=== PATIENT | male | born 1945 | race Caucasian/White ===

== ENCOUNTER 2016-11-17 06:35 | Emergency (ER) | payer MEDICARE, BC ==
[2016-11-17] MEDS ORDERED: TYLENOL 325 MG PO STA (07:32)
[2016-11-17] MEDS ORDERED: TYLENOL 325 MG ONE (07:35)
--- NOTE | 2016-11-17 07:39 | ERPHSYRPT ---
- History of Present Illness Time Seen by Provider: 11/17/16 07:20 Source: patient Exam Limitations: clinical condition Patient Subjective Stated Complaint: states that he slipped and gideon his back while getting dressed yesterday morning - is having back spasms this morning Triage Nursing Assessment: ambulatory to treatment area - steady gait - moves all extremities with equal strength. alert/oriented - pleasant affect. skin pwd - no rash/injury. resps easy - non-labored Physician History: PATIENT WITH HISTORY CORONARY ARTERY DISEASE HAD NEAR FALL WHILE PUTTING ON HIS PANTS, TWISTING HIS LOWER BACK AND NOW HAS LOWER BACK PAIN WORSE UPON MOTION AND STANDING, DENIES FALL TO FLOOR, RADIATION OF PAIN INTO BUTTOCKS OR LEGS. Timing/Duration: today Method of Injury: near fall, twisted Quality: sharp Back Pain Location: lumbar spine Severity of Pain-Max: moderate Severity of Pain-Current: moderate Modifying Factors: Improves With: movement Associated Symptoms: lower back pain, muscle spasms Previous symptoms: no prior history Allergies/Adverse Reactions: doxycycline Allergy (Mild, Verified 11/17/16 06:40) dizzy and nasuea Home Medications: Aspirin [Aspirin EC] 81 mg PO DAILY 12/01/15 [History] Fenofibrate 160 mg PO DAILY 12/01/15 [History] Losartan Potassium 50 mg [Cozaar 50 MG] 50 mg PO DAILY 12/01/15 [History] Metoprolol Tartrate 50 mg [Lopressor 50 MG] 50 mg PO BID 12/01/15 [History ] Multivitamin [Multi-Vitamin Daily] 1 tab PO DAILY 12/01/15 [History] Pravastatin Sodium 80 mg PO HS 12/01/15 [History] Rivaroxaban [Xarelto] 20 mg PO DAILY 12/01/15 [History] Hx Tetanus, Diphtheria Vaccination/Date Given: Yes Hx Influenza Vaccination/Date Given: Yes Hx Pneumococcal Vaccination/Date Given: No Immunizations Up to Date: Yes - Review of Systems Constitutional: No Fever, No Chills Eyes: No Symptoms Ears, Nose, & Throat: No Symptoms Respiratory: No Symptoms, No Cough, No Dyspnea Cardiac: No Chest Pain, No Edema, No Syncope Abdominal/Gastrointestinal: No Abdominal Pain, No Nausea, No Vomiting, No Diarrhea Genitourinary Symptoms: No Dysuria Musculoskeletal: Injury, No Back Pain, No Neck Pain Skin: No Rash Neurological: No Symptoms, No Dizziness, No Focal Weakness, No Sensory Changes Psychological: No Symptoms Endocrine: No Symptoms All Other Systems: Reviewed and Negative - Past Medical History Pertinent Past Medical History: Yes Neurological History: No Pertinent History ENT History: No Pertinent History Cardiac History: Arrhythmia, Coronary Artery Disease, High Cholesterol, Hypertension, Myocardial Infarction ([place]) Respiratory History: No Pertinent History Endocrine Medical History: No Pertinent History Musculoskeletal History: No Pertinent History GI Medical History: Colorectal Cancer, Liver Cancer History: No Pertinent History Psycho-Social History: No Pertinent History Male Reproductive Disorders: No Pertinent History Other Medical History: colon cancer - 2004. a-fib - Past Surgical History Past Surgical History: Yes Neuro Surgical History: No Pertinent History Cardiac: Cardiac Stent, Vascular Surgery Respiratory: Chest Surgery, Other Gastrointestinal: Cholecystectomy, Colon Resection, Hernia Repair, Other Genitourinary: No Pertinent History Musculoskeletal: No Pertinent History Male Surgical History: No Pertinent History Other Surgical History: LIVER RESECTION DUE TO CANCER. 4 heart stents. cvl port placement and removal. hiatal hernia repair = complications with collapsed lung during OR - Social History Smoking Status: Never smoker How long have you smoked: 30 Exposure to second hand smoke: No Alcohol Use: None Drug Use: none Patient Lives Alone: No Significant Family History: no pertinent family hx - Nursing Vital Signs Temperature: 97.7 F Pulse Rate: 68 Respiratory Rate: 14 Pain Intensity: 7 - Physical Exam General Appearance: mild distress Eye Exam: PERRL/EOMI, eyes nml inspection Neck Exam: normal inspection, non-tender, supple, full range of motion, No meningismus, No midline tenderness Respiratory Exam: normal breath sounds, lungs clear, No respiratory distress Cardiovascular Exam: regular rate/rhythm, normal heart sounds Gastrointestinal Exam: soft, No tenderness, No mass Back Exam: normal inspection, decreased range of motion, muscle spasm, point tenderness (LEFT PARASPINAL L-2 TO L-4, THERE IS NO SACROILIAC TENDERNESS) Extremity Exam: normal inspection, normal range of motion, No calf tenderness, No pedal edema Peripheral Pulses: carotid (R): 2+, carotid (L): 2+, femoral (R): 2+, femoral (L ): 2+, dorsalis-pedis (R): 2+, dorsalis-pedis (L): 2+ Neurologic Exam: alert, oriented x 3, cooperative, 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, normal mood/affect, nml station & gait, sensation nml, No motor deficits Skin Exam: normal color, warm, dry, No rash SpO2 Interpretation: normal SpO2: 98 Oxygen Delivery: Room Air - Radiology Exams L-Spine X-ray Interpretation: Interpreted by me, No Fracture, No Subluxation Ordered Tests: Active Orders 24 hr Category Date Time Status LUMBAR COMPLETE (MIN 4 VIEWS) Stat Exams 11/17/16 07:33 Taken Medication Summary Discontinued Medications Generic Name Dose Route Start Last Admin Trade Name Julianne PRN Reason Stop Dose Admin Acetaminophen 650 mg 11/17/16 07:32 11/17/16 07:37 Tylenol 325 Mg PO 11/17/16 07:33 650 mg STAT STA Administration Acetaminophen Confirm 11/17/16 07:35 Tylenol 325 Mg Administered 11/17/16 07:36 Dose 650 mg .ROUTE .STK-MED ONE - Progress Progress: pain not gone completely Progress Note: 11/17/16 07:39 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 NORFLEX 100MG TWICE DAILY NEEDED FOR MUSCLE SPASM. CONSULT YOUR FAMILY PHYSICIAN IN 1 WEEK FOR EVALUATION AND PHYSICAL THERAPY. Prescriptions: Hydrocodone/APAP 10/325 mg [[place] 10/325 MG Tablet] 1 tab PO Q4H PRN PRN # 15 tablet PRN Reason: Pain Orphenadrine Citrate 100 mg [Norflex 100 MG Tablet] 100 mg PO BID PRN #14 tab
[2016-11-17 08:39] VITALS: BP 129/78; PULSE 85; O2SAT 96
--- NOTE | 2016-11-17 09:16 | XRAY ---
Indication: Low back pain following fall. Comparison: None 5 views of the lumbar spine demonstrates 5 lumbar vertebral segments in normal alignment with mild osteopenia, mild L5-S1 degenerative disc space narrowing, and mild bilateral L5-S1 degenerative facet arthropathy. Additional mild degenerative changes of both hips. No acute fracture, subluxation, or pars interarticularis defect. There are scattered moderate vascular calcifications, diffuse scattered surgical clips, and pelvic suture material. Impression: Nonacute lumbar spine with chronic features.
== END 2016-11-17 08:39 | disposition home or self-care (01) ==
LOC: ED 06:35
DX: S33.5XXA Sprain of ligaments of lumbar spine, initial encounter (principal); I25.10 Atherosclerotic heart disease of native coronary artery without angina pectoris; X50.0XXA Overexertion from strenuous movement or load, initial encounter; M54.5 Low back pain
CPT/HCPCS: 72110; 99282; A9270-GY

== ENCOUNTER 2018-04-18 19:05 | Emergency (ER) | payer MEDICARE ==
--- NOTE | 2018-04-18 19:42 | ERPHSYRPT ---
- History of Present Illness Time Seen by Provider: 04/18/18 19:28 Source: patient Exam Limitations: no limitations Patient Subjective Stated Complaint: pt states he began having pain in his lt arm after pushing up to get off the couch. denies specific injury to lt arm. Triage Nursing Assessment: pt alert and oreinted, answers questions approp. pt ambulatory with steady gait noted, respirations nonlabored with lungs cta. skin pink warm and dry. radial pulse and cap refill to lt wnl. 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 pt reports decreased sensation to lt hand. strength to bilat lower ext wnl and equal. Physician History: Pt started c/o pain in his left elbow area, radiating to the upper arm end his forearm. He denies injury, lifting, no swelling, no neck pain, or chest pain, cough, SOB, fever, nausea, or vomiting, other complaints. He took a Tylenol without any relief. Occurred: this afternoon, hours ago (7) Quality: constant Severity of Pain-Max: severe Severity of Pain-Current: severe Extremities Pain Location: elbow: left Modifying Factors: Improves With: immobilization, movement Associated Symptoms: none Allergies/Adverse Reactions: doxycycline Allergy (Mild, Verified 04/18/18 19:26) dizzy and nasuea Home Medications: Aspirin [Aspirin EC] 81 mg PO DAILY 12/01/15 [History] Fenofibrate 160 mg PO DAILY 12/01/15 [History] Metoprolol Tartrate 50 mg [Lopressor 50 MG] 100 mg PO BID 12/01/15 [ History] Multivitamin [Multi-Vitamin Daily] 1 tab PO DAILY 12/01/15 [History] Pravastatin Sodium 80 mg PO HS 12/01/15 [History] Rivaroxaban [Xarelto] 20 mg PO DAILY 12/01/15 [History] Hx Tetanus, Diphtheria Vaccination/Date Given: Yes Hx Influenza Vaccination/Date Given: Yes Hx Pneumococcal Vaccination/Date Given: No Immunizations Up to Date: Yes - Review of Systems Constitutional: No Symptoms Cardiac: No Symptoms Musculoskeletal: Joint Pain All Other Systems: Reviewed and Negative - Past Medical History Pertinent Past Medical History: Yes Neurological History: No Pertinent History ENT History: No Pertinent History Cardiac History: Hypertension, Myocardial Infarction ([place]) Respiratory History: No Pertinent History Endocrine Medical History: No Pertinent History Musculoskeletal History: Osteoarthritis GI Medical History: Colorectal Cancer, Liver Cancer History: No Pertinent History Psycho-Social History: No Pertinent History Male Reproductive Disorders: No Pertinent History Other Medical History: colon cancer - 2004. a-fib - Past Surgical History Past Surgical History: Yes Neuro Surgical History: No Pertinent History Cardiac: Cardiac Stent, Vascular Surgery Respiratory: Chest Surgery, Other Gastrointestinal: Cholecystectomy, Colon Resection, Hernia Repair, Other Genitourinary: No Pertinent History Musculoskeletal: No Pertinent History Male Surgical History: No Pertinent History Other Surgical History: LIVER RESECTION DUE TO CANCER. 4 heart stents. cvl port placement and removal. hiatal hernia repair = complications with collapsed lung during OR - Social History Smoking Status: Former smoker How long have you smoked: 30 Exposure to second hand smoke: No Alcohol Use: None Drug Use: none Patient Lives Alone: Yes Significant Family History: no pertinent family hx - Nursing Vital Signs Nursing Vital Signs: Initial Vital Signs Temperature 97.8 F 04/18/18 19:17 Pulse Rate 89 04/18/18 19:17 Respiratory Rate 18 04/18/18 19:17 Blood Pressure 134/89 04/18/18 19:17 O2 Sat by Pulse Oximetry 98 04/18/18 19:17 Pain Scale Pain Intensity 8 - Physical Exam General Appearance: no apparent distress Eyes, Ears, Nose, Throat Exam: normal ENT inspection, moist mucous membranes Neck Exam: normal inspection, non-tender, supple, No carotid bruit, No JVD Cardiovascular/Respiratory Exam: chest non-tender, normal breath sounds, no ecchymosis, no JVD, irregularly irregular Abdominal Exam: non-tender, soft, No tenderness Shoulder Exam: normal inspection, non-tender, no evidence of injury Elbow/Forearm Exam: normal inspection, no evidence of injury, bone tenderness ( left radial epicondyle area, no swelling, redness or warmth, diminished motions due to pain, good distal pulses and sensation.) Wrist Exam: normal inspection, non-tender Hand Exam: normal inspection, non-tender Neuro/Tendon Exam: normal sensation, normal motor functions Mental Status Exam: alert, oriented x 3 Skin Exam: normal color, warm, dry, No rash SpO2 Interpretation: normal SpO2: 98 Oxygen Delivery: Room Air - Course Nursing assessment & vital signs reviewed: Yes EKG Interpreted by Me: RATE (82/min), A-fib, Left [place] Deviation, Non-specific ST Changes - Radiology Exams Left Elbow X-ray Interpretation: Interpreted by me, Negative Ordered Tests: Active Orders 24 hr Category Date Time Status EKG-ER Only STAT Care 04/18/18 19:35 Active IV Insertion STAT Care 04/18/18 19:35 Active Sling Application STAT Care 04/18/18 22:03 Ordered ELBOW (MINIMUM 3 VIEWS) Stat Exams 04/18/18 19:36 Taken CBC W DIFF Stat Lab 04/18/18 20:40 Completed CK-Creatinine Phosphokinase Stat Lab 04/18/18 20:40 Completed CMP Stat Lab 04/18/18 20:40 Completed PROTIME WITH INR Stat Lab 04/18/18 20:40 Completed PTT Stat Lab 04/18/18 20:40 Completed TROPONIN Q3H Lab 04/18/18 20:40 Completed TROPONIN Q3H Lab 04/18/18 22:45 Ordered TROPONIN Q3H Lab 04/19/18 01:45 Ordered TROPONIN Q3H Lab 04/19/18 04:45 Ordered TROPONIN Q3H Lab 04/19/18 07:45 Ordered Medication Summary Discontinued Medications Generic Name Dose Route Start Last Admin Trade Name Freq PRN Reason Stop Dose Admin Hydrocodone Bitart/Acetaminophen 1 tab 04/18/18 22:03 Elizabeth 5/325 Mg PO 04/18/18 22:04 STAT ONE Lab/Rad Data: Laboratory Result Diagrams 04/18/18 20:40 04/18/18 20:40 Laboratory Results 04/18/18 04/18/18 04/18/18 Range/Units 20:40 20:40 20:40 WBC (4.0-10.5) K/mm3 RBC (4.1-5.6) M/mm3 Hgb (12.5-18.0) gm/dl Hct (42-50) % MCV (78-100) fl MCH (26-32) pg MCHC (32-36) g/dl RDW (11.5-14.0) % Plt Count (150-450) K/mm3 MPV (6-9.5) fl Gran % (36.0-66.0) % Eos # (Auto) (0-0.5) Absolute Lymphs (auto) (1.0-4.6) Absolute Monos (auto) (0.0-1.3) Lymphocytes % (24.0-44.0) % Monocytes % (0.0-12.0) % Eosinophils % (0.00-5.0) % Basophils % (0.0-0.4) % Absolute Granulocytes (1.4-6.9) Basophils # (0-0.4) PT 40.0 H (8.83-12.87) SECONDS INR 3.40 H (0.8-3.0) APTT 39.6 H (24.1-36.1) SECONDS Sodium 142 (137-145) mmol/L Potassium 4.9 (3.5-5.1) mmol/L Chloride 106 (98-107) mmol/L Carbon Dioxide 27 (22-30) mmol/L Anion Gap 14.3 (5-15) MEQ/L BUN 26 H (9-20) mg/dL Creatinine 1.18 (0.66-1.25) mg/dL Estimated GFR > 60.0 ML/MIN Glucose 95 (74-106) mg/dL Calcium 10.0 (8.4-10.2) mg/dL Total Bilirubin 1.00 (0.2-1.3) mg/dL AST 46 (17-59) U/L ALT 28 (0-50) U/L Alkaline Phosphatase 41 (38-126) U/L Creatine Kinase 65 (55-170) U/L Troponin I < 0.012 (0.000-0.034) ng/mL Serum Total Protein 6.9 (6.3-8.2) g/dL Albumin 4.2 (3.5-5.0) g/dL 04/18/18 Range/Units 20:40 WBC 6.6 (4.0-10.5) K/mm3 RBC 4.96 (4.1-5.6) M/mm3 Hgb 15.9 (12.5-18.0) gm/dl Hct 47.2 (42-50) % MCV 95.2 (78-100) fl MCH 32.1 H (26-32) pg MCHC 33.7 (32-36) g/dl RDW 13.3 (11.5-14.0) % Plt Count 183 (150-450) K/mm3 MPV 11.0 H (6-9.5) fl Gran % 57.9 (36.0-66.0) % Eos # (Auto) 0.21 (0-0.5) Absolute Lymphs (auto) 1.91 (1.0-4.6) Absolute Monos (auto) 0.65 (0.0-1.3) Lymphocytes % 28.8 (24.0-44.0) % Monocytes % 9.8 (0.0-12.0) % Eosinophils % 3.2 (0.00-5.0) % Basophils % 0.3 (0.0-0.4) % Absolute Granulocytes 3.84 (1.4-6.9) Basophils # 0.02 (0-0.4) PT (8.83-12.87) SECONDS INR (0.8-3.0) APTT (24.1-36.1) SECONDS Sodium (137-145) mmol/L Potassium (3.5-5.1) mmol/L Chloride (98-107) mmol/L Carbon Dioxide (22-30) mmol/L Anion Gap (5-15) MEQ/L BUN (9-20) mg/dL Creatinine (0.66-1.25) mg/dL Estimated GFR ML/MIN Glucose (74-106) mg/dL Calcium (8.4-10.2) mg/dL Total Bilirubin (0.2-1.3) mg/dL AST (17-59) U/L ALT (0-50) U/L Alkaline Phosphatase (38-126) U/L Creatine Kinase (55-170) U/L Troponin I (0.000-0.034) ng/mL Serum Total Protein (6.3-8.2) g/dL Albumin (3.5-5.0) g/dL - Progress Progress: unchanged Progress Note: 04/18/18 22:05: Patient has been stable, denies chest pain or SOB, dizziness, I discussed the results with him, he was given 1 tab. Elizabeth 5/325 mg and a sling , to rest with elevated arm, apply moist heat to painful elbow and follow up with his doctor next week, return if severe pain, swelling, severe shortness of breath, chest pain or fever> 102 F. Counseled pt/family regarding: lab results, diagnosis, need for follow-up, rad results - Departure Time of Disposition: 22:06 Departure Disposition: Home Clinical Impression: Left tennis elbow Condition: Stable Critical Care Time: No Referrals: [facility] M[facility]RY [Primary Care Provider] - Instructions: Lateral Epicondylitis (DC) Additional Instructions: Rest with elevated elbow x 2-3 days, apply moist heat to painful area, and follow up with your physician next week, return if severe pain, swelling, severe shortness of breath, chest pain, fever> 102 F!
[2018-04-18 20:55] LABS: BASOPHIL % 0.3 % (0.0-0.4); Basophil (Absolute #) 0.02 (0-0.4); Eosinophil % 3.2 % (0.00-5.0); Eosinophil (Absolute #) 0.21 (0-0.5); Granulocyte Absolute (ANC) 3.84 (1.4-6.9); Granulocytes % 57.9 % (36.0-66.0); Hematocrit 47.2 % (42-50); Hemoglobin 15.9 gm/dl (12.5-18.0); Lymphocyte (Absolute #) 1.91 (1.0-4.6); Lymphocytes % 28.8 % (24.0-44.0); Mean Cell Volume 95.2 fl (78-100); Mean Corpuscular Hemoglobin 32.1 pg (26-32); Mean Corpuscular Hgb Concent. 33.7 g/dl (32-36); Monocyte (Absolute #) 0.65 (0.0-1.3); Monocytes % 9.8 % (0.0-12.0); Platelet Count 183 K/mm3 (150-450); Red Blood Count 4.96 M/mm3 (4.1-5.6); Red Cell Distribution Width 13.3 % (11.5-14.0); White Blood Count 6.6 K/mm3 (4.0-10.5)
[2018-04-18 21:12] LABS: ALBUMIN 4.2 g/dL (3.5-5.0); ALKALINE PHOSPHATASE 41 U/L (38-126); ANION GAP 14.3 MEQ/L (5-15); BLOOD UREA NITROGEN 26 mg/dL (9-20); CHLORIDE 106 mmol/L (98-107); CK-Creatinine Phosphokinase 65 U/L (55-170); Carbon Dioxide 27 mmol/L (22-30); Creatinine 1 1.18 mg/dL (0.66-1.25); Glucose 95 mg/dL (74-106); Potassium 4.9 mmol/L (3.5-5.1); SGOT/AST 46 U/L (17-59); SGPT/ALT 28 U/L (0-50); SODIUM 142 mmol/L (137-145); Total Protein 6.9 g/dL (6.3-8.2)
[2018-04-18 21:48] LABS: INR 3.4 (0.8-3.0)
[2018-04-18 21:51] LABS: PTT 39.6 SECONDS (24.1-36.1)
[2018-04-18] MEDS ORDERED: NORCO 5/325 MG PO ONE (22:03)
[2018-04-18] MEDS ORDERED: NORCO 5/325 MG ONE (22:06)
[2018-04-18 22:07] VITALS: BP 155/96
[2018-04-18 22:31] VITALS: PULSE 97; O2SAT 97
--- NOTE | 2018-04-19 09:02 | XRAY ---
Indication: Pain. No known injury. Comparison: None 3 views of the left elbow demonstrates tiny spurring of the medial epicondyle and coronoid process. No other bony, articular, or soft tissue abnormalities.
== END 2018-04-18 22:29 | disposition home or self-care (01) ==
LOC: ED 19:05
DX: I10 Essential (primary) hypertension (principal); I25.2 Old myocardial infarction; M19.90 Unspecified osteoarthritis, unspecified site; Z85.038 Personal history of other malignant neoplasm of large intestine; Z85.05 Personal history of malignant neoplasm of liver; I48.91 Unspecified atrial fibrillation; Z90.49 Acquired absence of other specified parts of digestive tract
CPT/HCPCS: 36000; 36415; 73080; 80053; 82550; 84484; 85025; 85610; 85730; 93005; 99284; A9270-GY

== ENCOUNTER 2018-10-07 23:54 | Emergency (ER) | payer MEDICARE ==
[2018-10-08] MEDS ORDERED: DUONEB 0.5-3 MG/3 ml Neb IH ONE ×2 (00:11→00:25)
[2018-10-08] MEDS ORDERED: Sodium Chloride 0.9% 1000 ML 1,000 ML IV SCH (00:15)
--- NOTE | 2018-10-08 00:16 | ERPHSYRPT ---
- History of Present Illness Time Seen by Provider: 10/08/18 00:13 Source: patient Exam Limitations: no limitations Patient Subjective Stated Complaint: patietn states he having upper respiratory issues nad trouble breathing feelsl iek he is short of breath [facility] and [facility] him medications but he didnt take 1 because he cant with his afibthey flu swabbed him and he was neg per patient Triage Nursing Assessment: pt alert and orientedx3, able to ambulate by self, gait is steady, airway is patent, patient has no obstructions , nasal cavities do show drainage, patient lung soudns clear with some upper airway crackles, pulses equal bialteral radius, skin warm dry and intact, patietn anxious about medicines given adn concerned about not being malathi to breath. intermittant coughing. Physician History: c/o shortness of breath for 1-2 days, no fever, no chest pain Timing/Duration: day(s) (2) Activities at Onset: none Severity of Dyspnea-Max: mild Severity of Dyspnea-Current: mild Possible Cause: frequent episodes Associated Symptoms: dizziness International travel in last 2 weeks: No Allergies/Adverse Reactions: doxycycline Allergy (Mild, Verified 04/18/18 19:26) dizzy and nasuea Home Medications: Aspirin [Aspirin EC] 81 mg PO DAILY 12/01/15 [History] Fenofibrate 160 mg PO DAILY 12/01/15 [History] Metoprolol Tartrate 50 mg [Lopressor 50 MG] 100 mg PO BID 12/01/15 [ History] Multivitamin [Multi-Vitamin Daily] 1 tab PO DAILY 12/01/15 [History] Pravastatin Sodium 80 mg PO HS 12/01/15 [History] Rivaroxaban [Xarelto] 20 mg PO DAILY 12/01/15 [History] Finasteride 1 tab PO DAILY 10/08/18 [History] Hx Tetanus, Diphtheria Vaccination/Date Given: Yes Hx Influenza Vaccination/Date Given: Yes Hx Pneumococcal Vaccination/Date Given: Yes Immunizations Up to Date: Yes - Review of Systems Constitutional: No Fever, No Chills Eyes: No Symptoms Ears, Nose, & Throat: No Symptoms Respiratory: Dyspnea, Dyspnea on Exertion (YANEZ), No Cough Cardiac: No Chest Pain, No Edema, No Syncope Abdominal/Gastrointestinal: No Abdominal Pain, No Nausea, No Vomiting, No Diarrhea Genitourinary Symptoms: No Dysuria Musculoskeletal: No Back Pain, No Neck Pain Skin: No Rash Neurological: Dizziness, No Focal Weakness, No Headache, No Sensory Changes Psychological: No Symptoms Endocrine: No Symptoms All Other Systems: Reviewed and Negative - Past Medical History Pertinent Past Medical History: Yes Neurological History: Peripheral Neuropathy ENT History: No Pertinent History Cardiac History: Angina, Arrhythmia, High Cholesterol, Hypertension, Myocardial Infarction ([place]) Respiratory History: No Pertinent History Endocrine Medical History: No Pertinent History Musculoskeletal History: No Pertinent History GI Medical History: Colorectal Cancer, Liver Cancer History: No Pertinent History Psycho-Social History: No Pertinent History Male Reproductive Disorders: No Pertinent History Other Medical History: colon cancer - 2004. a-fib - Past Surgical History Past Surgical History: Yes Neuro Surgical History: No Pertinent History Cardiac: Cardiac Stent, Vascular Surgery Respiratory: Chest Surgery, Other Gastrointestinal: Cholecystectomy, Colon Resection, Hernia Repair, Other Genitourinary: No Pertinent History Musculoskeletal: No Pertinent History Male Surgical History: No Pertinent History Other Surgical History: LIVER RESECTION DUE TO CANCER. 4 heart stents. cvl port placement and removal. hiatal hernia repair = complications with collapsed lung during OR - Social History Smoking Status: Never smoker How long have you smoked: 30 Exposure to second hand smoke: No Alcohol Use: None Drug Use: none Patient Lives Alone: Yes Significant Family History: no pertinent family hx - Nursing Vital Signs Nursing Vital Signs: Initial Vital Signs Temperature 97.4 F 10/07/18 23:55 Pulse Rate 109 H 10/07/18 23:55 Respiratory Rate 22 10/07/18 23:55 Blood Pressure 172/115 10/07/18 23:55 O2 Sat by Pulse Oximetry 97 10/07/18 23:55 Pain Scale Pain Intensity 0 - Physical Exam General Appearance: no apparent distress, alert Eye Exam: PERRL/EOMI Neck Exam: normal inspection, supple Respiratory Exam: diminished breath sounds Cardiovascular/Chest Exam: normal heart sounds, regular rate/rhythm Abdominal/Gastrointestinal Exam: soft, No tenderness, No distention, No mass Extremity Exam: non-tender, normal range of motion, normal inspection, no calf tenderness, no pedal edema Neurologic Exam: alert, oriented x 3, cooperative, credit administration specialist II-XII nml as tested, sensation nml, No motor deficits Skin Exam: normal color, warm, No dry SpO2 Interpretation: normal SpO2: 97 Ordered Tests: Active Orders 24 hr Category Date Time Status Tar Worker STAT Care 10/08/18 00:13 Active EKG-ER Only STAT Care 10/08/18 00:11 Active Oxygen-ED Only Nasal Cannula 2 lpm Care 10/08/18 00:11 Active CHEST 1 VIEW (PORTABLE) Stat Exams 10/08/18 00:12 Taken CBC W DIFF Stat Lab 10/08/18 00:18 Completed CMP Stat Lab 10/08/18 00:18 Completed Lactic Acid Stat Lab 10/08/18 00:15 Completed NT PRO BNP Stat Lab 10/08/18 00:18 Completed PROTIME WITH INR Stat Lab 10/08/18 00:18 Completed TROPONIN Q3H Lab 10/08/18 00:18 Completed TROPONIN Q3H Lab 10/08/18 03:15 Ordered TROPONIN Q3H Lab 10/08/18 06:15 Ordered TROPONIN Q3H Lab 10/08/18 09:15 Ordered TROPONIN Q3H Lab 10/08/18 12:15 Ordered Peak Expiratory Flow Rate ONCE RT 10/08/18 00:30 Active Respiratory Nebulizer STAT RT 10/08/18 00:13 Completed Respiratory Therapy Assessment DAILY RT 10/08/18 00:30 Active Medication Summary Generic Name Dose Route Start Last Admin Trade Name Freq PRN Reason Stop Dose Admin Sodium Chloride 1,000 mls @ 100 mls/hr 10/08/18 00:15 10/08/18 00:22 Sodium Chloride 0.9% 1000 Ml IV 11/07/18 00:14 100 mls/hr .Q10H AMBER Administration Discontinued Medications Generic Name Dose Route Start Last Admin Trade Name Freq PRN Reason Stop Dose Admin Albuterol/Ipratropium 3 ml 10/08/18 00:11 10/08/18 00:27 Duoneb 0.5-3 Mg/3 Ml Neb IH 10/08/18 00:12 3 ml STAT ONE Administration Albuterol/Ipratropium Confirm 10/08/18 00:25 Duoneb 0.5-3 Mg/3 Ml Neb Administered 10/08/18 00:26 Dose 3 ml IH .STK-MED ONE Furosemide 20 mg 10/08/18 01:17 Lasix 20 Mg PO 10/08/18 01:18 DAILY STA Lab/Rad Data: Laboratory Result Diagrams 10/08/18 00:18 10/08/18 00:18 Laboratory Results 10/08/18 10/08/18 10/08/18 Range/Units 00:18 00:18 00:18 WBC (4.0-10.5) K/mm3 RBC (4.1-5.6) M/mm3 Hgb (12.5-18.0) gm/dl Hct (42-50) % MCV (78-100) fl MCH (26-32) pg MCHC (32-36) g/dl RDW (11.5-14.0) % Plt Count (150-450) K/mm3 MPV (6-9.5) fl Gran % (36.0-66.0) % Eos # (Auto) (0-0.5) Absolute Lymphs (auto) (1.0-4.6) Absolute Monos (auto) (0.0-1.3) Lymphocytes % (24.0-44.0) % Monocytes % (0.0-12.0) % Eosinophils % (0.00-5.0) % Basophils % (0.0-0.4) % Absolute Granulocytes (1.4-6.9) Basophils # (0-0.4) PT 18.4 H (8.83-12.87) SECONDS INR 1.57 (0.8-3.0) Sodium 142 (137-145) mmol/L Potassium 4.0 (3.5-5.1) mmol/L Chloride 108 H (98-107) mmol/L Carbon Dioxide 24 (22-30) mmol/L Anion Gap 13.2 (5-15) MEQ/L BUN 17 (9-20) mg/dL Creatinine 0.98 (0.66-1.25) mg/dL Estimated GFR > 60.0 ML/MIN Glucose 120 H (74-106) mg/dL Lactic Acid (0.4-2.0) Calcium 9.2 (8.4-10.2) mg/dL Total Bilirubin 1.20 (0.2-1.3) mg/dL AST 38 (17-59) U/L ALT 34 (0-50) U/L Alkaline Phosphatase 44 (38-126) U/L Troponin I < 0.012 (0.000-0.034) ng/mL NT-Pro-B Natriuret Pep 1240 H (0-900) pg/mL Serum Total Protein 6.6 (6.3-8.2) g/dL Albumin 3.9 (3.5-5.0) g/dL 10/08/18 10/08/18 Range/Units 00:18 00:15 WBC 7.1 (4.0-10.5) K/mm3 RBC 4.25 (4.1-5.6) M/mm3 Hgb 13.7 (12.5-18.0) gm/dl Hct 41.6 L (42-50) % MCV 97.9 (78-100) fl MCH 32.2 H (26-32) pg MCHC 32.9 (32-36) g/dl RDW 13.7 (11.5-14.0) % Plt Count 161 (150-450) K/mm3 MPV 11.5 H (6-9.5) fl Gran % 60.3 (36.0-66.0) % Eos # (Auto) 0.63 H (0-0.5) Absolute Lymphs (auto) 1.51 (1.0-4.6) Absolute Monos (auto) 0.67 (0.0-1.3) Lymphocytes % 21.1 L (24.0-44.0) % Monocytes % 9.4 (0.0-12.0) % Eosinophils % 8.8 H (0.00-5.0) % Basophils % 0.4 (0.0-0.4) % Absolute Granulocytes 4.30 (1.4-6.9) Basophils # 0.03 (0-0.4) PT (8.83-12.87) SECONDS INR (0.8-3.0) Sodium (137-145) mmol/L Potassium (3.5-5.1) mmol/L Chloride (98-107) mmol/L Carbon Dioxide (22-30) mmol/L Anion Gap (5-15) MEQ/L BUN (9-20) mg/dL Creatinine (0.66-1.25) mg/dL Estimated GFR ML/MIN Glucose (74-106) mg/dL Lactic Acid 1.2 (0.4-2.0) Calcium (8.4-10.2) mg/dL Total Bilirubin (0.2-1.3) mg/dL AST (17-59) U/L ALT (0-50) U/L Alkaline Phosphatase (38-126) U/L Troponin I (0.000-0.034) ng/mL NT-Pro-B Natriuret Pep (0-900) pg/mL Serum Total Protein (6.3-8.2) g/dL Albumin (3.5-5.0) g/dL - Progress Progress: improved Air Movement: good Blood Culture(s) Obtained: No Antibiotics given: No Counseled pt/family regarding: lab results, diagnosis, need for follow-up, rad results - Departure Time of Disposition: 01:18 Departure Disposition: Home Clinical Impression: Shortness of breath at rest Hypertension Qualifiers: Hypertension type: essential hypertension Qualified Code(s): I10 - Essential ( primary) hypertension Condition: Stable Critical Care Time: Yes Critical Care Time(excluding separately billable procedures): 30-74 minutes Referrals: [facility] [Primary Care Provider] - Instructions: Shortness of Breath (Dyspnea) (DC) Additional Instructions: Please follow the instructions given to you. Please take your medication as prescribed if given. If symptoms recur or get worse, come back to the emergency room if you cannot reach your primary care physician, or call your primary care physician for an appointment. Again if your symptoms get worse, come back to the emergency room. Thanks for visiting emergency room, and let us take care of you. Prescriptions: Potassium Chloride [K-Dur] 10 meq PO DAILY #30 tab.er.prt Furosemide 20 mg [Lasix 20 mg] 20 mg PO DAILY #30 tablet
[2018-10-08] MEDS ORDERED: Sodium Chloride 0.9% 1000 ML 1,000 ML ONE (00:21)
[2018-10-08 00:25] LABS: BASOPHIL % 0.4 % (0.0-0.4); Basophil (Absolute #) 0.03 (0-0.4); Eosinophil % 8.8 % (0.00-5.0); Eosinophil (Absolute #) 0.63 (0-0.5); Granulocytes % 60.3 % (36.0-66.0); Hematocrit 41.6 % (42-50); Hemoglobin 13.7 gm/dl (12.5-18.0); Lymphocyte (Absolute #) 1.51 (1.0-4.6); Lymphocytes % 21.1 % (24.0-44.0); Mean Cell Volume 97.9 fl (78-100); Mean Corpuscular Hemoglobin 32.2 pg (26-32); Mean Corpuscular Hgb Concent. 32.9 g/dl (32-36); Mean Platelet Volume 11.5 fl (6-9.5); Monocyte (Absolute #) 0.67 (0.0-1.3); Monocytes % 9.4 % (0.0-12.0); Platelet Count 161 K/mm3 (150-450); Red Blood Count 4.25 M/mm3 (4.1-5.6); Red Cell Distribution Width 13.7 % (11.5-14.0); White Blood Count 7.1 K/mm3 (4.0-10.5)
[2018-10-08 00:28] LABS: INR 1.57 (0.8-3.0); PROTIME 18.4 SECONDS (8.83-12.87)
[2018-10-08 00:47] LABS: ALBUMIN 3.9 g/dL (3.5-5.0); ALKALINE PHOSPHATASE 44 U/L (38-126); ANION GAP 13.2 MEQ/L (5-15); BLOOD UREA NITROGEN 17 mg/dL (9-20); CHLORIDE 108 mmol/L (98-107); Calcium 9.2 mg/dL (8.4-10.2); Carbon Dioxide 24 mmol/L (22-30); Creatinine 1 0.98 mg/dL (0.66-1.25); Glucose 120 mg/dL (74-106); NT PRO BNP 1240 pg/mL (0-900); SGOT/AST 38 U/L (17-59); SGPT/ALT 34 U/L (0-50); SODIUM 142 mmol/L (137-145); Total Protein 6.6 g/dL (6.3-8.2)
[2018-10-08 01:03] VITALS: BP 129/78; PULSE 99
[2018-10-08] MEDS ORDERED: LASIX 20 MG PO STA (01:17)
[2018-10-08 01:21] VITALS: O2SAT 97
--- NOTE | 2018-10-08 08:29 | XRAY ---
Indication: Short of breath. Comparison: March 16, 2018. Portable chest slightly rotated and again hyperinflated. No focal infiltrate, consolidation, or large effusion. Heart and mediastinal structures within normal limits. Bony thorax intact again with mild degenerative changes. No new/acute findings. Impression: Stable nonacute chest with chronic features.
== END 2018-10-08 01:52 | disposition home or self-care (01) ==
LOC: ED 23:54
DX: R06.02 Shortness of breath (principal); I10 Essential (primary) hypertension; Z85.05 Personal history of malignant neoplasm of liver; Z79.01 Long term (current) use of anticoagulants; Z79.899 Other long term (current) drug therapy; G62.9 Polyneuropathy, unspecified; E78.00 Pure hypercholesterolemia, unspecified; I25.2 Old myocardial infarction; Z86.010 Personal history of colon polyps
CPT/HCPCS: 36415; 71045; 80053; 83605; 83880; 84484; 85025; 85610; 93005; 93041; 94150; 94640; 96360; 99284; A9270-GY

== ENCOUNTER 2018-10-08 10:58 | Emergency (ER) | payer MEDICARE ==
[2018-10-08 11:15] VITALS: O2SAT 95
[2018-10-08] MEDS ORDERED: Sodium Chloride 0.9% 1000 ML 1,000 ML IV STA (11:37)
[2018-10-08] MEDS ORDERED: Zofran 4 MG/2 ML VIAL IV ONE ×2 (11:37→13:32)
--- NOTE | 2018-10-08 11:40 | ERPHSYRPT ---
- History of Present Illness Time Seen by Provider: 10/08/18 11:38 Source: patient Exam Limitations: no limitations Patient Subjective Stated Complaint: Vomiting for 3 hours, Triage Nursing Assessment: Patient ambulated into ED and transferred self to bed. Patient complains of vomiting since 0830 non stop. Patient states he was seen in ER last noc for SOB. Patient denies SOB. Patient states he took his atb Cefinir 300mg with food about 0700 then started vomiting at 0830. Patient stated he was having dry heaves last night with no emesis. Patient's abdomen round and soft with BS present. Patient denies pain or discomfort. Physician History: Patient complains of vomiting since 0830 non stop. Patient states he was seen in ER last noc for SOB. Patient denies SOB. Patient states he took his atb Cefinir 300mg with food about 0700 then started vomiting at 0830. Patient stated he was having dry heaves last night with no emesis. Patient's abdomen round and soft with BS present. Patient denies pain or discomfort. Patient was in ER last night with shortness of breath. All work up was negative. He was advised to only take rest of the antibiotics. Timing/Duration: today Allergies/Adverse Reactions: doxycycline Allergy (Mild, Verified 10/08/18 11:06) dizzy and nasuea Home Medications: Aspirin [Aspirin EC] 81 mg PO DAILY 12/01/15 [History] Fenofibrate 160 mg PO DAILY 12/01/15 [History] Metoprolol Tartrate 50 mg [Lopressor 50 MG] 100 mg PO BID 12/01/15 [ History] Multivitamin [Multi-Vitamin Daily] 1 tab PO DAILY 12/01/15 [History] Pravastatin Sodium 80 mg PO HS 12/01/15 [History] Rivaroxaban [Xarelto] 20 mg PO DAILY 12/01/15 [History] Finasteride 1 tab PO DAILY 10/08/18 [History] Hx Tetanus, Diphtheria Vaccination/Date Given: Yes Hx Influenza Vaccination/Date Given: Yes Hx Pneumococcal Vaccination/Date Given: Yes Immunizations Up to Date: Yes - Review of Systems Constitutional: No Fever, No Chills Eyes: No Symptoms Ears, Nose, & Throat: No Symptoms Respiratory: No Cough, No Dyspnea Cardiac: No Chest Pain, No Edema, No Syncope Abdominal/Gastrointestinal: Vomiting, No Abdominal Pain, No Nausea, No Diarrhea Genitourinary Symptoms: No Dysuria Musculoskeletal: No Back Pain, No Neck Pain Skin: No Rash Neurological: No Dizziness, No Focal Weakness, No Sensory Changes Psychological: No Symptoms Endocrine: No Symptoms All Other Systems: Reviewed and Negative - Past Medical History Pertinent Past Medical History: Yes Neurological History: Peripheral Neuropathy ENT History: No Pertinent History Cardiac History: Angina, Arrhythmia, High Cholesterol, Hypertension, Myocardial Infarction ([place]) Respiratory History: No Pertinent History Endocrine Medical History: No Pertinent History Musculoskeletal History: No Pertinent History GI Medical History: Colorectal Cancer, Liver Cancer History: No Pertinent History Psycho-Social History: No Pertinent History Male Reproductive Disorders: No Pertinent History Other Medical History: colon cancer - 2004. a-fib - Past Surgical History Past Surgical History: Yes Neuro Surgical History: No Pertinent History Cardiac: Cardiac Stent, Vascular Surgery Respiratory: Chest Surgery, Other Gastrointestinal: Cholecystectomy, Colon Resection, Hernia Repair, Other Genitourinary: No Pertinent History Musculoskeletal: No Pertinent History Male Surgical History: No Pertinent History Other Surgical History: LIVER RESECTION DUE TO CANCER. 4 heart stents. cvl port placement and removal. hiatal hernia repair = complications with collapsed lung during OR - Social History Smoking Status: Never smoker How long have you smoked: 30 Exposure to second hand smoke: No Alcohol Use: None Drug Use: none Patient Lives Alone: Yes Significant Family History: no pertinent family hx - Nursing Vital Signs Nursing Vital Signs: Initial Vital Signs Temperature 97.1 F 10/08/18 11:06 Pulse Rate 97 H 10/08/18 11:06 Respiratory Rate 18 10/08/18 11:06 Blood Pressure 130/109 10/08/18 11:06 O2 Sat by Pulse Oximetry 95 10/08/18 11:06 Pain Scale Pain Intensity 0 - Physical Exam General Appearance: no apparent distress, alert Eye Exam: PERRL/EOMI, eyes nml inspection Ears, Nose, Throat Exam: normal ENT inspection, TMs normal, pharynx normal, moist mucous membranes Neck Exam: normal inspection, non-tender, supple, full range of motion Respiratory Exam: normal breath sounds, lungs clear, No respiratory distress Cardiovascular Exam: regular rate/rhythm, normal heart sounds, normal peripheral pulses Gastrointestinal/Abdomen Exam: soft, normal bowel sounds, No tenderness, No mass Back Exam: normal inspection, normal range of motion, No CVA tenderness, No vertebral tenderness Extremity Exam: normal inspection, normal range of motion, pelvis stable Neurologic Exam: alert, oriented x 3, cooperative, normal mood/affect, nml cerebellar function, nml station & gait, sensation nml, No motor deficits Skin Exam: normal color, warm, dry, No rash Lymphatic Exam: No adenopathy SpO2: 95 - Course Nursing assessment & vital signs reviewed: Yes Ordered Tests: Medication Summary Generic Name Dose Route Start Last Admin Trade Name Freq PRN Reason Stop Dose Admin Sodium Chloride 1,000 mls @ 999 mls/hr 10/08/18 11:37 10/08/18 12:04 Sodium Chloride 0.9% 1000 Ml IV 10/08/18 12:37 999 mls/hr .Q1H1M STA Administration Discontinued Medications Generic Name Dose Route Start Last Admin Trade Name Freq PRN Reason Stop Dose Admin Sodium Chloride Confirm 10/08/18 12:03 Sodium Chloride 0.9% 1000 Ml Administered 10/08/18 12:04 Dose 1,000 mls @ ud .ROUTE .STK-MED ONE Ondansetron HCl 4 mg 10/08/18 11:37 10/08/18 12:03 Zofran 4 Mg/2 Ml Vial IV 10/08/18 11:38 4 mg STAT ONE Administration Ondansetron HCl Confirm 10/08/18 12:02 Zofran 4 Mg/2 Ml Vial Administered 10/08/18 12:03 Dose 4 mg .ROUTE .STK-MED ONE - Progress Progress: improved Counseled pt/family regarding: diagnosis, need for follow-up - Departure Time of Disposition: 12:19 Departure Disposition: Home Clinical Impression: Vomiting Qualifiers: Vomiting type: unspecified Vomiting Intractability: non-intractable Nausea presence: without nausea Qualified Code(s): R11.11 - Vomiting without nausea Condition: Stable Critical Care Time: No Referrals: [facility] [Primary Care Provider] - Instructions: Vomiting -- Adult Additional Instructions: VOMITING AND DIARRHEA 1. Take only small amounts of clear, cool liquids at frequent intervals as tolerated for the next 24-48 hours. Avoid milk products and orange juice. Clear liquids are those liquids which you can see through. 2. Pedialyte and popsicles are recommended clear liquids. 3. If the condition worsens you should contact your family physician or return to the emergency department for re-evaluation. Forms: Work/School Release Form Prescriptions: Ondansetron ODT 4 MG [Zofran Odt 4 mg] 4 mg PO Q6H PRN PRN #10 tab.rapdis PRN Reason: Vomiting
[2018-10-08] MEDS ORDERED: Zofran 4 MG/2 ML VIAL ONE ×2 (12:02→13:34)
[2018-10-08] MEDS ORDERED: Sodium Chloride 0.9% 1000 ML 1,000 ML ONE (12:03)
[2018-10-08 13:30] VITALS: BP 162/104; PULSE 112
[2018-10-08] MEDS ORDERED: MAALOX ES 30 ML UNIT DOSE PO ONE (13:33)
[2018-10-08] MEDS ORDERED: MAALOX ES 30 ML UNIT DOSE ONE (13:34)
== END 2018-10-08 13:58 | disposition home or self-care (01) ==
LOC: ED 10:58
DX: R11.11 Vomiting without nausea (principal); I10 Essential (primary) hypertension; E78.00 Pure hypercholesterolemia, unspecified; G62.9 Polyneuropathy, unspecified; Z79.01 Long term (current) use of anticoagulants; Z79.899 Other long term (current) drug therapy; Z85.038 Personal history of other malignant neoplasm of large intestine; Z85.05 Personal history of malignant neoplasm of liver; Z90.49 Acquired absence of other specified parts of digestive tract; I25.2 Old myocardial infarction
CPT/HCPCS: 36000; 96360; 96374; 96376; 99284; J2405; A9270-GY

== ENCOUNTER 2019-07-15 09:05 | Emergency (ER) | payer MEDICARE ==
--- NOTE | 2019-07-15 09:27 | ERPHSYRPT ---
- History of Present Illness Time Seen by Provider: 07/15/19 09:24 Historian: patient Exam Limitations: no limitations Patient Subjective Stated Complaint: Left rib pain Triage Nursing Assessment: Patient ambulated back to ED and transferred self to bed. Patient A+O X3. Patient's skin pink, warm and dry. Patient complains of left sided rib pain that started yesterday. Patient currently denies pain, but states the pain is intermittent and when it starts is a constant sharp pain 10/ 10. Patient denies injruy. No bruising or injuires noted to left side of ribs. Lungs clear a/p wendy. O2 98% on room air. Physician History: Patient is 74-year-old male with significant past medical history of colon cancer metastasized to the liver for which patient underwent colectomy also had a history of hiatal hernia for which she underwent Enrico plication, started having left upper quadrant abdominal pain, started suddenly, and was so severe to bend over. He denies any nausea, vomiting, diarrhea, constipation, fever, or chills. Timing/Duration: today Quality: cramping Abdominal Pain Onset Location: [facility] Pain Radiation: no radiation Severity of Pain-Max: severe Severity of Pain-Current: moderate Modifying Factors: Improves With: nothing Previous symptoms: no prior history Allergies/Adverse Reactions: doxycycline Allergy (Mild, Verified 07/15/19 09:09) dizzy and nasuea cefdinir Allergy (Verified 07/15/19 09:19) Home Medications: Aspirin [Aspirin EC] 81 mg PO DAILY 12/01/15 [History] Fenofibrate 160 mg PO DAILY 12/01/15 [History] Metoprolol Tartrate 50 mg [Lopressor 50 MG] 75 mg PO BID 12/01/15 [History ] Multivitamin [Multi-Vitamin Daily] 1 tab PO DAILY 12/01/15 [History] Pravastatin Sodium 80 mg PO HS 12/01/15 [History] Rivaroxaban [Xarelto] 20 mg PO DAILY 12/01/15 [History] Finasteride 1 tab PO DAILY 10/08/18 [History] Tamsulosin HCl 0.4 mg [Flomax 0.4 MG] 1 tab PO DAILY 07/15/19 [History] Tizanidine HCl 4 mg [Zanaflex 4 MG] 2 tab-cap PO HS 07/15/19 [History] Hx Tetanus, Diphtheria Vaccination/Date Given: Yes Hx Influenza Vaccination/Date Given: Yes (04/18/19) Hx Pneumococcal Vaccination/Date Given: Yes (03/22/2012) Immunizations Up to Date: Yes - Review of Systems Constitutional: No Fever, No Chills Eyes: No Symptoms Ears, Nose, & Throat: No Symptoms Respiratory: No Cough, No Dyspnea Cardiac: No Chest Pain, No Edema, No Syncope Abdominal/Gastrointestinal: Abdominal Pain, No Nausea, No Vomiting, No Diarrhea Genitourinary Symptoms: No Dysuria Musculoskeletal: No Back Pain, No Neck Pain Skin: No Rash Neurological: No Dizziness, No Focal Weakness, No Sensory Changes Psychological: No Symptoms Endocrine: No Symptoms All Other Systems: Reviewed and Negative - Past Medical History Pertinent Past Medical History: Yes Neurological History: No Pertinent History ENT History: No Pertinent History Cardiac History: High Cholesterol, Hypertension, Myocardial Infarction ([place]) Respiratory History: No Pertinent History Endocrine Medical History: No Pertinent History Musculoskeletal History: Fractures GI Medical History: Colorectal Cancer, Liver Cancer History: No Pertinent History Psycho-Social History: No Pertinent History Male Reproductive Disorders: No Pertinent History Other Medical History: History of Colon and Liver Cancers, Myocardial Infarction x2, - Past Surgical History Past Surgical History: Yes Neuro Surgical History: No Pertinent History Cardiac: Cardiac Stent, Vascular Surgery Respiratory: Chest Surgery, Other Gastrointestinal: Cholecystectomy, Colon Resection, Hernia Repair, Other Genitourinary: No Pertinent History Musculoskeletal: No Pertinent History Male Surgical History: No Pertinent History Other Surgical History: LIVER RESECTION DUE TO CANCER. 4 heart stents. cvl port placement and removal. hiatal hernia repair = complications with collapsed lung during OR - Social History Smoking Status: Never smoker How long have you smoked: 30 Exposure to second hand smoke: No Alcohol Use: None Drug Use: none Patient Lives Alone: Yes Significant Family History: no pertinent family hx - Nursing Vital Signs Nursing Vital Signs: Initial Vital Signs Temperature 98.0 F 07/15/19 09:11 Pulse Rate 62 07/15/19 09:11 Respiratory Rate 18 07/15/19 09:11 Blood Pressure 147/98 07/15/19 09:11 O2 Sat by Pulse Oximetry 99 07/15/19 09:11 Pain Scale Pain Intensity 0 - Physical Exam General Appearance: no apparent distress, alert Eye Exam: PERRL/EOMI, eyes nml inspection Ears, Nose, Throat Exam: normal ENT inspection, pharynx normal, moist mucous membranes Neck Exam: normal inspection, non-tender, supple, full range of motion Respiratory Exam: normal breath sounds, lungs clear, No respiratory distress Cardiovascular Exam: regular rate/rhythm, normal heart sounds Gastrointestinal/Abdomen Exam: soft, tenderness (left upper quadrant), No mass Back Exam: normal inspection, normal range of motion, No CVA tenderness, No vertebral tenderness Extremity Exam: normal inspection, normal range of motion, pelvis stable Neurologic Exam: alert, oriented x 3, cooperative, normal mood/affect, nml cerebellar function, sensation nml, No motor deficits Skin Exam: normal color, warm, dry SpO2: 99 - Course Nursing assessment & vital signs reviewed: Yes - CT Exams Abdomen/Pelvis CT Interpretation: Tele-radiologist Report (Probable mild, small bulla distance on the left abdomen.) Ordered Tests: Active Orders 24 hr Category Date Time Status IV Insertion STAT Care 07/15/19 09:22 Active ABDOMEN AND PELVIS W/0 CONTRAS [CT] Stat Exams 07/15/19 09:22 Taken AMYLASE Stat Lab 07/15/19 09:32 Completed CBC W DIFF Stat Lab 07/15/19 09:32 Completed CMP Stat Lab 07/15/19 09:32 Completed LIPASE Stat Lab 07/15/19 09:32 Completed Lab/Rad Data: Laboratory Result Diagrams 07/15/19 09:32 07/15/19 09:32 Laboratory Results 07/15/19 07/15/19 Range/Units 09:32 09:32 WBC 4.9 (4.0-10.5) K/mm3 RBC 4.34 (4.1-5.6) M/mm3 Hgb 13.8 (12.5-18.0) gm/dl Hct 41.7 L (42-50) % MCV 96.1 (78-100) fl MCH 31.8 (26-32) pg MCHC 33.1 (32-36) g/dl RDW 13.4 (11.5-14.0) % Plt Count 159 (150-450) K/mm3 MPV 10.7 H (6-9.5) fl Gran % 47.9 (36.0-66.0) % Eos # (Auto) 0.30 (0-0.5) Absolute Lymphs (auto) 1.70 (1.0-4.6) Absolute Monos (auto) 0.50 (0.0-1.3) Lymphocytes % 35.0 (24.0-44.0) % Monocytes % 10.3 (0.0-12.0) % Eosinophils % 6.2 H (0.00-5.0) % Basophils % 0.6 (0.0-0.4) % Absolute Granulocytes 2.33 (1.4-6.9) Basophils # 0.03 (0-0.4) Sodium 140 (137-145) mmol/L Potassium 4.5 (3.5-5.1) mmol/L Chloride 108 H (98-107) mmol/L Carbon Dioxide 29 (22-30) mmol/L Anion Gap 7.8 (5-15) MEQ/L BUN 20 (9-20) mg/dL Creatinine 0.91 (0.66-1.25) mg/dL Estimated GFR > 60.0 ML/MIN Glucose 114 H (74-106) mg/dL Calcium 9.0 (8.4-10.2) mg/dL Total Bilirubin 0.80 (0.2-1.3) mg/dL AST 39 (17-59) U/L ALT 31 (0-50) U/L Alkaline Phosphatase 41 (38-126) U/L Serum Total Protein 6.6 (6.3-8.2) g/dL Albumin 3.6 (3.5-5.0) g/dL Amylase 81 (30-110) U/L Lipase 120 (23-300) U/L - Progress Progress: improved Counseled pt/family regarding: lab results, diagnosis, need for follow-up, rad results - Departure Departure Disposition: Home Clinical Impression: Abdominal pain, acute, left upper quadrant Condition: Stable Critical Care Time: No Referrals: [facility] IM[facility]Y [Primary Care Provider] - Instructions: Acute Abdomen (Belly Pain), Adult (DC) Additional Instructions: ABDOMINAL PAIN 1. There are several different causes for abdominal pain, some of which may not be able to be identified on initial examination. 2. The important thing to remember is that bodily functions can change in a short period of time. If you notice any of the following symptoms, return to the emergency department or consult your doctor immediately: A. Worsening pain or no improvement in the next 12 hours. B. Increasing, severe abdominal pain C. Blood in stool D. Black stools E. Persistent vomiting F. Fever or chills or other symptoms Discharge/Care Plan NENA KELLEY was seen on 07/15/19 in the Emergency Room. The patient was counseled regarding Diagnosis,Lab results, Imaging studies, need for follow up and when to return to the Emergency Room. Prescriptions given: Discharge Note I have spoken with the patient and/or caregivers. I have explained the patient' s condition, diagnosis and treatment plan based on the information available to me at this time. I have answered the patient's and/or caregiver's questions and addressed any concerns. The patient and/or caregivers have as good understanding of the patient's diagnosis, condition and treatment plan as can be expected at this point. The vital signs have been stable. The patient's condition is stable and appropriate for discharge from the emergency department. The patient will pursue further outpatient evaluation with the primary care physician or other designated or consulting physician as outlined in the discharge instructions. The patient and/or caregivers are agreeable to this plan of care and follow-up instructions have been explained in detail. The patient and/or caregivers have received these instruction. The patient/and or caregivers are aware that any significant change in condition or worsening of symptoms should prompt an immediate return to this or the closest emergency department or call 911.
[2019-07-15 09:40] LABS: Absolute Neutrophil Ct (ANC) 2.33 (1.4-6.9); BASOPHIL % 0.6 % (0.0-0.4); Basophil (Absolute #) 0.03 (0-0.4); Eosinophil % 6.2 % (0.00-5.0); Hematocrit 41.7 % (42-50); Hemoglobin 13.8 gm/dl (12.5-18.0); Mean Cell Volume 96.1 fl (78-100); Mean Corpuscular Hemoglobin 31.8 pg (26-32); Mean Corpuscular Hgb Concent. 33.1 g/dl (32-36); Mean Platelet Volume 10.7 fl (6-9.5); Monocytes % 10.3 % (0.0-12.0); Neutrophil % 47.9 % (36.0-66.0); Platelet Count 159 K/mm3 (150-450); Red Blood Count 4.34 M/mm3 (4.1-5.6); Red Cell Distribution Width 13.4 % (11.5-14.0); White Blood Count 4.9 K/mm3 (4.0-10.5)
[2019-07-15 09:48] LABS: ALBUMIN 3.6 g/dL (3.5-5.0); ALKALINE PHOSPHATASE 41 U/L (38-126); AMYLASE 81 U/L (30-110); ANION GAP 7.8 MEQ/L (5-15); BLOOD UREA NITROGEN 20 mg/dL (9-20); CHLORIDE 108 mmol/L (98-107); Carbon Dioxide 29 mmol/L (22-30); Creatinine 1 0.91 mg/dL (0.66-1.25); Glucose 114 mg/dL (74-106); LIPASE 120 U/L (23-300); Potassium 4.5 mmol/L (3.5-5.1); SGOT/AST 39 U/L (17-59); SGPT/ALT 31 U/L (0-50); SODIUM 140 mmol/L (137-145); Total Protein 6.6 g/dL (6.3-8.2)
[2019-07-15 10:35] VITALS: BP 130/77; PULSE 58; O2SAT 97
--- NOTE | 2019-07-15 20:17 | XRAY ---
Indication: Left upper quadrant pain. History colon cancer with colectomy. Multiple contiguous axial images obtained through the abdomen and pelvis without contrast as ordered. Comparison: December 29, 2015. Lung bases demonstrates stable 9 mm right base noncalcified nodule favored to be benign given stability over the years. Stable left base fibrosis/scarring. No infiltrate or effusion. Heart is not enlarged with tiny pericardial effusion/thickening. Stable small hiatal hernia. Noncontrasted stomach and bowel loops appear nonobstructed. Normal appendix. Again mild scattered colonic fecal debris throughout. Intact rectal anastomosis. Stable surgical clips gallbladder fossa and left midabdomen. No free fluid/air. Nonobstructing punctate right renal calculus not well seen on previous contrasted exam. Remaining liver, pancreas, spleen, adrenal glands, kidneys, ureters, and bladder appear unremarkable for noncontrast exam. There remains mild scattered aortoiliac calcifications without AAA. Osseous structures intact again with mild degenerative changes throughout the spine. Impression: 1. Nonobstructing right renal micro-calculus. 2. Again mild fecal stasis without obstruction. 3. Stable small hiatal hernia and benign right lung base noncalcified nodule. Comment: Preliminary interpretation was made by C. No critical discrepancy. CTDI 5.73
== END 2019-07-15 10:45 | disposition home or self-care (01) ==
LOC: ED 09:05
DX: R10.12 Left upper quadrant pain (principal)
CPT/HCPCS: 36000; 36415; 74176; 80053; 82150; 83690; 85025; 99284

== ENCOUNTER 2019-10-05 03:47 | Emergency (ER) | payer MEDICARE ==
--- NOTE | 2019-10-05 04:25 | ERPHSYRPT ---
- History of Present Illness Time Seen by Provider: 10/05/19 04:15 Source: patient Exam Limitations: no limitations Patient Subjective Stated Complaint: pt states he was at work when his left knee began to hurt, pt states that he has not fell or have any injury to his knee, pt states increased pain with walking Triage Nursing Assessment: pt ambulated into the hospital, pt is axo x3, pt is hypertensive,c/o 8/10 pain to left knee, left knee is bruised, swollen, limited ROM to left knee, pt states he is on blood thinner Physician History: For the past 7 hours pt has had pain & swelling of the left knee; denies known injury, fever, chest pain, shortness of air, Allergies/Adverse Reactions: doxycycline Allergy (Mild, Verified 10/05/19 04:07) dizzy and nasuea cefdinir Allergy (Verified 10/05/19 04:07) Home Medications: Aspirin [Aspirin EC] 81 mg PO DAILY 12/01/15 [History] Fenofibrate 160 mg PO DAILY 12/01/15 [History] Metoprolol Tartrate 50 mg [Lopressor 50 MG] 75 mg PO BID 12/01/15 [History ] Multivitamin [Multi-Vitamin Daily] 1 tab PO DAILY 12/01/15 [History] Rivaroxaban [Xarelto] 20 mg PO DAILY 12/01/15 [History] Tizanidine HCl 4 mg [Zanaflex 4 MG] 2 tab-cap PO HS 07/15/19 [History] Atorvastatin Calcium 80 mg PO DAILY 10/05/19 [History] Ubidecarenone [Co Q-10] 100 mg PO DAILY 10/05/19 [History] Hx Tetanus, Diphtheria Vaccination/Date Given: Yes Hx Influenza Vaccination/Date Given: Yes (04/18/19) Hx Pneumococcal Vaccination/Date Given: No (03/22/2012) - Review of Systems Constitutional: No Fever Respiratory: No Dyspnea Cardiac: No Chest Pain Abdominal/Gastrointestinal: No Abdominal Pain, No Nausea, No Vomiting Genitourinary Symptoms: No Dysuria Musculoskeletal: Joint Pain (left knee swelling/pain for the past 7 hours.) All Other Systems: Reviewed and Negative - Past Medical History Pertinent Past Medical History: Yes Neurological History: No Pertinent History ENT History: No Pertinent History Cardiac History: High Cholesterol, Hypertension, Myocardial Infarction ([place]) Respiratory History: No Pertinent History Endocrine Medical History: No Pertinent History Musculoskeletal History: Fractures GI Medical History: Colorectal Cancer, Hernia, Liver Cancer History: No Pertinent History Psycho-Social History: No Pertinent History Male Reproductive Disorders: No Pertinent History Other Medical History: History of Colon and Liver Cancers, Myocardial Infarction x2, - Past Surgical History Past Surgical History: Yes Neuro Surgical History: No Pertinent History Cardiac: Cardiac Stent, Vascular Surgery Respiratory: Chest Surgery, Other Gastrointestinal: Cholecystectomy, Colon Resection, Hernia Repair, Other Genitourinary: No Pertinent History Musculoskeletal: No Pertinent History Male Surgical History: No Pertinent History Other Surgical History: LIVER RESECTION DUE TO CANCER. 4 heart stents. cvl port placement and removal. hiatal hernia repair = complications with collapsed lung during OR - Social History Smoking Status: Former smoker How long have you smoked: 30 Exposure to second hand smoke: No Alcohol Use: None Drug Use: none Patient Lives Alone: Yes Significant Family History: no pertinent family hx - Nursing Vital Signs Nursing Vital Signs: Initial Vital Signs Temperature 97.6 F 10/05/19 03:51 Pulse Rate 77 10/05/19 03:51 Respiratory Rate 14 10/05/19 03:51 Blood Pressure 149/89 10/05/19 03:51 O2 Sat by Pulse Oximetry 95 10/05/19 03:51 Pain Scale Pain Intensity 8 - Physical Exam General Appearance: alert Eyes, Ears, Nose, Throat Exam: TMs normal, pharynx normal Neck Exam: normal inspection Cardiovascular/Respiratory Exam: normal breath sounds, heart sounds normal Gastrointestinal/Abdominal Exam: soft (b.s. normal) Back Exam: normal range of motion Knees Exam: right knee: soft tissue tenderness (left knee has mild tenderness & edema with limited flexion; mildly tender light brown bruise over infrapatellar area ~ 1 cm diameter.) Ankle Exam: left ankle: normal range of motion Foot Exam: left foot: normal range of motion Neuro/Tendon Exam: normal sensation Mental Status Exam: alert, cooperative Skin Exam: warm, dry SpO2 Interpretation: normal SpO2: 95 O2 Delivery: Room Air - Course Nursing assessment & vital signs reviewed: Yes Ordered Tests: Active Orders 24 hr Category Date Time Status Erwin Bandage Application -[facility] STAT Care 10/05/19 05:37 Active KNEE (3 VIEWS) Stat Exams 10/05/19 04:44 Taken BMP Stat Lab 10/05/19 04:47 Completed CBC W DIFF Stat Lab 10/05/19 04:47 Completed D-DIMER QUANTITATIVE Stat Lab 10/05/19 04:47 Completed Erythrocyte Sedimentation Rate Stat Lab 10/05/19 04:47 Completed Uric Acid Stat Lab 10/05/19 04:47 Completed Medication Summary Discontinued Medications Generic Name Dose Route Start Last Admin Trade Name Julianne PRN Reason Stop Dose Admin Acetaminophen 650 mg 10/05/19 04:28 10/05/19 04:32 Tylenol 325 Mg PO 10/05/19 04:29 650 mg STAT ONE Administration Acetaminophen Confirm 10/05/19 04:32 Tylenol 325 Mg Administered 10/05/19 04:33 Dose 650 mg .ROUTE .STK-MED ONE Lab/Rad Data: Laboratory Result Diagrams 10/05/19 04:47 10/05/19 04:47 Laboratory Results 10/05/19 10/05/19 10/05/19 Range/Units 04:47 04:47 04:47 WBC (4.0-10.5) K/mm3 RBC (4.1-5.6) M/mm3 Hgb (12.5-18.0) gm/dl Hct (42-50) % MCV (78-100) fl MCH (26-32) pg MCHC (32-36) g/dl RDW (11.5-14.0) % Plt Count (150-450) K/mm3 MPV (7.5-11.0) fl Gran % (36.0-66.0) % Eos # (Auto) (0-0.5) Absolute Lymphs (auto) (1.0-4.6) Absolute Monos (auto) (0.0-1.3) Lymphocytes % (24.0-44.0) % Monocytes % (0.0-12.0) % Eosinophils % (0.00-5.0) % Basophils % (0.0-0.4) % Absolute Granulocytes (1.4-6.9) Basophils # (0-0.4) ESR (0-15) mm/hr D-Dimer < 204 L (215-500) ng/mL Sodium 142 (137-145) mmol/L Potassium 4.2 (3.5-5.1) mmol/L Chloride 108 H (98-107) mmol/L Carbon Dioxide 29 (22-30) mmol/L Anion Gap 9.8 (5-15) MEQ/L BUN 22 H (9-20) mg/dL Creatinine 0.94 (0.66-1.25) mg/dL Estimated GFR > 60.0 ML/MIN Glucose 118 H (74-106) mg/dL Uric Acid 4.6 (3.5-7.2) mg/dL Calcium 9.0 (8.4-10.2) mg/dL 10/05/19 Range/Units 04:47 WBC 6.8 (4.0-10.5) K/mm3 RBC 3.94 L (4.1-5.6) M/mm3 Hgb 12.5 (12.5-18.0) gm/dl Hct 38.1 L (42-50) % MCV 96.7 (78-100) fl MCH 31.7 (26-32) pg MCHC 32.8 (32-36) g/dl RDW 14.1 H (11.5-14.0) % Plt Count 200 (150-450) K/mm3 MPV 10.4 (7.5-11.0) fl Gran % 62.0 (36.0-66.0) % Eos # (Auto) 0.33 (0-0.5) Absolute Lymphs (auto) 1.61 (1.0-4.6) Absolute Monos (auto) 0.60 (0.0-1.3) Lymphocytes % 23.7 L (24.0-44.0) % Monocytes % 8.8 (0.0-12.0) % Eosinophils % 4.9 (0.00-5.0) % Basophils % 0.6 (0.0-0.4) % Absolute Granulocytes 4.20 (1.4-6.9) Basophils # 0.04 (0-0.4) ESR 5 (0-15) mm/hr D-Dimer (215-500) ng/mL Sodium (137-145) mmol/L Potassium (3.5-5.1) mmol/L Chloride (98-107) mmol/L Carbon Dioxide (22-30) mmol/L Anion Gap (5-15) MEQ/L BUN (9-20) mg/dL Creatinine (0.66-1.25) mg/dL Estimated GFR ML/MIN Glucose (74-106) mg/dL Uric Acid (3.5-7.2) mg/dL Calcium (8.4-10.2) mg/dL - Progress Progress: unchanged Progress Note: 10/05/19 05:35 pt states he has pain medicine at home. - Departure Departure Disposition: Home Clinical Impression: Pain and swelling of left knee Condition: Stable Critical Care Time: No Referrals: [facility] MIST[facility] [Primary Care Provider] - Instructions: Knee Pain (DC) Additional Instructions: Elevate left knee above heart level for the next 24 hours. No weight bearing on left foot for the next 2 days. Use crutches for the next 2 weeks. Erwin wrap to left knee for the next 4 days. Follow up with private doctor tomorrow. Forms: Work/School Release Form
[2019-10-05] MEDS ORDERED: TYLENOL 325 MG PO ONE (04:28)
[2019-10-05] MEDS ORDERED: TYLENOL 325 MG ONE (04:32)
[2019-10-05 04:48] LABS: BASOPHIL % 0.6 % (0.0-0.4); Basophil (Absolute #) 0.04 (0-0.4); Eosinophil % 4.9 % (0.00-5.0); Eosinophil (Absolute #) 0.33 (0-0.5); Hematocrit 38.1 % (42-50); Hemoglobin 12.5 gm/dl (12.5-18.0); Lymphocyte (Absolute #) 1.61 (1.0-4.6); Lymphocytes % 23.7 % (24.0-44.0); Mean Cell Volume 96.7 fl (78-100); Mean Corpuscular Hemoglobin 31.7 pg (26-32); Mean Corpuscular Hgb Concent. 32.8 g/dl (32-36); Mean Platelet Volume 10.4 fl (7.5-11.0); Monocytes % 8.8 % (0.0-12.0); Platelet Count 200 K/mm3 (150-450); Red Blood Count 3.94 M/mm3 (4.1-5.6); Red Cell Distribution Width 14.1 % (11.5-14.0); White Blood Count 6.8 K/mm3 (4.0-10.5)
[2019-10-05 04:58] LABS: ANION GAP 9.8 MEQ/L (5-15); BLOOD UREA NITROGEN 22 mg/dL (9-20); CHLORIDE 108 mmol/L (98-107); Carbon Dioxide 29 mmol/L (22-30); Creatinine 1 0.94 mg/dL (0.66-1.25); Glucose 118 mg/dL (74-106); Potassium 4.2 mmol/L (3.5-5.1); SODIUM 142 mmol/L (137-145)
[2019-10-05 05:04] LABS: Erythrocyte Sedimentation Rate 5 mm/hr (0-15)
[2019-10-05 05:46] VITALS: BP 152/81; PULSE 83; O2SAT 98
--- NOTE | 2019-10-05 09:41 | XRAY ---
Indication: Pain and swelling. No known injury. Comparison: None 3 views of the left knee demonstrates minimal medial joint space narrowing, tiny patella/tibial tuberosity spurring, tiny fabella, nonspecific effusion, and scattered vascular calcifications. No other bony, articular, or soft tissue abnormalities.
== END 2019-10-05 05:55 | disposition home or self-care (01) ==
LOC: ED 03:47
DX: M25.562 Pain in left knee (principal); Q82.0 Hereditary lymphedema; M25.462 Effusion, left knee
CPT/HCPCS: 36415; 73562; 80048; 84550; 85025; 85379; 85652; 99284; A9270-GY

== ENCOUNTER 2020-02-02 10:39 | Emergency (ER) | payer MEDICARE ==
[2020-02-02 10:54] VITALS: BP 139/79; PULSE 59; O2SAT 98
[2020-02-02] MEDS ORDERED: MORPHINE SULFATE 4 MG INJ IM ONE (11:01)
[2020-02-02] MEDS ORDERED: TORAdol 30 mg Injection ONE (11:12)
[2020-02-02] MEDS ORDERED: TYLENOL 325 MG PO STA (11:38)
[2020-02-02] MEDS ORDERED: TYLENOL 325 MG ONE (11:41)
--- NOTE | 2020-02-02 11:52 | ERPHSYRPT ---
- History of Present Illness Time Seen by Provider: 02/02/20 10:47 Source: patient Patient Subjective Stated Complaint: Fall Triage Nursing Assessment: Patient ambulated back to ED and transferred self to bed. Patient A+O X3. Patient's skin pink, warm and dry. Patient complains of a fall. Patient states he was power washing his home when he was leaning on the railing on his deck when the railing broke causing him to fall to the ground. Patient complains of right sided lower back pain, right elbow pain and chest pain 6/10 contant aching with intermittent sharp pain. No bruising noted. Patient does have small abrasion to right elbow and right knee. Physician History: 75 years old male presented in the ER after he accidentally fell from almost 2 feet high DAC when he leaned over railing which broke while pressure cleaning it. Did not hit his head. No loss of consciousness. He fell on his right hip and back. Was able to get up and ambulate. Since then he is having moderate intensity sharp pain in the right flank/low back. Denies any midline back pain. Is also complaining of mild soreness in the anterior chest but did not hit his chest directly. No difficulty breathing. No abdominal pain otherwise. Timing/Duration: today, sudden Method of Injury: fall Quality: sharp Back Pain Location: paraspinous muscles Back Pain Radiation: buttocks Severity of Pain-Max: moderate Severity of Pain-Current: moderate Modifying Factors: Improves With: immobilization, movement, rest Associated Symptoms: lower back pain, muscle spasms Previous symptoms: no prior history Allergies/Adverse Reactions: doxycycline Allergy (Mild, Verified 02/02/20 10:43) dizzy and nasuea cefdinir Allergy (Verified 02/02/20 10:43) Home Medications: Aspirin [Aspirin EC] 81 mg PO DAILY 12/01/15 [History] Fenofibrate 160 mg PO DAILY 12/01/15 [History] Metoprolol Tartrate 50 mg [Lopressor 50 MG] 75 mg PO BID 12/01/15 [History] Multivitamin [Multi-Vitamin Daily] 1 tab PO DAILY 12/01/15 [History] Rivaroxaban [Xarelto] 20 mg PO DAILY 12/01/15 [History] Tizanidine HCl 4 mg [Zanaflex 4 MG] 2 tab-cap PO HS 07/15/19 [History] Atorvastatin Calcium 80 mg PO DAILY 10/05/19 [History] Ubidecarenone [Co Q-10] 100 mg PO DAILY 10/05/19 [History] Hx Tetanus, Diphtheria Vaccination/Date Given: Yes Hx Influenza Vaccination/Date Given: Yes (04/18/19) Hx Pneumococcal Vaccination/Date Given: No (03/22/2012) Travel Risk - International Travel Have you traveled outside of the country in past 3 weeks: No - Coronavirus Screening Are you exhibiting any of the following symptoms?: No Close contact with a COVID-19 positive Pt in past 14-21 Days: No - Review of Systems Constitutional: No Symptoms Eyes: No Symptoms Ears, Nose, & Throat: No Symptoms Respiratory: No Symptoms Cardiac: Chest Pain Abdominal/Gastrointestinal: No Symptoms Genitourinary Symptoms: No Symptoms Musculoskeletal: Back Pain Skin: Rash Neurological: No Symptoms Psychological: No Symptoms Endocrine: No Symptoms Hematologic/Lymphatic: No Symptoms Immunological/Allergic: No Symptoms - Past Medical History Pertinent Past Medical History: Yes Neurological History: No Pertinent History ENT History: No Pertinent History Cardiac History: High Cholesterol, Hypertension, Myocardial Infarction ([place]) Respiratory History: No Pertinent History Endocrine Medical History: No Pertinent History Musculoskeletal History: Fractures GI Medical History: Colorectal Cancer, Hernia, Liver Cancer History: No Pertinent History Psycho-Social History: No Pertinent History Male Reproductive Disorders: No Pertinent History Other Medical History: History of Colon and Liver Cancers, Myocardial Infarction x2, - Past Surgical History Past Surgical History: Yes Neuro Surgical History: No Pertinent History Cardiac: Cardiac Stent, Vascular Surgery Respiratory: Chest Surgery, Other Gastrointestinal: Cholecystectomy, Colon Resection, Hernia Repair, Other Genitourinary: No Pertinent History Musculoskeletal: No Pertinent History Male Surgical History: No Pertinent History Other Surgical History: LIVER RESECTION DUE TO CANCER. 4 heart stents. cvl port placement and removal. hiatal hernia repair = complications with collapsed lung during OR - Social History Smoking Status: Former smoker How long have you smoked: 30 Exposure to second hand smoke: No Alcohol Use: None Drug Use: none Patient Lives Alone: Yes Significant Family History: no pertinent family hx - Nursing Vital Signs Nursing Vital Signs: Initial Vital Signs Temperature 97.6 F 02/02/20 10:43 Pulse Rate 59 L 02/02/20 10:43 Respiratory Rate 18 02/02/20 10:43 Blood Pressure 139/79 02/02/20 10:43 O2 Sat by Pulse Oximetry 98 02/02/20 10:43 Pain Scale Pain Intensity 8 - Physical Exam General Appearance: no apparent distress, alert Eye Exam: PERRL/EOMI, eyes nml inspection Ears, Nose, Throat Exam: normal ENT inspection, TMs normal, pharynx normal Neck Exam: normal inspection, non-tender, supple, full range of motion Respiratory Exam: normal breath sounds, lungs clear, No chest tenderness Cardiovascular Exam: regular rate/rhythm, normal heart sounds, normal peripheral pulses Gastrointestinal Exam: soft, normal bowel sounds, No tenderness, No guarding Back Exam: normal inspection, muscle spasm, point tenderness (right SI joint area), No vertebral tenderness Neurologic Exam: alert, oriented x 3, 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, 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 Skin Exam: normal color, rash SpO2 Interpretation: normal SpO2: 98 O2 Delivery: Room Air - Course Nursing assessment & vital signs reviewed: Yes Ordered Tests: Active Orders 24 hr Category Date Time Status ABDOMEN AND PELVIS W/0 CONTRAS [CT] Stat Exams 02/02/20 11:02 Taken Medication Summary Discontinued Medications Generic Name Dose Route Start Last Admin Trade Name Julianne PRN Reason Stop Dose Admin Acetaminophen 975 mg 02/02/20 11:38 02/02/20 11:42 Tylenol 325 Mg PO 02/02/20 11:39 975 mg STAT STA Administration Acetaminophen Confirm 02/02/20 11:41 Tylenol 325 Mg Administered 02/02/20 11:42 Dose 975 mg .ROUTE .STK-MED ONE Ketorolac Tromethamine Confirm 02/02/20 11:12 Toradol 30 Mg Injection Administered 02/02/20 11:13 Dose 30 mg .ROUTE .STK-MED ONE Morphine Sulfate 4 mg 02/02/20 11:01 02/02/20 11:36 Morphine Sulfate 4 Mg Inj IM 02/02/20 11:02 Not Given STAT ONE - Progress Progress: improved, pain not gone completely Progress Note: 02/02/20 12:33 75 years old is evaluated for right flank pain after fall. He is given Tylenol and feeling better. I have obtained CT without contrast which did not show any acute intra-abdominal finding or fracture subluxation. I believe patient has contusion in the flank area. Recommended taking pain medications and outpatient follow-up. On the CT which showed a small pericardial effusion which is an incidental finding. 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 Discussed signs symptoms of worsening needing return to ER which he seems un derstanding. Counseled pt/family regarding: diagnosis, need for follow-up, rad results - Departure Departure Disposition: Home Clinical Impression: Contusion of flank and back Qualifiers: Encounter type: initial encounter Qualified Code(s): S30.1XXA - Contusion of abdominal wall, initial encounter Condition: Stable Critical Care Time: No Referrals: MARY BETH JAIN [Primary Care Provider] - Follow Up with PCP/3 days Instructions: Contusion (DC), Preventing Falls Additional Instructions: Take pain medications as needed. Follow-up with your primary care for reevaluation. Follow-up with your asphalt raker for reevaluation a small fluid around your heart. Return to ER for worsening pain or difficulty walking. Prescriptions: Hydrocodone/APAP 5-325 Tab^^^ [Baker 5-325 Tablet^^^] 1 tab PO Q6HPRN PRN #10 tablet MDD 6 PRN Reason: Pain
--- NOTE | 2020-02-02 16:55 | XRAY ---
Indication: Right sided pain. Multiple contiguous axial images obtained through the abdomen and pelvis without contrast as ordered. Comparison: July 15, 2019. Lung bases demonstrate stable benign 9 mm right base noncalcified nodule. No infiltrate or effusion. Heart is borderline enlarged again with tiny pericardial effusion/thickening. Stable small hiatal hernia. Noncontrasted stomach and bowel loops remain nonobstructed. Normal appendix. Remains mild diffuse scattered colonic fecal debris throughout. Stable intact rectal anastomosis. No free fluid/air. Stable benign-appearing chunky hepatic calcification, nonobstructing right renal punctate calculus, cholecystectomy clips and left abdomen surgical clips. Remaining liver, pancreas, spleen, adrenal glands, kidneys, ureters, and bladder appear unremarkable for noncontrast exam. There remains mild aortoiliac calcifications without AAA. Osseous structures remain intact again with mild degenerative changes throughout the thoracolumbar spine. No ventral or inguinal hernias. Impression: 1. Continued diffuse fecal stasis. 2. Stable benign-appearing chunky hepatic calcification, nonobstructing right renal micro-calculus, small hiatal hernia, benign right lung base noncalcified micronodule, and pericardial effusion/thickening. 3. No new or acute intra-abdominal/pelvic abnormalities on this noncontrast exam. Comment: Preliminary interpretation was made by [facility]. No critical discrepancy.
== END 2020-02-02 12:59 | disposition home or self-care (01) ==
LOC: ED 10:39
DX: S30.1XXA Contusion of abdominal wall, initial encounter (principal); I10 Essential (primary) hypertension; I25.2 Old myocardial infarction; Z85.038 Personal history of other malignant neoplasm of large intestine; Z85.05 Personal history of malignant neoplasm of liver; M54.5 Low back pain; W17.89XA Other fall from one level to another, initial encounter; Y92.89 Other specified places as the place of occurrence of the external cause; S50.311A Abrasion of right elbow, initial encounter; S80.211A Abrasion, right knee, initial encounter; Z79.899 Other long term (current) drug therapy; E78.00 Pure hypercholesterolemia, unspecified
CPT/HCPCS: 74176; 99283; J1885; A9270-GY

== ENCOUNTER 2020-02-03 08:44 | Emergency (ER) | payer MEDICARE ==
[2020-02-03] MEDS ORDERED: Hydromorphone 1 mg/ml Ampule IM ONE (09:29)
[2020-02-03] MEDS ORDERED: Zofran 4 MG/2 ML VIAL IM ONE (09:30)
[2020-02-03 09:37] VITALS: BP 136/86; PULSE 112; O2SAT 99
[2020-02-03] MEDS ORDERED: Zofran 4 MG/2 ML VIAL ONE (09:38)
[2020-02-03] MEDS ORDERED: Hydromorphone 1 mg/ml Ampule ONE (09:38)
--- NOTE | 2020-02-03 10:15 | ERPHSYRPT ---
- History of Present Illness Time Seen by Provider: 02/03/20 09:40 Patient Subjective Stated Complaint: "back pain" Triage Nursing Assessment: C/o low back pain right sided s/p fall yesterday. seen here yesterday and prescribed norco and patient had n/v with taking norco. States pain worse. Needs something that wont make him sick. aaox3, walked in, rigid gait, denies any new injuries since yesterday. Physician History: Patient fell yesterday was seen in the ER had a CT of the abdomen pelvis done which was negative for any traumatic findings however he has continued severe pain in the right posterior rib area down low and has trouble with his pain medicines causing nausea and frequent vomiting. Occurred: yesterday Reason for Fall: fell from standing pos Injuries/Pain Location: abdomen, back Loss of Consciousness: no loss of consciousness Quality: throbbing Severity of Pain-Max: moderate Severity of Pain-Current: moderate Modifying Factors: Improves With: nothing Associated Symptoms (Fall): back pain Allergies/Adverse Reactions: doxycycline Allergy (Mild, Verified 02/02/20 10:43) dizzy and nasuea cefdinir Allergy (Verified 02/02/20 10:43) Home Medications: Aspirin [Aspirin EC] 81 mg PO DAILY 12/01/15 [History] Fenofibrate 160 mg PO DAILY 12/01/15 [History] Metoprolol Tartrate 50 mg [Lopressor 50 MG] 75 mg PO BID 12/01/15 [History] Multivitamin [Multi-Vitamin Daily] 1 tab PO DAILY 12/01/15 [History] Rivaroxaban [Xarelto] 20 mg PO DAILY 12/01/15 [History] Tizanidine HCl 4 mg [Zanaflex 4 MG] 2 tab-cap PO HS 07/15/19 [History] Atorvastatin Calcium 80 mg PO DAILY 10/05/19 [History] Ubidecarenone [Co Q-10] 100 mg PO DAILY 10/05/19 [History] Hx Tetanus, Diphtheria Vaccination/Date Given: No Hx Influenza Vaccination/Date Given: Yes Hx Pneumococcal Vaccination/Date Given: Yes Travel Risk - International Travel If Yes, where;: N - Coronavirus Screening Are you exhibiting any of the following symptoms?: No Close contact with a COVID-19 positive Pt in past 14-21 Days: No - Review of Systems Constitutional: No Fever, No Chills Eyes: No Symptoms Ears, Nose, & Throat: No Symptoms Respiratory: Other (This over right posterior lower ribs), No Cough, No Dyspnea Cardiac: No Chest Pain, No Edema, No Syncope Abdominal/Gastrointestinal: No Abdominal Pain, No Nausea, No Vomiting, No Diarrhea Genitourinary Symptoms: No Dysuria Musculoskeletal: Back Pain, No Neck Pain Skin: No Rash Neurological: No Dizziness, No Focal Weakness, No Sensory Changes Psychological: No Symptoms Endocrine: No Symptoms All Other Systems: Reviewed and Negative - Past Medical History Pertinent Past Medical History: Yes Neurological History: No Pertinent History ENT History: No Pertinent History Cardiac History: High Cholesterol, Hypertension, Myocardial Infarction ([place]) Respiratory History: No Pertinent History Endocrine Medical History: No Pertinent History Musculoskeletal History: Fractures GI Medical History: Colorectal Cancer, Hernia, Liver Cancer History: No Pertinent History Psycho-Social History: No Pertinent History Male Reproductive Disorders: No Pertinent History Other Medical History: History of Colon and Liver Cancers, Myocardial Infarction x2, - Past Surgical History Past Surgical History: Yes Neuro Surgical History: No Pertinent History Cardiac: Cardiac Stent, Vascular Surgery Respiratory: Chest Surgery, Other Gastrointestinal: Cholecystectomy, Colon Resection, Hernia Repair, Other Genitourinary: No Pertinent History Musculoskeletal: No Pertinent History Male Surgical History: No Pertinent History Other Surgical History: LIVER RESECTION DUE TO CANCER. 4 heart stents. cvl port placement and removal. hiatal hernia repair = complications with collapsed lung during OR - Social History Smoking Status: Never smoker How long have you smoked: 30 Exposure to second hand smoke: No Alcohol Use: None Drug Use: none Patient Lives Alone: Yes Significant Family History: no pertinent family hx - Nursing Vital Signs Nursing Vital Signs: Initial Vital Signs Temperature 97.8 F 02/03/20 09:25 Pulse Rate 112 H 02/03/20 09:25 Respiratory Rate 20 02/03/20 09:25 Blood Pressure 136/86 02/03/20 09:25 O2 Sat by Pulse Oximetry 99 02/03/20 09:25 Pain Scale Pain Intensity 10 - [place] Coma Score Best Eye Response ([place]): (4) open spontaneously Best Verbal Response ([place]): (5) oriented Best Motor Response ([place]): (6) obeys commands [place] Total: 15 - Physical Exam General Appearance: moderate distress, alert Head Injury: no evidence of injury Eye Exam: PERRL/EOMI ENT Exam: airway nml Neck Exam: normal inspection, No tenderness Respiratory/Chest Exam: normal breath sounds, other (Fall pain right posterior lower ribs), No chest tenderness, No respiratory distress Cardiovascular Exam: normal heart sounds, regular rate/rhythm Gastrointestinal Exam: soft, No tenderness, No distention, No guarding, No ecchymosis Back Exam: normal inspection, No vertebral tenderness Extremity Exam: normal inspection, normal range of motion, pelvis stable, No deformities Peripheral Pulses: carotid (R): 2+, carotid (L): 2+ Neurologic Exam: alert, oriented x 3, cooperative, sensation nml, No motor defic its Skin Exam: normal color, warm, dry SpO2 Interpretation: normal SpO2: 99 O2 Delivery: Room Air - Course Nursing assessment & vital signs reviewed: Yes - Radiology Exams Ribs X-ray Interpretation: Interpreted by me, Non-displaced Fracture (Nondisplaced fracture of the right posterior ribs), Other Ordered Tests: Active Orders 24 hr Category Date Time Status RIBS UNILATERAL Stat Exams 02/03/20 09:57 Taken Medication Summary Discontinued Medications Generic Name Dose Route Start Last Admin Trade Name Freq PRN Reason Stop Dose Admin Hydromorphone HCl 1 mg 02/03/20 09:29 02/03/20 09:41 Hydromorphone 1 Mg/Ml Ampule IM 02/03/20 09:30 1 mg STAT ONE Administration Hydromorphone HCl Confirm 02/03/20 09:38 Hydromorphone 1 Mg/Ml Ampule Administered 02/03/20 09:39 Dose 1 mg .ROUTE .STK-MED ONE Ondansetron HCl 4 mg 02/03/20 09:30 02/03/20 09:40 Zofran 4 Mg/2 Ml Vial IM 02/03/20 09:31 4 mg STAT ONE Administration Ondansetron HCl Confirm 02/03/20 09:38 Zofran 4 Mg/2 Ml Vial Administered 02/03/20 09:39 Dose 4 mg .ROUTE .STK-MED ONE - Progress Progress: unchanged - Departure Departure Disposition: Home Clinical Impression: Right rib fracture Condition: Stable Critical Care Time: No Referrals: MARY BETH JAIN [Primary Care Provider] - Instructions: Rib Fracture (DC) Prescriptions: Promethazine HCl 25 mg [Phenergan 25 mg] 25 mg PO Q8H PRN PRN #10 tablet PRN Reason: Nausea Codeine Phosphate/APAP #3 [Tylenol #3 Tablet] 1 tab PO Q4H PRN #20 tablet PRN Reason: Pain Ondansetron HCl [Zofran] 4 mg PO Q6H PRN #20 tablet PRN Reason: Nausea/Vomiting
--- NOTE | 2020-02-03 18:58 | XRAY ---
Indication: Pain following fall. Comparison: None 2 view right ribs demonstrates nondisplaced 11th rib fracture. Elsewhere osteopenia, mild degenerative changes throughout the thoracolumbar spine, mild right acromioclavicular degenerative changes, and cholecystectomy clips. No other bony, articular, or soft tissue abnormalities.
== END 2020-02-03 10:33 | disposition home or self-care (01) ==
LOC: ED 08:44
DX: S22.31XA Fracture of one rib, right side, initial encounter for closed fracture (principal); M54.5 Low back pain; W19.XXXA Unspecified fall, initial encounter; Y93.9 Activity, unspecified; Y92.9 Unspecified place or not applicable; Z79.899 Other long term (current) drug therapy; I10 Essential (primary) hypertension; E78.00 Pure hypercholesterolemia, unspecified; I25.2 Old myocardial infarction
CPT/HCPCS: 71100; 96372; 99284; J1170; J2405

== ENCOUNTER 2020-02-12 03:35 | Emergency (ER) | payer MEDICARE ==
[2020-02-12] MEDS ORDERED: CITROMA 296 ML PO ONE ×2 (03:59→05:18)
[2020-02-12] MEDS ORDERED: CITROMA 296 ML ONE ×2 (04:01→05:27)
--- NOTE | 2020-02-12 04:53 | ERPHSYRPT ---
- History of Present Illness Time Seen by Provider: 02/12/20 03:55 Source: patient Exam Limitations: no limitations Patient Subjective Stated Complaint: "I keep feeling like I have to go but when I try it just doesn't work." Triage Nursing Assessment: Pt presented alert et oriented x3 answering questions appropriately. Pt ambulated to the room without complications. Pt reported a recent rib fracture within a week of the visit. Pt reported becoming constipated while taking his pain medications at home. Pt reported the he stopped taking his pain medications two days prior to this visit. Pt reported taking doculax the morning of 02/11/20 with two formed bowel movements following administration. Bowel movements were described to be formed but small. Pt denied abdominal pain or indigestion. Pt reported nausea secondary to straining to pass stool. Pupils 3mm with brisk reaction. Oral mucosa pink/moist. Neck supple non-tender. Symmetrical chest expansion. Heart tones irregular/clear. Lungs clear with adequate airflow. Radial pulses +2 bilateral. Abdomen soft non-distended and non-tender to palpation. Bowel sounds present in all quadrants. no noted dependent edema. Physician History: This is a 75-year-old white male who has been constipated since yesterday morning. Patient had rib fracture and was placed on pain medication. Since he has been using the pain medication he notices bowel movements have been less often. He stopped taking the pain medicine approximately 2 days ago. However his last bowel movement was yesterday morning after taking oral Dulcolax. He is not had a bowel movement since. He has not used any magnesium citrate or enemas. Timing/Duration: yesterday Severity: moderate Associated Symptoms: nausea Allergies/Adverse Reactions: doxycycline Allergy (Mild, Verified 02/12/20 03:42) dizzy and nasuea cefdinir Allergy (Verified 02/12/20 03:42) Home Medications: Aspirin [Aspirin EC] 81 mg PO DAILY 12/01/15 [History] Fenofibrate 160 mg PO DAILY 12/01/15 [History] Metoprolol Tartrate 50 mg [Lopressor 50 MG] 75 mg PO BID 12/01/15 [History] Multivitamin [Multi-Vitamin Daily] 1 tab PO DAILY 12/01/15 [History] Rivaroxaban [Xarelto] 20 mg PO DAILY 12/01/15 [History] Tizanidine HCl 4 mg [Zanaflex 4 MG] 2 tab-cap PO HS 07/15/19 [History] Atorvastatin Calcium 80 mg PO DAILY 10/05/19 [History] Ubidecarenone [Co Q-10] 100 mg PO DAILY 10/05/19 [History] Hx Tetanus, Diphtheria Vaccination/Date Given: No Hx Influenza Vaccination/Date Given: Yes Hx Pneumococcal Vaccination/Date Given: Yes Travel Risk - International Travel Have you traveled outside of the country in past 3 weeks: No - Coronavirus Screening Are you exhibiting any of the following symptoms?: No Close contact with a COVID-19 positive Pt in past 14-21 Days: No - Review of Systems Constitutional: No Symptoms Eyes: No Symptoms Ears, Nose, & Throat: No Symptoms Respiratory: No Symptoms Cardiac: No Symptoms Abdominal/Gastrointestinal: Nausea, Constipation Genitourinary Symptoms: No Symptoms Musculoskeletal: No Symptoms Skin: No Symptoms Neurological: No Symptoms Psychological: No Symptoms Endocrine: No Symptoms Hematologic/Lymphatic: No Symptoms Immunological/Allergic: No Symptoms All Other Systems: Reviewed and Negative - Past Medical History Pertinent Past Medical History: Yes Neurological History: No Pertinent History ENT History: No Pertinent History Cardiac History: High Cholesterol, Hypertension, Myocardial Infarction ([place]) Respiratory History: No Pertinent History Endocrine Medical History: No Pertinent History Musculoskeletal History: Fractures GI Medical History: Colorectal Cancer, Hernia, Liver Cancer History: No Pertinent History Psycho-Social History: No Pertinent History Male Reproductive Disorders: No Pertinent History Other Medical History: History of Colon and Liver Cancers, Myocardial Infarction x2, - Past Surgical History Past Surgical History: Yes Neuro Surgical History: No Pertinent History Cardiac: Cardiac Stent, Vascular Surgery Respiratory: Chest Surgery, Other Gastrointestinal: Cholecystectomy, Colon Resection, Hernia Repair, Other Genitourinary: No Pertinent History Musculoskeletal: No Pertinent History Male Surgical History: No Pertinent History Other Surgical History: LIVER RESECTION DUE TO CANCER. 4 heart stents. cvl port placement and removal. hiatal hernia repair = complications with collapsed lung during OR - Social History Smoking Status: Never smoker How long have you smoked: 30 Exposure to second hand smoke: No Alcohol Use: None Drug Use: none Patient Lives Alone: Yes Significant Family History: no pertinent family hx - Nursing Vital Signs Nursing Vital Signs: Initial Vital Signs Temperature 97.4 F 02/12/20 03:36 Pulse Rate 70 02/12/20 03:36 Respiratory Rate 18 02/12/20 03:36 Blood Pressure 132/83 02/12/20 03:36 O2 Sat by Pulse Oximetry 99 02/12/20 03:36 Pain Scale Pain Intensity 2 - Physical Exam General Appearance: mild distress, alert, anxiety Eye Exam: PERRL/EOMI, eyes nml inspection Ears, Nose, Throat Exam: normal ENT inspection, moist mucous membranes Neck Exam: normal inspection, non-tender, full range of motion Respiratory Exam: No chest tenderness, No respiratory distress, No airway intact Gastrointestinal/Abdomen Exam: soft, normal bowel sounds, No tenderness, No guarding Rectal Exam: not done Back Exam: normal inspection, normal range of motion, No CVA tenderness, No vertebral tenderness Extremity Exam: normal inspection, normal range of motion, pelvis stable Neurologic Exam: alert, oriented x 3, 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, 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, normal mood/affect, nml cerebellar function, nml station & gait, sensation nml Skin Exam: normal color, warm, dry SpO2 Interpretation: normal SpO2: 99 O2 Delivery: Room Air - Course Nursing assessment & vital signs reviewed: Yes Ordered Tests: Active Orders 24 hr Category Date Time Status Enema STAT Care 02/12/20 04:54 Active KUB Stat Exams 02/12/20 04:10 Taken Medication Summary Discontinued Medications Generic Name Dose Route Start Last Admin Trade Name Julianne PRN Reason Stop Dose Admin Magnesium Citrate 296 ml 02/12/20 03:59 02/12/20 04:01 Citroma 296 Ml PO 02/12/20 04:00 296 ml STAT ONE Administration Magnesium Citrate Confirm 02/12/20 04:01 Citroma 296 Ml Administered 02/12/20 04:02 Dose 296 ml .ROUTE .STK-MED ONE Ondansetron HCl 4 mg 02/12/20 05:00 02/12/20 05:03 Zofran Odt 4 Mg PO 02/12/20 05:01 4 mg STAT ONE Administration Ondansetron HCl Confirm 02/12/20 05:01 Zofran Odt 4 Mg Administered 02/12/20 05:02 Dose 4 mg .ROUTE .STK-MED ONE - Progress Progress: unchanged Progress Note: 02/12/20 04:53 KUB reveals left/sigmoid colon moderate amount of stool. 02/12/20 05:14 Patient refuses the soapsuds enema here. We will send the patient home with a bottle of magnesium citrate and a fleets enema which she will perform at home. Counseled pt/family regarding: diagnosis, need for follow-up, rad results - Departure Departure Disposition: Home Clinical Impression: Constipation Condition: Stable Critical Care Time: No Referrals: MARY BETH JAIN [Primary Care Provider] - Additional Instructions: When you arrive at home, give yourself the entire fleets enema rectally. Hold the fluid in the ear rectum as long as possible. Use the Zofran for nausea. Repeat the magnesium citrate orally in 3 hours if not effective. Put yourself on clear liquid diet for the next 12 to 24 hours. Return to the emergency department as needed if constipation worsens or persist. Prescriptions: Ondansetron ODT 4 MG [Zofran Odt 4 mg] 4 mg PO Q6H PRN PRN #10 tab.rapdis PRN Reason: Vomiting
[2020-02-12] MEDS ORDERED: ZOFRAN ODT 4 MG PO ONE (05:00)
[2020-02-12] MEDS ORDERED: ZOFRAN ODT 4 MG ONE (05:01)
[2020-02-12 05:42] VITALS: BP 128/78; PULSE 96; O2SAT 98
--- NOTE | 2020-02-12 08:48 | XRAY ---
Indication: Constipation and nausea. Comparison: None KUB demonstrates mild diffuse scattered colonic fecal debris predominantly in the left hemicolon. No focal bowel dilatation, obstruction, or large free air. Diffuse scattered abdominal and pelvic surgical clips as well as pelvic suture material. Solid organs unremarkable. Osseous structures intact with mild degenerative changes. Lung bases are clear. Impression: Mild diffuse fecal stasis without obstruction.
== END 2020-02-12 05:43 | disposition home or self-care (01) ==
LOC: ED 03:35
DX: K59.00 Constipation, unspecified (principal); Z79.899 Other long term (current) drug therapy; I10 Essential (primary) hypertension; E78.00 Pure hypercholesterolemia, unspecified; I25.2 Old myocardial infarction; Z85.038 Personal history of other malignant neoplasm of large intestine; Z85.05 Personal history of malignant neoplasm of liver; Z90.49 Acquired absence of other specified parts of digestive tract
CPT/HCPCS: 74018; 99283; Q0162; A9270-GY

== ENCOUNTER 2021-04-08 01:21 | Emergency (ER) | payer MEDICARE ==
[2021-04-08] MEDS ORDERED: Sodium Chloride 0.9% 1000 ML 1,000 ML IV STA (02:04)
[2021-04-08] MEDS ORDERED: Zofran 4 MG/2 ML VIAL IV ONE (02:04)
[2021-04-08 02:25] LABS: BASOPHIL % 0.4 % (0.0-0.4); Basophil (Absolute #) 0.03 (0-0.4); Eosinophil % 4.5 % (0.00-5.0); Eosinophil (Absolute #) 0.37 (0-0.5); Hematocrit 34.6 % (42-50); Hemoglobin 10.9 gm/dl (12.5-18.0); Lymphocyte (Absolute #) 3.59 (1.0-4.6); Lymphocytes % 43.8 % (24.0-44.0); Mean Cell Volume 100.6 fl (78-100); Mean Corpuscular Hemoglobin 31.7 pg (26-32); Mean Corpuscular Hgb Concent. 31.5 g/dl (32-36); Mean Platelet Volume 11.4 fl (7.5-11.0); Neutrophil % 40.3 % (36.0-66.0); Platelet Count 224 K/mm3 (150-450); Red Blood Count 3.44 M/mm3 (4.1-5.6); Red Cell Distribution Width 14.2 % (11.5-14.0); White Blood Count 8.2 K/mm3 (4.0-10.5)
[2021-04-08 02:33] LABS: ALBUMIN 3.2 g/dL (3.5-5.0); ALKALINE PHOSPHATASE 40 U/L (38-126); AMYLASE 62 U/L (30-110); ANION GAP 11.3 MEQ/L (5-15); BLOOD UREA NITROGEN 52 mg/dL (9-20); CHLORIDE 107 mmol/L (98-107); Calcium 8.9 mg/dL (8.4-10.2); Carbon Dioxide 26 mmol/L (22-30); EST GLOMERULAR FILTRATION RATE > 60.0 ML/MIN; Glucose 133 mg/dL (74-106); LIPASE 166 U/L (23-300); Potassium 4.6 mmol/L (3.5-5.1); SGOT/AST 42 U/L (17-59); SGPT/ALT 31 U/L (0-50); SODIUM 140 mmol/L (137-145); Total Protein 5.6 g/dL (6.3-8.2)
[2021-04-08] MEDS ORDERED: Zofran 4 MG/2 ML VIAL ONE (02:53)
[2021-04-08] MEDS ORDERED: Sodium Chloride 0.9% 1000 ML 1,000 ML ONE (02:53)
--- NOTE | 2021-04-08 04:01 | ERPHSYRPT ---
- History of Present Illness Time Seen by Provider: 04/08/21 01:40 Historian: patient Exam Limitations: no limitations Patient Subjective Stated Complaint: pt states he has been vomiting since this evening. states he went to bed and woke up feeling worse. states he is worried because he had similar symptoms with his first heart attack Triage Nursing Assessment: pt alert and oriented, answers questions approp. pt back per wheelchair and ambulates to stretcher with steady gait noted. respirations nonlabored with lungs cta. skin pink warm and dry. abd soft and nontender to light palpation. bowel sounds x4 quads, heart rate 88 afib on monitor. Physician History: Patient is a 76-year-old male who presents with complaint of abdominal pain which started at work yesterday he had nausea and some dry heaves after going home he had some sweats. He awoke with similar symptoms. He is concerned because his first NM was very similar in presentation he is also been dizzy he denies any diarrhea. Timing/Duration: yesterday Activities at Onset: other (work) Quality: fullness Abdominal Pain Onset Location: epigastric Pain Radiation: no radiation Severity of Pain-Max: mild Severity of Pain-Current: mild Modifying Factors: Improves With: vomiting Associated Symptoms: nausea Previous symptoms: same symptoms as today Allergies/Adverse Reactions: doxycycline Allergy (Mild, Verified 04/08/21 02:12) dizzy and nasuea cefdinir Allergy (Verified 04/08/21 02:12) Home Medications: Aspirin [Aspirin EC] 81 mg PO DAILY 12/01/15 [History] Fenofibrate 145 mg PO DAILY 12/01/15 [History] Metoprolol Tartrate 50 mg [Lopressor 50 MG] 75 mg PO BID 12/01/15 [History] Multivitamin [Multi-Vitamin Daily] 1 tab PO DAILY 12/01/15 [History] Rivaroxaban [Xarelto] 20 mg PO DAILY 12/01/15 [History] Ubidecarenone [Co Q-10] 100 mg PO DAILY 10/05/19 [History] Hx Tetanus, Diphtheria Vaccination/Date Given: No (unsure) Hx Influenza Vaccination/Date Given: No Hx Pneumococcal Vaccination/Date Given: Yes Travel Risk - International Travel Have you traveled outside of the country in past 3 weeks: No - Coronavirus Screening Are you exhibiting any of the following symptoms?: No Close contact with a COVID-19 positive Pt in past 14-21 Days: No - Vaccine Status Have you recieved a Covid-19 vaccination: Yes Transfer Coordinator: Moderna - Vaccination Dates Date of 2cond Vaccination (if applicable): 2020 - Review of Systems Constitutional: No Fever, No Chills Eyes: No Symptoms Ears, Nose, & Throat: No Symptoms Respiratory: No Cough, No Dyspnea Cardiac: No Chest Pain, No Edema, No Syncope Abdominal/Gastrointestinal: Nausea, Vomiting, No Abdominal Pain, No Diarrhea Genitourinary Symptoms: No Dysuria Musculoskeletal: No Back Pain, No Neck Pain Skin: No Rash Neurological: No Dizziness, No Focal Weakness, No Sensory Changes Psychological: No Symptoms Endocrine: No Symptoms All Other Systems: Reviewed and Negative - Past Medical History Pertinent Past Medical History: Yes Neurological History: No Pertinent History ENT History: No Pertinent History Cardiac History: High Cholesterol, Hypertension, Myocardial Infarction (NM) Respiratory History: No Pertinent History Endocrine Medical History: No Pertinent History Musculoskeletal History: Fractures GI Medical History: Colorectal Cancer, Hernia, Liver Cancer History: No Pertinent History Psycho-Social History: No Pertinent History Male Reproductive Disorders: No Pertinent History Other Medical History: History of Colon with Liver mets, Myocardial Infarction x2, - Past Surgical History Past Surgical History: Yes Neuro Surgical History: No Pertinent History Cardiac: Cardiac Stent, Vascular Surgery Respiratory: Chest Surgery, Other Gastrointestinal: Cholecystectomy, Colon Resection, Hernia Repair, Other Genitourinary: No Pertinent History Musculoskeletal: No Pertinent History Male Surgical History: No Pertinent History Other Surgical History: LIVER RESECTION DUE TO CANCER. 4 heart stents. cvl port placement and removal. hiatal hernia repair = complications with collapsed lung during OR - Social History Smoking Status: Former smoker How long have you smoked: 30 Exposure to second hand smoke: No Alcohol Use: None Drug Use: none Patient Lives Alone: Yes Significant Family History: no pertinent family hx - Nursing Vital Signs Nursing Vital Signs: Initial Vital Signs Temperature 97.8 F 04/08/21 01:30 Pulse Rate 85 04/08/21 01:30 Respiratory Rate 17 04/08/21 01:30 Blood Pressure 121/67 04/08/21 01:30 O2 Sat by Pulse Oximetry 100 04/08/21 01:30 Pain Scale Pain Intensity 5 - Physical Exam General Appearance: no apparent distress, alert Eye Exam: PERRL/EOMI, eyes nml inspection Ears, Nose, Throat Exam: normal ENT inspection, pharynx normal, moist mucous membranes Neck Exam: normal inspection, non-tender, supple, full range of motion Respiratory Exam: normal breath sounds, lungs clear, No respiratory distress Cardiovascular Exam: regular rate/rhythm, normal heart sounds Gastrointestinal/Abdomen Exam: soft, No tenderness, No mass Back Exam: normal inspection, normal range of motion, No CVA tenderness, No vertebral tenderness Extremity Exam: normal inspection, normal range of motion, pelvis stable Neurologic Exam: alert, oriented x 3, cooperative, normal mood/affect, nml cerebellar function, sensation nml, No motor deficits Skin Exam: normal color, warm, dry SpO2: 100 - Course Nursing assessment & vital signs reviewed: Yes EKG Interpreted by Me: RATE, A-fib, NORMAL AXIS, NORMAL INTERVALS, Non-specific ST Changes, Other (Occasional PVCs) - Radiology Exams Chest X-ray Interpretation: Interpreted by me, Negative Ordered Tests: Active Orders 24 hr Category Date Time Status EKG-ER Only STAT Care 04/08/21 02:04 Active IV Insertion STAT Care 04/08/21 02:04 Active CHEST 1 VIEW (PORTABLE) Stat Exams 04/08/21 02:37 Taken AMYLASE Stat Lab 04/08/21 02:17 Completed CBC W DIFF Stat Lab 04/08/21 02:17 Completed CMP Stat Lab 04/08/21 02:17 Completed CULTURE,URINE Stat Lab 04/08/21 02:07 Ordered LIPASE Stat Lab 04/08/21 02:17 Completed Lactic Acid Stat Lab 04/08/21 02:40 Completed TROPONIN Q3H Lab 04/08/21 02:17 Completed TROPONIN Q3H Lab 04/08/21 03:09 Completed TROPONIN Q3H Lab 04/08/21 08:15 Ordered TROPONIN Q3H Lab 04/08/21 11:15 Ordered TROPONIN Q3H Lab 04/08/21 14:15 Ordered UA W/RFX UR CULTURE Stat Lab 04/08/21 02:05 Ordered Medication Summary Discontinued Medications Generic Name Dose Route Start Last Admin Trade Name Freq PRN Reason Stop Dose Admin Sodium Chloride 1,000 mls @ 999 mls/hr 04/08/21 02:04 04/08/21 02:55 Sodium Chloride 0.9% 1000 Ml IV 04/08/21 03:04 999 mls/hr .Q1H1M STA Administration Sodium Chloride Confirm 04/08/21 02:53 Sodium Chloride 0.9% 1000 Ml Administered 04/08/21 02:54 Dose 1,000 mls @ ud .ROUTE .[employer] Ondansetron HCl 4 mg 04/08/21 02:04 04/08/21 02:56 Zofran 4 Mg/2 Ml Vial IV 04/08/21 02:05 4 mg STAT ONE Administration Ondansetron HCl Confirm 04/08/21 02:53 Zofran 4 Mg/2 Ml Vial Administered 04/08/21 02:54 Dose 4 mg .ROUTE .[facility] Lab/Rad Data: Laboratory Result Diagrams 04/08/21 02:17 04/08/21 02:17 Laboratory Results 04/08/21 04/08/21 04/08/21 Range/Units 03:09 02:40 02:17 WBC (4.0-10.5) K/mm3 RBC (4.1-5.6) M/mm3 Hgb (12.5-18.0) gm/dl Hct (42-50) % MCV (78-100) fl MCH (26-32) pg MCHC (32-36) g/dl RDW (11.5-14.0) % Plt Count (150-450) K/mm3 MPV (7.5-11.0) fl Gran % (36.0-66.0) % Eos # (Auto) (0-0.5) Absolute Lymphs (auto) (1.0-4.6) Absolute Monos (auto) (0.0-1.3) Lymphocytes % (24.0-44.0) % Monocytes % (0.0-12.0) % Eosinophils % (0.00-5.0) % Basophils % (0.0-0.4) % Absolute Granulocytes (1.4-6.9) Basophils # (0-0.4) Sodium (137-145) mmol/L Potassium (3.5-5.1) mmol/L Chloride (98-107) mmol/L Carbon Dioxide (22-30) mmol/L Anion Gap (5-15) MEQ/L BUN (9-20) mg/dL Creatinine (0.66-1.25) mg/dL Estimated GFR ML/MIN Glucose (74-106) mg/dL Lactic Acid 2.4 H (0.4-2.0) Calcium (8.4-10.2) mg/dL Total Bilirubin (0.2-1.3) mg/dL AST (17-59) U/L ALT (0-50) U/L Alkaline Phosphatase (38-126) U/L Troponin I < 0.012 < 0.012 (0.000-0.034) ng/mL Serum Total Protein (6.3-8.2) g/dL Albumin (3.5-5.0) g/dL Amylase (30-110) U/L Lipase (23-300) U/L 04/08/21 04/08/21 Range/Units 02:17 02:17 WBC 8.2 (4.0-10.5) K/mm3 RBC 3.44 L (4.1-5.6) M/mm3 Hgb 10.9 L (12.5-18.0) gm/dl Hct 34.6 L (42-50) % MCV 100.6 H (78-100) fl MCH 31.7 (26-32) pg MCHC 31.5 L (32-36) g/dl RDW 14.2 H (11.5-14.0) % Plt Count 224 (150-450) K/mm3 MPV 11.4 H (7.5-11.0) fl Gran % 40.3 (36.0-66.0) % Eos # (Auto) 0.37 (0-0.5) Absolute Lymphs (auto) 3.59 (1.0-4.6) Absolute Monos (auto) 0.90 (0.0-1.3) Lymphocytes % 43.8 (24.0-44.0) % Monocytes % 11.0 (0.0-12.0) % Eosinophils % 4.5 (0.00-5.0) % Basophils % 0.4 (0.0-0.4) % Absolute Granulocytes 3.30 (1.4-6.9) Basophils # 0.03 (0-0.4) Sodium 140 (137-145) mmol/L Potassium 4.6 (3.5-5.1) mmol/L Chloride 107 (98-107) mmol/L Carbon Dioxide 26 (22-30) mmol/L Anion Gap 11.3 (5-15) MEQ/L BUN 52 H (9-20) mg/dL Creatinine 1.20 (0.66-1.25) mg/dL Estimated GFR > 60.0 ML/MIN Glucose 133 H (74-106) mg/dL Lactic Acid (0.4-2.0) Calcium 8.9 (8.4-10.2) mg/dL Total Bilirubin 0.70 (0.2-1.3) mg/dL AST 42 (17-59) U/L ALT 31 (0-50) U/L Alkaline Phosphatase 40 (38-126) U/L Troponin I (0.000-0.034) ng/mL Serum Total Protein 5.6 L (6.3-8.2) g/dL Albumin 3.2 L (3.5-5.0) g/dL Amylase 62 (30-110) U/L Lipase 166 (23-300) U/L - Progress Progress: improved - Departure Departure Disposition: Home Clinical Impression: Gastritis Condition: Stable Critical Care Time: No Referrals: ELVIRA PAT [Primary Care Provider] - Instructions: Gastritis (DC) Prescriptions: Ondansetron HCl [Zofran] 4 mg PO TID PRN #10 tablet PRN Reason: Nausea/Vomiting
[2021-04-08 04:10] VITALS: BP 134/71; PULSE 101; O2SAT 99
--- NOTE | 2021-04-08 19:44 | XRAY ---
Exam: AP upright portable chest film from 04/08/2021. Comparison: Two-view chest from 04/16/2019. Indication: Nausea/vomiting; diaphoresis; history of heart issues per patient. Findings: The transverse heart size appears within normal limits. There is either some vascular calcification or a stent projected over a coronary artery within the upper left side of the heart. This is unchanged from 04/16/2019. Atherosclerotic vascular calcification is seen within the aortic arch. The lungs are adequately inflated. The remainder of the kalin and mediastinal structures appears unremarkable. No air space infiltrates, vascular congestion, pneumothorax, or pleural fluid is seen. Minimal biapical pleural thickening is again seen. No abnormal soft tissue lung nodularity is seen. Mild lateral osteophyte formation is seen within the mid and lower thoracic spine. Impression: 1. No acute cardiopulmonary disease is seen. 2. Incidental findings, as discussed above.
== END 2021-04-08 04:25 | disposition home or self-care (01) ==
LOC: ED 01:21
DX: K29.70 Gastritis, unspecified, without bleeding (principal); R10.13 Epigastric pain; R11.0 Nausea; Z79.899 Other long term (current) drug therapy; Z79.01 Long term (current) use of anticoagulants; E78.00 Pure hypercholesterolemia, unspecified; I10 Essential (primary) hypertension; I25.2 Old myocardial infarction
CPT/HCPCS: 36000; 36415; 71045; 80053; 82150; 83605; 83690; 84484; 85025; 93005; 96374; 99284; J2405

== ENCOUNTER 2021-04-09 15:23 | Emergency (ER) | payer MEDICARE ==
[2021-04-09 15:40] VITALS: O2SAT 100
[2021-04-09] MEDS ORDERED: Sodium Chloride 0.9% 1000 ML 1,000 ML IV STA ×2 (15:41→17:36)
[2021-04-09] MEDS ORDERED: Zofran 4 MG/2 ML VIAL IV ONE (15:41)
[2021-04-09] MEDS ORDERED: Cordarone 150 MG/3 ML Injection*** 150 MG in D5w 100ML Mini Bag 100 ML 100 ML IV ONE (15:43)
[2021-04-09] MEDS ORDERED: Adenocard IV 6 MG/2 ML IV ONE (15:44)
[2021-04-09] MEDS ORDERED: Sodium Chloride 0.9% 1000 ML 1,000 ML ONE ×3 (15:45→20:17)
[2021-04-09] MEDS ORDERED: Zofran 4 MG/2 ML VIAL ONE (15:47)
[2021-04-09 16:07] LABS: Absolute Neutrophil Ct (ANC) 9.26 (1.4-6.9); BASOPHIL % 0.2 % (0.0-0.4); Basophil (Absolute #) 0.03 (0-0.4); Eosinophil % 0.1 % (0.00-5.0); Eosinophil (Absolute #) 0.01 (0-0.5); Hematocrit 25.7 % (42-50); Hemoglobin 8.1 gm/dl (12.5-18.0); Lymphocyte (Absolute #) 2.22 (1.0-4.6); Lymphocytes % 18.4 % (24.0-44.0); Mean Cell Volume 101.2 fl (78-100); Mean Corpuscular Hemoglobin 31.9 pg (26-32); Mean Corpuscular Hgb Concent. 31.5 g/dl (32-36); Mean Platelet Volume 11.1 fl (7.5-11.0); Monocyte (Absolute #) 0.53 (0.0-1.3); Monocytes % 4.4 % (0.0-12.0); Neutrophil % 76.9 % (36.0-66.0); Platelet Count 226 K/mm3 (150-450); Red Blood Count 2.54 M/mm3 (4.1-5.6); Red Cell Distribution Width 13.9 % (11.5-14.0); White Blood Count 12.1 K/mm3 (4.0-10.5)
--- NOTE | 2021-04-09 16:08 | ERPHSYRPT ---
- History of Present Illness Source: patient Exam Limitations: no limitations Patient Subjective Stated Complaint: weakness, nausea, abd pain Triage Nursing Assessment: pt to ED c/o weakness, nausea, and abd pain x 1 day. was in this ED early yesterday morning and was dx with gastritis. reports going home that morning and taking prescriptions made him feel better. however, he attempted to eat soup yesterday afternoon which made him feel sick again. denies pain at this time. hx afib and on arrival to ED pt appears to be in afib w/ rvr on the monitor. pt is asymptomatic of afib at this time. Timing/Duration: day(s) (3), constant, gradual onset, worse Severity: moderate Modifying Factors: Improves With: rest Associated Symptoms: nausea, vomiting, abdominal pain, loss of appetite, weakness, No shortness of breath, No heartburn, No cough, No chills, No chest pain, No fever, No headaches, No malaise, No rash, No syncope, No seizure Hx Tetanus, Diphtheria Vaccination/Date Given: No (unsure) Hx Influenza Vaccination/Date Given: No Hx Pneumococcal Vaccination/Date Given: Yes Immunizations Up to Date: No - History of Present Illness Time Seen by Provider: 04/09/21 15:41 Physician History: 76 years old male with history of coronary artery disease status post stenting, atrial fibrillation on Xarelto, hypertension, hyperlipidemia presented in the ER with chief complaint of generalized weakness fatigue and tiredness with lack of energy to do his routine activities. Patient report for the last 3 days he has been feeling weak having multiple episodes of nonprojectile, nonbilious vomiting without hematemesis and dry heaving along with mild generalized abdominal soreness. Has decreased oral intake. Denies any chest pain palpitations or shortness of breath. On presentation his heart rate is in 170s A. fib with RVR. Denies any sick contact, vaccinated against COVID-19. (LARRY RODARTE) Allergies/Adverse Reactions: doxycycline Allergy (Mild, Verified 04/09/21 15:40) dizzy and nasuea cefdinir Allergy (Verified 04/09/21 15:40) Home Medications: Aspirin [Aspirin EC] 81 mg PO DAILY 12/01/15 [History] Fenofibrate 145 mg PO DAILY 12/01/15 [History] Metoprolol Tartrate 50 mg [Lopressor 50 MG] 75 mg PO BID 12/01/15 [History] Multivitamin [Multi-Vitamin Daily] 1 tab PO DAILY 12/01/15 [History] Rivaroxaban [Xarelto] 20 mg PO DAILY 12/01/15 [History] Ubidecarenone [Co Q-10] 100 mg PO DAILY 10/05/19 [History] Travel Risk - International Travel Have you traveled outside of the country in past 3 weeks: No - Coronavirus Screening Are you exhibiting any of the following symptoms?: Yes Symptoms: Vomiting/Diarrhea Close contact with a COVID-19 positive Pt in past 14-21 Days: No - Vaccine Status Have you recieved a Covid-19 vaccination: Yes 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: [employer] - Vaccination Dates Date of 2cond Vaccination (if applicable): unknown - Review of Systems Constitutional: Fatigue, Weakness Eyes: No Symptoms Ears, Nose, & Throat: No Symptoms Respiratory: No Symptoms Cardiac: No Symptoms Abdominal/Gastrointestinal: Abdominal Pain, Nausea, Vomiting Genitourinary Symptoms: No Symptoms Musculoskeletal: Myalgias Skin: No Symptoms Neurological: No Symptoms Psychological: No Symptoms Endocrine: No Symptoms Hematologic/Lymphatic: No Symptoms Immunological/Allergic: No Symptoms - Past Medical History Pertinent Past Medical History: Yes Neurological History: No Pertinent History ENT History: No Pertinent History Cardiac History: High Cholesterol, Hypertension, Myocardial Infarction (IA) Respiratory History: No Pertinent History Endocrine Medical History: No Pertinent History Musculoskeletal History: Fractures GI Medical History: Colorectal Cancer, Hernia, Liver Cancer History: No Pertinent History Psycho-Social History: No Pertinent History Male Reproductive Disorders: No Pertinent History Other Medical History: History of Colon with Liver mets, Myocardial Infarction x2, - Past Surgical History Past Surgical History: Yes Neuro Surgical History: No Pertinent History Cardiac: Cardiac Stent, Vascular Surgery Respiratory: Chest Surgery, Other Gastrointestinal: Cholecystectomy, Colon Resection, Hernia Repair, Other Genitourinary: No Pertinent History Musculoskeletal: No Pertinent History Male Surgical History: No Pertinent History Other Surgical History: LIVER RESECTION DUE TO CANCER. 4 heart stents. cvl port placement and removal. hiatal hernia repair = complications with collapsed lung during OR - Social History Smoking Status: Former smoker How long have you smoked: 30 Exposure to second hand smoke: No Alcohol Use: None Drug Use: none Patient Lives Alone: Yes Significant Family History: no pertinent family hx - Physical Exam General Appearance: no apparent distress, alert Eye Exam: PERRL/EOMI, eyes nml inspection Ears, Nose, Throat Exam: normal ENT inspection, TMs normal, pharynx normal Neck Exam: normal inspection, non-tender, supple, full range of motion Respiratory Exam: normal breath sounds, lungs clear Cardiovascular Exam: tachycardia, irregular Gastrointestinal/Abdomen Exam: soft, normal bowel sounds, tenderness (Minimal generalized tenderness without guarding or rebound.) Extremity Exam: normal inspection, normal range of motion, pelvis stable Neurologic Exam: alert, oriented x 3, cooperative, 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, normal mood/affect Skin Exam: normal color SpO2 Interpretation: normal SpO2: 100 O2 Delivery: Room Air - Nursing Vital Signs Nursing Vital Signs: Initial Vital Signs Temperature 98.6 F 04/09/21 15:33 Pulse Rate 170 H 04/09/21 15:33 Respiratory Rate 22 04/09/21 15:33 Blood Pressure 104/88 04/09/21 15:33 O2 Sat by Pulse Oximetry 100 04/09/21 15:33 Pain Scale Pain Intensity 0 - Course EKG Interpreted by Me: RATE ([id number]), A-fib, NORMAL AXIS, NORMAL INTERVALS, Right Bundle Branch Block, Non-specific ST Changes (Patient) Ordered Tests: Active Orders 24 hr Category Date Time Status EKG-ER Only STAT Care 04/09/21 15:41 Completed IV Insertion STAT Care 04/09/21 15:41 Completed NPO (ED) STAT Care 04/09/21 15:41 Completed ABDOMEN AND PELVIS W/0 CONTRAS [CT] Stat Exams 04/09/21 16:22 Completed CHEST 1 VIEW (PORTABLE) Stat Exams 04/09/21 15:42 Completed AMYLASE Stat Lab 04/09/21 16:00 Completed BLOOD CULTURE Stat Lab 04/09/21 15:52 Received CBC W DIFF Stat Lab 04/09/21 16:00 Completed CMP Stat Lab 04/09/21 16:00 Completed Hemoglobin Stat Lab 04/09/21 19:20 Completed LIPASE Stat Lab 04/09/21 16:00 Completed Lactic Acid Stat Lab 04/09/21 16:00 Completed Lactic Acid Stat Lab 04/09/21 18:06 Completed MAGNESIUM Stat Lab 04/09/21 16:00 Completed NT PRO BNP Stat Lab 04/09/21 16:00 Completed TROPONIN Q3H Lab 04/09/21 16:00 Completed TROPONIN Q3H Lab 04/09/21 18:20 Completed Medication Summary Discontinued Medications Generic Name Dose Route Start Last Admin Trade Name Freq PRN Reason Stop Dose Admin Acetaminophen 650 mg 04/09/21 16:47 Tylenol 325 Mg PO 04/09/21 16:48 STAT STA Adenosine Confirm 04/09/21 15:44 Adenocard Iv 6 Mg/2 Ml Administered 04/09/21 15:45 Dose 6 mg IV .STK-MED ONE Sodium Chloride 1,000 mls @ 999 mls/hr 04/09/21 15:41 04/09/21 17:20 Sodium Chloride 0.9% 1000 Ml IV 04/09/21 16:41 Infused .Q1H1M STA Infusion Amiodarone HCl 150 mg/ 103 mls @ 618 mls/hr 04/09/21 15:43 04/09/21 16:03 Dextrose IV 04/09/21 15:52 618 mls/hr STAT ONE Administration Protocol Sodium Chloride Confirm 04/09/21 15:45 Sodium Chloride 0.9% 1000 Ml Administered 04/09/21 15:46 Dose 1,000 mls @ ud .ROUTE .STK-MED ONE Amiodarone HCl/Dextrose 360 mg in 200 mls @ 33 mls/hr 04/09/21 16:15 04/09/21 16:29 Nexterone 360 Mg/200 Ml Bag IV 05/09/21 16:14 33 mls/hr .Q6H4M AMBER 33 mls/hr Administration Protocol Amiodarone HCl/Dextrose Confirm 04/09/21 16:09 Nexterone 360 Mg/200 Ml Bag Administered 04/09/21 16:10 Dose 360 mg in 200 mls @ ud IV .STK-MED ONE Sodium Chloride 1,000 mls @ 999 mls/hr 04/09/21 17:36 04/09/21 19:39 Sodium Chloride 0.9% 1000 Ml IV 04/09/21 18:36 999 mls/hr .Q1H1M STA Administration Pantoprazole Sodium 80 mg/ 500 mls @ 50 mls/hr 04/09/21 17:45 04/09/21 19:45 Sodium Chloride IV 05/09/21 17:44 50 ml/hr .Q10H AMBER 50 mls/hr Administration Sodium Chloride Confirm 04/09/21 19:37 Sodium Chloride 0.9% 500 Ml Administered 04/09/21 19:38 Dose 500 mls @ ud IV .STK-MED ONE Sodium Chloride Confirm 04/09/21 19:38 Sodium Chloride 0.9% 1000 Ml Administered 04/09/21 19:39 Dose 1,000 mls @ ud .ROUTE .STK-MED ONE Sodium Chloride Confirm 04/09/21 20:17 Sodium Chloride 0.9% 1000 Ml Administered 04/09/21 20:18 Dose 1,000 mls @ ud .ROUTE .STK-MED ONE Metoclopramide HCl 10 mg 04/09/21 16:47 04/09/21 17:16 Reglan 10 Mg/2 Ml IV 04/09/21 16:48 10 mg STAT ONE Administration Metoclopramide HCl Confirm 04/09/21 17:11 Reglan 10 Mg/2 Ml Administered 04/09/21 17:12 Dose 10 mg .ROUTE .STK-MED ONE Ondansetron HCl 4 mg 04/09/21 15:41 04/09/21 15:50 Zofran 4 Mg/2 Ml Vial IV 04/09/21 15:42 4 mg STAT ONE Administration Ondansetron HCl Confirm 04/09/21 15:47 Zofran 4 Mg/2 Ml Vial Administered 04/09/21 15:48 Dose 4 mg .ROUTE .STK-MED ONE Pantoprazole Sodium 40 mg 04/09/21 17:36 04/09/21 19:45 Protonix 40 Mg Iv IV 04/09/21 17:37 40 mg STAT ONE Administration Pantoprazole Sodium Confirm 04/09/21 19:37 Protonix 40 Mg Iv Administered 04/09/21 19:38 Dose 120 mg IV .STK-MED ONE Lab/Rad Data: Laboratory Result Diagrams 04/09/21 19:20 04/09/21 16:00 Laboratory Results 04/09/21 04/09/21 04/09/21 Range/Units 19:30 19:20 18:20 WBC (4.0-10.5) K/mm3 RBC (4.1-5.6) M/mm3 Hgb 7.2 L (12.5-18.0) gm/dl Hct (42-50) % MCV (78-100) fl MCH (26-32) pg MCHC (32-36) g/dl RDW (11.5-14.0) % Plt Count (150-450) K/mm3 MPV (7.5-11.0) fl Gran % (36.0-66.0) % Eos # (Auto) (0-0.5) Absolute Lymphs (auto) (1.0-4.6) Absolute Monos (auto) (0.0-1.3) Lymphocytes % (24.0-44.0) % Monocytes % (0.0-12.0) % Eosinophils % (0.00-5.0) % Basophils % (0.0-0.4) % Absolute Granulocytes (1.4-6.9) Basophils # (0-0.4) Sodium (137-145) mmol/L Potassium (3.5-5.1) mmol/L Chloride (98-107) mmol/L Carbon Dioxide (22-30) mmol/L Anion Gap (5-15) MEQ/L BUN (9-20) mg/dL Creatinine (0.66-1.25) mg/dL Estimated GFR ML/MIN Glucose (74-106) mg/dL Lactic Acid (0.4-2.0) Calcium (8.4-10.2) mg/dL Magnesium (1.6-2.3) mg/dL Total Bilirubin (0.2-1.3) mg/dL AST (17-59) U/L ALT (0-50) U/L Alkaline Phosphatase (38-126) U/L Troponin I < 0.012 (0.000-0.034) ng/mL NT-Pro-B Natriuret Pep (0-1800) pg/mL Serum Total Protein (6.3-8.2) g/dL Albumin (3.5-5.0) g/dL Amylase (30-110) U/L Lipase (23-300) U/L ABO Group Rh Factor Antibody Screen (NEGATIVE) Crossmatch COMPATIBLE (COMPATIBLE) 04/09/21 04/09/21 04/09/21 Range/Units 18:06 17:37 16:00 WBC (4.0-10.5) K/mm3 RBC (4.1-5.6) M/mm3 Hgb (12.5-18.0) gm/dl Hct (42-50) % MCV (78-100) fl MCH (26-32) pg MCHC (32-36) g/dl RDW (11.5-14.0) % Plt Count (150-450) K/mm3 MPV (7.5-11.0) fl Gran % (36.0-66.0) % Eos # (Auto) (0-0.5) Absolute Lymphs (auto) (1.0-4.6) Absolute Monos (auto) (0.0-1.3) Lymphocytes % (24.0-44.0) % Monocytes % (0.0-12.0) % Eosinophils % (0.00-5.0) % Basophils % (0.0-0.4) % Absolute Granulocytes (1.4-6.9) Basophils # (0-0.4) Sodium (137-145) mmol/L Potassium (3.5-5.1) mmol/L Chloride (98-107) mmol/L Carbon Dioxide (22-30) mmol/L Anion Gap (5-15) MEQ/L BUN (9-20) mg/dL Creatinine (0.66-1.25) mg/dL Estimated GFR ML/MIN Glucose (74-106) mg/dL Lactic Acid 3.6 H (0.4-2.0) Calcium (8.4-10.2) mg/dL Magnesium (1.6-2.3) mg/dL Total Bilirubin (0.2-1.3) mg/dL AST (17-59) U/L ALT (0-50) U/L Alkaline Phosphatase (38-126) U/L Troponin I < 0.012 (0.000-0.034) ng/mL NT-Pro-B Natriuret Pep (0-1800) pg/mL Serum Total Protein (6.3-8.2) g/dL Albumin (3.5-5.0) g/dL Amylase (30-110) U/L Lipase (23-300) U/L ABO Group A Rh Factor NEGATIVE Antibody Screen NEGATIVE (NEGATIVE) Crossmatch (COMPATIBLE) 04/09/21 04/09/21 04/09/21 Range/Units 16:00 16:00 16:00 WBC 12.1 H (4.0-10.5) K/mm3 RBC 2.54 L (4.1-5.6) M/mm3 Hgb 8.1 L D (12.5-18.0) gm/dl Hct 25.7 L (42-50) % MCV 101.2 H (78-100) fl MCH 31.9 (26-32) pg MCHC 31.5 L (32-36) g/dl RDW 13.9 (11.5-14.0) % Plt Count 226 (150-450) K/mm3 MPV 11.1 H (7.5-11.0) fl Gran % 76.9 H (36.0-66.0) % Eos # (Auto) 0.01 (0-0.5) Absolute Lymphs (auto) 2.22 (1.0-4.6) Absolute Monos (auto) 0.53 (0.0-1.3) Lymphocytes % 18.4 L (24.0-44.0) % Monocytes % 4.4 (0.0-12.0) % Eosinophils % 0.1 (0.00-5.0) % Basophils % 0.2 (0.0-0.4) % Absolute Granulocytes 9.26 H (1.4-6.9) Basophils # 0.03 (0-0.4) Sodium 143 (137-145) mmol/L Potassium 4.4 (3.5-5.1) mmol/L Chloride 112 H (98-107) mmol/L Carbon Dioxide 17 L (22-30) mmol/L Anion Gap 18.4 H (5-15) MEQ/L BUN 49 H (9-20) mg/dL Creatinine 1.18 (0.66-1.25) mg/dL Estimated GFR > 60.0 ML/MIN Glucose 178 H (74-106) mg/dL Lactic Acid 4.9 H (0.4-2.0) Calcium 8.7 (8.4-10.2) mg/dL Magnesium 1.8 (1.6-2.3) mg/dL Total Bilirubin 0.50 (0.2-1.3) mg/dL AST 33 (17-59) U/L ALT 35 (0-50) U/L Alkaline Phosphatase 40 (38-126) U/L Troponin I (0.000-0.034) ng/mL NT-Pro-B Natriuret Pep 1190 (0-1800) pg/mL Serum Total Protein 5.4 L (6.3-8.2) g/dL Albumin 3.2 L (3.5-5.0) g/dL Amylase 68 (30-110) U/L Lipase 80 (23-300) U/L ABO Group Rh Factor Antibody Screen (NEGATIVE) Crossmatch (COMPATIBLE) - Progress Progress: improved, re-examined Discussed with DrKamini: Other Counseled pt/family regarding: lab results, diagnosis, rad results - Progress Progress Note: 04/09/21 18:14 76 years old is evaluated for upper abdominal pain vomiting with generalized weakness and fatigue. Given fluid bolus and patient was in A. fib with RVR with a borderline blood pressure, I have started him on amiodarone bolus followed by drip and his heart rate is currently in 130s. Chest x-ray did not show any acute findings, CT abdomen pelvis without contrast grossly negative. Work-up showed white count of 12 with a drop of hemoglobin from 11-8.1 since yesterday and patient does give history of dark-colored stool last night and he is on Xarelto. He is started on Protonix bolus followed by drip. Type and screen is obtained and will transfuse him. Patient also has a disproportionate elevation of BUN to creatinine and elevated lactate 4.9 which I believe is secondary to bleed/dehydration/volume depletion. No obvious focus of infection. 04/09/21 18:28 [facility], reviewed history, current work-up and management, agreed with transfer. While patient is in here, will recheck his H&H and if it is further dropping, will transfuse him because with his history of CAD, patient probably would benefit with transfusion if hemoglobin drops less than 8. 04/09/21 18:57 Patient is also discussed with Dr. Dewey who would be the physician here in the ER in case if he needs any intervention. Risks and benefits of transfusions discussed with patient and he is okay with receiving 1 in here. (LARRY RODARTE) Patient receiving his blood transfusion. Patient was accepted at [facility]. A bed assignment was provided to us. Plan of care discussed with patient. He agreed to transfer to [facility] for further evaluation and treatment. Patient's repeat hemoglobin showed a decrease as compared to the initial draw. It is likely patient is experiencing blood loss in the GI tract. I discussed this case with Dr. Pat who advised transfer due to the fact that patient was experiencing A. fib with RVR and active GI bleed. Repeat exam at time of transfer was essentially the same as it was during change of shift. 04/09/21 23:15 (ALISA DEWEY) - Departure Departure Disposition: Transfer Critical Care Time: Yes Critical Care Time(excluding separately billable procedures): Critical 30-74 mins - Departure Clinical Impression: Atrial fibrillation with RVR, Acute blood loss anemia GI bleed Qualifiers: GI bleed type/associated pathology: melena Qualified Code(s): K92.1 - Melena Condition: Fair Referrals: ELVIRA PAT [Primary Care Provider] -
[2021-04-09] MEDS ORDERED: NEXTERONE 360 MG/200 ML BAG 360 MG/200 ML PLAST..BAG IV ONE (16:09)
[2021-04-09] MEDS ORDERED: NEXTERONE 360 MG/200 ML BAG 360 MG/200 ML PLAST..BAG IV SCH (16:15)
[2021-04-09 16:31] LABS: SGPT/ALT 35 U/L (0-50)
[2021-04-09 16:33] LABS: ALBUMIN 3.2 g/dL (3.5-5.0); ALKALINE PHOSPHATASE 40 U/L (38-126); AMYLASE 68 U/L (30-110); ANION GAP 18.4 MEQ/L (5-15); BLOOD UREA NITROGEN 49 mg/dL (9-20); CHLORIDE 112 mmol/L (98-107); Calcium 8.7 mg/dL (8.4-10.2); Carbon Dioxide 17 mmol/L (22-30); Creatinine 1 1.18 mg/dL (0.66-1.25); EST GLOMERULAR FILTRATION RATE > 60.0 ML/MIN; Glucose 178 mg/dL (74-106); LIPASE 80 U/L (23-300); MAGNESIUM 1.8 mg/dL (1.6-2.3); NT PRO BNP 1190 pg/mL (0-1800); Potassium 4.4 mmol/L (3.5-5.1); SGOT/AST 33 U/L (17-59); SODIUM 143 mmol/L (137-145); Total Protein 5.4 g/dL (6.3-8.2)
--- NOTE | 2021-04-09 16:40 | XRAY ---
Exam: AP portable chest film from 04/09/2021. Comparison: AP portable chest film from 04/08/2021. Indication: 76-year-old male with generalized weakness. Findings: The transverse heart size appears within normal limits for this AP portable technique. Vascular calcification within the aortic knob is again seen. The remainder of the kalin and mediastinal structures appears unremarkable. Numerous EKG leads are seen in place. The lungs are adequately inflated. No air space infiltrates, vascular congestion, pneumothorax, or pleural fluid is seen. Mild degenerative changes are seen within the lower thoracic spine. Impression: 1. No acute cardiopulmonary disease is seen, no change from 04/08/2021.
[2021-04-09] MEDS ORDERED: TYLENOL 325 MG PO STA (16:47)
[2021-04-09] MEDS ORDERED: Reglan 10 MG/2 ML IV ONE (16:47)
[2021-04-09] MEDS ORDERED: Reglan 10 MG/2 ML ONE (17:11)
--- NOTE | 2021-04-09 17:26 | XRAY ---
Exam: CT of the abdomen and pelvis without IV contrast from 04/09/2021. CTDI: 5.30 mGy Comparison: CT of the abdomen and pelvis without IV contrast from 02/02/2020. Indication: 76-year-old male with generalized weakness; nausea and vomiting; diffuse abdominal pain. The patient has a history of prior colon resection for colon cancer, as well as previous cholecystectomy. Findings: The transverse heart size appears slightly enlarged. Mild pericardial effusion is seen which measures up to 0.9 cm in AP dimension anteriorly and 0.9 cm in thickness posterolaterally on the left. I believe this is slightly larger as compared to 02/02/2020. There appears to be a small hiatal hernia present. On axial image #10 there is a subpleural 8 mm in diameter mildly hyperattenuated nodule at the posterior right lower lung base which is unchanged. Furthermore, I do not believe this nodule is significantly changed from 07/15/2019. The liver appears of appears of unremarkable size. I again see a chunky calcification at the posterior medial margin of the liver measuring up to 1.1 cm in diameter representing no change. No obvious liver mass is seen. No intrahepatic biliary duct distention is seen. Surgical clips consistent with prior cholecystectomy are noted. The spleen is of normal size and reveals no mass. Mild diffuse atrophy of the pancreas is seen. The adrenal glands are of normal size and configuration. The right adrenal gland contains a tiny calcification within it representing no change. The kidneys appear of average size and shape. No gross renal mass or hydronephrosis is seen. Prior tiny nonobstructing stone overlying the lower pole of the right kidney is not definitely seen on the current study. I do note some mild perinephric stranding representing no change. This is nonspecific. The ureters appear of unremarkable diameter and reveal no ureterolith. No urinary bladder stone is seen. Moderate atherosclerotic vascular calcification is seen within the abdominal aorta and its branches. There is slight focal distention of the infrarenal abdominal aorta on axial image #39 which measures 2.25 cm in AP dimension and 2.2 cm in width. No abdominal aortic aneurysm or abnormal retroperitoneal lymphadenopathy is seen. Abundant intraperitoneal fat is seen. There is no free intraperitoneal air or ventral abdominal wall hernia. Surgical clips are seen overlying the left upper outer, lower left hemiabdomen, and lower midline pelvis from previous colon surgery. I see no evidence of bowel obstruction or bowel wall thickening. Some scattered stool is seen throughout the visualized colon. The appendix appears unremarkable within the right lower quadrant. Moderate vascular calcification is seen within the iliac arteries and common femoral arteries. The seminal vesicles appear unremarkable. The prostate gland is mildly enlarged measuring about 4.9 cm in width and 3.8 cm in AP dimension on axial image #87. I again see surgical suture material and surgical clips about the rectum and presacral soft tissues. No inguinal hernia is seen. Some nonspecific postinflammatory lymph nodes are seen within the femoral regions. The skeleton reveals no acute fracture or aggressive bone lesion. There appears to be a Schmorl's node within the inferior vertebral endplate of L4. Prior fractures of the right lumbar transverse processes appear to have healed since 02/02/2020. Mild degenerative changes are seen within both sacroiliac joints. Impression: 1. The heart size appears slightly enlarged and demonstrates a mild pericardial effusion which I believe is a bit larger as compared to 02/02/2020. Correlate clinically. 2. Small hiatal hernia. 3. There is evidence of prior rectal and colon surgery as well as cholecystectomy. There is no bowel obstruction. Scattered stool is seen throughout the colon. 3. Prior nonobstructing subtle stone within the lower pole of the right kidney is no longer seen. I see no evidence of hydronephrosis or obstructive uropathy. No ureteral stone is seen. 4. Other incidental findings, as discussed above.
[2021-04-09] MEDS ORDERED: PROTONIX 40 MG IV IV ONE ×2 (17:36→19:37)
[2021-04-09] MEDS ORDERED: PROTONIX 40 MG IV*** 80 MG in Sodium Chloride 0.9% 500 ML 500 ML IV SCH (17:45)
[2021-04-09] MEDS ORDERED: Sodium Chloride 0.9% 500 ML 500 ML IV ONE (19:37)
[2021-04-09 19:58] LABS: ABO TYPING A; Antibody Screen NEGATIVE (NEGATIVE); RH TYPING NEGATIVE
[2021-04-09 20:04] LABS: CROSS MATCH (PRBC) COMPATIBLE (COMPATIBLE)
[2021-04-09 20:55] VITALS: BP 156/86; PULSE 129
== END 2021-04-09 21:30 | disposition short-term general hospital (02) ==
LOC: ED 15:23
DX: I48.20 Chronic atrial fibrillation, unspecified (principal); D62 Acute posthemorrhagic anemia; R53.83 Other fatigue; R11.0 Nausea; R10.9 Unspecified abdominal pain; R11.2 Nausea with vomiting, unspecified; I25.10 Atherosclerotic heart disease of native coronary artery without angina pectoris; I10 Essential (primary) hypertension; E78.5 Hyperlipidemia, unspecified; Z79.01 Long term (current) use of anticoagulants; Z79.899 Other long term (current) drug therapy
CPT/HCPCS: 36000; 36415; 36430; 71045; 74176; 80053; 82150; 83605; 83690; 83735; 83880; 84484; 85018; 85025; 86850; 86900; 86901; 86922; 87040; 93005; 96360; 96361; 96365; 96366; 96374; 96375; 99285; 99291; P9016; J0153; J0282; J2405

== ENCOUNTER 2021-05-30 17:18 | Emergency (ER) | payer MEDICARE ==
--- NOTE | 2021-05-30 17:27 | ERPHSYRPT ---
- History of Present Illness Time Seen by Provider: 05/30/21 17:30 Source: patient Exam Limitations: no limitations Physician History: This is a 76-year-old white male patient of Dr. Kan who has a history of significant bilateral lower extremity varicosities chronically and presents with left anterior knee pain. Patient has been off Xarelto for quite some time. He was on aspirin but was recently taken off because he is undergoing a cardiac procedure within the next several days. Patient denies trauma to the left knee. Patient states he does not want any narcotic pain medicine as it makes him ill. Patient states the pain is worse when he is flexing the left knee. Method of Injury: other (No injury) Occurred: days ago (2 to 3 days) Quality: constant, aching Severity of Pain-Max: mild Severity of Pain-Current: mild Lower Extremities Pain: knee: left Modifying Factors: Improves With: movement (Flexing left knee) Allergies/Adverse Reactions: doxycycline Allergy (Mild, Verified 05/30/21 17:45) dizzy and nasuea cefdinir Allergy (Verified 05/30/21 17:45) Home Medications: Aspirin [Aspirin EC] 81 mg PO DAILY 12/01/15 [History] Fenofibrate 145 mg PO DAILY 12/01/15 [History] Metoprolol Tartrate 50 mg [Lopressor 50 MG] 75 mg PO BID 12/01/15 [History] Multivitamin [Multi-Vitamin Daily] 1 tab PO DAILY 12/01/15 [History] Atorvastatin Calcium 80 mg PO HS 05/30/21 [History] PANTOPRAZOLE 40 mg Tablet [Protonix 40MG Tablet] 40 mg PO BID 05/30/21 [History] Ubidecarenone [Coq10] 100 mg PO DAILY 05/30/21 [History] Vit C/E/Zn/Coppr/Lutein/Zeaxan [Preservision Areds 2 Softgel] 2 cap PO DAILY 05/30/21 [History] Hx Tetanus, Diphtheria Vaccination/Date Given: No (unsure) Hx Influenza Vaccination/Date Given: No Hx Pneumococcal Vaccination/Date Given: Yes Travel Risk - International Travel Have you traveled outside of the country in past 3 weeks: No - Coronavirus Screening Are you exhibiting any of the following symptoms?: No Close contact with a COVID-19 positive Pt in past 14-21 Days: No - Vaccine Status Have you recieved a Covid-19 vaccination: Yes 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: 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 - Vaccination Dates Date of 2cond Vaccination (if applicable): unknown - Review of Systems Constitutional: No Symptoms Eyes: No Symptoms Ears, Nose, & Throat: No Symptoms Respiratory: No Symptoms Cardiac: No Symptoms Abdominal/Gastrointestinal: No Symptoms Genitourinary Symptoms: No Symptoms Musculoskeletal: Joint Pain (Anterior left knee pain) Neurological: No Symptoms Psychological: No Symptoms Endocrine: No Symptoms Hematologic/Lymphatic: No Symptoms Immunological/Allergic: No Symptoms All Other Systems: Reviewed and Negative - Past Medical History Pertinent Past Medical History: Yes Neurological History: No Pertinent History ENT History: No Pertinent History Cardiac History: High Cholesterol, Hypertension, Myocardial Infarction ([place]) Respiratory History: No Pertinent History Endocrine Medical History: No Pertinent History Musculoskeletal History: Fractures GI Medical History: Colorectal Cancer, Hernia, Liver Cancer History: No Pertinent History Psycho-Social History: No Pertinent History Male Reproductive Disorders: No Pertinent History Other Medical History: History of Colon with Liver mets, Myocardial Infarction x2, - Past Surgical History Past Surgical History: Yes Neuro Surgical History: No Pertinent History Cardiac: Cardiac Stent, Vascular Surgery Respiratory: Chest Surgery, Other Gastrointestinal: Cholecystectomy, Colon Resection, Hernia Repair, Other Genitourinary: No Pertinent History Musculoskeletal: No Pertinent History Male Surgical History: No Pertinent History Other Surgical History: LIVER RESECTION DUE TO CANCER. 4 heart stents. cvl port placement and removal. hiatal hernia repair = complications with collapsed lung during OR - Social History Smoking Status: Former smoker How long have you smoked: 30 Exposure to second hand smoke: No Alcohol Use: None Drug Use: none Patient Lives Alone: Yes Significant Family History: no pertinent family hx - Nursing Vital Signs Nursing Vital Signs: Initial Vital Signs Temperature 98.5 F 05/30/21 17:26 Pulse Rate 99 H 05/30/21 17:26 Respiratory Rate 20 05/30/21 17:26 Blood Pressure 164/93 05/30/21 17:26 O2 Sat by Pulse Oximetry 98 05/30/21 17:26 Pain Scale Pain Intensity 5 - Physical Exam General Appearance: no apparent distress, alert, anxiety Eyes, Ears, Nose, Throat Exam: normal ENT inspection, moist mucous membranes Neck Exam: normal inspection, non-tender, supple, full range of motion Cardiovascular/Respiratory Exam: chest non-tender, no respiratory distress Gastrointestinal/Abdominal Exam: non-tender Back Exam: normal inspection, normal range of motion, No CVA tenderness, No vertebral tenderness Hips Exam: bilateral: non-tender, normal inspection, normal range of motion, no evidence of injury Legs Exam: bilateral leg: non-tender, normal inspection, normal range of motion, no evidence of injury Knees Exam: right knee: non-tender, normal inspection, normal range of motion, no evidence of injury, left knee: bone tenderness (Anterior knee), other (Patient has significant varicose vein. No phlebitis and no cellulitis.) Ankle Exam: bilateral ankle: non-tender, normal inspection, normal range of motion, no evidence of injury Foot Exam: bilateral foot: non-tender, normal inspection, normal range of motion, no evidence of injury Neuro/Tendon Exam: normal sensation, normal motor functions, normal tendon functions Mental Status Exam: alert, oriented x 3, cooperative Skin Exam: normal color, warm, dry SpO2 Interpretation: normal O2 Delivery: Room Air - Course Nursing assessment & vital signs reviewed: Yes Ordered Tests: Active Orders 24 hr Category Date Time Status KNEE (1 OR 2 VIEW) Stat Exams 05/30/21 18:14 Taken Medication Summary Generic Name Dose Route Start Last Admin Trade Name Freq PRN Reason Stop Dose Admin Methylprednisolone Sodium 0 mg 05/30/21 18:31 Succinate 125 mg/ Sterile IM 05/30/21 18:32 Water 2 ml STAT ONE - Progress Progress: pain not gone completely, re-examined Progress Note: 05/30/21 18:32 X-ray left knee shows no acute fracture or dislocation. Counseled pt/family regarding: diagnosis, need for follow-up, rad results - Departure Departure Disposition: Home Clinical Impression: Left anterior knee pain Condition: Stable Critical Care Time: No Referrals: ELVIRA KAN [Primary Care Provider] - Follow up/PCP as directed Additional Instructions: Ice pack to anterior knee 3 times a day for the next 48 hours. Take your medications as prescribed. Follow-up with your primary care physician on 06/01/2021, for further management. May also choose to be evaluated at the [facility] orthopedic clinic for further management. You may purchase a knee sleeve and wear this for comfort. Prescriptions: Prednisone 10 mg [Deltasone 10 mg] 10 mg PO TID #12 tablet
[2021-05-30] MEDS ORDERED: solu-MEDROL 125 MG, Sterile H2O 10 ml 2 ML IM ONE ×2 (18:31)
[2021-05-30] MEDS ORDERED: solu-MEDROL ONE (18:32)
--- NOTE | 2021-05-30 20:24 | XRAY ---
Indication: Pain 2 days. No known injury. Comparison: None AP/lateral left knee demonstrate minimal/mild tricompartmental degenerative changes greatest patellofemoral compartment, small tibial tuberosity spur, and small nonspecific effusion. Incidental tiny fabella, moderate scattered vascular calcifications, and mild/moderate anterior medial subcutaneous venous varicosities. No other bony, articular, or soft tissue abnormalities.
== END 2021-05-30 18:48 | disposition home or self-care (01) ==
LOC: ED 17:18
DX: M25.562 Pain in left knee (principal); Z79.82 Long term (current) use of aspirin; I10 Essential (primary) hypertension; Z87.891 Personal history of nicotine dependence; I25.2 Old myocardial infarction; E78.5 Hyperlipidemia, unspecified
CPT/HCPCS: 73560; 96372; 99284; J2930

== ENCOUNTER 2021-06-04 22:26 | Emergency (ER) | payer MEDICARE ==
[2021-06-04] MEDS ORDERED: PROTONIX 40 MG IV IV ONE ×2 (22:52→22:55)
[2021-06-04] MEDS ORDERED: Zofran 4 MG/2 ML VIAL IV ONE (22:52)
[2021-06-04] MEDS ORDERED: Zofran 4 MG/2 ML VIAL ONE (22:55)
--- NOTE | 2021-06-04 23:06 | ERPHSYRPT ---
- History of Present Illness Time Seen by Provider: 06/04/21 22:32 Historian: patient Exam Limitations: no limitations Physician History: 76 years old male with history of atrial fibrillation, coronary artery disease status post stenting, hypertension presented in the ER with chief complaint of sudden onset nausea and multiple episodes of nonprojectile, nonbilious vomiting for the last 3 hours. He is not able to hold anything down. Patient reports having initially moderate pain but is gradually improving. Denies any chest pain palpitations or shortness of breath. No fever or chills reported. Denies any diarrhea. No sick contact. Timing/Duration: hour(s) (3), constant, sudden, improved Activities at Onset: rest Quality: burning Abdominal Pain Onset Location: epigastric Pain Radiation: no radiation Severity of Pain-Max: moderate Severity of Pain-Current: mild Modifying Factors: Worsens With: vomiting Associated Symptoms: nausea, vomiting Previous symptoms: no prior history Allergies/Adverse Reactions: doxycycline Allergy (Mild, Verified 06/04/21 23:05) dizzy and nasuea cefdinir Allergy (Verified 06/04/21 23:05) Home Medications: Aspirin [Aspirin EC] 81 mg PO DAILY 12/01/15 [History] Fenofibrate 145 mg PO DAILY 12/01/15 [History] Metoprolol Tartrate 50 mg [Lopressor 50 MG] 75 mg PO BID 12/01/15 [History] Multivitamin [Multi-Vitamin Daily] 1 tab PO DAILY 12/01/15 [History] Atorvastatin Calcium 80 mg PO HS 05/30/21 [History] PANTOPRAZOLE 40 mg Tablet [Protonix 40MG Tablet] 40 mg PO BID 05/30/21 [History] Ubidecarenone [Coq10] 100 mg PO DAILY 05/30/21 [History] Vit C/E/Zn/Coppr/Lutein/Zeaxan [Preservision Areds 2 Softgel] 2 cap PO DAILY 05/30/21 [History] Hx Tetanus, Diphtheria Vaccination/Date Given: No (unsure) Hx Influenza Vaccination/Date Given: No Hx Pneumococcal Vaccination/Date Given: Yes Travel Risk - International Travel Have you traveled outside of the country in past 3 weeks: No - Coronavirus Screening Are you exhibiting any of the following symptoms?: No Close contact with a COVID-19 positive Pt in past 14-21 Days: No - Vaccine Status Have you recieved a Covid-19 vaccination: Yes Photo Lab Specialist: Moderna - Vaccination Dates Date of 2cond Vaccination (if applicable): unknown - Review of Systems Constitutional: Fatigue, Weakness Eyes: No Symptoms Ears, Nose, & Throat: No Symptoms Respiratory: No Symptoms Cardiac: No Symptoms Abdominal/Gastrointestinal: Abdominal Pain, Nausea, Vomiting Genitourinary Symptoms: No Symptoms Musculoskeletal: No Symptoms Skin: No Symptoms Neurological: No Symptoms Psychological: No Symptoms Endocrine: No Symptoms Hematologic/Lymphatic: No Symptoms Immunological/Allergic: No Symptoms - Past Medical History Pertinent Past Medical History: Yes Neurological History: No Pertinent History ENT History: No Pertinent History Cardiac History: High Cholesterol, Hypertension, Myocardial Infarction ([place]) Respiratory History: No Pertinent History Endocrine Medical History: No Pertinent History Musculoskeletal History: Fractures GI Medical History: Colorectal Cancer, Hernia, Liver Cancer History: No Pertinent History Psycho-Social History: No Pertinent History Male Reproductive Disorders: No Pertinent History Other Medical History: History of Colon with Liver mets, Myocardial Infarction x2, - Past Surgical History Past Surgical History: Yes Neuro Surgical History: No Pertinent History Cardiac: Cardiac Stent, Vascular Surgery Respiratory: Chest Surgery, Other Gastrointestinal: Cholecystectomy, Colon Resection, Hernia Repair, Other Genitourinary: No Pertinent History Musculoskeletal: No Pertinent History Male Surgical History: No Pertinent History Other Surgical History: LIVER RESECTION DUE TO CANCER. 4 heart stents. cvl port placement and removal. hiatal hernia repair = complications with collapsed lung during OR - Social History Smoking Status: Former smoker How long have you smoked: 30 Exposure to second hand smoke: No Alcohol Use: None Drug Use: none Patient Lives Alone: Yes Significant Family History: no pertinent family hx - Nursing Vital Signs Nursing Vital Signs: Initial Vital Signs Temperature 98.1 F 06/04/21 22:49 Pulse Rate 91 H 06/04/21 22:49 Respiratory Rate 18 06/04/21 22:49 Blood Pressure 184/112 06/04/21 22:49 O2 Sat by Pulse Oximetry 99 06/04/21 22:49 Pain Scale Pain Intensity 0 - Physical Exam General Appearance: no apparent distress, alert Eye Exam: PERRL/EOMI, eyes nml inspection Ears, Nose, Throat Exam: normal ENT inspection, TMs normal, pharynx normal, moist mucous membranes Neck Exam: normal inspection, non-tender, supple, full range of motion Respiratory Exam: normal breath sounds, lungs clear Cardiovascular Exam: regular rate/rhythm, normal heart sounds Gastrointestinal/Abdomen Exam: soft, normal bowel sounds, tenderness (Epigastric/upper abdomen), No guarding Back Exam: normal inspection, normal range of motion Extremity Exam: normal inspection, normal range of motion, pelvis stable Neurologic Exam: alert, oriented x 3, cooperative Skin Exam: normal color SpO2 Interpretation: normal SpO2: 96 O2 Delivery: Room Air Ordered Tests: Medication Summary Discontinued Medications Generic Name Dose Route Start Last Admin Trade Name Julianne PRN Reason Stop Dose Admin Ondansetron HCl 4 mg 06/04/21 22:52 06/04/21 22:57 Ondansetron Hcl 4 Mg/2 Ml Vial IV 06/04/21 22:53 4 mg STAT ONE Administration Ondansetron HCl Confirm 06/04/21 22:55 Ondansetron Hcl 4 Mg/2 Ml Vial Administered 06/04/21 22:56 Dose 4 mg .ROUTE .STK-MED ONE Pantoprazole Sodium 40 mg 06/04/21 22:52 06/04/21 22:57 Pantoprazole 40 Mg Vial IV 06/04/21 22:53 40 mg STAT ONE Administration Pantoprazole Sodium Confirm 06/04/21 22:55 Pantoprazole 40 Mg Vial Administered 06/04/21 22:56 Dose 40 mg IV .STK-MED ONE Lab/Rad Data: Laboratory Result Diagrams 06/04/21 23:03 06/04/21 23:03 Laboratory Results 06/04/21 06/04/21 06/04/21 Range/Units 23:57 23:03 23:03 WBC (4.0-10.5) K/mm3 RBC (4.1-5.6) M/mm3 Hgb (12.5-18.0) gm/dl Hct (42-50) % MCV (78-100) fl MCH (26-32) pg MCHC (32-36) g/dl RDW (11.5-14.0) % Plt Count (150-450) K/mm3 MPV (7.5-11.0) fl Gran % (36.0-66.0) % Eos # (Auto) (0-0.5) Absolute Lymphs (auto) (1.0-4.6) Absolute Monos (auto) (0.0-1.3) Lymphocytes % (24.0-44.0) % Monocytes % (0.0-12.0) % Eosinophils % (0.00-5.0) % Basophils % (0.0-0.4) % Absolute Granulocytes (1.4-6.9) Basophils # (0-0.4) Sodium 137 (137-145) mmol/L Potassium 4.1 (3.5-5.1) mmol/L Chloride 105 (98-107) mmol/L Carbon Dioxide 27 (22-30) mmol/L Anion Gap 10.0 (5-15) MEQ/L BUN 20 (9-20) mg/dL Creatinine 1.00 (0.66-1.25) mg/dL Estimated GFR > 60.0 ML/MIN Glucose 105 (74-106) mg/dL Calcium 8.9 (8.4-10.2) mg/dL Total Bilirubin 0.90 (0.2-1.3) mg/dL AST 58 (17-59) U/L ALT 61 H (0-50) U/L Alkaline Phosphatase 61 (38-126) U/L Troponin I < 0.012 (0.000-0.034) ng/mL Serum Total Protein 6.0 L (6.3-8.2) g/dL Albumin 3.6 (3.5-5.0) g/dL Lipase 173 (23-300) U/L Urine Color YELLOW (YELLOW) Urine Appearance CLEAR (CLEAR) Urine pH 7.0 (5-6) Ur Specific [place] 1.011 (1.005-1.025) Urine Protein NEGATIVE (Negative) Urine Ketones NEGATIVE (NEGATIVE) Urine Blood NEGATIVE (0-5) Javi/ul Urine Nitrite NEGATIVE (NEGATIVE) Urine Bilirubin NEGATIVE (NEGATIVE) Urine Urobilinogen NEGATIVE (0-1) mg/dL Ur Leukocyte Esterase NEGATIVE (NEGATIVE) Urine WBC (Auto) NONE (0-5) /HPF Urine RBC (Auto) NONE (0-2) /HPF U Epithel Cells (Auto) NONE (FEW) /HPF Urine Bacteria (Auto) NONE (NEGATIVE) /HPF Urine Culture Reflexed NO (NO) Urine Glucose NEGATIVE (NEGATIVE) mg/dL 06/04/21 Range/Units 23:03 WBC 9.2 (4.0-10.5) K/mm3 RBC 4.51 (4.1-5.6) M/mm3 Hgb 13.0 (12.5-18.0) gm/dl Hct 42.3 (42-50) % MCV 93.8 (78-100) fl MCH 28.8 (26-32) pg MCHC 30.7 L (32-36) g/dl RDW 20.4 H (11.5-14.0) % Plt Count 187 (150-450) K/mm3 MPV 10.7 (7.5-11.0) fl Gran % 67.9 H (36.0-66.0) % Eos # (Auto) 0.26 (0-0.5) Absolute Lymphs (auto) 1.89 (1.0-4.6) Absolute Monos (auto) 0.77 (0.0-1.3) Lymphocytes % 20.6 L (24.0-44.0) % Monocytes % 8.4 (0.0-12.0) % Eosinophils % 2.8 (0.00-5.0) % Basophils % 0.3 (0.0-0.4) % Absolute Granulocytes 6.23 (1.4-6.9) Basophils # 0.03 (0-0.4) Sodium (137-145) mmol/L Potassium (3.5-5.1) mmol/L Chloride (98-107) mmol/L Carbon Dioxide (22-30) mmol/L Anion Gap (5-15) MEQ/L BUN (9-20) mg/dL Creatinine (0.66-1.25) mg/dL Estimated GFR ML/MIN Glucose (74-106) mg/dL Calcium (8.4-10.2) mg/dL Total Bilirubin (0.2-1.3) mg/dL AST (17-59) U/L ALT (0-50) U/L Alkaline Phosphatase (38-126) U/L Troponin I (0.000-0.034) ng/mL Serum Total Protein (6.3-8.2) g/dL Albumin (3.5-5.0) g/dL Lipase (23-300) U/L Urine Color (YELLOW) Urine Appearance (CLEAR) Urine pH (5-6) Ur Specific [place] (1.005-1.025) Urine Protein (Negative) Urine Ketones (NEGATIVE) Urine Blood (0-5) Javi/ul Urine Nitrite (NEGATIVE) Urine Bilirubin (NEGATIVE) Urine Urobilinogen (0-1) mg/dL Ur Leukocyte Esterase (NEGATIVE) Urine WBC (Auto) (0-5) /HPF Urine RBC (Auto) (0-2) /HPF U Epithel Cells (Auto) (FEW) /HPF Urine Bacteria (Auto) (NEGATIVE) /HPF Urine Culture Reflexed (NO) Urine Glucose (NEGATIVE) mg/dL - Departure Referrals: ELVIRA PAT [Primary Care Provider] - Follow up/PCP as directed
[2021-06-04 23:09] LABS: Absolute Neutrophil Ct (ANC) 6.23 (1.4-6.9); BASOPHIL % 0.3 % (0.0-0.4); Basophil (Absolute #) 0.03 (0-0.4); Eosinophil % 2.8 % (0.00-5.0); Eosinophil (Absolute #) 0.26 (0-0.5); Hematocrit 42.3 % (42-50); Lymphocyte (Absolute #) 1.89 (1.0-4.6); Lymphocytes % 20.6 % (24.0-44.0); Mean Cell Volume 93.8 fl (78-100); Mean Corpuscular Hemoglobin 28.8 pg (26-32); Mean Corpuscular Hgb Concent. 30.7 g/dl (32-36); Mean Platelet Volume 10.7 fl (7.5-11.0); Monocyte (Absolute #) 0.77 (0.0-1.3); Monocytes % 8.4 % (0.0-12.0); Neutrophil % 67.9 % (36.0-66.0); Platelet Count 187 K/mm3 (150-450); Red Blood Count 4.51 M/mm3 (4.1-5.6); Red Cell Distribution Width 20.4 % (11.5-14.0); White Blood Count 9.2 K/mm3 (4.0-10.5)
[2021-06-04 23:21] LABS: ALBUMIN 3.6 g/dL (3.5-5.0); ALKALINE PHOSPHATASE 61 U/L (38-126); BLOOD UREA NITROGEN 20 mg/dL (9-20); CHLORIDE 105 mmol/L (98-107); Calcium 8.9 mg/dL (8.4-10.2); Carbon Dioxide 27 mmol/L (22-30); EST GLOMERULAR FILTRATION RATE > 60.0 ML/MIN; Glucose 105 mg/dL (74-106); LIPASE 173 U/L (23-300); Potassium 4.1 mmol/L (3.5-5.1); SGOT/AST 58 U/L (17-59); SGPT/ALT 61 U/L (0-50); SODIUM 137 mmol/L (137-145)
[2021-06-05 00:29] LABS: Appearance CLEAR (CLEAR); Bilirubin NEGATIVE (NEGATIVE); Blood NEGATIVE Ery/ul (0-5); Glucose NEGATIVE (NEGATIVE); Ketones NEGATIVE (NEGATIVE); Leukocyte Esterase NEGATIVE (NEGATIVE); Nitrite NEGATIVE (NEGATIVE); Protein,Urine Dip NEGATIVE (Negative); Specific Gravity 1.011 (1.005-1.025); Urobilinogen NEGATIVE mg/dL (0-1)
--- NOTE | 2021-06-05 08:54 | XRAY ---
Indication: Abdomen pain, nausea, and vomiting. History of colon cancer. Multiple contiguous axial images obtained through the abdomen and pelvis without contrast. Comparison: April 09, 2021. Lung bases demonstrate new incompletely visualized moderate bilateral pleural effusions with mild bibasilar compressive atelectasis. Heart remains borderline enlarged with mild pericardial effusion/thickening. Stable small hiatal hernia. Noncontrasted stomach and bowel loops appear nonobstructed with normal appendix. There is now mild diffuse scattered colonic fecal debris greatest in the right hemicolon. Again intact rectal anastomosis and cholecystectomy clips. No free fluid/air. Stable enlarged prostate gland impresses on the base of the bladder. Remaining liver, pancreas, spleen, adrenal glands, kidneys, ureters, and bladder are unremarkable for noncontrast exam. Again moderate scattered aortoiliac calcifications without AAA. Osseous structures intact again with mild osteopenia and mild degenerative changes throughout the thoracolumbar spine. Impression: 1. New moderate bilateral pleural effusions. Stable borderline cardiomegaly with pericardial effusion/thickening. 2. New diffuse fecal stasis. 3. Stable small hiatal hernia, enlarged prostate gland, and chronic bony findings. 4. Remaining CT abdomen/pelvis without contrast exam is negative. Comment: Preliminary interpretation made by [facility]. No critical discrepancy.
[2021-06-08 17:00] VITALS: BP 172/98; PULSE 80; O2SAT 96
== END 2021-06-05 01:30 | disposition home or self-care (01) ==
LOC: ED 22:26
DX: R11.2 Nausea with vomiting, unspecified (principal); I10 Essential (primary) hypertension; I48.91 Unspecified atrial fibrillation; Z79.899 Other long term (current) drug therapy; E78.5 Hyperlipidemia, unspecified
CPT/HCPCS: 36000; 36415; 74176; 80053; 81001; 83690; 84484; 85025; 93005; 96374; 96375; 99284; J2405

== ENCOUNTER 2021-09-20 17:44 | Inpatient (IN) | payer MEDICARE ==
[2021-09-20] MEDS ORDERED: Sodium Chloride 0.9% 500 ML 500 ML IV ONE ×4 (18:53→20:22)
[2021-09-20] MEDS ORDERED: Pepcid 20 MG VIAL IV ONE ×2 (19:08→19:17)
[2021-09-20] MEDS ORDERED: PROTONIX 40 MG IV IV ONE ×2 (19:08→19:17)
[2021-09-20] MEDS ORDERED: Zofran 4 MG/2 ML VIAL IV ONE (19:08)
--- NOTE | 2021-09-20 19:08 | ERPHSYRPT ---
- History of Present Illness Time Seen by Provider: 09/20/21 19:04 Source: patient Exam Limitations: no limitations Patient Subjective Stated Complaint: Patient states " I started puking blood about 1 hour ago." Triage Nursing Assessment: Patient A.O times 4. Patient able to follow instructions without difficulty. Patient stated he started throwing up blood about 1 hour ago. Upon arrival patient no longer vomiting. Patient stated he did have spagetti for lunch. Patient denies any loose stools. Patient denies any blood in stools. Patient states he had watchmans procedure done back in July. Denies any SOB. Denies any chest pain. Physician History: pt has vomiting since this afternoon. no abd pain, had watchman procedure last week for ht by cath. has long hx afib and is on meds including blood thinner. has seen blood tinge in vomitus. and so we will do a CT. Allergies/Adverse Reactions: doxycycline Allergy (Mild, Verified 06/04/21 23:05) dizzy and nasuea cefdinir Allergy (Verified 06/04/21 23:05) Home Medications: Aspirin [Aspirin EC] 81 mg PO DAILY 12/01/15 [History] Fenofibrate 145 mg PO DAILY 12/01/15 [History] Metoprolol Tartrate 50 mg [Lopressor 50 MG] 75 mg PO BID 12/01/15 [History] Multivitamin [Multi-Vitamin Daily] 1 tab PO DAILY 12/01/15 [History] Atorvastatin Calcium 80 mg PO HS 05/30/21 [History] PANTOPRAZOLE 40 mg Tablet [Protonix 40MG Tablet] 40 mg PO BID 05/30/21 [History] Ubidecarenone [Coq10] 100 mg PO DAILY 05/30/21 [History] Vit C/E/Zn/Coppr/Lutein/Zeaxan [Preservision Areds 2 Softgel] 2 cap PO DAILY 05/30/21 [History] Hx Tetanus, Diphtheria Vaccination/Date Given: Yes Hx Influenza Vaccination/Date Given: Yes Hx Pneumococcal Vaccination/Date Given: Yes Immunizations Up to Date: Yes Travel Risk - International Travel Have you traveled outside of the country in past 3 weeks: No - Coronavirus Screening Are you exhibiting any of the following symptoms?: No Close contact with a COVID-19 positive Pt in past 14-21 Days: No - Vaccine Status Have you recieved a Covid-19 vaccination: No Cut Off Man: Moderna - Vaccination Dates Date of 2cond Vaccination (if applicable): unknown - Review of Systems Constitutional: No Fever, No Chills Eyes: No Symptoms Ears, Nose, & Throat: No Symptoms Respiratory: No Cough, No Dyspnea Cardiac: No Chest Pain, No Edema, No Syncope Abdominal/Gastrointestinal: Nausea, Vomiting, Hematemesis, No Abdominal Pain, No Diarrhea Genitourinary Symptoms: No Dysuria Musculoskeletal: No Back Pain, No Neck Pain Skin: No Rash Neurological: No Dizziness, No Focal Weakness, No Sensory Changes Psychological: No Symptoms Endocrine: No Symptoms Hematologic/Lymphatic: No Symptoms Immunological/Allergic: No Symptoms All Other Systems: Reviewed and Negative - Past Medical History Pertinent Past Medical History: Yes Neurological History: No Pertinent History ENT History: No Pertinent History Cardiac History: High Cholesterol, Hypertension, Myocardial Infarction ([place]) Respiratory History: No Pertinent History Endocrine Medical History: No Pertinent History Musculoskeletal History: Fractures GI Medical History: Colorectal Cancer, Hernia, Liver Cancer History: No Pertinent History Psycho-Social History: No Pertinent History Male Reproductive Disorders: No Pertinent History Other Medical History: History of Colon with Liver mets, Myocardial Infarction x2, - Past Surgical History Past Surgical History: Yes Neuro Surgical History: No Pertinent History Cardiac: Cardiac Stent, Vascular Surgery Respiratory: Chest Surgery, Other Gastrointestinal: Cholecystectomy, Colon Resection, Hernia Repair, Other Genitourinary: No Pertinent History Musculoskeletal: No Pertinent History Male Surgical History: No Pertinent History Other Surgical History: LIVER RESECTION DUE TO CANCER. 4 heart stents. cvl port placement and removal. hiatal hernia repair = complications with collapsed lung during OR. Watchmans Procedure - Social History Smoking Status: Former smoker How long have you smoked: 30 Exposure to second hand smoke: No Alcohol Use: None Drug Use: none Patient Lives Alone: Yes Significant Family History: no pertinent family hx - Nursing Vital Signs Nursing Vital Signs: Initial Vital Signs Temperature 98.0 F 09/20/21 17:45 Pulse Rate 122 H 09/20/21 17:45 Respiratory Rate 20 09/20/21 17:45 Blood Pressure 147/77 09/20/21 17:45 O2 Sat by Pulse Oximetry 100 09/20/21 17:45 Pain Scale Pain Intensity 2 - Physical Exam General Appearance: no apparent distress, alert Eye Exam: PERRL/EOMI, eyes nml inspection Ears, Nose, Throat Exam: normal ENT inspection, TMs normal, pharynx normal, moist mucous membranes Neck Exam: normal inspection, non-tender, supple, full range of motion Respiratory Exam: normal breath sounds, lungs clear, No respiratory distress Cardiovascular Exam: regular rate/rhythm, normal heart sounds, normal peripheral pulses Gastrointestinal/Abdomen Exam: soft, normal bowel sounds, No tenderness, No mass Rectal Exam: deferred Back Exam: normal inspection, normal range of motion, No CVA tenderness, No vertebral tenderness Extremity Exam: normal inspection, normal range of motion, pelvis stable Neurologic Exam: alert, oriented x 3, cooperative, normal mood/affect, nml cerebellar function, nml station & gait, sensation nml, No motor deficits Skin Exam: normal color, warm, dry, No rash Lymphatic Exam: No adenopathy SpO2 Interpretation: normal SpO2: 100 O2 Delivery: Room Air - Course Nursing assessment & vital signs reviewed: Yes - CT Exams Abdomen/Pelvis CT Interpretation: Tele-radiologist Report, No appendicitis, Other (rll nodule without change CAD) Ordered Tests: Active Orders 24 hr Category Date Time Status Commercial Relationship Manager STAT Care 09/20/21 19:10 Active EKG-ER Only STAT Care 09/20/21 19:08 Active IV Insertion STAT Care 09/20/21 19:08 Active Pulse Oximetry (ED) STAT Care 09/20/21 19:08 Active ABDOMEN AND PELVIS W/0 CONTRAS [CT] Stat Exams 09/20/21 19:08 Taken CBC W DIFF Stat Lab 09/20/21 19:12 Completed CMP Stat Lab 09/20/21 19:12 Completed D-DIMER QUANTITATIVE Stat Lab 09/20/21 19:12 Completed LIPASE Stat Lab 09/20/21 19:12 Completed Lactic Acid Stat Lab 09/20/21 19:08 Completed NT PRO BNP Stat Lab 09/20/21 19:12 Completed TROPONIN Q3H Lab 09/20/21 19:12 Completed TROPONIN Q3H Lab 09/20/21 22:02 Received TROPONIN Q3H Lab 09/21/21 01:15 Ordered TROPONIN Q3H Lab 09/21/21 04:15 Ordered TROPONIN Q3H Lab 09/21/21 07:15 Ordered Medication Summary Discontinued Medications Generic Name Dose Route Start Last Admin Trade Name Freq PRN Reason Stop Dose Admin Diltiazem HCl 10 mg 09/20/21 20:19 09/20/21 20:23 Diltiazem Hcl Iv 5 Mg/Ml Vial IV 09/20/21 20:20 10 mg STAT ONE Administration Diltiazem HCl Confirm 09/20/21 20:21 Diltiazem Hcl Iv 5 Mg/Ml Vial Administered 09/20/21 20:22 Dose 50 mg IV .STK-MED ONE Famotidine 20 mg 09/20/21 19:08 09/20/21 19:21 Famotidine 20 Mg/1 Vial IV 09/20/21 19:09 20 mg STAT ONE Administration Famotidine Confirm 09/20/21 19:17 Famotidine 20 Mg/1 Vial Administered 09/20/21 19:18 Dose 20 mg IV .STK-MED ONE Sodium Chloride Confirm 09/20/21 18:53 Sodium Chloride 0.9% 500 Ml Administered 09/20/21 18:54 Dose 500 mls @ ud IV .STK-MED ONE Sodium Chloride 500 mls @ 500 mls/hr 09/20/21 18:59 09/20/21 20:13 Sodium Chloride 0.9% 500 Ml IV 09/20/21 19:58 Infused .Q1H ONE Infusion Sodium Chloride 1,000 mls @ 999 mls/hr 09/20/21 20:20 09/20/21 20:23 Sodium Chloride 0.9% 1000 Ml IV 09/20/21 21:20 Not Given .Q1H1M STA Sodium Chloride Confirm 09/20/21 20:21 Sodium Chloride 0.9% 500 Ml Administered 09/20/21 20:22 Dose 500 mls @ ud IV .STK-MED ONE Sodium Chloride 500 mls @ 500 mls/hr 09/20/21 20:22 09/20/21 21:40 Sodium Chloride 0.9% 500 Ml IV 09/20/21 21:21 Infused .Q1H ONE Infusion Ondansetron HCl 4 mg 09/20/21 19:08 09/20/21 19:19 Ondansetron Hcl 4 Mg/2 Ml Vial IV 09/20/21 19:09 4 mg STAT ONE Administration Ondansetron HCl Confirm 09/20/21 19:17 Ondansetron Hcl 4 Mg/2 Ml Vial Administered 09/20/21 19:18 Dose 4 mg .ROUTE .STK-MED ONE Pantoprazole Sodium 40 mg 09/20/21 19:08 09/20/21 19:24 Pantoprazole 40 Mg Vial IV 09/20/21 19:09 40 mg STAT ONE Administration Pantoprazole Sodium Confirm 09/20/21 19:17 Pantoprazole 40 Mg Vial Administered 09/20/21 19:18 Dose 40 mg IV .STK-[employer] ONE Prochlorperazine Edisylate 10 mg 09/20/21 20:32 09/20/21 20:39 Prochlorperazine Edisylate 10 Mg/2 Ml Vial IM 09/20/21 20:33 10 mg STAT ONE Administration Prochlorperazine Edisylate Confirm 09/20/21 20:38 Prochlorperazine Edisylate 10 Mg/2 Ml Vial Administered 09/20/21 20:39 Dose 10 mg .ROUTE .[employer] ONE Lab/Rad Data: Laboratory Result Diagrams 09/20/21 19:12 09/20/21 19:12 Laboratory Results 09/20/21 09/20/21 09/20/21 Range/Units 19:12 19:12 19:12 WBC (4.0-10.5) K/mm3 RBC (4.1-5.6) M/mm3 Hgb (12.5-18.0) gm/dl Hct (42-50) % MCV (78-100) fl MCH (26-32) pg MCHC (32-36) g/dl RDW (11.5-14.0) % Plt Count (150-450) K/mm3 MPV (7.5-11.0) fl Gran % (36.0-66.0) % Eos # (Auto) (0-0.5) Absolute Lymphs (auto) (1.0-4.6) Absolute Monos (auto) (0.0-1.3) Lymphocytes % (24.0-44.0) % Monocytes % (0.0-12.0) % Eosinophils % (0.00-5.0) % Basophils % (0.0-0.4) % Absolute Granulocytes (1.4-6.9) Basophils # (0-0.4) D-Dimer 476 (215-500) ng/mL Sodium 140 (137-145) mmol/L Potassium 4.7 (3.5-5.1) mmol/L Chloride 108 H (98-107) mmol/L Carbon Dioxide 26 (22-30) mmol/L Anion Gap 10.7 (5-15) MEQ/L BUN 46 H (9-20) mg/dL Creatinine 1.16 (0.66-1.25) mg/dL Estimated GFR > 60.0 ML/MIN Glucose 135 H (74-106) mg/dL Lactic Acid (0.4-2.0) Calcium 8.8 (8.4-10.2) mg/dL Total Bilirubin 0.60 (0.2-1.3) mg/dL AST 39 (17-59) U/L ALT 36 (0-50) U/L Alkaline Phosphatase 44 (38-126) U/L Troponin I < 0.012 (0.000-0.034) ng/mL NT-Pro-B Natriuret Pep 881 (0-1800) pg/mL Serum Total Protein 5.7 L (6.3-8.2) g/dL Albumin 3.2 L (3.5-5.0) g/dL Lipase 169 (23-300) U/L 09/20/21 09/20/21 Range/Units 19:12 19:08 WBC 6.3 (4.0-10.5) K/mm3 RBC 3.39 L (4.1-5.6) M/mm3 Hgb 11.1 L (12.5-18.0) gm/dl Hct 34.6 L (42-50) % MCV 102.1 H (78-100) fl MCH 32.7 H (26-32) pg MCHC 32.1 (32-36) g/dl RDW 13.9 (11.5-14.0) % Plt Count 202 (150-450) K/mm3 MPV 11.2 H (7.5-11.0) fl Gran % 51.5 (36.0-66.0) % Eos # (Auto) 0.23 (0-0.5) Absolute Lymphs (auto) 2.19 (1.0-4.6) Absolute Monos (auto) 0.58 (0.0-1.3) Lymphocytes % 35.0 (24.0-44.0) % Monocytes % 9.3 (0.0-12.0) % Eosinophils % 3.7 (0.00-5.0) % Basophils % 0.5 (0.0-0.4) % Absolute Granulocytes 3.22 (1.4-6.9) Basophils # 0.03 (0-0.4) D-Dimer (215-500) ng/mL Sodium (137-145) mmol/L Potassium (3.5-5.1) mmol/L Chloride (98-107) mmol/L Carbon Dioxide (22-30) mmol/L Anion Gap (5-15) MEQ/L BUN (9-20) mg/dL Creatinine (0.66-1.25) mg/dL Estimated GFR ML/MIN Glucose (74-106) mg/dL Lactic Acid 2.0 (0.4-2.0) Calcium (8.4-10.2) mg/dL Total Bilirubin (0.2-1.3) mg/dL AST (17-59) U/L ALT (0-50) U/L Alkaline Phosphatase (38-126) U/L Troponin I (0.000-0.034) ng/mL NT-Pro-B Natriuret Pep (0-1800) pg/mL Serum Total Protein (6.3-8.2) g/dL Albumin (3.5-5.0) g/dL Lipase (23-300) U/L - Progress Progress: improved, re-examined Progress Note: 09/20/21 22:[address] Thornton and pt and all agree best for pt to come in on obs repeat CBC and monitor heart. Discussed with : Myles Will see patient in: hospital (observation) Counseled pt/family regarding: lab results, diagnosis, need for follow-up, rad results - Departure Departure Disposition: Observation Clinical Impression: Atrial fibrillation with RVR, Hematemesis/vomiting blood Condition: Good Critical Care Time: Yes Critical Care Time(excluding separately billable procedures): Critical 30-74 mins (to control rate 30 minutes) Referrals: ELVIRA PAT [Primary Care Provider] - Follow up/PCP as directed
[2021-09-20 19:16] LABS: Absolute Neutrophil Ct (ANC) 3.22 (1.4-6.9); Basophil (Absolute #) 0.03 (0-0.4); Eosinophil % 3.7 % (0.00-5.0); Eosinophil (Absolute #) 0.23 (0-0.5); Hematocrit 34.6 % (42-50); Hemoglobin 11.1 gm/dl (12.5-18.0); Lymphocyte (Absolute #) 2.19 (1.0-4.6); Mean Cell Volume 102.1 fl (78-100); Mean Corpuscular Hemoglobin 32.7 pg (26-32); Mean Corpuscular Hgb Concent. 32.1 g/dl (32-36); Mean Platelet Volume 11.2 fl (7.5-11.0); Monocyte (Absolute #) 0.58 (0.0-1.3); Monocytes % 9.3 % (0.0-12.0); Neutrophil % 51.5 % (36.0-66.0); Platelet Count 202 K/mm3 (150-450); Red Blood Count 3.39 M/mm3 (4.1-5.6); Red Cell Distribution Width 13.9 % (11.5-14.0); White Blood Count 6.3 K/mm3 (4.0-10.5)
[2021-09-20] MEDS ORDERED: Zofran 4 MG/2 ML VIAL ONE (19:17)
[2021-09-20 19:24] LABS: ALBUMIN 3.2 g/dL (3.5-5.0); ALKALINE PHOSPHATASE 44 U/L (38-126); ANION GAP 10.7 MEQ/L (5-15); BLOOD UREA NITROGEN 46 mg/dL (9-20); CHLORIDE 108 mmol/L (98-107); Calcium 8.8 mg/dL (8.4-10.2); Carbon Dioxide 26 mmol/L (22-30); Creatinine 1 1.16 mg/dL (0.66-1.25); EST GLOMERULAR FILTRATION RATE > 60.0 ML/MIN; Glucose 135 mg/dL (74-106); LIPASE 169 U/L (23-300); Potassium 4.7 mmol/L (3.5-5.1); SGOT/AST 39 U/L (17-59); SGPT/ALT 36 U/L (0-50); SODIUM 140 mmol/L (137-145); Total Protein 5.7 g/dL (6.3-8.2)
[2021-09-20 19:32] LABS: NT PRO BNP 881 pg/mL (0-1800)
[2021-09-20] MEDS ORDERED: Cardizem IV 50 MG/10 ML IV ONE ×2 (20:19→20:21)
[2021-09-20] MEDS ORDERED: Sodium Chloride 0.9% 1000 ML 1,000 ML IV STA (20:20)
[2021-09-20] MEDS ORDERED: Compazine 10 MG/2 ML IM ONE (20:32)
[2021-09-20] MEDS ORDERED: Compazine 10 MG/2 ML ONE (20:38)
[2021-09-20 22:49] LABS: ABO TYPING A; Antibody Screen NEGATIVE (NEGATIVE); RH TYPING NEGATIVE
[2021-09-20 23:25] LABS: INFLUENZA A NEGATIVE (NEGATIVE); INFLUENZA B NEGATIVE (NEGATIVE); RESPIRATORY SYNCTIAL VIRUS NEGATIVE (Negative); SARS-CoV-2 Xpert Express NEGATIVE (NEGATIVE)
[2021-09-21] MEDS ORDERED: Zofran 4 MG/2 ML VIAL IV STA (00:03)
[2021-09-21] MEDS ORDERED: Zofran 4 MG/2 ML VIAL ONE ×2 (00:04→12:53)
[2021-09-21] MEDS ORDERED: Sodium Chloride 0.9% 1000 ML 1,000 ML ONE (00:05)
[2021-09-21] MEDS ORDERED: Sodium Chloride 0.9% 1000 ML 1,000 ML IV SCH (00:15)
[2021-09-21] MEDS ORDERED: HUMULIN R SQ PRN (00:17)
[2021-09-21] MEDS ORDERED: TYLENOL 325 MG PO PRN (00:17)
[2021-09-21] MEDS ORDERED: Pepcid 20 MG VIAL IV ONE (01:37)
[2021-09-21] MEDS: Pepcid 20 MG VIAL IV SCH ×2 (01:37→21:36)
[2021-09-21] MEDS: Zofran 4 MG/2 ML VIAL IV PRN ×2 (03:24→08:00)
[2021-09-21] MEDS ORDERED: Cardizem IV 50 MG/10 ML IV ONE ×5 (04:47→07:30)
[2021-09-21] MEDS ORDERED: CARDIZEM DRIP 100 MG/100 ML D5W 100 ML IV ONE (05:01)
[2021-09-21] MEDS: CARDIZEM DRIP 100 MG/100 ML D5W 100 ML IV PRN ×3 (05:10→18:53)
[2021-09-21] MEDS: Sodium Chloride 0.9% 1000 ML 1,000 ML IV SCH ×2 (05:34→08:50)
[2021-09-21 06:48] LABS: Absolute Neutrophil Ct (ANC) 9.17 (1.4-6.9); Basophil (Absolute #) 0.03 (0-0.4); Eosinophil % 0.2 % (0.00-5.0); Eosinophil (Absolute #) 0.02 (0-0.5); Hematocrit 26.1 % (42-50); Hemoglobin 8.2 gm/dl (12.5-18.0); Lymphocyte (Absolute #) 1.26 (1.0-4.6); Lymphocytes % 11.4 % (24.0-44.0); Mean Corpuscular Hemoglobin 32.7 pg (26-32); Mean Corpuscular Hgb Concent. 31.4 g/dl (32-36); Mean Platelet Volume 11.4 fl (7.5-11.0); Monocyte (Absolute #) 0.55 (0.0-1.3); Neutrophil % 83.1 % (36.0-66.0); Platelet Count 192 K/mm3 (150-450); Red Blood Count 2.51 M/mm3 (4.1-5.6); Red Cell Distribution Width 13.6 % (11.5-14.0)
[2021-09-21] MEDS ORDERED: Phenergan 25 MG INJ*** 25 MG in Sodium Chloride 0.9% 100 ML BAG 100 ML IV PRN (08:55)
--- NOTE | 2021-09-21 09:07 | XRAY ---
Indication: Nausea and vomiting. Dehydration. Internal bleeding. Multiple contiguous axial images obtained through the abdomen and pelvis without contrast. Comparison: June 04, 2021. Lung bases demonstrates 8mm right base nodule, unchanged with respect to older exam April 09, 2021 and favored to be benign. No infiltrate or effusion. Heart remains borderline enlarged again with pericardial effusion/thickening. Stable small hiatal hernia. Stomach is distended with food/fluid. Noncontrasted stomach and bowel loops are nonobstructed again with normal appendix. There is again mild diffuse scattered colonic fecal debris throughout with intact rectal anastomosis. No free fluid/air. Stable chunky subcentimeter hepatic calcified granuloma, enlarged prostate gland, and cholecystectomy clips. Remaining liver, pancreas, spleen, adrenal glands, kidneys, ureters, and bladder are unremarkable for noncontrast exam. Again moderate scattered aortoiliac calcifications without AAA. Osseous structures intact again with osteopenia, mild degenerative changes throughout the thoracolumbar spine, and incidental inferior L3 Schmorl node. Impression: 1. Again pericardial effusion/thickening, diffuse fecal stasis, small hiatal hernia, enlarged prostate gland, arteriosclerotic disease, chronic bony findings, and old granulomatous disease. 2. Remaining CT abdomen/pelvis without contrast exam is negative. Comment: Preliminary interpretation made by [facility]. No critical discrepancy.
[2021-09-21] MEDS: PROTONIX 40 MG IV*** 80 MG in Sodium Chloride 0.9% 500 ML 500 ML IV SCH (09:20)
[2021-09-21] MEDS: Toprol-Xl 25MG Tablets PO SCH ×2 (09:21→21:36)
[2021-09-21] MEDS: Cozaar 50 MG PO SCH (09:21)
[2021-09-21] MEDS: Toprol Xl 50 MG PO SCH ×2 (09:21→21:36)
[2021-09-21] MEDS ORDERED: ECOTRIN 81 MG PO SCH (10:00)
[2021-09-21] MEDS ORDERED: PROTONIX 40 MG IV IV SCH (10:00)
[2021-09-21] MEDS ORDERED: Toprol Xl 50 MG PO SCH (10:00)
[2021-09-21] MEDS ORDERED: PLAVIX 75 MG Tablet PO SCH (10:00)
[2021-09-21] MEDS: Lactated Ringers 1,000 ML IV SCH ×2 (10:37→14:51)
[2021-09-21 12:05] LABS: Hematocrit 24.9 % (42-50); Hemoglobin 7.3 gm/dl (12.5-18.0)
[2021-09-21] MEDS ORDERED: Xylocaine-Mpf 2% 5 Ml Vial ONE (12:53)
[2021-09-21] MEDS ORDERED: DIPRIVAN 200 MG/20 ML IV ONE (12:53)
[2021-09-21] MEDS ORDERED: Quelicin Fliptop 200 MG/10 ML ONE (12:53)
[2021-09-21] MEDS ORDERED: SUBLIMAZE 100 MCG/2 ML ONE (12:56)
--- NOTE | 2021-09-21 15:46 | CONS ---
CONSULT DATE: 09/21/2021 The patient was seen for Dr. Ureña who was retail sales consultant for our group today. He asked that I see this patient while I was here doing some outpatient procedures. HISTORY: A 76 -year-old gentleman who has history of atrial fibrillation, has been on some aspirin. He said he had a Watchman procedure in the past. He threw up some blood yesterday. He had some dark bloody stools here. His hemoglobin went from 11 to 8. He did have some rapid heart rate before but he is on a drip and is now around 104. I was asked to see Dr. Kan's patient from endoscopy standpoint. PAST MEDICAL HISTORY: Hypertension, hyperlipidemia, myocardial infarction, colon cancer in the past. He had metastasis to his liver. PAST SURGICAL HISTORY: He had an upper endoscopy back in June, I think, at [facility] and supposedly had some ulcers back then. Apparently had a colon resection at [facility] in [place] and had a liver resection in [place], he said. He has had a cholecystectomy. Hernia repair in the past. He had four stents in the past. He had a port placed and removed in the past. He said besides the Watchman he also had hiatal hernia repair in the past. HOME MEDICATIONS: Aspirin, Fenofibrate, metoprolol, multivitamin, atorvastatin for hyperlipidemia, pantoprazole, ubidecarenone (Coq10). ALLERGIES: DOXYCYCLINE. CEFDINIR. FAMILY HISTORY: Negative in regards to this specific problem. SOCIAL HISTORY: Former smoker. No current smoking or alcohol abuse. He does report he does not have any known cirrhosis that he knows of. REVIEW OF SYSTEMS: Fourteen systems reviewed. No current chest pain. Again, he had some dry heaves. He had a little bit of blood prior to admission. He is not vomiting blood here currently. He did have some dark bloody stools. No chest pain or palpitations currently. Other systems negative or noncontributory as above and per preadmission questionnaire. PHYSICAL EXAMINATION: GENERAL: No acute distress. HEENT: Sclera nonicteric. NECK: No JVD. CHEST: Equal excursion, nonlabored breathing. CVS: Regular rate and rhythm. ABDOMEN: Soft. No peritoneal signs. Scar from prior operation. EXTREMITIES: No cyanosis. NEURO: Alert, moving extremities grossly symmetrically. PSYCH: Appropriate mood and affect. IMPRESSION: Anemia question GI bleed or whether related to ulcer. He has history of ulcers in the past or whether he had some other etiology. Colon etiology is unclear. He has not had a bowel prep. I offered to take a look with upper scope here to evaluate for peptic ulcer disease, gastritis, esophagitis or other etiology. General risk of bleeding or infection, risk of bowel injury or perforation but not limited to, consent obtained. The patient agreed to the planned procedure. If this does not show anything obvious may need consideration of colonoscopy later in the admission if he continued to bleed or consideration of a bleeding scan or other work up. Again, I am seeing this patient for Dr. Ureña who is retail sales consultant for our group to do upper scope sometime later today.
[2021-09-21 20:41] LABS: CROSS MATCH (PRBC) COMPATIBLE (COMPATIBLE)
[2021-09-21] MEDS ORDERED: NON-FORMULARY ITEM (Atorvastatin Calcium [Atorvastatin Calcium] 80 MG Tablet) PO SCH (22:00)
[2021-09-22] MEDS: PROTONIX 40 MG IV*** 80 MG in Sodium Chloride 0.9% 500 ML 500 ML IV SCH (02:58)
[2021-09-22 03:45] LABS: Hematocrit 28.3 % (42-50); Hemoglobin 9.2 gm/dl (12.5-18.0); Mean Corpuscular Hemoglobin 32.2 pg (26-32); Mean Corpuscular Hgb Concent. 32.5 g/dl (32-36); Mean Platelet Volume 10.7 fl (7.5-11.0); Platelet Count 143 K/mm3 (150-450); Red Blood Count 2.86 M/mm3 (4.1-5.6); Red Cell Distribution Width 15.9 % (11.5-14.0); White Blood Count 8.9 K/mm3 (4.0-10.5)
[2021-09-22 04:07] LABS: ALBUMIN 2.8 g/dL (3.5-5.0); ALKALINE PHOSPHATASE 37 U/L (38-126); ANION GAP 7.1 MEQ/L (5-15); BLOOD UREA NITROGEN 31 mg/dL (9-20); CHLORIDE 114 mmol/L (98-107); Calcium 7.5 mg/dL (8.4-10.2); Carbon Dioxide 25 mmol/L (22-30); Creatinine 1 1.01 mg/dL (0.66-1.25); EST GLOMERULAR FILTRATION RATE > 60.0 ML/MIN; Glucose 117 mg/dL (74-106); Potassium 3.8 mmol/L (3.5-5.1); SGOT/AST 33 U/L (17-59); SGPT/ALT 24 U/L (0-50); SODIUM 142 mmol/L (137-145); Total Protein 5.1 g/dL (6.3-8.2)
[2021-09-22] MEDS: Sodium Chloride 0.9% 1000 ML 1,000 ML IV SCH ×2 (04:36→21:09)
[2021-09-22] MEDS ORDERED: Toprol-Xl 25MG Tablets PO SCH (07:21)
[2021-09-22] MEDS ORDERED: Ativan 2 MG/1 ML VIAL IV PRN (08:00)
--- NOTE | 2021-09-22 08:36 | OP ---
SURGERY DATE/TIME: 09/21/2021 1307 PREOPERATIVE DIAGNOSIS: GI bleed, need for upper endoscopy, history of anemia, prior history of ulcers in the past (too much proximal clot to identify exact source of recent bleeding). POSTOPERATIVE DIAGNOSIS: Large amount of old clot and old blood in stomach. No current active bleeding visible. PROCEDURES: 1) EGD. 2) Evacuation of large amount of old blood and clot from the stomach. SURGEON: Dr. Neymar Fernández. ANESTHESIA: General. ESTIMATED BLOOD LOSS: Minimal from the procedure itself. INDICATIONS: As noted above. Risks and benefits explained in detail and not limited to and consent obtained. The patient was seen for Dr. Ureña who was business liaison manager for our group today. He asked that I see the patient and proceed with endoscopy given his history of anemia and GI bleed. He has prior history of ulcers on endoscopy by someone back in June, per the patient. Set him up for upper endoscopy, consent had been obtained. DESCRIPTION OF PROCEDURE AND FINDINGS: The patient is taken to the operating room. Anesthesia elected to endotracheally intubate the patient. After official time out and no disagreement with planned procedure, video gastroscope easily passed down the esophagus. Gastroesophageal junction 40 cm. There are no signs of any obvious active bleeding in the esophagus. Scope is passed into the stomach. A large amount of clot and old blood. No obvious fresh active bleeding. Scope passed into the duodenum to the third portion of the duodenum. Third, second, first portion of duodenum a little bit of old clot but no signs of any obvious fresh or active bleeding. No gross signs of any large ulcers currently. Scope pulled back in the stomach. In the antrum, no visible ulcers currently, a little bit of old clot. Most of the old clot and large amount of clot in the proximal stomach and gastroesophageal junction. Despite irrigating for 20 or 30 minutes copious amount of irrigation and evacuating as much old blood and clot as possible, still not able to see the exact source of where the patient has bled from. He seemed to have most of the clot stuck in the upper stomach. Again, no active bleeding. The scope was then straightened and withdrawn. He tolerated the procedure well. There were no immediate complications. Recommend continuing serial hemoglobin. If he rebleeds again may need to consider re-endoscopy at that time or re-endoscopy down the road once his body has cleared the old blood out of his stomach. I would hold his blood thinners, keep him on his proton pump inhibitors, start him on some clear liquids and if his hemoglobin remains stable could advance his diet at that time.
[2021-09-22] MEDS: PROTONIX 40 MG IV IV SCH (09:00)
[2021-09-22] MEDS: Cozaar 50 MG PO SCH (09:00)
[2021-09-22] MEDS: Cardizem CD 120 MG PO SCH (09:00)
[2021-09-22] MEDS: Pepcid 20 MG VIAL IV SCH ×2 (09:01→21:08)
[2021-09-22] MEDS: NO ANTICOAGULANTS OR BLOOD THINNERS/ASPIRIN MC SCH (09:01)
[2021-09-22] MEDS ORDERED: Toprol Xl 100 MG PO SCH (10:00)
[2021-09-22] MEDS ORDERED: Ambien 10 MG PO SCH (22:00)
[2021-09-23 05:05] LABS: Hematocrit 28.2 % (42-50); Hemoglobin 9.2 gm/dl (12.5-18.0); Mean Cell Volume 98.6 fl (78-100); Mean Corpuscular Hemoglobin 32.2 pg (26-32); Mean Corpuscular Hgb Concent. 32.6 g/dl (32-36); Mean Platelet Volume 10.9 fl (7.5-11.0); Platelet Count 144 K/mm3 (150-450); Red Blood Count 2.86 M/mm3 (4.1-5.6); Red Cell Distribution Width 16.3 % (11.5-14.0); White Blood Count 7.7 K/mm3 (4.0-10.5)
[2021-09-23 06:05] LABS: ALBUMIN 2.8 g/dL (3.5-5.0); ALKALINE PHOSPHATASE 46 U/L (38-126); ANION GAP 9.7 MEQ/L (5-15); BLOOD UREA NITROGEN 17 mg/dL (9-20); CHLORIDE 114 mmol/L (98-107); Calcium 7.8 mg/dL (8.4-10.2); Carbon Dioxide 22 mmol/L (22-30); Creatinine 1 0.76 mg/dL (0.66-1.25); EST GLOMERULAR FILTRATION RATE > 60.0 ML/MIN; Glucose 123 mg/dL (74-106); Potassium 3.4 mmol/L (3.5-5.1); SGOT/AST 39 U/L (17-59); SGPT/ALT 26 U/L (0-50); SODIUM 142 mmol/L (137-145); Total Protein 5.2 g/dL (6.3-8.2)
[2021-09-23] MEDS: Sodium Chloride 0.9% 1000 ML 1,000 ML IV SCH (06:43)
--- NOTE | 2021-09-23 08:26 | CONS ---
CONSULT DATE: 09/22/2021 BRIEF HISTORY: This is a 76-year-old male with known history of coronary artery disease post previous percutaneous intervention and permanent atrial fibrillation who was seen for episode of tachycardia. The patient was initially admitted with nausea and also found to be anemic and has received blood transfusion. He was doing well until last night he had an episode of tachycardia with underlying atrial fibrillation. The patient was placed apparently on Cardizem drip which has lowered the heart rate. Currently the patient is feeling better. Heart rate is down into the 80's and currently on Cardizem 240 mg. He also got a dose of metoprolol. The patient is known to have coronary artery disease, has been angina free. He has had previous percutaneous coronary intervention in the past. The patient is also known to have permanent atrial fibrillation. He previously had some problems with GI bleeding for which reason he underwent a Watchman procedure last July. He is currently on Clopidogrel. His initial hemoglobin was 7.3 and as a result he received 2 units of blood. He denies any shortness of breath, no fainting spell. CARDIAC RISK FACTORS: Negative for diabetes. Positive for hypertension. Positive for hyperlipidemia. CURRENT MEDICATIONS: Fenofibrate, atorvastatin, multivitamins, Protonix, CoQ10. 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 No seizures. RESPIRATORY: No chronic cough. GI: History of liver cancer with previous liver resection. He has had GI bleed in the past. : Negative for dysuria or hematuria. PERIPHERAL VASCULAR: No history of DVT or claudication. SOCIAL HISTORY: No significant ETOH use. PHYSICAL EXAMINATION: Blood pressure is 109/70, heart rate of 80 in atrial fibrillation, respirations about 14. GENERAL: The patient is an elderly male who is alert, oriented and not in any form of distress. HEENT: Slightly pale conjunctivae. NECK: No significant JVD. CHEST: The breath sounds are clear bilateral. CARDIAC: Heart tones are variable. The rhythm is atrial fibrillation. There is no audible gallop or rub. There is a soft apical systolic murmur. ABDOMEN: Soft with normal bowel sounds. EXTREMITIES: No significant edema. Decreased distal pulses. IMPRESSION: 1) Permanent atrial fibrillation. Goal of treatment is heart rate control with the patient status post Watchman procedure. Continue with Clopidogrel. 2) Coronary artery disease. Currently angina free. 3) History of hypertension. 4) Recurrent GI bleeding with some further evaluation. PLAN: Will continue with Cardizem for heart rate control.
[2021-09-23] MEDS: Cardizem CD 120 MG PO SCH (09:27)
[2021-09-23] MEDS: Cozaar 50 MG PO SCH (09:27)
[2021-09-23] MEDS: PROTONIX 40 MG IV IV SCH (09:28)
[2021-09-23] MEDS: Pepcid 20 MG VIAL IV SCH ×2 (09:28→21:17)
[2021-09-23] MEDS: NO ANTICOAGULANTS OR BLOOD THINNERS/ASPIRIN MC SCH (09:41)
[2021-09-23] MEDS: Toprol-Xl 25MG Tablets PO SCH ×2 (09:41→21:17)
[2021-09-23] MEDS ORDERED: Toprol Xl 50 MG PO SCH (10:00)
[2021-09-23] MEDS: PROTONIX 40 MG IV*** 80 MG in Sodium Chloride 0.9% 500 ML 500 ML IV SCH (11:00)
[2021-09-23] MEDS ORDERED: Sodium Chloride 0.9% 1000 ML 1,000 ML IV SCH (20:50)
[2021-09-24 05:12] LABS: Hematocrit 29.1 % (42-50); Hemoglobin 9.3 gm/dl (12.5-18.0); Mean Cell Volume 99.7 fl (78-100); Mean Corpuscular Hemoglobin 31.8 pg (26-32); Mean Platelet Volume 10.9 fl (7.5-11.0); Platelet Count 138 K/mm3 (150-450); Red Blood Count 2.92 M/mm3 (4.1-5.6); Red Cell Distribution Width 15.3 % (11.5-14.0); White Blood Count 5.9 K/mm3 (4.0-10.5)
[2021-09-24 05:25] LABS: ALBUMIN 2.7 g/dL (3.5-5.0); ALKALINE PHOSPHATASE 49 U/L (38-126); ANION GAP 7.5 MEQ/L (5-15); BLOOD UREA NITROGEN 13 mg/dL (9-20); CHLORIDE 109 mmol/L (98-107); Carbon Dioxide 26 mmol/L (22-30); Creatinine 1 0.79 mg/dL (0.66-1.25); EST GLOMERULAR FILTRATION RATE > 60.0 ML/MIN; Glucose 100 mg/dL (74-106); Potassium 3.7 mmol/L (3.5-5.1); SGOT/AST 35 U/L (17-59); SGPT/ALT 27 U/L (0-50); SODIUM 139 mmol/L (137-145); Total Protein 5.2 g/dL (6.3-8.2)
[2021-09-24] MEDS ORDERED: Coumadin 5 MG PO ONE (07:40)
[2021-09-24 08:03] VITALS: BP 147/70; PULSE 104; O2SAT 93
--- NOTE | 2021-09-24 08:28 | DS ---
DISCHARGE DIAGNOSES: 1) ATRIAL FIBRILLATION WITH RAPID VENTRICULAR RESPONSE. 2) GASTROINTESTINAL BLEEDING. CONSULTANTS: Dr. Richard Fernández. HISTORY: The patient is a 76-year-old white male patient who has been in and out of the hospital over the past couple of weeks. He had a Watchman procedure in [place]. He had some GI bleeding episodes. He previously had been scoped upper and lower and not found to have evidence of any active bleeding although he did have some gastritis. The patient has been on aspirin and Plavix after the Watchman procedure. HOME MEDICATIONS: The patient's usual home medications were aspirin 81 mg a day, Fenofibrate 145 mg daily, metoprolol 75 mg b.i.d., atorvastatin 80 mg a day, pantoprazole 40 mg b.i.d. and he is taking CoQ10. ALLERGIES: DOXYCYCLINE. CEFDINIR. PHYSICAL EXAMINATION: HEENT: Normocephalic, atraumatic. Pupils equal round reactive to light. Extraocular movements intact. Oropharynx is pink and moist. NECK: Supple without lymphadenopathy, thyromegaly or JVD. CHEST: Clear to auscultation. HEART: Regular rate and rhythm without murmurs, rubs or gallops. ABDOMEN: Soft. No palpable masses. EXTREMITIES: Without cyanosis, clubbing or edema. NEUROLOGIC: The patient is alert and oriented x3 with no focal deficits. HOSPITAL COURSE: The patient on this admission showed his temperature to be 98.0F, pulse 122, respiratory rate 20 and blood pressure 147/77. O2 saturation 100%. The patient has significant medical history otherwise was the previous liver resection due to cancer. The patient initially in the emergency room was found to have atrial fibrillation with rapid ventricular response and having some GI bleeding episodes. When I saw him the next morning he was retching. We asked the surgeon to see him while he was here that Tuesday morning and did an upper GI procedure and there was evacuation of a large amount of old blood from the stomach. Otherwise the patient had no obvious fresh bleeding, a little bit of old blood clot was seen down in the duodenum. There was no obvious source of bleeding at the time that they could see despite flushing with large amounts of water. Over the next 24 hours, the patient continued atrial fibrillation with rapid ventricular response being in the 110 range. We started him on some p.o. Cardizem and was able to discontinue and lock the IV Cardizem by day three. He was seen in consultation also by Dr. Jeffrey Mccullough who decreased his metoprolol from 75 to 25 although the patient continued to have heart rates that were somewhat elevated and he increased the metoprolol back again 25 twice a day to 50 mg twice a day at the time of discharge. He was on Cardizem CD 240 mg a day otherwise. With the patient's atrial fibrillation, he needs to be on blood thinner but they recommended from surgery that he stay off blood thinners for at least a week or so if he could to prevent another rebleed. The patient did receive at least 2 units of blood and afterwards his hemoglobin was stable at about 9.3. On the day of discharge we felt the patient was doing quite well, stable. Hemoglobin went from 9.2 to 9.3 overnight and he looked good. His heart rate was running about 107 at rest. However, this is why we increased his metoprolol again from 25 b.i.d. to 50 b.i.d. Otherwise, he was felt to be ready for discharge home again. We will place him on Coumadin this time at 5 mg a day to allow it to slowly increase the INR of 2 to 3, giving it some more time for his gut to clear. The patient will be seen in my office in five days to recheck his pro-time and INR. At that time we will also have him go to the Coumadin clinic and will him an appointment to see Dr. Mccullough for follow up as well.
[2021-09-24] MEDS: Cardizem CD 120 MG PO SCH (09:21)
[2021-09-24] MEDS: Cozaar 50 MG PO SCH (09:21)
[2021-09-24] MEDS ORDERED: Toprol Xl 50 MG PO ONE (09:30)
== END 2021-09-24 09:45 | disposition home or self-care (01) | DRG 327 ==
LOC: ED 17:44 → MED SURG 23:50 → ICU 09-21 05:00 → OBSVTOIN 09-22 07:00
PROVIDERS: ADMIT Family Medicine; ATTEND Family Medicine
PROC: 0D968ZZ Drainage of Stomach, Via Natural or Artificial Opening Endoscopic (ICD-10-PCS; principal; 2021-09-21)
DX: K92.2 Gastrointestinal hemorrhage, unspecified (principal); I48.21 Permanent atrial fibrillation; I25.10 Atherosclerotic heart disease of native coronary artery without angina pectoris; R00.0 Tachycardia, unspecified; D64.9 Anemia, unspecified; I10 Essential (primary) hypertension; E78.5 Hyperlipidemia, unspecified; Z79.899 Other long term (current) drug therapy; Z79.01 Long term (current) use of anticoagulants; Z85.038 Personal history of other malignant neoplasm of large intestine; Z87.11 Personal history of peptic ulcer disease; Z20.828 Contact with and (suspected) exposure to other viral communicable diseases; Z85.05 Personal history of malignant neoplasm of liver
CPT/HCPCS: 0241U; 36000; 36415; 36430; 74176; 80053; 82274; 83605; 83690; 83880; 84484; 85014; 85018; 85025; 85027; 85379; 86850; 86900; 86901; 86922; 88305; 88312; 93005; 93041; 93268; 94760; 96360; 96372; 96374; 96375; 99100; 99285; 99291; J0330; J2060; J2405; J2550; J2704; J3010; P9016; A9270-GY; G0328; G0378

== ENCOUNTER 2022-03-08 15:36 | Emergency (ER) | payer MEDICARE ==
[2022-03-08 16:09] LABS: Absolute Neutrophil Ct (ANC) 3.15 x10^3/uL (1.4-6.9); Basophil (Absolute #) 0.07 x10^3/uL (0-0.4); Eosinophil % 3.3 % (0.00-5.0); Hematocrit 42.4 % (42-50); Hemoglobin 14.1 g/dL (12.5-18.0); Lymphocyte (Absolute #) 2.03 x10^3/uL (1.0-4.6); Lymphocytes % 33.1 % (24.0-44.0); Mean Cell Volume 95.7 fL (78-100); Mean Corpuscular Hemoglobin 31.8 pg (26-32); Mean Corpuscular Hgb Concent. 33.3 g/dL (32-36); Mean Platelet Volume 10.4 fL (7.5-11.0); Monocyte (Absolute #) 0.67 x10^3/uL (0.0-1.3); Monocytes % 10.9 % (0.0-12.0); Neutrophil % 51.3 % (36.0-66.0); Platelet Count 206 x10^3/uL (150-450); Red Blood Count 4.43 x10^6/uL (4.1-5.6); Red Cell Distribution Width 14.2 % (11.5-14.0); White Blood Count 6.1 x10^3/uL (4.0-10.5)
[2022-03-08 16:17] LABS: ALBUMIN 4.2 g/dL (3.5-5.0); BILIRUBIN,TOTAL 0.9 mg/dL (0.2-1.3); Calcium 9.3 mg/dL (8.4-10.2); Creatinine 1 1.33 mg/dL (0.66-1.25); EST GLOMERULAR FILTRATION RATE 55.4 ML/MIN; Potassium 3.9 mmol/L (3.5-5.1); Total Protein 7.2 g/dL (6.3-8.2)
[2022-03-08 17:21] VITALS: BP 145/76; O2SAT 98
[2022-03-08] MEDS ORDERED: Adacel Vial IM ONE ×2 (17:44→17:50)
[2022-03-08] MEDS ORDERED: BACIGUENT PACKET TP ONE (17:47)
[2022-03-08] MEDS ORDERED: BACIGUENT PACKET ONE (17:50)
--- NOTE | 2022-03-08 18:10 | XRAY ---
Exam: CT of the abdomen and pelvis without IV contrast from 03/08/2022. CTDI: 4.17 mGy Comparison: CT of the abdomen and pelvis with IV contrast from 10/26/2021. Indication: 77-year-old male with left upper quadrant abdominal pain; history of liver and colon cancer; status post colon resection, cholecystectomy, and "hernia repair". Technique: Non-IV contrast axial images were obtained through the abdomen and pelvis. Reconstructed coronal and sagittal images were created and reviewed. Findings: Assessment of the solid organs is limited on a non-IV contrast study only. There is a stable subpleural 8 mm soft tissue nodule at the posterior right lung base on axial image #14 representing no significant change from 10/26/2021. The other smaller lung nodule at the anterior right lower lung field is not included on the current study [id number]. The remainder of the lung bases appears clear. There is a suggestion of a minimal retrocardiac hiatal hernia on coronal image #88. I don't believe this is significantly changed. Coronary artery vascular calcification is seen. There appears to be a small pericardial effusion which measures up to 1 cm in depth along the posterior lateral left side of the heart on axial image #9. I don't believe this is significantly changed from 10/26/2021. I again see surgical clips within the right upper quadrant consistent with prior cholecystectomy. Surgical clips are seen scattered throughout the left hemiabdomen as well as within the lower pelvic midline representing no change. Assessment of the solid organs is limited without the use of IV contrast. The liver appears of unremarkable size. An apparent calcified granuloma is seen posterior medially within the right hepatic lobe representing no change. No obvious new liver mass is seen. Surgical clips consistent with prior cholecystectomy are noted within the right upper quadrant. The spleen appears of normal size and reveals no obvious mass. The pancreas and adrenal glands appear unremarkable. The kidneys appear of average size and reveal no calculi or hydronephrosis. Vascular calcification is seen within the abdominal aorta and origin the celiac axis and proximal SMA. Some renal artery calcification is also seen on the left on the coronal images.. No abdominal aortic aneurysm or abnormal retroperitoneal lymphadenopathy is seen. No free intraperitoneal air or bowel containing ventral hernia is seen. Some scattered stool is seen throughout the colon. Surgical clips within the presacral space and surgical sutures at the anastomotic site within the lower posterior pelvis are again seen. I see no evidence of bowel obstruction. The appendix appears unremarkable. The urinary bladder appears grossly unremarkable. The seminal vesicles appear symmetric. The prostate gland is mildly enlarged measuring about 5.2 cm in maximum width on axial image #88. No other pelvic mass, abnormal pelvic lymphadenopathy, or free intraperitoneal fluid is seen. The skeleton reveals no acute fracture or aggressive bone lesion. Mild generalized spondylosis is seen within the visualized thoracolumbar spine. I again see a prominent Schmorl's node within the inferior vertebral endplate of L4. This may be slightly larger than that seen on 10/26/2021. Impression: 1. 8 mm subpleural soft tissue lung nodule at the posterior right lung base, small hiatal hernia, and a mild pericardial effusion posterolaterally on the left appear about the same as that seen on 10/26/2021. 2. Anastomotic sutures at the level of the upper rectum appear unchanged. Scattered surgical clips throughout the abdomen and pelvis appear stable. 3. Moderate scattered fecal residue is seen throughout the colon representing no significant change. No definite bowel obstruction or free air or free fluid is seen. 4. Mild enlargement of the prostate gland. 5. Presumed prominent Schmorl's node within the inferior aspect of the L4 vertebral body appears to be slightly larger than that seen on 10/26/2021. Other chronic bone findings are seen. 6. No acute process is seen within the abdomen or pelvis.
[2022-03-08 18:28] VITALS: PULSE 79
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
== END 2022-03-08 19:22 | disposition home or self-care (01) ==
LOC: ED 15:36
DX: T22.111A Burn of first degree of right forearm, initial encounter (principal); X08.8XXA Exposure to other specified smoke, fire and flames, initial encounter; K59.00 Constipation, unspecified; R10.12 Left upper quadrant pain; R10.32 Left lower quadrant pain; E78.5 Hyperlipidemia, unspecified; I10 Essential (primary) hypertension; Z79.899 Other long term (current) drug therapy
CPT/HCPCS: 36415; 74176; 80053; 83690; 85025; 90471; 90715; 99283; A9270-GY

== ENCOUNTER 2022-08-02 02:17 | Emergency (ER) | payer MEDICARE ==
--- NOTE | 2022-08-02 03:27 | ERPHSYRPT ---
- History of Present Illness Time Seen by Provider: 08/02/22 03:19 Source: patient Exam Limitations: no limitations Patient Subjective Stated Complaint: pt states he has a cough and runny nose with sore throat since yesterday Triage Nursing Assessment: pt alert and oriented, dry cough, beath sounds diminished in r upper lobe Physician History: pt has had chronic cough for years from allergy to dust/ dust mites. However he develope more concerning and productive cough ( clear) yesterday. No CP or shortness of breath really, but can get a little out of breath if having a coughing fit. No abd pain . CHest clear. Ht reg without M. Abd soft nontender without mass or peritoneal signs. Comorbidity of hx intermittent afib - unable to tolerate blood thinners - so a watchman device was placed. Ordered CBC, CXR, EKG, Trop, CMP, RSV, Flu, Strep , and COvid swabs, reviewed and discussed results with pt to inform plans for followup. Timing/Duration: yesterday Cough Quality/Degree: productive cough (clear sputum only) Possible Cause: chronic episodes, allergen exposure Modifying Factors: Improves With: coughing Associated Symptoms: cough, headache, nasal congestion, nasal drainage, sore throat Allergies/Adverse Reactions: doxycycline Allergy (Mild, Verified 09/21/21 00:36) dizzy and nasuea cefdinir Allergy (Verified 09/21/21 00:36) Home Medications: Fenofibrate 145 mg PO DAILY 12/01/15 [History] Multivitamin [Multi-Vitamin Daily] 1 tab PO DAILY 12/01/15 [History] Atorvastatin Calcium 80 mg PO HS 05/30/21 [History] Vit C/E/Zn/Coppr/Lutein/Zeaxan [Preservision Areds 2 Softgel] 2 cap PO DAILY 05/30/21 [History] Losartan Potassium 25 mg PO DAILY 09/20/21 [History] Hx Tetanus, Diphtheria Vaccination/Date Given: Yes Hx Influenza Vaccination/Date Given: Yes Hx Pneumococcal Vaccination/Date Given: Yes Travel Risk - International Travel Have you traveled outside of the country in past 3 weeks: No - Coronavirus Screening Are you exhibiting any of the following symptoms?: Yes Symptoms: Cough: New Onset - Vaccine Status Have you recieved a Covid-19 vaccination: Yes [place] [place]: Moderna - Vaccination Dates Date of 2cond Vaccination (if applicable): november 2020 - Review of Systems Constitutional: No Fever, No Chills Eyes: No Symptoms Ears, Nose, & Throat: No Symptoms Respiratory: Cough, No Dyspnea Cardiac: No Chest Pain, No Edema, No Syncope Abdominal/Gastrointestinal: No Abdominal Pain, No Nausea, No Vomiting, No Diarrhea Genitourinary Symptoms: No Dysuria Musculoskeletal: No Back Pain, No Neck Pain Skin: No Rash Neurological: No Dizziness, No Focal Weakness, No Sensory Changes Psychological: No Symptoms Endocrine: No Symptoms Hematologic/Lymphatic: No Symptoms Immunological/Allergic: No Symptoms All Other Systems: Reviewed and Negative - Past Medical History Pertinent Past Medical History: Yes Neurological History: No Pertinent History ENT History: No Pertinent History Cardiac History: High Cholesterol, Hypertension, Myocardial Infarction ([place]) Respiratory History: No Pertinent History Endocrine Medical History: No Pertinent History Musculoskeletal History: Fractures GI Medical History: Colorectal Cancer, Hernia, Liver Cancer History: No Pertinent History Psycho-Social History: No Pertinent History Male Reproductive Disorders: No Pertinent History Other Medical History: History of Colon with Liver mets, Myocardial Infarction x2, Afib - Past Surgical History Past Surgical History: Yes Neuro Surgical History: No Pertinent History Cardiac: Cardiac Stent, Vascular Surgery Respiratory: Chest Surgery, Other Gastrointestinal: Cholecystectomy, Colon Resection, Hernia Repair, Other Genitourinary: No Pertinent History Musculoskeletal: No Pertinent History Male Surgical History: No Pertinent History Other Surgical History: LIVER RESECTION DUE TO CANCER. 4 heart stents. cvl port placement and removal. hiatal hernia repair = complications with collapsed lung during OR. Watchmans Procedure - Social History Smoking Status: Former smoker How long have you smoked: 30 Exposure to second hand smoke: No Alcohol Use: None Drug Use: none Patient Lives Alone: Yes Significant Family History: no pertinent family hx - Nursing Vital Signs Nursing Vital Signs: Initial Vital Signs Temperature 98.3 F 08/02/22 02:25 Pulse Rate 105 H 08/02/22 02:25 Respiratory Rate 18 08/02/22 02:25 Blood Pressure 159/98 08/02/22 02:25 O2 Sat by Pulse Oximetry 99 08/02/22 02:25 Pain Scale Pain Intensity 0 - Physical Exam General Appearance: no apparent distress, alert Eye Exam: PERRL/EOMI, eyes nml inspection Ears, Nose, Throat Exam: normal ENT inspection, TMs normal, moist mucous membranes, pharyngeal erythema Neck Exam: normal inspection, non-tender, supple, full range of motion Respiratory Exam: normal breath sounds, lungs clear, No respiratory distress Cardiovascular Exam: regular rate/rhythm, normal heart sounds, normal peripheral pulses Gastrointestinal/Abdomen Exam: soft, No tenderness Rectal Exam: deferred Back Exam: normal inspection, No CVA tenderness, No vertebral tenderness Extremity Exam: normal inspection, normal range of motion Neurologic Exam: alert, oriented x 3, cooperative, normal mood/affect, sensation nml, No motor deficits Skin Exam: normal color, warm, dry, No rash Lymphatic Exam: No adenopathy SpO2 Interpretation: normal SpO2: 99 O2 Delivery: Room Air - Course Nursing assessment & vital signs reviewed: Yes EKG Interpreted by Me: A-fib, Non-specific ST Changes, Other (IVCD) - Radiology Exams Chest X-ray Interpretation: Reviewed by me, Other (patchy infiltrates) Ordered Tests: Active Orders 24 hr Category Date Time Status EKG-ER Only STAT Care 08/02/22 03:19 Active CHEST 1 VIEW (PORTABLE) Stat Exams 08/02/22 03:19 Ordered CBC W DIFF Stat Lab 08/02/22 03:19 Completed CMP Stat Lab 08/02/22 03:19 Completed TROPONIN Q4H Lab 08/02/22 03:30 Completed TROPONIN Q4H Lab 08/02/22 07:30 Ordered TROPONIN Q4H Lab 08/02/22 11:30 Ordered Lab/Rad Data: Laboratory Result Diagrams 08/02/22 03:19 08/02/22 03:19 Laboratory Results 08/02/22 08/02/22 08/02/22 Range/Units 03:45 03:30 03:21 WBC (4.0-10.5) x10^3/uL RBC (4.1-5.6) x10^6/uL Hgb (12.5-18.0) g/dL Hct (42-50) % MCV (78-100) fL MCH (26-32) pg MCHC (32-36) g/dL RDW (11.5-14.0) % Plt Count (150-450) x10^3/uL MPV (7.5-11.0) fL Gran % (36.0-66.0) % Immature Gran % (Auto) (0.00-0.4) % Nucleat RBC Rel Count (0.00-0.1) % Eos # (Auto) (0-0.5) x10^3/uL Immature Gran # (Auto) (0.00-0.03) x10^3u/L Absolute Lymphs (auto) (1.0-4.6) x10^3/uL Absolute Monos (auto) (0.0-1.3) x10^3/uL Absolute Nucleated RBC (0.00-0.01) x10^3u/L Lymphocytes % (24.0-44.0) % Monocytes % (0.0-12.0) % Eosinophils % (0.00-5.0) % Basophils % (0.0-0.4) % Absolute Granulocytes (1.4-6.9) x10^3/uL Basophils # (0-0.4) x10^3/uL Sodium (137-145) mmol/L Potassium (3.5-5.1) mmol/L Chloride (98-107) mmol/L Carbon Dioxide (22-30) mmol/L Anion Gap (5-15) MEQ/L BUN (9-20) mg/dL Creatinine (0.66-1.25) mg/dL Estimated GFR ML/MIN Glucose (74-106) mg/dL Calcium (8.4-10.2) mg/dL Total Bilirubin (0.2-1.3) mg/dL AST (17-59) U/L ALT (0-50) U/L Alkaline Phosphatase (38-126) U/L Troponin I < 0.012 (0.000-0.034) ng/mL Serum Total Protein (6.3-8.2) g/dL Albumin (3.5-5.0) g/dL Influenza Type A Ag NEGATIVE (NEGATIVE) Influenza Type B Ag NEGATIVE (NEGATIVE) RSV (PCR) NEGATIVE (Negative) SARS-CoV-2 (PCR) NEGATIVE (NEGATIVE) Group A Strep Antibody NOT DETECTED (NEGATIVE) 08/02/22 08/02/22 Range/Units 03:19 03:19 WBC 6.1 (4.0-10.5) x10^3/uL RBC 4.02 L (4.1-5.6) x10^6/uL Hgb 12.9 (12.5-18.0) g/dL Hct 39.2 L (42-50) % MCV 97.5 (78-100) fL MCH 32.1 H (26-32) pg MCHC 32.9 (32-36) g/dL RDW 13.4 (11.5-14.0) % Plt Count 167 (150-450) x10^3/uL MPV 10.6 (7.5-11.0) fL Gran % 68.6 H (36.0-66.0) % Immature Gran % (Auto) 0.3 (0.00-0.4) % Nucleat RBC Rel Count 0.0 (0.00-0.1) % Eos # (Auto) 0.26 (0-0.5) x10^3/uL Immature Gran # (Auto) 0.02 (0.00-0.03) x10^3u/L Absolute Lymphs (auto) 1.06 (1.0-4.6) x10^3/uL Absolute Monos (auto) 0.53 (0.0-1.3) x10^3/uL Absolute Nucleated RBC 0.00 (0.00-0.01) x10^3u/L Lymphocytes % 17.3 L (24.0-44.0) % Monocytes % 8.6 (0.0-12.0) % Eosinophils % 4.2 (0.00-5.0) % Basophils % 1.0 (0.0-0.4) % Absolute Granulocytes 4.21 (1.4-6.9) x10^3/uL Basophils # 0.06 (0-0.4) x10^3/uL Sodium 139 (137-145) mmol/L Potassium 4.4 (3.5-5.1) mmol/L Chloride 109 H (98-107) mmol/L Carbon Dioxide 27 (22-30) mmol/L Anion Gap 7.8 (5-15) MEQ/L BUN 31 H (9-20) mg/dL Creatinine 1.15 (0.66-1.25) mg/dL Estimated GFR > 60.0 ML/MIN Glucose 114 H (74-106) mg/dL Calcium 8.7 (8.4-10.2) mg/dL Total Bilirubin 0.50 (0.2-1.3) mg/dL AST 35 (17-59) U/L ALT 33 (0-50) U/L Alkaline Phosphatase 53 (38-126) U/L Troponin I (0.000-0.034) ng/mL Serum Total Protein 6.1 L (6.3-8.2) g/dL Albumin 3.5 (3.5-5.0) g/dL Influenza Type A Ag (NEGATIVE) Influenza Type B Ag (NEGATIVE) RSV (PCR) (Negative) SARS-CoV-2 (PCR) (NEGATIVE) Group A Strep Antibody (NEGATIVE) - Progress Progress: improved, re-examined Air Movement: good Blood Culture(s) Obtained: No Antibiotics given: Yes Counseled pt/family regarding: lab results, diagnosis, need for follow-up, rad r esults - Departure Clinical Impression: Walking pneumonia, pnemonitis Condition: Good Critical Care Time: No Referrals: ELVIRA PAT [Primary Care Provider] - Follow up/PCP as directed Instructions: Cough, Adult (DC), Atypical Pneumonia (Mycoplasma and Viral) (DC) Additional Instructions: follow-up with your Dr. on chest x-ray final reading and to recheck lungs, and follow-up your blood pressure with your DrKamini . Return meantime if not improving, vomiting, short of breath Chest pain, trouble swallowing or any other symptoms of concern. Also carefully monitor your INR coumadin testing with your DrKamini as the antibiotic can sometimes affect this ( if you are still on the coumaden). Prescriptions: Azithromycin [Azithromycin 250 mg Pack] 250 mg PO UD #6 tablet Methylprednisolone Packet [Medrol Dosepack] 4 mg PO UD #30 packet
[2022-08-02 03:57] LABS: Absolute Neutrophil Ct (ANC) 4.21 x10^3/uL (1.4-6.9); Basophil (Absolute #) 0.06 x10^3/uL (0-0.4); Eosinophil % 4.2 % (0.00-5.0); Eosinophil (Absolute #) 0.26 x10^3/uL (0-0.5); Hematocrit 39.2 % (42-50); Hemoglobin 12.9 g/dL (12.5-18.0); Lymphocyte (Absolute #) 1.06 x10^3/uL (1.0-4.6); Lymphocytes % 17.3 % (24.0-44.0); Mean Cell Volume 97.5 fL (78-100); Mean Corpuscular Hemoglobin 32.1 pg (26-32); Mean Corpuscular Hgb Concent. 32.9 g/dL (32-36); Mean Platelet Volume 10.6 fL (7.5-11.0); Monocyte (Absolute #) 0.53 x10^3/uL (0.0-1.3); Monocytes % 8.6 % (0.0-12.0); Neutrophil % 68.6 % (36.0-66.0); Platelet Count 167 x10^3/uL (150-450); Red Blood Count 4.02 x10^6/uL (4.1-5.6); Red Cell Distribution Width 13.4 % (11.5-14.0); White Blood Count 6.1 x10^3/uL (4.0-10.5)
[2022-08-02 03:59] LABS: INFLUENZA A NEGATIVE (NEGATIVE); INFLUENZA B NEGATIVE (NEGATIVE); RESPIRATORY SYNCTIAL VIRUS NEGATIVE (Negative); SARS-CoV-2 Xpert Express NEGATIVE (NEGATIVE)
[2022-08-02 04:01] LABS: ALBUMIN 3.5 g/dL (3.5-5.0); ALKALINE PHOSPHATASE 53 U/L (38-126); ANION GAP 7.8 MEQ/L (5-15); BLOOD UREA NITROGEN 31 mg/dL (9-20); CHLORIDE 109 mmol/L (98-107); Calcium 8.7 mg/dL (8.4-10.2); Carbon Dioxide 27 mmol/L (22-30); Creatinine 1 1.15 mg/dL (0.66-1.25); EST GLOMERULAR FILTRATION RATE > 60.0 ML/MIN; Glucose 114 mg/dL (74-106); Potassium 4.4 mmol/L (3.5-5.1); SGOT/AST 35 U/L (17-59); SGPT/ALT 33 U/L (0-50); SODIUM 139 mmol/L (137-145); Total Protein 6.1 g/dL (6.3-8.2)
[2022-08-02 04:10] VITALS: BP 190/100; PULSE 86
[2022-08-02 04:18] VITALS: O2SAT 99
--- NOTE | 2022-08-02 08:46 | XRAY ---
Indication: Cough. Pneumonia. Comparison: April 09, 2021 Portable chest demonstrates new minimal left mid to lower lung subsegmental atelectasis/scarring. Remaining heart and lungs unremarkable. Bony thorax intact again with osteopenia and mild degenerative changes.
== END 2022-08-02 05:00 | disposition home or self-care (01) ==
LOC: ED 02:17
DX: J18.9 Pneumonia, unspecified organism (principal); R05.1 Acute cough; J02.9 Acute pharyngitis, unspecified; E78.5 Hyperlipidemia, unspecified; I10 Essential (primary) hypertension; Z79.899 Other long term (current) drug therapy
CPT/HCPCS: 0241U; 36415; 71045; 80053; 84484; 85025; 87651; 93005; 99283

== ENCOUNTER 2022-10-23 13:25 | Emergency (ER) | payer MEDICARE, OTHER ==
[2022-10-23 13:36] VITALS: BP 166/87; PULSE 118; O2SAT 97
--- NOTE | 2022-10-23 14:04 | ERPHSYRPT ---
- History of Present Illness Time Seen by Provider: 10/23/22 13:59 Source: patient Exam Limitations: no limitations Patient Subjective Stated Complaint: PT states "I was at work and I went to stand up and my right knee started to really hurt and now I cannot stand or walk on it." Triage Nursing Assessment: Pt presented alert and oriented X 3, skin pwd. Pt ambulates with a limp, puts minimal weight on his right leg. no apparent respiratory distress. Physician History: PT states "I was at work and I went to stand up and my right knee started to really hurt and now I cannot stand or walk on it." Pt ambulates with a limp, puts minimal weight on his right leg. no apparent respiratory distress. Method of Injury: unknown Occurred: just prior to arrival Quality: constant Severity of Pain-Max: moderate Severity of Pain-Current: moderate Lower Extremities Pain: knee: right (popliteal area) Modifying Factors: Improves With: nothing Associated Symptoms: unable to bear weight Allergies/Adverse Reactions: doxycycline Allergy (Mild, Verified 09/21/21 00:36) dizzy and nasuea cefdinir Allergy (Verified 09/21/21 00:36) Home Medications: Fenofibrate 145 mg PO DAILY 12/01/15 [History] Multivitamin [Multi-Vitamin Daily] 1 tab PO DAILY 12/01/15 [History] Atorvastatin Calcium 80 mg PO HS 05/30/21 [History] Losartan Potassium 25 mg PO DAILY 09/20/21 [History] Aspirin EC 81 mg [Ecotrin 81 mg] 81 mg PO DAILY 08/02/22 [History] Ubidecarenone [Coq10] 100 mg PO DAILY 08/02/22 [History] Metoprolol Succinate 50 mg [Toprol Xl 50 MG] 50 mg PO DAILY 10/23/22 [History] Hx Tetanus, Diphtheria Vaccination/Date Given: Yes Hx Influenza Vaccination/Date Given: Yes Hx Pneumococcal Vaccination/Date Given: Yes Travel Risk - International Travel Have you traveled outside of the country in past 3 weeks: No - Coronavirus Screening Are you exhibiting any of the following symptoms?: No Close contact with a COVID-19 positive Pt in past 14-21 Days: No - Vaccine Status Have you recieved a Covid-19 vaccination: Yes Clerical Support Specialist: Moderna - Vaccination Dates Date of 2cond Vaccination (if applicable): november 2020 - Review of Systems Constitutional: No Fever, No Chills Eyes: No Symptoms Ears, Nose, & Throat: No Symptoms Respiratory: No Cough, No Dyspnea Cardiac: No Chest Pain, No Edema, No Syncope Abdominal/Gastrointestinal: No Abdominal Pain, No Nausea, No Vomiting, No Diarrhea Genitourinary Symptoms: No Dysuria Musculoskeletal: Joint Pain (right knee popliteal arae), No Back Pain, No Neck Pain Skin: No Rash Neurological: No Dizziness, No Focal Weakness, No Sensory Changes Psychological: No Symptoms Endocrine: No Symptoms All Other Systems: Reviewed and Negative - Past Medical History Pertinent Past Medical History: Yes Neurological History: No Pertinent History ENT History: No Pertinent History Cardiac History: High Cholesterol, Hypertension, Myocardial Infarction ([place]) Respiratory History: No Pertinent History Endocrine Medical History: No Pertinent History Musculoskeletal History: Fractures GI Medical History: Colorectal Cancer, Hernia, Liver Cancer History: No Pertinent History Psycho-Social History: No Pertinent History Male Reproductive Disorders: No Pertinent History Other Medical History: History of Colon with Liver mets, Myocardial Infarction x2, Afib - Past Surgical History Past Surgical History: Yes Neuro Surgical History: No Pertinent History Cardiac: Cardiac Stent, Vascular Surgery Respiratory: Chest Surgery, Other Gastrointestinal: Cholecystectomy, Colon Resection, Hernia Repair, Other Genitourinary: No Pertinent History Musculoskeletal: No Pertinent History Male Surgical History: No Pertinent History Other Surgical History: LIVER RESECTION DUE TO CANCER. 4 heart stents. cvl port placement and removal. hiatal hernia repair = complications with collapsed lung during OR. Watchmans Procedure - Social History Smoking Status: Former smoker How long have you smoked: 30 Exposure to second hand smoke: No Alcohol Use: None Drug Use: none Patient Lives Alone: Yes Significant Family History: no pertinent family hx - Nursing Vital Signs Nursing Vital Signs: Initial Vital Signs Temperature 97.5 F 10/23/22 13:28 Pulse Rate 118 H 10/23/22 13:28 Respiratory Rate 18 10/23/22 13:28 Blood Pressure 166/87 10/23/22 13:28 O2 Sat by Pulse Oximetry 97 10/23/22 13:28 Pain Scale Pain Intensity 8 - Physical Exam General Appearance: alert Eyes, Ears, Nose, Throat Exam: moist mucous membranes Neck Exam: non-tender, supple Cardiovascular/Respiratory Exam: chest non-tender, normal breath sounds, regular rate/rhythm, no respiratory distress Gastrointestinal/Abdominal Exam: non-tender, guarding Back Exam: normal inspection, No vertebral tenderness Hips Exam: bilateral: non-tender Legs Exam: bilateral leg: non-tender Knees Exam: right knee: pain, soft tissue tenderness (behind knee, popliteal area, negative Brittanie sign), bilateral knee: no evidence of injury Ankle Exam: bilateral ankle: non-tender Foot Exam: bilateral foot: non-tender DTR - Lower Extremities Exam: knee (R): 2+, knee (L): 2+, ankle (R): 2+, ankle (L): 2+ Neuro/Tendon Exam: normal sensation, normal motor functions Mental Status Exam: alert, oriented x 3, cooperative Skin Exam: normal color, warm, dry SpO2 Interpretation: normal SpO2: 97 O2 Delivery: Room Air - Course Nursing assessment & vital signs reviewed: Yes - Radiology Exams Knee X-ray Interpretation: Reviewed by me, Negative, No Fracture, No Subluxation Ordered Tests: Active Orders 24 hr Category Date Time Status KNEE (3 VIEWS) Stat Exams 10/23/22 13:59 Taken - Progress Progress: improved, pain not gone completely Counseled pt/family regarding: diagnosis, need for follow-up, rad results Medical Desision Making - Diagnostic Testing Diagnostic test were ordered, analyzed, and reviewed by me: Yes Radiological Interpretation: Interpreted by me, Reviewed by me - Risk of complications Low Risk: Low risk of morbidity from additional dx testing or treatment - Departure Departure Disposition: Home Clinical Impression: Posterior right knee pain, Right medial knee pain Condition: Stable Critical Care Time: No Referrals: ELVIRA PAT [Primary Care Provider] - [facility]-F [id number] Instructions: Knee Pain (DC) Additional Instructions: Discharge/Care Plan NENA KELLEY was seen on 10/23/22 in the Emergency Room. The patient was counseled regarding Diagnosis,Lab results, Imaging studies, need for follow up and when to return to the Emergency Room. Prescriptions given: Discharge Note I have spoken with the patient and/or caregivers. I have explained the patient's condition, diagnosis and treatment plan based on the information available to me at this time. I have answered the patient's and/or caregiver's questions and addressed any concerns. The patient and/or caregivers have as good understanding of the patient's diagnosis, condition and treatment plan as can be expected at this point. The vital signs have been stable. The patient's condition is stable and appropriate for discharge from the emergency department. The patient will pursue further outpatient evaluation with the primary care physician or other designated or consulting physician as outlined in the discharge instructions. The patient and/or caregivers are agreeable to this plan of care and follow-up instructions have been explained in detail. The patient and/or caregivers have received these instruction. The patient/and or caregivers are aware that any significant change in condition or worsening of symptoms should prompt an immediate return to this or the closest emergency department or call 911. NENA KELLEY was seen on 10/23/22 n the Emergency Room. At that time you were treated for an emergent condition, during your visit Laboratory, Radiology and/or other procedures may have been ordered. It is very important that you follow-up with your Primary Care Physician ELVIRA PAT within the next 24-48 hours to review your Emergency Room visit and the final results of testing that was ordered. Some test results such as Urine Cultures, Blood Cultures, and other cultures if ordered will not be finalized for 24-48 hours. If you do not have a Primary Care Provider please call the medical records department at [phone] to obtain a copy of your results or you may sign into our patient portal to obtain these results by visiting us @ [email or web address] and completing the following steps: 1. Click on the Patient Portal link 2. Click the Patient Self Enrollment Link to complete the enrollment form and entering your 3. Once the enrollment form is completed you will receive an email with a temporary ID and password at the email address you provided. 4. Next choose a user name and password. Your user name must be at least 4 characters long and your password must be at least 4 characters long. 5. Choose a security question from the list and provide your answer to the question. If you already have signed into the Health Portal you may access your Health Care Information 07/02 by the following steps: 1. Login to our website @ [email or web address] 2. Enter your original user name and password. FAQS The [facility] Health Portal is an online tool that contains your Lab Results, Radiology Reports, Visit History, Discharge Instructions and Health Summary Lab and Radiology Results will not be available for 72 hours on the portal. The Portal is a secure site, passwords are encryted and URLs are re-written so they cannot be copied and pasted. You and authorized family members are the only ones who can access your Portal. Also there is a timeout feature that protects your information if you leave the Portal page open. If you have technical difficulty please use the Contact Us link on the page this will allow you to submit any questions you have regarding the Portal or you may contact the Medical Record Department at [phone] ext [phone].
--- NOTE | 2022-10-23 20:19 | XRAY ---
Indication: Pain. No known injury. Comparison: May 09, 2017 3 view right knee again demonstrates osteopenia, minimal medial joint space narrowing, tiny spurring patella/tibial tuberosity, and scattered vascular calcifications. No new/acute abnormalities.
== END 2022-10-23 15:03 | disposition home or self-care (01) ==
LOC: ED 13:25
DX: M25.561 Pain in right knee (principal); E78.5 Hyperlipidemia, unspecified; I10 Essential (primary) hypertension; Z79.899 Other long term (current) drug therapy
CPT/HCPCS: 73562; 99282

== ENCOUNTER 2023-03-13 13:03 | Emergency (ER) | payer MEDICARE ==
--- NOTE | 2023-03-13 13:13 | ERPHSYRPT ---
- History of Present Illness Time Seen by Provider: 03/13/23 13:13 Historian: patient Exam Limitations: no limitations Physician History: 78-year-old white male patient of Dr. Kan who has multiple medical problems including atrial fibrillation (not on anticoagulant therapy) hyperlipidemia, hypertension and coronary artery disease ([address]). Patient is a former smoker and presents to the emergency department with chest pain related to coughing. He was placed on a Z-Nick and steroids and he completed both of these 2 days ago. However the symptoms have returned/recurred. They were somewhat improving on that medication regimen. Today the symptoms were worse. He has not had a fever. He has no abdominal pain. He has had no nausea vomiting or diarrhea symptoms. He has associated shortness of breath. 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 Timing/Duration: today, day(s) (2), worse Quality: tightness Location: substernal, central Chest Pain Radiation: no radiation Severity of Pain-Max: mild Severity of Pain-Current: mild Modifying Factors: Improves With: coughing Associated Symptoms: shortness of breath (Mild), cough Prior Chest Pain/Cardiac Workup: cardiac cath, heart attack Nitro Today/Relief: no nitro taken today Aspirin Treatment Today: 81 mg x 1, provided at home Allergies/Adverse Reactions: doxycycline Allergy (Mild, Verified 03/13/23 13:16) dizzy and nasuea cefdinir Allergy (Verified 03/13/23 13:16) Home Medications: Fenofibrate 145 mg PO DAILY 12/01/15 [History] Multivitamin [Multi-Vitamin Daily] 1 tab PO DAILY 12/01/15 [History] Atorvastatin Calcium 80 mg PO HS 05/30/21 [History] Losartan Potassium 25 mg PO DAILY 09/20/21 [History] Aspirin EC 81 mg [Ecotrin 81 mg] 81 mg PO DAILY 08/02/22 [History] Ubidecarenone [Coq10] 100 mg PO DAILY 08/02/22 [History] Metoprolol Succinate 50 mg [Toprol Xl 50 MG] 50 mg PO BID 10/23/22 [History] Ezetimibe 10 mg [Zetia 10 MG] 10 mg PO DAILY 03/13/23 [History] Vit C/E/Zn/Coppr/Lutein/Zeaxan [Preservision Areds 2 Softgel] 1 cap PO BID 03/13/23 [History] Hx Tetanus, Diphtheria Vaccination/Date Given: Yes Hx Influenza Vaccination/Date Given: Yes Hx Pneumococcal Vaccination/Date Given: Yes Travel Risk - International Travel Have you traveled outside of the country in past 3 weeks: No - Coronavirus Screening Are you exhibiting any of the following symptoms?: No Close contact with a COVID-19 positive Pt in past 14-21 Days: No - Vaccine Status Have you recieved a Covid-19 vaccination: Yes 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 - Vaccination Dates Date of 2cond Vaccination (if applicable): november 2020 - Review of Systems Constitutional: No Symptoms Eyes: No Symptoms Ears, Nose, & Throat: No Symptoms Respiratory: Cough Cardiac: Chest Pain Abdominal/Gastrointestinal: No Symptoms (Coughing) Genitourinary Symptoms: No Symptoms Musculoskeletal: No Symptoms Skin: No Symptoms Neurological: No Symptoms Psychological: No Symptoms Endocrine: No Symptoms Hematologic/Lymphatic: No Symptoms Immunological/Allergic: No Symptoms All Other Systems: Reviewed and Negative - Past Medical History Pertinent Past Medical History: Yes Neurological History: No Pertinent History ENT History: No Pertinent History Cardiac History: High Cholesterol, Hypertension, Myocardial Infarction (CA) Respiratory History: No Pertinent History Endocrine Medical History: No Pertinent History Musculoskeletal History: Fractures GI Medical History: Colorectal Cancer, Hernia, Liver Cancer History: No Pertinent History Psycho-Social History: No Pertinent History Male Reproductive Disorders: No Pertinent History Other Medical History: History of Colon with Liver mets, Myocardial Infarction x2, Afib - Past Surgical History Past Surgical History: Yes Neuro Surgical History: No Pertinent History Cardiac: Cardiac Stent, Vascular Surgery Respiratory: Chest Surgery, Other Gastrointestinal: Cholecystectomy, Colon Resection, Hernia Repair, Other Genitourinary: No Pertinent History Musculoskeletal: No Pertinent History Male Surgical History: No Pertinent History Other Surgical History: LIVER RESECTION DUE TO CANCER. 4 heart stents. cvl port placement and removal. hiatal hernia repair = complications with collapsed lung during OR. Watchmans Procedure - Social History Smoking Status: Former smoker How long have you smoked: 30 Exposure to second hand smoke: No Alcohol Use: None Drug Use: none Patient Lives Alone: Yes Significant Family History: no pertinent family hx - Nursing Vital Signs Nursing Vital Signs: Initial Vital Signs Temperature 97.3 F 03/13/23 13:07 Pulse Rate 103 H 03/13/23 13:07 Respiratory Rate 23 03/13/23 13:07 Blood Pressure 153/89 03/13/23 13:07 O2 Sat by Pulse Oximetry 95 03/13/23 13:07 Pain Scale Pain Intensity 0 - Physical Exam General Appearance: no apparent distress, alert, anxiety Eye Exam: PERRL/EOMI, eyes nml inspection Ears, Nose, Throat Exam: normal ENT inspection, moist mucous membranes Neck Exam: normal inspection, non-tender, supple, full range of motion Respiratory Exam: normal breath sounds, chest tenderness, lungs clear, airway intact, No respiratory distress Cardiovascular Exam: irregular Gastrointestinal/Abdomen Exam: soft, normal bowel sounds, No tenderness Rectal Exam: not done Back Exam: normal inspection, normal range of motion, No CVA tenderness Extremity Exam: normal inspection, normal range of motion, pelvis stable Neurologic Exam: alert, oriented x 3, cooperative, billet grinder II-XII nml as tested, normal mood/affect, nml cerebellar function, nml station & gait, sensation nml Skin Exam: normal color, warm, dry Lymphatic Exam: No adenopathy SpO2 Interpretation: normal O2 Delivery: Room Air - Course Nursing assessment & vital signs reviewed: Yes EKG Interpreted by Me: RATE (99), A-fib, Other (This patient has rate controlled atrial fibrillation without evidence of any acute ischemic changes) Ordered Tests: Active Orders 24 hr Category Date Time Status EKG-ER Only STAT Care 03/13/23 13:14 Active IV Insertion STAT Care 03/13/23 13:14 Active Pulse Oximetry (ED) STAT Care 03/13/23 13:14 Active CHEST 1 VIEW (PORTABLE) Stat Exams 03/13/23 13:15 Completed CBC W DIFF Stat Lab 03/13/23 13:43 Completed CMP Stat Lab 03/13/23 13:43 Completed D-DIMER QUANTITATIVE Stat Lab 03/13/23 13:43 Completed MONO SCREEN Stat Lab 03/13/23 13:43 Completed NT PRO BNPII Stat Lab 03/13/23 13:43 Completed PROTIME WITH INR Stat Lab 03/13/23 13:43 Completed TROPONIN Q4H Lab 03/13/23 13:43 Completed TROPONIN Q4H Lab 03/13/23 16:22 Completed TROPONIN Q4H Lab 03/13/23 21:15 Ordered Medication Summary Discontinued Medications Generic Name Dose Route Start Last Admin Trade Name Freq PRN Reason Stop Dose Admin Aspirin 324 mg 08/27/23 13:14 03/13/23 13:31 Aspirin 81 Mg Tab.Chew PO 03/13/23 13:15 243 mg STAT ONE Administration Methylprednisolone Sodium 0 mg 03/13/23 14:35 03/13/23 15:16 Succinate 125 mg/ Sterile IV 03/13/23 14:36 125 mg Water 2 ml STAT ONE Administration Furosemide 20 mg 03/13/23 14:36 03/13/23 15:16 Furosemide 20 Mg/Vial IV 03/13/23 14:37 20 mg STAT ONE Administration Furosemide Confirm 03/13/23 15:15 Furosemide 20 Mg/Vial Administered 03/13/23 15:16 Dose 20 mg .ROUTE .STK-MED ONE Levofloxacin 500 mg 03/13/23 15:20 03/13/23 15:24 Levofloxacin 500 Mg Tablet PO 03/13/23 15:21 500 mg STAT ONE Administration Levofloxacin Confirm 03/13/23 15:23 Levofloxacin 500 Mg Tablet Administered 03/13/23 15:24 Dose 500 mg .ROUTE .STK-MED ONE Methylprednisolone Sodium Succinate Confirm 03/13/23 15:15 Methylprednis Sod Succ 125 Mg/2 Ml Vial Administered 03/13/23 15:16 Dose 125 mg .ROUTE .STK-MED ONE Ondansetron HCl 4 mg 03/13/23 14:40 03/13/23 15:16 Ondansetron Hcl 4 Mg/2 Ml Vial IV 03/13/23 14:41 4 mg STAT ONE Administration Ondansetron HCl Confirm 03/13/23 15:15 Ondansetron Hcl 4 Mg/2 Ml Vial Administered 03/13/23 15:16 Dose 4 mg .ROUTE .STK-MED ONE Sterile Water Confirm 03/13/23 15:15 Water For Injection,Sterile 10 Ml Vial Administered 03/13/23 15:16 Dose 10 ml IJ .STK-MED ONE Lab/Rad Data: Laboratory Result Diagrams 03/13/23 13:43 03/13/23 13:43 Laboratory Results 03/13/23 03/13/23 03/13/23 Range/Units 16:22 13:53 13:53 WBC (4.0-10.5) x10^3/uL RBC (4.1-5.6) x10^6/uL Hgb (12.5-18.0) g/dL Hct (42-50) % MCV (78-100) fL MCH (26-32) pg MCHC (32-36) g/dL RDW (11.5-14.0) % Plt Count (150-450) x10^3/uL MPV (7.5-11.0) fL Gran % (36.0-66.0) % Immature Gran % (Auto) (0.00-0.4) % Nucleat RBC Rel Count (0.00-0.1) % Eos # (Auto) (0-0.5) x10^3/uL Immature Gran # (Auto) (0.00-0.03) x10^3u/L Absolute Lymphs (auto) (1.0-4.6) x10^3/uL Absolute Monos (auto) (0.0-1.3) x10^3/uL Absolute Nucleated RBC (0.00-0.01) x10^3u/L Lymphocytes % (24.0-44.0) % Monocytes % (0.0-12.0) % Eosinophils % (0.00-5.0) % Basophils % (0.0-0.4) % Absolute Granulocytes (1.4-6.9) x10^3/uL Basophils # (0-0.4) x10^3/uL PT (9.4-12.5) SECONDS INR (0.8-3.0) D-Dimer (0.0-0.50) mg/L Sodium (137-145) mmol/L Potassium (3.5-5.1) mmol/L Chloride (98-107) mmol/L Carbon Dioxide (22-30) mmol/L Anion Gap (5-15) MEQ/L BUN (9-20) mg/dL Creatinine (0.66-1.25) mg/dL Estimated GFR ML/MIN Glucose (74-106) mg/dL Calcium (8.4-10.2) mg/dL Total Bilirubin (0.2-1.3) mg/dL AST (17-59) U/L ALT (0-50) U/L Alkaline Phosphatase (38-126) U/L Troponin I < 0.012 (0.000-0.034) ng/mL NT-Pro-B Natriuret Pep (<300) pg/mL Serum Total Protein (6.3-8.2) g/dL Albumin (3.5-5.0) g/dL Monoscreen (NEGATIVE) Influenza Type A Ag NEGATIVE (NEGATIVE) Influenza Type B Ag NEGATIVE (NEGATIVE) RSV (PCR) NEGATIVE (NEGATIVE) SARS-CoV-2 (PCR) NEGATIVE (NEGATIVE) Group A Strep Antibody NOT DETECTED (NEGATIVE) 03/13/23 03/13/23 03/13/23 Range/Units 13:43 13:43 13:43 WBC (4.0-10.5) x10^3/uL RBC (4.1-5.6) x10^6/uL Hgb (12.5-18.0) g/dL Hct (42-50) % MCV (78-100) fL MCH (26-32) pg MCHC (32-36) g/dL RDW (11.5-14.0) % Plt Count (150-450) x10^3/uL MPV (7.5-11.0) fL Gran % (36.0-66.0) % Immature Gran % (Auto) (0.00-0.4) % Nucleat RBC Rel Count (0.00-0.1) % Eos # (Auto) (0-0.5) x10^3/uL Immature Gran # (Auto) (0.00-0.03) x10^3u/L Absolute Lymphs (auto) (1.0-4.6) x10^3/uL Absolute Monos (auto) (0.0-1.3) x10^3/uL Absolute Nucleated RBC (0.00-0.01) x10^3u/L Lymphocytes % (24.0-44.0) % Monocytes % (0.0-12.0) % Eosinophils % (0.00-5.0) % Basophils % (0.0-0.4) % Absolute Granulocytes (1.4-6.9) x10^3/uL Basophils # (0-0.4) x10^3/uL PT (9.4-12.5) SECONDS INR (0.8-3.0) D-Dimer (0.0-0.50) mg/L Sodium (137-145) mmol/L Potassium (3.5-5.1) mmol/L Chloride (98-107) mmol/L Carbon Dioxide (22-30) mmol/L Anion Gap (5-15) MEQ/L BUN (9-20) mg/dL Creatinine (0.66-1.25) mg/dL Estimated GFR ML/MIN Glucose (74-106) mg/dL Calcium (8.4-10.2) mg/dL Total Bilirubin (0.2-1.3) mg/dL AST (17-59) U/L ALT (0-50) U/L Alkaline Phosphatase (38-126) U/L Troponin I < 0.012 (0.000-0.034) ng/mL NT-Pro-B Natriuret Pep 1210 (<300) pg/mL Serum Total Protein (6.3-8.2) g/dL Albumin (3.5-5.0) g/dL Monoscreen NEGATIVE (NEGATIVE) Influenza Type A Ag (NEGATIVE) Influenza Type B Ag (NEGATIVE) RSV (PCR) (NEGATIVE) SARS-CoV-2 (PCR) (NEGATIVE) Group A Strep Antibody (NEGATIVE) 03/13/23 03/13/23 03/13/23 Range/Units 13:43 13:43 13:43 WBC 11.6 H (4.0-10.5) x10^3/uL RBC 4.63 (4.1-5.6) x10^6/uL Hgb 14.7 (12.5-18.0) g/dL Hct 45.5 (42-50) % MCV 98.3 (78-100) fL MCH 31.7 (26-32) pg MCHC 32.3 (32-36) g/dL RDW 14.2 H (11.5-14.0) % Plt Count 206 (150-450) x10^3/uL MPV 10.1 (7.5-11.0) fL Gran % 72.8 H (36.0-66.0) % Immature Gran % (Auto) 0.6 H (0.00-0.4) % Nucleat RBC Rel Count 0.0 (0.00-0.1) % Eos # (Auto) 0.56 H (0-0.5) x10^3/uL Immature Gran # (Auto) 0.07 H (0.00-0.03) x10^3u/L Absolute Lymphs (auto) 1.49 (1.0-4.6) x10^3/uL Absolute Monos (auto) 0.94 (0.0-1.3) x10^3/uL Absolute Nucleated RBC 0.00 (0.00-0.01) x10^3u/L Lymphocytes % 12.8 L (24.0-44.0) % Monocytes % 8.1 (0.0-12.0) % Eosinophils % 4.8 (0.00-5.0) % Basophils % 0.9 (0.0-0.4) % Absolute Granulocytes 8.45 H (1.4-6.9) x10^3/uL Basophils # 0.10 (0-0.4) x10^3/uL PT 12.5 (9.4-12.5) SECONDS INR 1.16 (0.8-3.0) D-Dimer 0.35 (0.0-0.50) mg/L Sodium 138 (137-145) mmol/L Potassium 4.3 (3.5-5.1) mmol/L Chloride 99 (98-107) mmol/L Carbon Dioxide 29 (22-30) mmol/L Anion Gap 14.0 (5-15) MEQ/L BUN 24 H (9-20) mg/dL Creatinine 1.02 (0.66-1.25) mg/dL Estimated GFR > 60.0 ML/MIN Glucose 86 (74-106) mg/dL Calcium 9.2 (8.4-10.2) mg/dL Total Bilirubin 1.50 H (0.2-1.3) mg/dL AST 53 (17-59) U/L ALT 56 H (0-50) U/L Alkaline Phosphatase 57 (38-126) U/L Troponin I (0.000-0.034) ng/mL NT-Pro-B Natriuret Pep (<300) pg/mL Serum Total Protein 6.7 (6.3-8.2) g/dL Albumin 4.0 (3.5-5.0) g/dL Monoscreen (NEGATIVE) Influenza Type A Ag (NEGATIVE) Influenza Type B Ag (NEGATIVE) RSV (PCR) (NEGATIVE) SARS-CoV-2 (PCR) (NEGATIVE) Group A Strep Antibody (NEGATIVE) - Progress Progress: improved, re-examined Air Movement: good Progress Note: 03/13/23 14:33 Chest x-ray was interpreted by the radiologist and I reviewed the impression. Patient has signs of cardiomegaly with perihilar vascular congestion. No definite area of infiltrate or consolidation present. 03/13/23 15:52 This patient's medical issue is 1 of moderate complexity. The level complexity in the work-up performed based on review of the patient's past medical history, review the patient's medication list, review of the patient's drug allergy list, history of present illness and physical findings on examination. The work-up in this patient includes placement of an intravenous line, chest x-ray, twelve-lead EKG, D-dimer level, troponin level, CBC, CMP. The results of the chest x-ray are as above. The patient, is not anticoagulated and has a history of atrial fibrillation. His chest x-ray does show cardiomegaly with perihilar vascular congestion and therefore we provide the patient with 20 mg intravenous Lasix. We also provided him with steroids 125 mg intravenously. Patient states that the steroids and the antibiotic that he was taken prior to his arrival here in the emergency department, were helping him. However he ran out 2 days ago. We will repeat a 3-hour twelve-lead EKG and a 3-hour troponin level. If these are unchanged from the previous normal studies, we will discharge her to home with prescriptions for Levaquin 500 mg orally for 7 days and prednisone 10 mg orally 3 times a day for the next 4 days. 03/13/23 17:01 Patient denies chest pain at this time. His repeat, 3-hour troponin is within normal limits. Patient's 3-hour twelve-lead EKG shows atrial fibrillation at 108 bpm. Patient's blood pressure is normal. There is no evidence of ischemic changes on the repeat twelve-lead EKG. Blood Culture(s) Obtained: No Antibiotics given: Yes Counseled pt/family regarding: lab results, diagnosis, need for follow-up, rad results Medical Desision Making - Diagnostic Testing Diagnostic test were ordered, analyzed, and reviewed by me: Yes Radiological Interpretation: Reviewed by me, Teleradiologist Report - Risk of complications The pt has a mod risk of morbidity or mortality based on: Need for prescription drug management - Departure Departure Disposition: Home Clinical Impression: Upper respiratory infection Condition: Stable Critical Care Time: No Referrals: ELVIRA KAN [Primary Care Provider] - Follow up/PCP as directed Additional Instructions: Take your medication as prescribed. Follow-up with your primary care provider tomorrow, 03/14/2023, by phone, to obtain a follow-up appointment for further evaluation management. Prescriptions: Prednisone 10 mg [Deltasone 10 mg] 10 mg PO TID #12 tablet Levofloxacin [Levaquin 500 MG Tablet] 500 mg PO DAILY #7 tablet
[2023-03-13] MEDS ORDERED: BABY ASPIRIN 81 MG CHEW PO ONE (13:14)
[2023-03-13 13:15] VITALS: TEMP 97.3
[2023-03-13 13:48] LABS: Absolute Neutrophil Ct (ANC) 8.45 x10^3/uL (1.4-6.9); BASOPHIL % 0.9 % (0.0-0.4); Eosinophil % 4.8 % (0.00-5.0); Eosinophil (Absolute #) 0.56 x10^3/uL (0-0.5); Hematocrit 45.5 % (42-50); Hemoglobin 14.7 g/dL (12.5-18.0); IMMATURE GRAN # 0.07 x10^3u/L (0.00-0.03); IMMATURE GRAN % 0.6 % (0.00-0.4); Lymphocyte (Absolute #) 1.49 x10^3/uL (1.0-4.6); Lymphocytes % 12.8 % (24.0-44.0); Mean Cell Volume 98.3 fL (78-100); Mean Corpuscular Hemoglobin 31.7 pg (26-32); Mean Corpuscular Hgb Concent. 32.3 g/dL (32-36); Mean Platelet Volume 10.1 fL (7.5-11.0); Monocyte (Absolute #) 0.94 x10^3/uL (0.0-1.3); Monocytes % 8.1 % (0.0-12.0); Neutrophil % 72.8 % (36.0-66.0); Platelet Count 206 x10^3/uL (150-450); Red Blood Count 4.63 x10^6/uL (4.1-5.6); Red Cell Distribution Width 14.2 % (11.5-14.0); White Blood Count 11.6 x10^3/uL (4.0-10.5)
--- NOTE | 2023-03-13 14:00 | XRAY ---
CLINICAL HISTORY:Chest pain COMPARISON:None. TECHNIQUE:X-ray of the chest showing 1 view: AP view. FINDINGS: Patient is rotated during exposure. No evidence of consolidation or collapse is seen in either lung field. Bilateral perihilar vascular prominence. Aortic arch calcification noted. Normal configuration of the mediastinum. Cardiac shadow appears enlarged. Costophrenic and cardiophrenic angles are clear. No evidence of pneumothorax. Bony thorax is unremarkable. Degenerative changes in the visualized spine and both acromioclavicular joints. IMPRESSION: 1. No evidence of consolidation or collapse is seen in either lung field. 2. Cardiomegaly showing perihilar vascular congestion, clinical correlation and further cardiac evaluation are advised. Electronically Signed by: Vanessa Mac MD. (03/13/2023 12:59:08 HANSARD REPORTER)
[2023-03-13 14:04] LABS: ALKALINE PHOSPHATASE 57 U/L (38-126); BLOOD UREA NITROGEN 24 mg/dL (9-20); CHLORIDE 99 mmol/L (98-107); Calcium 9.2 mg/dL (8.4-10.2); Carbon Dioxide 29 mmol/L (22-30); Creatinine 1 1.02 mg/dL (0.66-1.25); EST GLOMERULAR FILTRATION RATE > 60.0 ML/MIN; Glucose 86 mg/dL (74-106); Potassium 4.3 mmol/L (3.5-5.1); SGOT/AST 53 U/L (17-59); SGPT/ALT 56 U/L (0-50); SODIUM 138 mmol/L (137-145); Total Protein 6.7 g/dL (6.3-8.2)
[2023-03-13 14:11] LABS: D-DIMER QUANTITATIVE 0.35 mg/L (0.0-0.50); INR 1.16 (0.8-3.0); PROTIME 12.5 SECONDS (9.4-12.5)
[2023-03-13 14:30] LABS: INFLUENZA A NEGATIVE (NEGATIVE); INFLUENZA B NEGATIVE (NEGATIVE); RESPIRATORY SYNCTIAL VIRUS NEGATIVE (NEGATIVE); SARS-CoV-2 Xpert Express NEGATIVE (NEGATIVE)
[2023-03-13] MEDS ORDERED: solu-MEDROL 125 MG, Sterile H2O 10 ml 2 ML IV ONE ×2 (14:35)
[2023-03-13] MEDS ORDERED: Lasix 20 MG/2 ML IV ONE (14:36)
[2023-03-13] MEDS ORDERED: Zofran 4 MG/2 ML VIAL IV ONE (14:40)
[2023-03-13 15:07] VITALS: RESP 22; O2SAT 92
[2023-03-13] MEDS ORDERED: Lasix 20 MG/2 ML ONE (15:15)
[2023-03-13] MEDS ORDERED: Sterile H2O 10 ml IJ ONE (15:15)
[2023-03-13] MEDS ORDERED: solu-MEDROL ONE (15:15)
[2023-03-13] MEDS ORDERED: Zofran 4 MG/2 ML VIAL ONE (15:15)
[2023-03-13] MEDS ORDERED: Levofloxacin 500 MG Tablet PO ONE (15:20)
[2023-03-13] MEDS ORDERED: Levofloxacin 500 MG Tablet ONE (15:23)
[2023-03-13 17:10] VITALS: BP 148/88; PULSE 105
== END 2023-03-13 17:11 | disposition home or self-care (01) ==
LOC: ED 13:03
DX: J06.9 Acute upper respiratory infection, unspecified (principal); R07.9 Chest pain, unspecified; R05.9 Cough, unspecified; R06.02 Shortness of breath; E78.5 Hyperlipidemia, unspecified; I10 Essential (primary) hypertension; Z79.52 Long term (current) use of systemic steroids; Z79.899 Other long term (current) drug therapy; Z20.828 Contact with and (suspected) exposure to other viral communicable diseases; I48.91 Unspecified atrial fibrillation
CPT/HCPCS: 0241U; 36000; 36415; 71045; 80053; 83880; 84484; 85025; 85379; 85610; 86308; 87651; 93005; 94760; 96374; 96375; 99284; J1940; J2405; J2930; A9270-GY

== ENCOUNTER 2024-02-02 18:20 | Observation (INO) | payer MEDICARE ==
--- NOTE | 2024-02-02 19:03 | ERPHSYRPT ---
- History of Present Illness Time Seen by Provider: 02/02/24 18:48 Historian: patient Exam Limitations: no limitations Patient Subjective Stated Complaint: C/O vomiting, cough, runny nose that started around 12:30 today Triage Nursing Assessment: Patient ambulated back to ER. He is alert and oriented. Pale. Diaphoretic. Warm to touch. Dry, non-productive cough present during assessment. Runny nose with clear drainage. CARRILLO WNL. SOB with exertion. Physician History: 79-year-old male with history of hypertension, hyperlipidemia, atrial fibrillation with Watchman procedure presented in the ER with complains of URI symptoms with cough congestion and sudden onset nausea vomiting with some upper abdominal soreness since noon. Patient reports multiple episodes of nonprojectile, nonbilious vomiting without hematemesis. Reports feeling weak fatigued tired and dehydrated. He is not able to hold anything down. Denies any diarrhea. No fever or chills reported. Patient on presentation is in A-fib RVR with heart rate in 130s. Denies any chest pain. Allergies/Adverse Reactions: doxycycline Allergy (Mild, Verified 02/02/24 18:43) dizzy and nasuea cefdinir Allergy (Verified 02/02/24 18:43) Home Medications: Fenofibrate 145 mg PO DAILY 12/01/15 [History] Multivitamin [Multi-Vitamin Daily] 1 tab PO DAILY 12/01/15 [History] Atorvastatin Calcium 80 mg PO HS 05/30/21 [History] Losartan Potassium 25 mg PO DAILY 09/20/21 [History] Aspirin EC 81 mg [Ecotrin 81 mg] 81 mg PO DAILY 08/02/22 [History] Ubidecarenone [Coq10] 100 mg PO DAILY 08/02/22 [History] Metoprolol Succinate 50 mg [Toprol Xl 50 MG] 50 mg PO BID 10/23/22 [History] Ezetimibe 10 mg [Zetia 10 MG] 10 mg PO DAILY 03/13/23 [History] Vit C/E/Zn/Coppr/Lutein/Zeaxan [Preservision Areds 2 Softgel] 1 cap PO BID 03/13/23 [History] Hx Tetanus, Diphtheria Vaccination/Date Given: Yes Hx Influenza Vaccination/Date Given: Yes Hx Pneumococcal Vaccination/Date Given: Yes Immunizations Up to Date: Yes Travel Risk - International Travel Have you traveled outside of the country in past 3 weeks: No - Emerging Infectious Disease Are you exhibiting symptoms associated with any current EIDs: Yes Symptoms: Cough: New Onset, Headaches/Body Aches/, Vomitting, Other (Please Comment) Comment: runny nose - Review of Systems Constitutional: Fatigue, Weakness Eyes: No Symptoms Ears, Nose, & Throat: Nose Congestion Respiratory: Cough Cardiac: Palpitations Abdominal/Gastrointestinal: Abdominal Pain, Nausea, Vomiting Genitourinary Symptoms: No Symptoms Musculoskeletal: Myalgias Neurological: No Symptoms Psychological: No Symptoms Endocrine: No Symptoms Hematologic/Lymphatic: No Symptoms Immunological/Allergic: No Symptoms - Past Medical History Pertinent Past Medical History: Yes Neurological History: No Pertinent History ENT History: No Pertinent History Cardiac History: High Cholesterol, Hypertension, Myocardial Infarction (ND) Respiratory History: No Pertinent History Endocrine Medical History: No Pertinent History Musculoskeletal History: Fractures GI Medical History: Colorectal Cancer, Hernia, Liver Cancer History: No Pertinent History Psycho-Social History: No Pertinent History Male Reproductive Disorders: No Pertinent History Other Medical History: History of Colon with Liver mets, Myocardial Infarction x2, Afib. 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 cvl port placement and removal. hiatal hernia repair = complications with collapsed lung during OR. Watchmans Procedure Significant Family History: no pertinent family hx - Social History Smoking Status: Former smoker How long have you smoked: 30 Exposure to second hand smoke: No Alcohol Use: None Drug Use: none Patient Lives Alone: Yes - Social Determinants of Health Will the patient participate in the screening: Yes Do you worry about a steady place to live?: No Do you have any problems with any of the following?: No known problems In the past 12 months,have you had to go without utilities?: No Transportation Issues: No Has anyone in your support network made you feel unsafe?: No Have you or anyone in your house had to go without enough: No - Nursing Vital Signs Nursing Vital Signs: Initial Vital Signs Temperature 98.3 F 07/18/24 18:40 Pulse Rate 130 H 02/02/24 18:40 Respiratory Rate 19 02/02/24 18:40 Blood Pressure 156/100 02/02/24 18:40 O2 Sat by Pulse Oximetry 99 02/02/24 18:40 Pain Scale Pain Intensity 0 - Physical Exam General Appearance: no apparent distress, alert Eye Exam: PERRL/EOMI Ears, Nose, Throat Exam: moist mucous membranes, pharyngeal erythema Neck Exam: normal inspection, non-tender, supple, full range of motion Respiratory Exam: normal breath sounds, lungs clear Cardiovascular Exam: tachycardia, irregular Gastrointestinal/Abdomen Exam: soft, normal bowel sounds, tenderness (Minimal generalized to deep palpation) Back Exam: normal inspection, normal range of motion Extremity Exam: normal inspection, normal range of motion, pelvis stable Neurologic Exam: alert, oriented x 3, cooperative, hide splitter II-XII nml as tested Skin Exam: normal color SpO2 Interpretation: normal SpO2: 99 O2 Delivery: Room Air - Course EKG Interpreted by Me: RATE (130), A-fib, NORMAL AXIS, NORMAL INTERVALS, Non- specific ST Changes Ordered Tests: Active Orders 24 hr Category Date Time Status EKG-ER Only STAT Care 02/02/24 18:59 Active IV Insertion STAT Care 02/02/24 18:59 Active NPO (ED) STAT Care 02/02/24 18:59 Active ABDOMEN AND PELVIS W/0 CONTRAS [CT] Stat Exams 02/02/24 19:17 Completed CHEST WITHOUT CONTRAST [CT] Stat Exams 02/02/24 19:16 Completed BLOOD CULTURE Stat Lab 02/02/24 19:57 Received BNPII [NT PRO BNPII] Stat Lab 02/02/24 19:57 Completed CBC W DIFF Stat Lab 02/02/24 19:57 Completed CMP Stat Lab 02/02/24 19:57 Completed LIPASE Stat Lab 02/02/24 19:57 Completed Lactic Acid Stat Lab 02/02/24 18:59 Completed MAG [MAGNESIUM] Stat Lab 02/02/24 19:57 Completed TROPONIN Q4H Lab 02/02/24 19:57 Completed TROPONIN Q4H Lab 02/02/24 23:00 Ordered TROPONIN Q4H Lab 02/03/24 03:00 Ordered UA W/RFX UR CULTURE Stat Lab 02/02/24 18:59 Ordered Medication Summary Generic Name Dose Route Start Last Admin Trade Name Piloq PRN Reason Stop Dose Admin Diltiazem HCl 100 mls @ 5 mls/hr 02/02/24 20:51 02/02/24 21:02 Cardizem Drip 100 Mg/100 Ml D5w IV 03/03/24 20:50 5 mg/hr .Q20H PRN 5 mls/hr HEART RATE/ A-FIB Administration Protocol 5 MG/HR Azithromycin 500 mg in 250 mls @ 250 mls/hr 02/02/24 21:28 Zithromax 500 Mg/ 250 Ml Nacl Premix IV 02/02/24 22:27 STAT STA Aztreonam 2 gm/ Sodium 100 mls @ 200 mls/hr 02/02/24 21:29 Chloride IV 02/02/24 21:58 STAT ONE Discontinued Medications Generic Name Dose Route Start Last Admin Trade Name Piloq PRN Reason Stop Dose Admin Diltiazem HCl 10 mg 02/02/24 20:58 02/02/24 21:01 Diltiazem Hcl Iv 5 Mg/Ml Vial IV 02/02/24 20:59 10 mg STAT ONE Administration Diltiazem HCl Confirm 02/02/24 21:00 Diltiazem Hcl Iv 5 Mg/Ml Vial Administered 02/02/24 21:01 Dose 50 mg IV .STK-MED ONE Sodium Chloride 1,000 mls @ 999 mls/hr 02/02/24 18:59 02/02/24 19:44 Sodium Chloride 0.9% 1000 Ml IV 02/02/24 19:59 200 mls/hr .Q1H1M STA Administration Sodium Chloride Confirm 02/02/24 19:42 Sodium Chloride 0.9% 1000 Ml Administered 02/02/24 19:43 Dose 1,000 mls @ ud .ROUTE .STK-MED ONE Azithromycin Confirm 02/02/24 21:36 Zithromax 500 Mg/ 250 Ml Nacl Premix Administered 02/02/24 21:37 Dose 500 mg in 250 mls @ ud IV .STK-MED ONE Sodium Chloride Confirm 02/02/24 21:36 Sodium Chloride 0.9% Administered 02/02/24 21:37 Dose 100 mls @ ud .ROUTE .STK-MED ONE Ondansetron HCl 4 mg 02/02/24 18:59 02/02/24 19:43 Ondansetron Hcl 4 Mg/2 Ml Vial IV 02/02/24 19:00 4 mg STAT ONE Administration Ondansetron HCl Confirm 02/02/24 19:41 Ondansetron Hcl 4 Mg/2 Ml Vial Administered 02/02/24 19:42 Dose 4 mg .ROUTE .STK-MED ONE Lab/Rad Data: Laboratory Result Diagrams 02/02/24 19:57 02/02/24 19:57 Laboratory Results 02/02/24 02/02/24 02/02/24 Range/Units 19:57 19:57 19:57 WBC (4.23-9.07) x10^3/uL RBC (4.63-6.08) x10^6/uL Hgb (13.7-17.5) g/dL Hct (40.1-51.0) % MCV (79.0-92.2) fL MCH (25.7-32.2) pg MCHC (32.3-36.5) g/dL RDW (11.6-14.4) % Plt Count (163-337) x10^3/uL MPV (9.4-12.4) fL Gran % (34.0-67.9) % Immature Gran % (Auto) (0.001-0.429) % Nucleat RBC Rel Count (0.00-0.2) % Eos # (Auto) (0.04-0.54) x10^3/uL Immature Gran # (Auto) (0.001-0.031) x10^3u/L Absolute Lymphs (auto) (1.32-3.57) x10^3/uL Absolute Monos (auto) (0.30-0.82) x10^3/uL Absolute Nucleated RBC (0.00-0.012) x10^3u/L Lymphocytes % (21.8-53.1) % Monocytes % (5.3-12.2) % Eosinophils % (0.8-7.0) % Basophils % (0.2-1.2) % Absolute Granulocytes (1.78-5.38) x10^3/uL Basophils # (0.01-0.08) x10^3/uL Sodium (135-145) mmol/L Potassium (3.5-5.1) mmol/L Chloride (98-107) mmol/L Carbon Dioxide (22-30) mmol/L Anion Gap (5-15) MEQ/L BUN (9-20) mg/dL Creatinine (0.66-1.25) mg/dL Estimated GFR ML/MIN Glucose (74-106) mg/dL Lactic Acid (0.4-2.0) Calcium (8.4-10.2) mg/dL Magnesium 1.8 (1.6-2.3) mg/dL Total Bilirubin (0.2-1.3) mg/dL AST (17-59) U/L ALT (0-50) U/L Alkaline Phosphatase (38-126) U/L Troponin I < 0.012 (0.000-0.033) ng/mL NT-Pro-B Natriuret Pep 678 (<300) pg/mL Serum Total Protein (6.3-8.2) g/dL Albumin (3.5-5.0) g/dL Lipase (23-300) U/L Influenza Type A Ag NEGATIVE (NEGATIVE) Influenza Type B Ag NEGATIVE (NEGATIVE) RSV (PCR) NEGATIVE (NEGATIVE) SARS-CoV-2 (PCR) NEGATIVE (NEGATIVE) 02/02/24 02/02/24 02/02/24 Range/Units 19:57 19:57 18:59 WBC 8.4 (4.23-9.07) x10^3/uL RBC 4.65 (4.63-6.08) x10^6/uL Hgb 14.5 (13.7-17.5) g/dL Hct 43.7 (40.1-51.0) % MCV 94.0 H (79.0-92.2) fL MCH 31.2 (25.7-32.2) pg MCHC 33.2 (32.3-36.5) g/dL RDW 13.8 (11.6-14.4) % Plt Count 178 (163-337) x10^3/uL MPV 10.4 (9.4-12.4) fL Gran % 85.9 H (34.0-67.9) % Immature Gran % (Auto) 0.2 (0.001-0.429) % Nucleat RBC Rel Count 0.0 (0.00-0.2) % Eos # (Auto) 0.09 (0.04-0.54) x10^3/uL Immature Gran # (Auto) 0.02 (0.001-0.031) x10^3u/L Absolute Lymphs (auto) 0.61 L (1.32-3.57) x10^3/uL Absolute Monos (auto) 0.40 (0.30-0.82) x10^3/uL Absolute Nucleated RBC 0.00 (0.00-0.012) x10^3u/L Lymphocytes % 7.3 L (21.8-53.1) % Monocytes % 4.8 L (5.3-12.2) % Eosinophils % 1.1 (0.8-7.0) % Basophils % 0.7 (0.2-1.2) % Absolute Granulocytes 7.23 H (1.78-5.38) x10^3/uL Basophils # 0.06 (0.01-0.08) x10^3/uL Sodium 141 (135-145) mmol/L Potassium 4.0 (3.5-5.1) mmol/L Chloride 103 (98-107) mmol/L Carbon Dioxide 25 (22-30) mmol/L Anion Gap 16.4 H (5-15) MEQ/L BUN 19 (9-20) mg/dL Creatinine 0.93 (0.66-1.25) mg/dL Estimated GFR 83.5 ML/MIN Glucose 127 H (74-106) mg/dL Lactic Acid 1.7 (0.4-2.0) Calcium 9.9 (8.4-10.2) mg/dL Magnesium (1.6-2.3) mg/dL Total Bilirubin 1.40 H (0.2-1.3) mg/dL AST 61 H (17-59) U/L ALT 50 (0-50) U/L Alkaline Phosphatase 64 (38-126) U/L Troponin I (0.000-0.033) ng/mL NT-Pro-B Natriuret Pep (<300) pg/mL Serum Total Protein 7.0 (6.3-8.2) g/dL Albumin 4.3 (3.5-5.0) g/dL Lipase 71 (23-300) U/L Influenza Type A Ag (NEGATIVE) Influenza Type B Ag (NEGATIVE) RSV (PCR) (NEGATIVE) SARS-CoV-2 (PCR) (NEGATIVE) - Progress Progress: improved Progress Note: 02/02/24 21:54 79-year-old is evaluated for cough congestion, vomiting worsening since noon time with A-fib RVR on presentation. Patient is given fluids and symptomatic treatment, on reevaluation is feeling better but still A-fib RVR. He is started on Cardizem drip and heart rate improved in 120s. Workup showed normal white count, fairly unremarkable chemistries, normal lipase. Negative flu COVID and RSV. CT chest showed multifocal pneumonia and CT abdomen pelvis is negative for any acute intra-abdominal pelvic findings. Patient is started on broad- spectrum antibiotics as well. Discussed with Dr. Cevallos, reviewed history, workup current management and agreed with admission. I have shared the results of workup and plan of admission/current management with patient who understands and agrees with it. Discussed with .: Dorota Will see patient in: hospital (observation) Counseled pt/family regarding: lab results, diagnosis, rad results Medical Desision Making - Discussion of managment Care discussed with:: hospitalist Reviewed:: Test results Agreed on:: Treatment plan, place in obs Will see patient: in hospital - Diagnostic Testing Diagnostic test were ordered, analyzed, and reviewed by me: Yes Radiological Interpretation: Reviewed by me, Teleradiologist Report - Risk of complications The pt has a mod risk of morbidity or mortality based on: Need for prescription drug management The pt has a high risk of morbidity or mortality based on: Decision regarding hospitilization or escalation of hosp level of care - Departure Departure Disposition: Observation Clinical Impression: Atrial fibrillation with RVR, Multifocal pneumonia, Vomiting, Abdominal pain Condition: Stable Critical Care Time: No Referrals: ELVIRA PAT [Primary Care Provider] - Follow up/PCP as directed
[2024-02-02] MEDS ORDERED: Zofran 4 MG/2 ML VIAL ONE (19:41)
[2024-02-02] MEDS ORDERED: Sodium Chloride 0.9% 1000 ML 1,000 ML ONE (19:42)
[2024-02-02] MEDS: Zofran 4 MG/2 ML VIAL IV ONE (19:43)
[2024-02-02] MEDS: Sodium Chloride 0.9% 1000 ML 1,000 ML IV STA (19:44)
[2024-02-02 20:09] LABS: Absolute Neutrophil Ct (ANC) 7.23 x10^3/uL (1.78-5.38); BASOPHIL % 0.7 % (0.2-1.2); Basophil (Absolute #) 0.06 x10^3/uL (0.01-0.08); Eosinophil % 1.1 % (0.8-7.0); Eosinophil (Absolute #) 0.09 x10^3/uL (0.04-0.54); Hematocrit 43.7 % (40.1-51.0); Hemoglobin 14.5 g/dL (13.7-17.5); IMMATURE GRAN # 0.02 x10^3u/L (0.001-0.031); IMMATURE GRAN % 0.2 % (0.001-0.429); Lymphocyte (Absolute #) 0.61 x10^3/uL (1.32-3.57); Lymphocytes % 7.3 % (21.8-53.1); Mean Corpuscular Hemoglobin 31.2 pg (25.7-32.2); Mean Corpuscular Hgb Concent. 33.2 g/dL (32.3-36.5); Mean Platelet Volume 10.4 fL (9.4-12.4); Monocytes % 4.8 % (5.3-12.2); Neutrophil % 85.9 % (34.0-67.9); Platelet Count 178 x10^3/uL (163-337); Red Blood Count 4.65 x10^6/uL (4.63-6.08); Red Cell Distribution Width 13.8 % (11.6-14.4); White Blood Count 8.4 x10^3/uL (4.23-9.07)
[2024-02-02 20:20] LABS: ALBUMIN 4.3 g/dL (3.5-5.0); ANION GAP 16.4 MEQ/L (5-15); BILIRUBIN,TOTAL 1.4 mg/dL (0.2-1.3); Calcium 9.9 mg/dL (8.4-10.2); Creatinine 1 0.93 mg/dL (0.66-1.25); EST GLOMERULAR FILTRATION RATE 83.5 ML/MIN
[2024-02-02 20:32] LABS: MAGNESIUM 1.8 mg/dL (1.6-2.3); TROPONIN < 0.012 ng/mL (0.000-0.033)
[2024-02-02 20:47] LABS: INFLUENZA A NEGATIVE (NEGATIVE); INFLUENZA B NEGATIVE (NEGATIVE); RESPIRATORY SYNCTIAL VIRUS NEGATIVE (NEGATIVE); SARS-CoV-2 Xpert Express NEGATIVE (NEGATIVE)
[2024-02-02] MEDS ORDERED: CARDIZEM DRIP 100 MG/100 ML D5W 100 ML IV ONE (21:00)
[2024-02-02] MEDS ORDERED: Cardizem IV 50 MG/10 ML IV ONE (21:00)
[2024-02-02] MEDS: Cardizem IV 50 MG/10 ML IV ONE (21:01)
[2024-02-02] MEDS: CARDIZEM DRIP 100 MG/100 ML D5W 100 ML IV PRN (21:02)
--- NOTE | 2024-02-02 21:03 | XRAY ---
CLINICAL HISTORY: cough COMPARISON: 08/30/2023. TECHNIQUE: Contiguous 3.[address] images of the chest were acquired without the administration of intravenous contrast. Coronal and sagittal reconstructions were obtained. One of the following dose reduction techniques was utilized for this exam: Automated exposure control, adjustment of the mA and/or kV according to patient size, use of iterative reconstruction. FINDINGS: Focal clustered centrilobular nodules along peribronchovascular distribution seen in right middle lobe, left upper lobe and superior segment of left lower lobe, representing acute infectious etiology. Minimal pleural effusion on left side. No free or encysted pleural effusion on the right side. Heart size is normal, and there is no pericardial effusion. No pathologically enlarged mediastinal, hilar, or axillary lymph node was identified. The thoracic spine shows degenerative changes. There is no definite mass lesion in the chest wall. Please refer to the CT abdomen report for detailed findings. IMPRESSION: 1. Focal clustered tiny 2-3mm centrilobular nodules along peribronchovascular distribution seen in the right middle lobe, left upper lobe, and superior segment of left lower lobe, representing acute infectious etiology. New interval finding. Recommended clinical correlation 2. Minimal pleural effusion on the left side, near stable. [facility] ER was called at [phone] at 7:55 PM E LEARNING SPECIALIST, 02/02/2024 and Jaimie (RN) was informed about the important medical findings Electronically Signed by: Vanessa Mac MD. (02/02/2024 20:58:27 EDT)
--- NOTE | 2024-02-02 21:14 | XRAY ---
CLINICAL HISTORY: vomiting COMPARISON: 03/08/2022. TECHNIQUE: CT scan of the abdomen and pelvis was performed without IV contrast. Coronal and sagittal reconstructive images were also obtained.One of the following dose reduction techniques were utilized for this exam: Automated exposure control, adjustment of the mA and/or kV according to patient size, use of iterative reconstruction. FINDINGS: Minimal pericardial effusion and left-sided pleural effusion seen. Abdomen: The liver is normal in size. 8mm Old calcified granuloma in right lobe of liver and posterior aspect. The portal vein, intrahepatic biliary radicals and the bile ducts are normal. Postcholecystectomy status. The spleen, pancreas, adrenal glands are unremarkable. A 2mm Calculus seen in inferior calyx of left kidney, no hydronephrosis. Minimal bilateral perinephric fat stranding, nonspecific The kidneys are normal in size and shape. No calculi or hydronephrosis on the right side. The ascending colon, the transverse colon, the descending colon, visualized small bowel loops are unremarkable. Appendix appears unremarkable. The abdominal aorta shows atherosclerotic changes. Pelvis: The urinary bladder is unremarkable. The rectosigmoid colon is unremarkable. The prostate is unremarkable. Surgical clips seen in the presacral region and left side of abdomen. Degenerative changes seen in lumbar spine. IMPRESSION: 1. A 2mm Nonobstructive calculus in the inferior calyx of left kidney,New interval finding. 2. No other significant abnormality detected in CT abdomen and pelvis. Electronically Signed by: Vanessa Mac MD. (02/02/2024 21:11:23 EDT)
[2024-02-02] MEDS ORDERED: Sodium Chloride 0.9% 0 ML ONE (21:36)
[2024-02-02] MEDS ORDERED: Zithromax 500 MG/ 250 ML NaCl Premix 500 MG/250 ML IVPB IV ONE (21:36)
[2024-02-02] MEDS: AZACTAM 1 GM*** 2 GM in Sodium Chloride 0.9% 100 ML IV ONE (22:07)
[2024-02-02] MEDS ORDERED: Reglan 10 MG/2 ML ONE (22:13)
[2024-02-02] MEDS: Reglan 10 MG/2 ML IV ONE (22:13)
[2024-02-02] MEDS: Zithromax 500 MG/ 250 ML NaCl Premix 500 MG/250 ML IVPB IV ONE (23:00)
[2024-02-02 23:04] LABS: Appearance Clear (Clear); Bacteria None Seen /HPF (None Seen); Bilirubin Negative (Negative); Blood Negative (Negative); Epithelial Cells None Seen /HPF (None Seen); Glucose, Urine Negative (Negative); Hyaline Casts NONE SEEN /LPF (0-2); Ketones Trace (Negative); Leukocyte Esterase Negative (Negative); Nitrite Negative (Negative); Protein,Urine Dip Negative (Negative); RBC 0-2 /HPF (0-5); WBC 0-2 /HPF (0-5)
[2024-02-02 23:06] LABS: ADD URINE CULTURE? NO (NO)
[2024-02-03] MEDS ORDERED: Zofran 4 MG/2 ML VIAL ONE (01:10)
[2024-02-03] MEDS: Zofran 4 MG/2 ML VIAL IV PRN (01:18)
[2024-02-03] MEDS ORDERED: DUONEB 0.5-3 MG/3 ml Neb IH ONE (02:58)
[2024-02-03] MEDS: DUONEB 0.5-3 MG/3 ml Neb IH ONE (03:11)
[2024-02-03] MEDS: Zithromax 500 MG/ 250 ML NaCl Premix 500 MG/250 ML IVPB IV STA (03:12)
[2024-02-03 03:46] LABS: ALBUMIN 3.1 g/dL (3.5-5.0); ANION GAP 11.2 MEQ/L (5-15); BILIRUBIN,TOTAL 0.8 mg/dL (0.2-1.3); Calcium 8.7 mg/dL (8.4-10.2); Creatinine 1 0.94 mg/dL (0.66-1.25); EST GLOMERULAR FILTRATION RATE 82.5 ML/MIN; Potassium 4.1 mmol/L (3.5-5.1); Total Protein 5.5 g/dL (6.3-8.2)
--- NOTE | 2024-02-03 03:58 | PCM.HP ---
History of Present Illness - Chief Complaint Chief Complaint: afib rvr, pne, vomiting Date: 02/03/24 History of Present Illness: Mr. Azul is a 79 year-old gentleman with AFib s/p Watchman, HTN, HLD, CAD s/p PCI, and colon cancer + liver cancer s/p resection + chemotherapy (in remission for 17 years) who presents with Afib wtih RVR. He admits to a week of cough and shortnesss of breath as well as one day of nausea and vomiting. Upon arrival ot [place], laboratory data was remarkable for an elevated bilirubin, while imaging revealed a pneumonia and a non-obstructing renal calculus. On my examination, he is feeling a little better denying any current fevers, chills, diarrhea, syncope, presyncope, visual changes, orthopnea, PND, odynophagia, dysphagia, chest pain, shortness of breath, belly pain, dysuria, hematuria, melena, hematochezia, or neurological changes. All other systems were reviewed and were negative. - Review of Systems Constitutional: Other ( PER HPI) Medications & Allergies Home Medications: Home Medication List Fenofibrate 145 mg PO DAILY 12/01/15 [History Confirmed 02/02/24] Multivitamin [Multi-Vitamin Daily] 1 tab PO DAILY 12/01/15 [History Confirmed 02/02/24] Atorvastatin Calcium 80 mg PO HS 05/30/21 [History Confirmed 02/02/24] Aspirin EC 81 mg [Ecotrin 81 mg] 81 mg PO DAILY 08/02/22 [History Confirmed 02/02/24] Ubidecarenone [Coq10] 100 mg PO DAILY 08/02/22 [History Confirmed 02/02/24] Metoprolol Succinate 50 mg [Toprol Xl 50 MG] 50 mg PO BID 10/23/22 [History Confirmed 02/02/24] Ezetimibe 10 mg [Zetia 10 MG] 10 mg PO DAILY 03/13/23 [History Confirmed 02/02/24] Vit C/E/Zn/Coppr/Lutein/Zeaxan [Preservision Areds 2 Softgel] 1 cap PO BID 03/13/23 [History Confirmed 02/02/24] Amlodipine Besylate 5 mg PO DAILY 02/02/24 [History Confirmed 02/02/24] Loratadine 10 mg [Claritin 10 mg] 10 mg PO DAILY 02/02/24 [History Confirmed 02/02/24] Allergies/Adverse Reactions: Allergies Allergy/AdvReac Type Severity Reaction Status Date / Time doxycycline Allergy Mild dizzy and Verified 02/02/24 18:43 nasuea cefdinir Allergy Verified 02/02/24 18:43 - Past Medical History Past Medical History: Yes Neurological History: No Pertinent History ENT History: Cataracts Cardiac History: High Cholesterol, Hypertension, Myocardial Infarction ([place]) Respiratory History: No Pertinent History Endocrine Medical History: No Pertinent History Musculoskelatal History: Fractures GI Medical History: Colorectal Cancer, Hernia, Liver Cancer History: No Pertinent History Pyscho-Social History: No Pertinent History Male Reproductive Disorders: No Pertinent History Comment: History of Colon with Liver mets, Myocardial Infarction x2, Afib. Blocker Polishing: Dr. Mccullough - Past Surgical History Past Surgical History: Yes Neuro Surgical History: No Pertinent History Cardiac History: Cardiac Stent, Vascular Surgery Respiratory Surgery: Chest Surgery, Other GI Surgical History: Cholecystectomy, Colon Resection, Hernia Repair, Other Genitourinary Surgical Hx: No Pertinent History Musculskeletal Surgical Hx: No Pertinent History Male Surgical History: No Pertinent History Other Surgical History: LIVER RESECTION DUE TO CANCER, 4 heart stents. cvl port placement and removal. hiatal hernia repair = complications with collapsed lung during OR. Watchmans Procedure Significant Family History: no pertinent family hx - Social History Smoking Status: Former smoker How long have you smoked: 30 Exposure to second hand smoke: No Alcohol: None Drug Use: none - Social Determinants of Health Will the patient participate in the screening: Yes Do you worry about a steady place to live?: No Do you have any problems with any of the following?: No known problems In the past 12 months,have you had to go without utilities?: No Have you or anyone in your house had to go without enough: No Transportation Issues: No Has anyone in your support network made you feel unsafe?: No Does the patient want assistance with any of the above?: No - Physical Exam Vital Signs: Vital Signs - 24 hr Temp Pulse Resp BP BP Pulse Ox 02/03/24 03:03 108 H 20 100 02/03/24 00:17 124 H 19 96 02/03/24 00:00 122 H 21 147/70 94 L 02/02/24 23:32 103 H 23 135/59 92 L 02/02/24 23:00 97.9 F 119 H 23 137/64 93 L 02/02/24 22:40 97.9 F 110 H 22 137/64 94 L 02/02/24 22:23 122 H 20 137/79 96 02/02/24 22:02 135 H 20 162/66 02/02/24 22:00 132 H 26 H 162/66 95 02/02/24 21:57 99 02/02/24 21:30 108 H 18 159/79 94 L 02/02/24 21:18 114 H 21 156/80 94 L 02/02/24 21:02 138 H 16 159/125 02/02/24 21:00 124 H 19 159/125 95 02/02/24 20:30 140 H 15 158/107 97 02/02/24 20:00 122 H 16 141/96 94 L 02/02/24 19:41 119 H 20 164/89 98 02/02/24 18:40 98.3 F 130 H 19 156/100 99 General Appearance: no apparent distress, alert Neurologic Exam: alert, oriented x 3, cooperative, normal mood/affect, nml cerebellar function, nml station & gait, sensation nml, No motor deficits Eye Exam: PERRL/EOMI, eyes nml inspection Ears, Nose, Throat Exam: normal ENT inspection, TMs normal, pharynx normal, moist mucous membranes Neck Exam: normal inspection, non-tender, supple, full range of motion Respiratory Exam: normal breath sounds, lungs clear, No respiratory distress Cardiovascular Exam: regular rate/rhythm, normal heart sounds, normal peripheral pulses Gastrointestinal/Abdomen Exam: soft, normal bowel sounds, No tenderness, No mass Back Exam: normal inspection, normal range of motion, No CVA tenderness, No vertebral tenderness Extremity Exam: normal inspection, normal range of motion, pelvis stable Skin Exam: normal color, warm, dry, No rash Lymphatic Exam: No adenopathy Results - Labs Lab/Micro Results: Lab Results-Last 24 Hours 02/02/24 02/02/24 02/02/24 Range/Units 18:59 19:57 19:57 WBC 8.4 (4.23-9.07) x10^3/uL RBC 4.65 (4.63-6.08) x10^6/uL Hgb 14.5 (13.7-17.5) g/dL Hct 43.7 (40.1-51.0) % MCV 94.0 H (79.0-92.2) fL MCH 31.2 (25.7-32.2) pg MCHC 33.2 (32.3-36.5) g/dL RDW 13.8 (11.6-14.4) % Plt Count 178 (163-337) x10^3/uL MPV 10.4 (9.4-12.4) fL Gran % 85.9 H (34.0-67.9) % Immature Gran % (Auto) 0.2 (0.001-0.429) % Nucleat RBC Rel Count 0.0 (0.00-0.2) % Eos # (Auto) 0.09 (0.04-0.54) x10^3/uL Immature Gran # (Auto) 0.02 (0.001-0.031) x10^3u/L Absolute Lymphs (auto) 0.61 L (1.32-3.57) x10^3/uL Absolute Monos (auto) 0.40 (0.30-0.82) x10^3/uL Absolute Nucleated RBC 0.00 (0.00-0.012) x10^3u/L Lymphocytes % 7.3 L (21.8-53.1) % Monocytes % 4.8 L (5.3-12.2) % Eosinophils % 1.1 (0.8-7.0) % Basophils % 0.7 (0.2-1.2) % Absolute Granulocytes 7.23 H (1.78-5.38) x10^3/uL Basophils # 0.06 (0.01-0.08) x10^3/uL Sodium 141 (135-145) mmol/L Potassium 4.0 (3.5-5.1) mmol/L Chloride 103 (98-107) mmol/L Carbon Dioxide 25 (22-30) mmol/L Anion Gap 16.4 H (5-15) MEQ/L BUN 19 (9-20) mg/dL Creatinine 0.93 (0.66-1.25) mg/dL Estimated GFR 83.5 ML/MIN Glucose 127 H (74-106) mg/dL Lactic Acid 1.7 (0.4-2.0) Calcium 9.9 (8.4-10.2) mg/dL Magnesium (1.6-2.3) mg/dL Total Bilirubin 1.40 H (0.2-1.3) mg/dL AST 61 H (17-59) U/L ALT 50 (0-50) U/L Alkaline Phosphatase 64 (38-126) U/L Troponin I (0.000-0.033) ng/mL NT-Pro-B Natriuret Pep (<300) pg/mL Serum Total Protein 7.0 (6.3-8.2) g/dL Albumin 4.3 (3.5-5.0) g/dL Lipase 71 (23-300) U/L Urine Color (Yellow) Urine Appearance (Clear) Urine pH (4.6-8.0) Ur Specific [place] (1.005-1.030) Urine Protein (Negative) Urine Glucose (UA) (Negative) mg/dL Urine Ketones (Negative) Urine Blood (Negative) Urine Nitrite (Negative) Urine Bilirubin (Negative) Urine Urobilinogen (0.2) mg/dL Ur Leukocyte Esterase (Negative) U Hyaline Cast (Auto) (0-2) /LPF Urine Microscopic RBC (0-5) /HPF Urine Microscopic WBC (0-5) /HPF Ur Epithelial Cells (None Seen) /HPF Urine Bacteria (None Seen) /HPF Urine Culture Reflexed (NO) Influenza Type A Ag (NEGATIVE) Influenza Type B Ag (NEGATIVE) RSV (PCR) (NEGATIVE) SARS-CoV-2 (PCR) (NEGATIVE) 02/02/24 02/02/24 02/02/24 Range/Units 19:57 19:57 19:57 WBC (4.23-9.07) x10^3/uL RBC (4.63-6.08) x10^6/uL Hgb (13.7-17.5) g/dL Hct (40.1-51.0) % MCV (79.0-92.2) fL MCH (25.7-32.2) pg MCHC (32.3-36.5) g/dL RDW (11.6-14.4) % Plt Count (163-337) x10^3/uL MPV (9.4-12.4) fL Gran % (34.0-67.9) % Immature Gran % (Auto) (0.001-0.429) % Nucleat RBC Rel Count (0.00-0.2) % Eos # (Auto) (0.04-0.54) x10^3/uL Immature Gran # (Auto) (0.001-0.031) x10^3u/L Absolute Lymphs (auto) (1.32-3.57) x10^3/uL Absolute Monos (auto) (0.30-0.82) x10^3/uL Absolute Nucleated RBC (0.00-0.012) x10^3u/L Lymphocytes % (21.8-53.1) % Monocytes % (5.3-12.2) % Eosinophils % (0.8-7.0) % Basophils % (0.2-1.2) % Absolute Granulocytes (1.78-5.38) x10^3/uL Basophils # (0.01-0.08) x10^3/uL Sodium (135-145) mmol/L Potassium (3.5-5.1) mmol/L Chloride (98-107) mmol/L Carbon Dioxide (22-30) mmol/L Anion Gap (5-15) MEQ/L BUN (9-20) mg/dL Creatinine (0.66-1.25) mg/dL Estimated GFR ML/MIN Glucose (74-106) mg/dL Lactic Acid (0.4-2.0) Calcium (8.4-10.2) mg/dL Magnesium 1.8 (1.6-2.3) mg/dL Total Bilirubin (0.2-1.3) mg/dL AST (17-59) U/L ALT (0-50) U/L Alkaline Phosphatase (38-126) U/L Troponin I < 0.012 (0.000-0.033) ng/mL NT-Pro-B Natriuret Pep 678 (<300) pg/mL Serum Total Protein (6.3-8.2) g/dL Albumin (3.5-5.0) g/dL Lipase (23-300) U/L Urine Color (Yellow) Urine Appearance (Clear) Urine pH (4.6-8.0) Ur Specific [place] (1.005-1.030) Urine Protein (Negative) Urine Glucose (UA) (Negative) mg/dL Urine Ketones (Negative) Urine Blood (Negative) Urine Nitrite (Negative) Urine Bilirubin (Negative) Urine Urobilinogen (0.2) mg/dL Ur Leukocyte Esterase (Negative) U Hyaline Cast (Auto) (0-2) /LPF Urine Microscopic RBC (0-5) /HPF Urine Microscopic WBC (0-5) /HPF Ur Epithelial Cells (None Seen) /HPF Urine Bacteria (None Seen) /HPF Urine Culture Reflexed (NO) Influenza Type A Ag NEGATIVE (NEGATIVE) Influenza Type B Ag NEGATIVE (NEGATIVE) RSV (PCR) NEGATIVE (NEGATIVE) SARS-CoV-2 (PCR) NEGATIVE (NEGATIVE) 02/02/24 02/03/24 Range/Units 22:50 00:10 WBC (4.23-9.07) x10^3/uL RBC (4.63-6.08) x10^6/uL Hgb (13.7-17.5) g/dL Hct (40.1-51.0) % MCV (79.0-92.2) fL MCH (25.7-32.2) pg MCHC (32.3-36.5) g/dL RDW (11.6-14.4) % Plt Count (163-337) x10^3/uL MPV (9.4-12.4) fL Gran % (34.0-67.9) % Immature Gran % (Auto) (0.001-0.429) % Nucleat RBC Rel Count (0.00-0.2) % Eos # (Auto) (0.04-0.54) x10^3/uL Immature Gran # (Auto) (0.001-0.031) x10^3u/L Absolute Lymphs (auto) (1.32-3.57) x10^3/uL Absolute Monos (auto) (0.30-0.82) x10^3/uL Absolute Nucleated RBC (0.00-0.012) x10^3u/L Lymphocytes % (21.8-53.1) % Monocytes % (5.3-12.2) % Eosinophils % (0.8-7.0) % Basophils % (0.2-1.2) % Absolute Granulocytes (1.78-5.38) x10^3/uL Basophils # (0.01-0.08) x10^3/uL Sodium (135-145) mmol/L Potassium (3.5-5.1) mmol/L Chloride (98-107) mmol/L Carbon Dioxide (22-30) mmol/L Anion Gap (5-15) MEQ/L BUN (9-20) mg/dL Creatinine (0.66-1.25) mg/dL Estimated GFR ML/MIN Glucose (74-106) mg/dL Lactic Acid (0.4-2.0) Calcium (8.4-10.2) mg/dL Magnesium (1.6-2.3) mg/dL Total Bilirubin (0.2-1.3) mg/dL AST (17-59) U/L ALT (0-50) U/L Alkaline Phosphatase (38-126) U/L Troponin I < 0.012 (0.000-0.033) ng/mL NT-Pro-B Natriuret Pep (<300) pg/mL Serum Total Protein (6.3-8.2) g/dL Albumin (3.5-5.0) g/dL Lipase (23-300) U/L Urine Color Yellow (Yellow) Urine Appearance Clear (Clear) Urine pH 5.0 (4.6-8.0) Ur Specific [place] 1.020 (1.005-1.030) Urine Protein Negative (Negative) Urine Glucose (UA) Negative (Negative) mg/dL Urine Ketones Trace A (Negative) Urine Blood Negative (Negative) Urine Nitrite Negative (Negative) Urine Bilirubin Negative (Negative) Urine Urobilinogen 1.0 A (0.2) mg/dL Ur Leukocyte Esterase Negative (Negative) U Hyaline Cast (Auto) NONE SEEN (0-2) /LPF Urine Microscopic RBC 0-2 (0-5) /HPF Urine Microscopic WBC 0-2 (0-5) /HPF Ur Epithelial Cells None Seen (None Seen) /HPF Urine Bacteria None Seen (None Seen) /HPF Urine Culture Reflexed NO (NO) Influenza Type A Ag (NEGATIVE) Influenza Type B Ag (NEGATIVE) RSV (PCR) (NEGATIVE) SARS-CoV-2 (PCR) (NEGATIVE) - Radiology Impressions Radiology Exams & Impressions: Radiology Procedures Category Date Time Status ABDOMEN AND PELVIS W/0 CONTRAS [CT] Stat Exams 02/02/24 19:17 Completed CHEST WITHOUT CONTRAST [CT] Stat Exams 02/02/24 19:16 Completed ECHO W/2D AND DOPPLER [US] Routine Exams 02/03/24 03:26 Ordered - Other Procedures and Tests Respiratory Therapy 02/03/24 03:03 Respiratory Therapy Assessment DAILY Assessment/Plan (1) Atrial fibrillation with RVR Current Visit: Yes Status: Acute Assessment & Plan: DRIPS Diltiazem ANTIBIOTICS AND STEROIDS Azithromycin Aztreonam ASSESSMENT 1. Atrial Fibrillation with RVR 2. Pneumonia 3. Nephrolithiasis 4. Hypertension 5. Hyperlipidemia 6. Coronary Artery Disease s/p PCI 7. Colon Cancer + Liver Cancer s/p Resection + Chemotherapy PLAN 1. Start Azithromycin + Aztreonam (severe allergy to PCN) 2. Sputum Culture 3. Duonebs q4 4. Robitussin PRN 5. Zofran PRN 6. Echo in AM 7. TeleCardiology consult in AM 8. No pharmacologic DVT prophylaxis or therapeutic AC given prior intolerance to anticoagulation secondary to bleeding The entirety of this encounter was done via telemedicine with audio and visual. Consent was obtained for a telemedicine encounter. Torin Cevallos MD Pulmonary and Critical Care Medicine Code(s): I48.91 - UNSPECIFIED ATRIAL FIBRILLATION Telemedicine Encounter - Telemedicine Encounter Telemedicine Encounter: "The entirety of this encounter was performed via Telemedicine" This visit was performed using real-time audio and video connection between my location and thepatients locationwith the assistance of a surrogateat the patients location. Written or verbal consent was obtained from the patient/rogerio cedillodian to perform this visit [email or web address] technology. Any patient questions regarding the telemedicine interaction were answered.
[2024-02-03 04:13] LABS: Hematocrit 40.4 % (40.1-51.0); Hemoglobin 13.5 g/dL (13.7-17.5); Mean Cell Volume 93.3 fL (79.0-92.2); Mean Corpuscular Hemoglobin 31.2 pg (25.7-32.2); Mean Corpuscular Hgb Concent. 33.4 g/dL (32.3-36.5); Mean Platelet Volume 10.9 fL (9.4-12.4); Platelet Count 168 x10^3/uL (163-337); Red Blood Count 4.33 x10^6/uL (4.63-6.08); Red Cell Distribution Width 14.1 % (11.6-14.4); White Blood Count 8.2 x10^3/uL (4.23-9.07)
[2024-02-03] MEDS ORDERED: CARDIZEM DRIP 100 MG/100 ML D5W 100 ML IV ONE (05:46)
[2024-02-03] MEDS: CARDIZEM DRIP 100 MG/100 ML D5W 100 ML IV PRN (05:50)
[2024-02-03] MEDS ORDERED: MEDICATION INTERVENTION MC SCH (07:15)
[2024-02-03] MEDS ORDERED: Compazine 10 MG/2 ML ONE (07:34)
[2024-02-03] MEDS: Compazine 10 MG/2 ML IV PRN (07:36)
[2024-02-03] MEDS ORDERED: Ocuvite Tablet ONE (08:52)
[2024-02-03] MEDS ORDERED: Zetia 10 MG ONE (08:53)
[2024-02-03] MEDS ORDERED: CLARITIN 10 MG ONE (08:53)
[2024-02-03] MEDS ORDERED: THERAGRAN MULTIVITAMIN ONE (08:53)
[2024-02-03] MEDS ORDERED: Tricor 145 MG ONE (08:53)
[2024-02-03] MEDS ORDERED: Toprol Xl 50 MG PO ONE (08:53)
[2024-02-03] MEDS ORDERED: ECOTRIN 81 MG PO ONE (08:54)
[2024-02-03] MEDS ORDERED: NORVASC 5 MG ONE (08:54)
[2024-02-03] MEDS: Zetia 10 MG PO SCH (09:13)
[2024-02-03] MEDS: ECOTRIN 81 MG PO SCH (09:13)
[2024-02-03] MEDS: Ocuvite Tablet PO SCH (09:13)
[2024-02-03] MEDS: Toprol Xl 50 MG PO SCH (09:13)
[2024-02-03] MEDS: Tricor 145 MG PO SCH (09:13)
[2024-02-03] MEDS: CLARITIN 10 MG PO SCH (09:13)
[2024-02-03] MEDS: NORVASC 5 MG PO SCH (09:13)
[2024-02-03] MEDS: THERAGRAN MULTIVITAMIN PO SCH (09:14)
[2024-02-03] MEDS: AZACTAM 1 GM*** 2 GM in Sodium Chloride 0.9% 100 ML IV SCH (09:21)
[2024-02-03] MEDS ORDERED: NON-FORMULARY BULK ITEM PO SCH (10:00)
[2024-02-03] MEDS ORDERED: NON-FORMULARY ITEM PO SCH (10:00)
[2024-02-03] MEDS: DUONEB 0.5-3 MG/3 ml Neb IH SCH (12:03)
--- NOTE | 2024-02-03 18:09 | PCM.CONS ---
History of Present Illness - Date of Consult Date of Encounter: 02/03/24 Consulting Curing Oven Tender: JAYLA MARTINEZ MD Requesting Provider: Attending Provider: SINGH TYLER MD Primary Care Provider: PCP: ELVIRA PAT Consent was: Given for this tele-med encounter - Consult Narrative Reason for Consult: Atrial fibrillation with rapid ventricular response HPI: Patient is a 79 y.o. 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 He gives a one week history of a cough productive of green and brown sputum as well as increasing shortness of breath. He has been bothered by nausea and vomiting for one day prior to admission and remains anorexic in hospital. He denies any chest pain, orthopnea, PND, lower extremity edema, or palpitations. In the ER he was in atrial fibrillation with RVR in cam 130s. He was placed on a diltiazem infusion and his metoprolol was continued at 50 mg by mouth twice daily. His VR has ranged between 70 and 110 bpm. Per nursing it haw primarily stayed in the upper portion of this range. cc:: The requesting physician will be sent a copy of the consult. Review of Systems - Review of Systems All systems: as per HPI (Pertinent positives and negatives in in HPI. Otherwise negative.) - Past Medical History Past Medical History: Yes Neurological History: No Pertinent History ENT History: Cataracts Cardiac History: High Cholesterol, Hypertension, Myocardial Infarction (AL) Respiratory History: No Pertinent History Endocrine Medical History: No Pertinent History Musculoskelatal History: Fractures GI Medical History: Colorectal Cancer, Hernia, Liver Cancer History: No Pertinent History Pyscho-Social History: No Pertinent History Male Reproductive Disorders: No Pertinent History Comment: History of Colon with Liver mets, Myocardial Infarction x2, Afib. Curing Oven Tender: Dr. Mccullough - Past Surgical History Past Surgical History: Yes Neuro Surgical History: No Pertinent History Cardiac History: Cardiac Stent (x4), Vascular Surgery Respiratory Surgery: Chest Surgery, Other GI Surgical History: Cholecystectomy, Colon Resection, Hernia Repair, Other Genitourinary Surgical Hx: No Pertinent History Musculskeletal Surgical Hx: No Pertinent History Male Surgical History: No Pertinent History Other Surgical History: LIVER RESECTION DUE TO CANCER, 4 heart stents. cvl port placement and removal. hiatal hernia repair = complications with collapsed lung during OR. Watchmans Procedure i approx. early 2021 Significant Family History: no pertinent family hx - Social History Smoking Status: Former smoker How long have you smoked: 30 Exposure to second hand smoke: No Alcohol: None Drug Use: none - Social Determinants of Health Will the patient participate in the screening: Yes Do you worry about a steady place to live?: No Do you have any problems with any of the following?: No known problems In the past 12 months,have you had to go without utilities?: No Have you or anyone in your house had to go without enough: No Transportation Issues: No Has anyone in your support network made you feel unsafe?: No Does the patient want assistance with any of the above?: No Medications & Allergies Home Medications: Home Medication List Fenofibrate 145 mg PO DAILY 12/01/15 [History Confirmed 02/02/24] Multivitamin [Multi-Vitamin Daily] 1 tab PO DAILY 12/01/15 [History Confirmed 02/02/24] Atorvastatin Calcium 80 mg PO HS 05/30/21 [History Confirmed 02/02/24] Aspirin EC 81 mg [Ecotrin 81 mg] 81 mg PO DAILY 08/02/22 [History Confirmed 02/02/24] Ubidecarenone [Coq10] 100 mg PO DAILY 08/02/22 [History Confirmed 02/02/24] Metoprolol Succinate 50 mg [Toprol Xl 50 MG] 50 mg PO BID 10/23/22 [History Confirmed 02/02/24] Ezetimibe 10 mg [Zetia 10 MG] 10 mg PO DAILY 03/13/23 [History Confirmed 02/02/24] Vit C/E/Zn/Coppr/Lutein/Zeaxan [Preservision Areds 2 Softgel] 1 cap PO BID 03/13/23 [History Confirmed 02/02/24] Amlodipine Besylate 5 mg PO DAILY 02/02/24 [History Confirmed 02/02/24] Loratadine 10 mg [Claritin 10 mg] 10 mg PO DAILY 02/02/24 [History Confirmed 02/02/24] Allergies/Adverse Reactions: Allergies Allergy/AdvReac Type Severity Reaction Status Date / Time doxycycline Allergy Mild dizzy and Verified 02/02/24 18:43 nasuea cefdinir Allergy Verified 02/02/24 18:43 Exam - Vitals Vital Signs: Vital Signs - 24 hr Temp Pulse Resp BP BP Pulse Ox 02/03/24 17:02 109 H 24 131/75 02/03/24 17:01 110 H 23 131/75 93 L 02/03/24 16:11 82 27 H 153/65 02/03/24 16:01 99.8 F 98 H 21 153/65 91 L 02/03/24 16:00 96 H 02/03/24 15:00 88 29 H 142/73 89 L 02/03/24 14:58 86 24 142/73 02/03/24 14:23 77 22 02/03/24 14:00 102 H 24 142/78 90 L 02/03/24 13:58 102 H 30 H 142/78 02/03/24 13:00 83 25 H 127/59 94 L 02/03/24 12:31 88 27 H 132/66 94 L 02/03/24 12:03 97 H 22 92 L 02/03/24 12:02 103 H 19 130/87 02/03/24 12:00 98.6 F 91 H 20 130/87 94 L 02/03/24 11:30 108 H 18 121/90 95 02/03/24 11:00 76 26 H 151/67 92 L 02/03/24 10:31 93 H 16 141/60 93 L 02/03/24 10:12 78 18 104/79 02/03/24 10:06 82 18 104/79 96 02/03/24 09:30 98 H 26 H 133/52 93 L 02/03/24 09:28 90 28 H 126/59 02/03/24 09:00 91 H 31 H 126/59 94 L 02/03/24 08:36 82 28 H 129/63 02/03/24 08:30 99.6 F 82 21 129/63 94 L 02/03/24 08:01 82 24 140/64 87 L 02/03/24 07:43 99 H 20 121/64 02/03/24 07:42 101 H 22 121/64 02/03/24 07:39 100 H 24 96 02/03/24 07:30 99.6 F 107 H 22 121/64 95 02/03/24 07:00 105 H 23 148/69 95 02/03/24 06:50 103 H 18 139/63 02/03/24 05:50 108 H 21 129/53 02/03/24 05:01 81 30 H 134/62 96 02/03/24 04:30 95 H 26 H 113/51 96 02/03/24 04:01 98 H 27 H 128/63 95 02/03/24 04:00 98 H 02/03/24 03:30 120 H 33 H 140/51 96 02/03/24 03:03 108 H 20 100 02/03/24 03:00 98.0 F 107 H 27 H 143/51 96 02/03/24 02:30 95 H 25 H 141/63 98 02/03/24 00:30 108 H 46 H 132/61 91 L 02/03/24 00:17 124 H 19 96 02/03/24 00:00 122 H 21 147/70 94 L 02/02/24 23:32 103 H 23 135/59 92 L 02/02/24 23:00 97.9 F 119 H 23 137/64 93 L 02/02/24 22:40 97.9 F 110 H 22 137/64 94 L 02/02/24 22:23 122 H 20 137/79 96 02/02/24 22:02 135 H 20 162/66 02/02/24 22:00 132 H 26 H 162/66 95 02/02/24 21:57 99 02/02/24 21:30 108 H 18 159/79 94 L 02/02/24 21:18 114 H 21 156/80 94 L 02/02/24 21:02 138 H 16 159/125 02/02/24 21:00 124 H 19 159/125 95 02/02/24 20:30 140 H 15 158/107 97 02/02/24 20:00 122 H 16 141/96 94 L 02/02/24 19:41 119 H 20 164/89 98 02/02/24 18:40 98.3 F 130 H 19 156/100 99 General:: alert and oriented x 4, no acute distress, lethargy (Mild) HEENT: EOMI Cardiovascular Exam: normal heart sounds, tachycardia, irregular, No murmur, No friction rub, No gallop, No edema Respiratory Exam: other (Few scatterred crackles), No wheezing SpO2: 93 Gastrointestinal/Abdomen Exam: normal bowel sounds Extremity Exam: warm, well perfused, No edema Results Vital Signs: Vital Signs - 24 hr Temp Pulse Resp BP BP Pulse Ox 02/03/24 17:02 109 H 24 131/75 02/03/24 17:01 110 H 23 131/75 93 L 02/03/24 16:11 82 27 H 153/65 02/03/24 16:01 99.8 F 98 H 21 153/65 91 L 02/03/24 16:00 96 H 02/03/24 15:00 88 29 H 142/73 89 L 02/03/24 14:58 86 24 142/73 02/03/24 14:23 77 22 02/03/24 14:00 102 H 24 142/78 90 L 02/03/24 13:58 102 H 30 H 142/78 02/03/24 13:00 83 25 H 127/59 94 L 02/03/24 12:31 88 27 H 132/66 94 L 02/03/24 12:03 97 H 22 92 L 02/03/24 12:02 103 H 19 130/87 02/03/24 12:00 98.6 F 91 H 20 130/87 94 L 02/03/24 11:30 108 H 18 121/90 95 02/03/24 11:00 76 26 H 151/67 92 L 02/03/24 10:31 93 H 16 141/60 93 L 02/03/24 10:12 78 18 104/79 02/03/24 10:06 82 18 104/79 96 02/03/24 09:30 98 H 26 H 133/52 93 L 02/03/24 09:28 90 28 H 126/59 02/03/24 09:00 91 H 31 H 126/59 94 L 02/03/24 08:36 82 28 H 129/63 02/03/24 08:30 99.6 F 82 21 129/63 94 L 02/03/24 08:01 82 24 140/64 87 L 02/03/24 07:43 99 H 20 121/64 02/03/24 07:42 101 H 22 121/64 02/03/24 07:39 100 H 24 96 02/03/24 07:30 99.6 F 107 H 22 121/64 95 02/03/24 07:00 105 H 23 148/69 95 02/03/24 06:50 103 H 18 139/63 02/03/24 05:50 108 H 21 129/53 02/03/24 05:01 81 30 H 134/62 96 02/03/24 04:30 95 H 26 H 113/51 96 02/03/24 04:01 98 H 27 H 128/63 95 02/03/24 04:00 98 H 02/03/24 03:30 120 H 33 H 140/51 96 02/03/24 03:03 108 H 20 100 02/03/24 03:00 98.0 F 107 H 27 H 143/51 96 02/03/24 02:30 95 H 25 H 141/63 98 02/03/24 00:30 108 H 46 H 132/61 91 L 02/03/24 00:17 124 H 19 96 02/03/24 00:00 122 H 21 147/70 94 L 02/02/24 23:32 103 H 23 135/59 92 L 02/02/24 23:00 97.9 F 119 H 23 137/64 93 L 02/02/24 22:40 97.9 F 110 H 22 137/64 94 L 02/02/24 22:23 122 H 20 137/79 96 02/02/24 22:02 135 H 20 162/66 02/02/24 22:00 132 H 26 H 162/66 95 02/02/24 21:57 99 02/02/24 21:30 108 H 18 159/79 94 L 02/02/24 21:18 114 H 21 156/80 94 L 02/02/24 21:02 138 H 16 159/125 02/02/24 21:00 124 H 19 159/125 95 02/02/24 20:30 140 H 15 158/107 97 02/02/24 20:00 122 H 16 141/96 94 L 02/02/24 19:41 119 H 20 164/89 98 02/02/24 18:40 98.3 F 130 H 19 156/100 99 Pain Assessment - Last Documented Pain Intensity 0 Intake and Output: Intake & Output 02/01/24 02/02/24 02/03/24 02/04/24 11:59 11:59 11:59 11:59 Output Total 675 150 Balance -675 -150 Weight 76.2 kg LAB: I have reviewed the Labs in [facility]. Radiology Exams: Radiology Procedures Category Date Time Status ABDOMEN AND PELVIS W/0 CONTRAS [CT] Stat Exams 02/02/24 19:17 Completed CHEST WITHOUT CONTRAST [CT] Stat Exams 02/02/24 19:16 Completed ECHO W/2D AND DOPPLER [US] Routine Exams 02/03/24 03:26 Taken TTE 02/03/2024: 1. Mildly dilated right atrium and right ventricle. Normal left sided chamber sizes. 2. Mild concentric left ventricular hypertrophy. 3. Normal left ventricular systolic function without obvious wall motion abnormalities. Estimated EF 60%. 4. Unable to assess grade of diastolic dysfunction in the setting of atrial fibrillation. 5. Normal right ventricular systolic function. 6. Mildly dilated ascending aorta (3.7 cm). 7. Mild aortic sclerosis without stenosis. 8. No significant valvular regurgitation. 9. Normal pulmonary artery pressure. 10. Normal right atrial pressure. 11. No pericardial effusion. Chest CT without contrast 02/02/2024: 1. Focal clustered tiny 2-3mm centrilobular nodules along peribronchovascular distribution seen in the right middle lobe, left upper lobe, and superior segment of left lower lobe, representing acute infectious etiology. New interval finding. Recommended clinical correlation 2. Minimal pleural effusion on the left side, near stable. CT of Abdomen and Pelvis 02/02/2024: 1. A 2mm Nonobstructive calculus in the inferior calyx of left kidney,New interval finding. 2.Minimal pericardial effusion and left-sided pleural effusion seen. 3.No other significant abnormality detected in CT abdomen and pelvis. Tracing 1 Attestation: I have reviewed this EKG and interpreted as documented below. ECG 02/02/2024: Atrial fibrillation with rapid ventricular response at 130 bpm. Nonspecific T wave abnormality. Assessment & Plan (1) Permanent atrial fibrillation Current Visit: Yes Status: Acute Assessment & Plan: S/P Watchman 2021 - Rapid ventricular response in setting of his pneumonia. Currently marginally controlled with home metoprolol dose + diltiazem infusion. Normal LV systolic function with EF 60% on today's echo. Will change metoprolol succinate to metoprolol tartrate (allow quicker absorption) while increasing dose to 75 mg twice daily. Wean off diltiazem infusion as VR permits. If unable to wean off diltiazem overnight, Asad increasing metoprolol taratate further. Switch metoprolol tartrate to a BID dosing of metoprolol succinate to ensure 24 hour coverage. Code(s): I48.21 - PERMANENT ATRIAL FIBRILLATION (2) Atherosclerosis of coronary artery without angina pectoris Current Visit: Yes Status: Acute Assessment & Plan: [place] class 0. Continue aspirin 81 mg daily, metoprolol succinate, and high intensity statin. Code(s): I25.10 - ATHSCL HEART DISEASE OF [place] CORONARY ARTERY W/O ANG PCTRS (3) Pneumonia Current Visit: Yes Status: Acute Assessment & Plan: Management as per primary service. With his anorexia and low urine output, will start IVFs. Code(s): J18.9 - PNEUMONIA, UNSPECIFIED ORGANISM - Encounter Encounter: "The entirety of this encounter was performed via Telemedicine using audio and visual " Permission granted by patient for this type of encounter. Case discussed with Cristina Sorto. We will follow with you. Jayla Martinez MD [facility] [phone]
[2024-02-03] MEDS: Lopressor 25MG Tab PO SCH (18:47)
[2024-02-03] MEDS: Dextrose 5% -0.45 NaCl 1000 ML 1,000 ML IV SCH (19:56)
[2024-02-03] MEDS: D5W/0.45NS W/ 20mEq KCl 1000 ML 1,000 ML IV SCH (20:54)
[2024-02-03] MEDS: Xopenex 1.25 MG/0.5 ML UD NEBULE IH PRN (21:53)
[2024-02-03] MEDS: ZOCOR 20MG PO SCH (21:54)
[2024-02-03] MEDS: Sodium Chloride 3 ML UD NEBULES IH PRN (21:55)
[2024-02-03] MEDS: Robitussin-Dm Syrup PO PRN (22:04)
[2024-02-03] MEDS: Zithromax 500 MG/ 250 ML NaCl Premix 500 MG/250 ML IVPB IV SCH (22:19)
[2024-02-03] MEDS ORDERED: AZACTAM 1 GM*** 2 GM in Sodium Chloride 0.9% 100 ML IV ONE (23:30)
[2024-02-04 06:05] LABS: Hematocrit 40.8 % (40.1-51.0); Hemoglobin 13.8 g/dL (13.7-17.5); Mean Cell Volume 93.4 fL (79.0-92.2); Mean Corpuscular Hemoglobin 31.6 pg (25.7-32.2); Mean Corpuscular Hgb Concent. 33.8 g/dL (32.3-36.5); Mean Platelet Volume 10.8 fL (9.4-12.4); Platelet Count 170 x10^3/uL (163-337); Red Blood Count 4.37 x10^6/uL (4.63-6.08); Red Cell Distribution Width 14.5 % (11.6-14.4); White Blood Count 9.5 x10^3/uL (4.23-9.07)
[2024-02-04 06:33] LABS: ALBUMIN 3.4 g/dL (3.5-5.0); ANION GAP 9.1 MEQ/L (5-15); BILIRUBIN,TOTAL 1.1 mg/dL (0.2-1.3); Calcium 8.6 mg/dL (8.4-10.2); Creatinine 1 0.85 mg/dL (0.66-1.25); EST GLOMERULAR FILTRATION RATE 88.4 ML/MIN
[2024-02-04] MEDS: Lopressor 50 MG PO SCH (09:04)
[2024-02-04] MEDS: solu-MEDROL 60 MG, Sterile H2O 10 ml 2 ML IV SCH (09:08)
[2024-02-04] MEDS: TYLENOL 325 MG PO PRN (09:15)
--- NOTE | 2024-02-04 09:30 | XRAY ---
CLINICAL HISTORY: SOB COMPARISON: chest CT 02/02/2024 TECHNIQUE: X-rays of the chest AP portable view. FINDINGS: Diffuse patchy opacities are noted throughout the right lung and another small focal opacity in the left lower zone Cardiac size is slightly increased The costophrenic angles are clear The kalin are prominent on both sides and increased perihilar vascular marking IMPRESSION: 1. New interval demonstration of diffuse patchy opacities throughout the right lung, suggesting atypical infection or alveolar infiltration 2. The kalin are prominent on both sides and increased perihilar vascular marking suggests vascular congestion. [facility] ER was called at [phone] at 08:21 AM [employer], 02/04/2024 and results were verbally communicated to Cristina Isaac. Electronically Signed by: Vanessa Mac MD. (02/04/2024 09:25:43 EDT)
[2024-02-04] MEDS: PHARMACY DOSING REQUIRED: VANCOMYCIN IV STA (09:43)
--- NOTE | 2024-02-04 10:31 | PCM.NOTE ---
Date and Time: 02/04/24 1024 Subjective Assessment: 02/04/24 Mr. Azul is a 79 year-old gentleman with AFib s/p Watchman (2021), HTN, HLD, CAD s/p PCI, and colon cancer + liver cancer s/p resection + chemotherapy (in remission for 17 years). He presented to ER on 02/03/24 with Afib wtih RVR. He admits to a week of cough and shortnesses of breath as well as one day of nausea and vomiting. Upon arrival ot [place], laboratory data was remarkable for an elevated bilirubin, while imaging revealed a pneumonia and a non-obstructing renal calculus. PT was started on Cardizem gtt in ER and antibiotics all continued IP. Caridlogy consulted yesterday and metoprolol increased to 75mg BID. Overnight sxs continued to worsen. He is now on HIgh flow oxygen 40% at 100%. Chest XR this morning shows new interval demonstration of diffuse patchy opacities throughout the right lung, suggesting atypical infection or alveolar infiltration. He is now using accessory muscles to breath and has increased SOB. He is coughing up thick brown mucus. He is refusing to eat as he does not feel well. He remains on the Cardizem gtt and HR in 120's. WBC 9.5 today. Will tx to higher level of care as sxs are worsening and we do not have pulmonology support at this time. Objective Data Vital Signs: Vital Signs - 24 hr Temp Pulse Resp BP Pulse Ox 02/04/24 10:03 99.0 F 96 H 22 132/82 92 L 02/04/24 09:52 93 L 02/04/24 09:00 99.6 F 113 H 41 H 159/80 90 L 02/04/24 08:00 99.2 F 108 H 38 H 166/94 92 L 02/04/24 07:54 123 H 32 H 149/75 02/04/24 07:38 115 H 42 H 86 L 02/04/24 07:29 123 H 30 H 02/04/24 07:28 127 H 25 H 149/75 02/04/24 07:00 124 H 33 H 149/75 02/04/24 06:14 103 H 35 H 137/92 02/04/24 06:07 114 H 21 145/87 02/04/24 06:00 107 H 31 H 145/87 89 L 02/04/24 05:27 101 H 35 H 147/89 02/04/24 05:00 105 H 36 H 146/88 90 L 02/04/24 04:00 98.4 F 104 H 42 H 148/91 89 L 02/04/24 03:13 107 H 28 H 145/80 89 L 02/04/24 03:12 101 H 31 H 88 L 02/04/24 03:10 101 H 25 H 86 L 02/04/24 03:03 100 H 19 02/04/24 02:01 99 H 32 H 119/81 87 L 02/04/24 01:00 85 31 H 158/86 89 L 02/04/24 00:30 83 32 H 129/77 02/04/24 00:10 89 30 H 129/77 02/04/24 00:02 98.2 F 89 31 H 129/77 88 L 02/04/24 00:00 98 H 02/03/24 23:06 95 H 29 H 144/68 02/03/24 23:02 92 H 27 H 144/68 91 L 02/03/24 23:01 107 H 27 H 134/48 92 L 02/03/24 22:01 104 H 29 H 123/61 91 L 02/03/24 21:56 95 H 20 90 L 02/03/24 21:00 84 27 H 159/79 90 L 02/03/24 20:01 98.2 F 76 29 H 141/76 90 L 02/03/24 20:00 118 H 28 H 141/76 02/03/24 19:49 79 21 147/70 90 L 02/03/24 19:19 92 H 20 92 L 02/03/24 19:00 107 H 35 H 121/61 92 L 02/03/24 18:56 101 H 30 H 147/69 02/03/24 18:00 101 H 31 H 147/69 93 L 02/03/24 17:02 109 H 24 131/75 02/03/24 17:01 110 H 23 131/75 93 L 02/03/24 16:11 82 27 H 153/65 02/03/24 16:01 99.8 F 98 H 21 153/65 91 L 02/03/24 16:00 96 H 02/03/24 15:00 88 29 H 142/73 89 L 02/03/24 14:58 86 24 142/73 02/03/24 14:23 77 22 02/03/24 14:00 102 H 24 142/78 90 L 02/03/24 13:58 102 H 30 H 142/78 02/03/24 13:00 83 25 H 127/59 94 L 02/03/24 12:31 88 27 H 132/66 94 L 02/03/24 12:03 97 H 22 92 L 02/03/24 12:02 103 H 19 130/87 02/03/24 12:00 98.6 F 91 H 20 130/87 94 L 02/03/24 11:30 108 H 18 121/90 95 02/03/24 11:00 76 26 H 151/67 92 L 02/03/24 10:31 93 H 16 141/60 93 L Pain Assessment - Last Documented Pain Intensity 0 Intake and Output: Intake & Output 02/01/24 02/02/24 02/03/24 02/04/24 11:59 11:59 11:59 11:59 Intake Total 1874 Output Total 675 800 Balance -675 1074 Weight 76.2 kg 76.4 kg Lab Results: Lab Results-Last 24 Hours 02/04/24 02/04/24 Range/Units 05:45 05:45 WBC 9.5 H (4.23-9.07) x10^3/uL RBC 4.37 L (4.63-6.08) x10^6/uL Hgb 13.8 (13.7-17.5) g/dL Hct 40.8 (40.1-51.0) % MCV 93.4 H (79.0-92.2) fL MCH 31.6 (25.7-32.2) pg MCHC 33.8 (32.3-36.5) g/dL RDW 14.5 H (11.6-14.4) % Plt Count 170 (163-337) x10^3/uL MPV 10.8 (9.4-12.4) fL Sodium 136 (135-145) mmol/L Potassium 4.0 (3.5-5.1) mmol/L Chloride 104 (98-107) mmol/L Carbon Dioxide 27 (22-30) mmol/L Anion Gap 9.1 (5-15) MEQ/L BUN 18 (9-20) mg/dL Creatinine 0.85 (0.66-1.25) mg/dL Estimated GFR 88.4 ML/MIN Glucose 166 H (74-106) mg/dL Calcium 8.6 (8.4-10.2) mg/dL Total Bilirubin 1.10 (0.2-1.3) mg/dL AST 61 H (17-59) U/L ALT 45 (0-50) U/L Alkaline Phosphatase 63 (38-126) U/L Serum Total Protein 6.0 L (6.3-8.2) g/dL Albumin 3.4 L (3.5-5.0) g/dL Radiology Exams: Radiology Procedures Category Date Time Status ABDOMEN AND PELVIS W/0 CONTRAS [CT] Stat Exams 02/02/24 19:17 Completed CHEST 1 VIEW (PORTABLE) Stat Exams 02/04/24 08:36 Completed CHEST WITHOUT CONTRAST [CT] Stat Exams 02/02/24 19:16 Completed ECHO W/2D AND DOPPLER [US] Routine Exams 02/03/24 03:26 Taken Multi-Disciplinary Progress Notes: Multi-Disciplinary Progress Notes 02/04/24 10:00 Respiratory Note by Bela Winters Placed on HHF 40L and 100% due to decreased sats and increased WOB. Pt tolerating HHF well. Sats 93% RR 28, HR 85 Initialized on 02/04/24 10:00 - END OF NOTE 02/04/24 07:48 Respiratory Note by Bela Winters Changed to 10L oxymask due to sats running low 80s on a 5L NC. Addendum entered by Bela Winters 02/04/24 07:49: Sats running low 90s on 10L oxymask. Initialized on 02/04/24 07:48 - END OF NOTE 02/03/24 20:45 Radiology Note by CESARIO MARTINEZ TRANSTHORACIC ECHOCARDIOGRAM 02/03/2024: 1. Mildly dilated right atrium and right ventricle. Normal left sided chamber sizes. 2. Mild concentric left ventricular hypertrophy. 3. Normal left ventricular systolic function without obvious wall motion abnormalities. Estimated EF 60%. 4. Unable to assess grade of diastolic dysfunction in the setting of atrial fibrillation. 5. Normal right ventricular systolic function. 6. Mildly dilated ascending aorta (3.7 cm). 7. Mild aortic sclerosis without stenosis. 8. No significant valvular regurgitation. 9. Normal pulmonary artery pressure. 10. Normal right atrial pressure. 11. No pericardial effusion. Cesario Martinez MD [facility] Initialized on 02/03/24 20:45 - END OF NOTE
--- NOTE | 2024-02-04 10:39 | PCM.DS ---
Discharge Summary Date of Admission: 02/02/24 22:37 Date of Discharge: 02/04/24 Admitting Physician: SINGH TYLER MD Consults: Consults on Case 02/03/24 04:18 Consult Cardiology ROUTINE Primary Care Provider: ELVIRA PAT Allergies Allergies doxycycline Allergy (Mild, Verified 02/02/24 18:43) dizzy and nasuea cefdinir Allergy (Verified 02/02/24 18:43) Hospital Summary - Hospital Course Hospital Course: 02/04/24 Mr. Azul is a 79 year-old gentleman with AFib s/p Watchman (2021), HTN, HLD, CAD s/p PCI, and colon cancer + liver cancer s/p resection + chemotherapy (in remission for 17 years). He presented to ER on 02/03/24 with Afib wtih RVR. He admits to a week of cough and shortnesses of breath as well as one day of nausea and vomiting. Upon arrival ot [facility], laboratory data was remarkable for an elevated bilirubin, while imaging revealed a pneumonia and a non-obstructing renal calculus. PT was started on Cardizem gtt in ER and antibiotics all continued IP. Caridlogy consulted yesterday and metoprolol increased to 75mg BID. Overnight sxs continued to worsen. He is now on HIgh flow oxygen 40% at 100%. Chest XR this morning shows new interval demonstration of diffuse patchy opacities throughout the right lung, suggesting atypical infection or alveolar infiltration. He is now using accessory muscles to breath and has increased SOB. He is coughing up thick brown mucus. He is refusing to eat as he does not feel well. He remains on the Cardizem gtt and HR in 120's. WBC 9.5 today. Will tx to higher level of care as sxs are worsening and we do not have pulmonology support at this time. - Vitals & Intake/Output Vital Signs: Vital Signs Temperature 99.0 F 02/04/24 10:03 Pulse Rate 86 02/04/24 10:25 Respiratory Rate 32 H 02/04/24 10:25 Blood Pressure 132/82 02/04/24 10:25 O2 Sat by Pulse Oximetry 92 L 02/04/24 10:03 Intake & Output: Intake & Output 02/01/24 02/02/24 02/03/24 02/04/24 11:59 11:59 11:59 11:59 Intake Total 7404 Output Total 977 915 Balance -594 921 Weight 76.2 kg 76.4 kg - Lab Result Diagrams: 02/04/24 05:45 02/04/24 05:45 Lab Results-Last 24 Hrs: Lab Results-Last 24 Hours 02/04/24 02/04/24 Range/Units 05:45 05:45 WBC 9.5 H (4.23-9.07) x10^3/uL RBC 4.37 L (4.63-6.08) x10^6/uL Hgb 13.8 (13.7-17.5) g/dL Hct 40.8 (40.1-51.0) % MCV 93.4 H (79.0-92.2) fL MCH 31.6 (25.7-32.2) pg MCHC 33.8 (32.3-36.5) g/dL RDW 14.5 H (11.6-14.4) % Plt Count 170 (163-337) x10^3/uL MPV 10.8 (9.4-12.4) fL Sodium 136 (135-145) mmol/L Potassium 4.0 (3.5-5.1) mmol/L Chloride 104 (98-107) mmol/L Carbon Dioxide 27 (22-30) mmol/L Anion Gap 9.1 (5-15) MEQ/L BUN 18 (9-20) mg/dL Creatinine 0.85 (0.66-1.25) mg/dL Estimated GFR 88.4 ML/MIN Glucose 166 H (74-106) mg/dL Calcium 8.6 (8.4-10.2) mg/dL Total Bilirubin 1.10 (0.2-1.3) mg/dL AST 61 H (17-59) U/L ALT 45 (0-50) U/L Alkaline Phosphatase 63 (38-126) U/L Serum Total Protein 6.0 L (6.3-8.2) g/dL Albumin 3.4 L (3.5-5.0) g/dL Micro Results-Entire Visit: Microbiology 02/02/24 19:57 Blood Culture - Preliminary Blood 02/02/24 19:50 Blood Culture - Preliminary Blood - Radiology Exams Ordered Rad Exams-Entire Visit: Radiology Procedures Category Date Time Status ABDOMEN AND PELVIS W/0 CONTRAS [CT] Stat Exams 02/02/24 19:17 Completed CHEST 1 VIEW (PORTABLE) Stat Exams 02/04/24 08:36 Completed CHEST WITHOUT CONTRAST [CT] Stat Exams 02/02/24 19:16 Completed ECHO W/2D AND DOPPLER [US] Routine Exams 02/03/24 03:26 Taken - Procedures and Test Procedures and Tests throughout Hospitalization: Therapy Orders & Screens 02/02/24 22:40 Respiratory Therapy Consult ONCE Comment: Reason For Exam: 02/03/24 03:03 Respiratory Therapy Assessment DAILY Comment: Diagnosis: afib rvr, pne, vomiting 02/03/24 07:38 Flutter Therapy UD Comment: Diagnosis: afib rvr, pne, vomiting Incentive Spirometry UD Comment: Diagnosis: afib rvr, pne, vomiting Oxygen Nasal Cannula 2 lpm Comment: Diagnosis: afib rvr, pne, vomiting 02/03/24 09:00 ST Screen per Nursing Assess ONCE Comment: Protocol Order Physician Instructions: Greater than [address] Admission Screening Reason For Exam: Triggered on Admission Diagnosis: afib rvr, pne, vomiting CVA/Dyshpagia/Aphasia: No Cognitive Deficits: No Dehydration/Nutrition Deficit: No Reflux: No Oral-Motor Difficulties: No Pneumonia: Yes Penitentiary Resident: No Total Points: 5 02/04/24 08:19 Respiratory MDI BID Comment: Diagnosis: afib rvr, pne, vomiting Discharge Exam General Appearance: mild distress, alert Neurologic Exam: alert, oriented x 3, cooperative, normal mood/affect, nml cerebellar function, sensation nml, No motor deficits Eye Exam: PERRL, EOMI, eyes nml inspection Ears, Nose, Throat Exam: normal ENT inspection, pharynx normal, moist mucous membranes Neck Exam: normal inspection, non-tender, supple, full range of motion Respiratory Exam: normal breath sounds, respiratory distress, accessory muscle use Cardiovascular Exam: normal heart sounds, irregular Gastrointestinal/Abdomen Exam: soft, No tenderness, No mass Male Genitalia Exam: deferred Rectal Exam: deferred Back Exam: normal inspection, normal range of motion, No CVA tenderness, No vertebral tenderness Extremity Exam: normal inspection, normal range of motion Skin Exam: normal color, warm, dry Final Diagnosis/Problem List - Final Discharge Diagnosis/Problem (1) Pneumonia Current Visit: Yes Status: Acute Assessment & Plan: Chest CT without contrast 02/02/2024: 1. Focal clustered tiny 2-3mm centrilobular nodules along peribronchovascular distribution seen in the right middle lobe, left upper lobe, and superior segment of left lower lobe, representing acute infectious etiology. New interval finding. Recommended clinical correlation 2. Minimal pleural effusion on the left side, near stable. - Chest XR this morning IMPRESSION: 1. New interval demonstration of diffuse patchy opacities throughout the right lung, suggesting atypical infection or alveolar infiltration 2. The kalin are prominent on both sides and increased perihilar vascular marking suggests vascular congestion. - Now on High flow 40L- 100% - coughing up thick brown production - Accessory muscle breathing - No pulm support at this hospital today - TX to higher level of care - [facility] - Steroids and Advair added - IV antibiotics, Vancomycin Code(s): J18.9 - PNEUMONIA, UNSPECIFIED ORGANISM (2) Atrial fibrillation with RVR Current Visit: Yes Status: Acute Assessment & Plan: - Cardizem gtt - Echo reviewed - cardiology consulted - Metoprolol increased to 75mg BID yesterday by cardiology - Tx to higher level of care today as not improving - Trop x3 negative Code(s): I48.91 - UNSPECIFIED ATRIAL FIBRILLATION (3) Nephrolithiasis Current Visit: Yes Status: Acute Assessment & Plan: CT of Abdomen and Pelvis 02/02/2024: 1. A 2mm Nonobstructive calculus in the inferior calyx of left kidney,New interval finding. 2.Minimal pericardial effusion and left-sided pleural effusion seen. 3.No other significant abnormality detected in CT abdomen and pelvis. (4) Vomiting Current Visit: Yes Status: Resolved Assessment & Plan: - Compazine IV as Zofran did not help, no vomiting since yesterday Code(s): R11.10 - VOMITING, UNSPECIFIED (5) Coronary artery disease Current Visit: Yes Status: Chronic Assessment & Plan: - Tele - Cardilogy consult - Per card rec increased metoprolol 75mg BID - s/p watchman 2021 - Echo 02/03/24 1. Mildly dilated right atrium and right ventricle. Normal left sided chamber sizes. 2. Mild concentric left ventricular hypertrophy. 3. Normal left ventricular systolic function without obvious wall motion abnormalities. Estimated EF 60%. 4. Unable to assess grade of diastolic dysfunction in the setting of atrial fibrillation. 5. Normal right ventricular systolic function. 6. Mildly dilated ascending aorta (3.7 cm). 7. Mild aortic sclerosis without stenosis. 8. No significant valvular regurgitation. 9. Normal pulmonary artery pressure. 10. Normal right atrial pressure. 11. No pericardial effusion. Code(s): I25.10 - ATHSCL HEART DISEASE OF [place] CORONARY ARTERY W/O ANG PCTRS (6) Hyperlipidemia Current Visit: Yes Status: Chronic Assessment & Plan: - Continue statin Code(s): E78.5 - HYPERLIPIDEMIA, UNSPECIFIED - Discharge Discharge Date: 02/04/24 Disposition: Home, Self-Care Condition: Stable Prescriptions: Continue RX: Multivitamin [Multi-Vitamin Daily] 1 tab PO DAILY RX: Fenofibrate 145 mg PO DAILY RX: Atorvastatin Calcium 80 mg PO HS RX: Aspirin EC 81 mg [Ecotrin 81 mg] 81 mg PO DAILY RX: Ubidecarenone [Co Q-10] 100 mg PO DAILY RX: Metoprolol Succinate 50 mg [Toprol Xl 50 MG] 50 mg PO BID RX: Ezetimibe 10 mg [Zetia 10 MG] 10 mg PO DAILY RX: Vit C/E/Zn/Coppr/Lutein/Zeaxan [Preservision Areds 2 Softgel] 1 cap PO BID RX: Loratadine 10 mg [Claritin 10 mg] 10 mg PO DAILY RX: Amlodipine Besylate 5 mg PO DAILY Follow up with: ELVIRA PAT [Primary Care Provider] - 02/13/24 1:45 pm HALIE EVERETT [CONSULTING PHYSICIAN] - 02/08/24 3:00 pm (Please fax records to [phone] upon discharge )
[2024-02-04] MEDS: VANCOMYCIN 1 GRAM/200 ML BAG 1 GM/200 ML PIGGYBACK IV SCH (12:15)
[2024-02-04 16:07] VITALS: TEMP 97.6
[2024-02-04 16:53] VITALS: BP 136/80; PULSE 96; RESP 26; O2SAT 92
[2024-02-04] MEDS ORDERED: Advair Hfa 230/21 Mcg COMMON CANISTER IH SCH (19:00)
[2024-02-06] MEDS ORDERED: TROUGH DRUG LEVELS IJ ONE (17:30)
== END 2024-02-04 16:42 | disposition home or self-care (01) ==
LOC: ED 18:20 → ICU 22:37
PROVIDERS: ADMIT Internal Medicine Critical Care Medicine; ATTEND Internal Medicine Critical Care Medicine
DX: J18.9 Pneumonia, unspecified organism (principal); I48.21 Permanent atrial fibrillation; I25.10 Atherosclerotic heart disease of native coronary artery without angina pectoris; I10 Essential (primary) hypertension; E78.5 Hyperlipidemia, unspecified; N20.0 Calculus of kidney; I25.2 Old myocardial infarction; R11.10 Vomiting, unspecified; Z85.038 Personal history of other malignant neoplasm of large intestine; Z85.05 Personal history of malignant neoplasm of liver; Z79.899 Other long term (current) drug therapy
CPT/HCPCS: 0241U; 36000; 36415; 71045; 71250; 74176; 80053; 81001; 83036; 83605; 83690; 83735; 83880; 84484; 85025; 85027; 87040; 87070; 93005; 93306; 94640; 94667; 94668; 96365; 96367; 96374; 96375; 99285; 93268; J0456; J2405; J2919; Q3014; A9270-GY; G0378; J3370

== ENCOUNTER 2024-07-10 04:48 | Emergency (ER) | payer MEDICARE ==
[2024-07-10 05:15] VITALS: TEMP 97.1
[2024-07-10 05:34] VITALS: O2SAT 97
[2024-07-10 05:40] LABS: Group A Strep NOT DETECTED (NEGATIVE)
[2024-07-10 05:51] LABS: INFLUENZA A NEGATIVE (NEGATIVE); INFLUENZA B NEGATIVE (NEGATIVE); RESPIRATORY SYNCTIAL VIRUS NEGATIVE (NEGATIVE)
[2024-07-10 05:56] LABS: SARS-CoV-2 Xpert Express POSITIVE (NEGATIVE)
--- NOTE | 2024-07-10 06:03 | ERPHSYRPT ---
- History of Present Illness Time Seen by Provider: 07/10/24 05:25 Source: patient, family Exam Limitations: no limitations Patient Subjective Stated Complaint: pt states he has been vomiting for the past 3 days Triage Nursing Assessment: pt ambulated into the er; pt is axo x4; c/o vomiting; pt states 5/10 to upper abdomen; abd round, soft, tender; c/o N/V; skin PDW; dry hacking cough present; no respiratory distress present; hypertensive Physician History: This is a 79-year-old white male patient who presents to the emergency department with 3-day history of coughing and gagging causing vomiting symptoms for the last 3 days intermittently. Patient has not had diarrhea. He has not had a measured fever at home. He denies chest pain. Patient has not been around anyone that he is aware of with similar symptoms or been diagnosed with viral illness. Patient has a history of hyperlipidemia, hypertension, coronary artery disease with history of cardiac stents and "Watchman procedure" in the year 2021. Patient has a history of colorectal cancer with liver mets. Patient's room air oxygen saturation level in the emergency department is 98%. His respiratory rate is 18-19. Timing/Duration: day(s) (3) Cough Quality/Degree: mild (To moderate), dry cough Possible Cause: occasional episodes Modifying Factors: Improves With: coughing Associated Symptoms: cough, No fever, No chills, No chest pain/soreness, No headache, No muscle aches, No shortness of breath Allergies/Adverse Reactions: doxycycline Allergy (Mild, Verified 07/10/24 05:00) dizzy and nasuea cefdinir Allergy (Verified 07/10/24 05:00) Home Medications: Fenofibrate 145 mg PO DAILY 12/01/15 [History] Multivitamin [Multi-Vitamin Daily] 1 tab PO DAILY 12/01/15 [History] Atorvastatin Calcium 80 mg PO HS 05/30/21 [History] Aspirin EC 81 mg [Ecotrin 81 mg] 81 mg PO DAILY 08/02/22 [History] Ubidecarenone [Co Q-10] 100 mg PO DAILY 08/02/22 [History] Metoprolol Succinate 50 mg [Toprol Xl 50 MG] 50 mg PO BID 10/23/22 [History] Ezetimibe 10 mg [Zetia 10 MG] 10 mg PO DAILY 03/13/23 [History] Vit C/E/Zn/Coppr/Lutein/Zeaxan [Preservision Areds 2 Softgel] 1 cap PO BID 03/13/23 [History] Loratadine 10 mg [Claritin 10 mg] 10 mg PO DAILY 02/02/24 [History] Hx Tetanus, Diphtheria Vaccination/Date Given: Yes (03/08/22) Hx Influenza Vaccination/Date Given: Yes (06/03/24) Hx Pneumococcal Vaccination/Date Given: Yes (03/22/12) Travel Risk - International Travel Have you traveled outside of the country in past 3 weeks: No - Emerging Infectious Disease Are you exhibiting symptoms associated with any current EIDs: Yes Symptoms: Cough: New Onset, Headaches/Body Aches/, Vomitting, Other (Please Comment) Comment: runny nose, sore throat - Review of Systems Constitutional: No Symptoms Eyes: No Symptoms Ears, Nose, & Throat: No Symptoms Respiratory: Cough Cardiac: No Symptoms Abdominal/Gastrointestinal: Vomiting (Secondary to coughing then gagging), Appetite Changes Genitourinary Symptoms: No Symptoms Musculoskeletal: No Symptoms Skin: No Symptoms Neurological: No Symptoms Psychological: No Symptoms Endocrine: No Symptoms Hematologic/Lymphatic: No Symptoms Immunological/Allergic: No Symptoms All Other Systems: Reviewed and Negative - Past Medical History Pertinent Past Medical History: Yes Neurological History: No Pertinent History ENT History: Cataracts Cardiac History: High Cholesterol, Hypertension, Myocardial Infarction (NE) Respiratory History: No Pertinent History Endocrine Medical History: No Pertinent History Musculoskeletal History: Fractures GI Medical History: Colorectal Cancer, Hernia, Liver Cancer History: No Pertinent History Psycho-Social History: No Pertinent History Male Reproductive Disorders: No Pertinent History Other Medical History: History of Colon with Liver mets, Myocardial Infarction x2, Afib. Electrocardiographic Technician: Dr. Mccullough - Past Surgical History Past Surgical History: Yes Neuro Surgical History: No Pertinent History Cardiac: Cardiac Stent, Vascular Surgery Respiratory: Chest Surgery, Other Gastrointestinal: Cholecystectomy, Colon Resection, Hernia Repair, Other Genitourinary: No Pertinent History Musculoskeletal: No Pertinent History Male Surgical History: No Pertinent History Other Surgical History: LIVER RESECTION DUE TO CANCER, 4 heart stents. cvl port placement and removal. hiatal hernia repair = complications with collapsed lung during OR. Watchmans Procedure i approx. early 2021 Significant Family History: no pertinent family hx - Social History Smoking Status: Former smoker How long have you smoked: 30 Exposure to second hand smoke: No Alcohol Use: None Drug Use: none Patient Lives Alone: Yes - Social Determinants of Health Will the patient participate in the screening: Yes Do you worry about a steady place to live?: No Do you have any problems with any of the following?: No known problems In the past 12 months,have you had to go without utilities?: No Transportation Issues: No Has anyone in your support network made you feel unsafe?: No Have you or anyone in your house had to go without enough: No - Nursing Vital Signs Nursing Vital Signs: Initial Vital Signs Temperature 97.1 F 07/10/24 05:00 Pulse Rate 104 H 07/10/24 05:00 Respiratory Rate 16 07/10/24 05:00 Blood Pressure 156/95 07/10/24 05:00 O2 Sat by Pulse Oximetry 96 07/10/24 05:00 Pain Scale Pain Intensity 5 - Physical Exam General Appearance: no apparent distress, alert, anxiety Eye Exam: PERRL/EOMI, eyes nml inspection Ears, Nose, Throat Exam: normal ENT inspection, moist mucous membranes Neck Exam: normal inspection, non-tender, supple, full range of motion Respiratory Exam: normal breath sounds, lungs clear, airway intact, No chest tenderness, No respiratory distress Cardiovascular Exam: regular rate/rhythm, normal heart sounds, normal peripheral pulses Gastrointestinal/Abdomen Exam: soft, normal bowel sounds, No tenderness Rectal Exam: not done Back Exam: normal inspection, normal range of motion, No CVA tenderness, No vertebral tenderness Extremity Exam: normal inspection, normal range of motion, pelvis stable Neurologic Exam: alert, oriented x 3, cooperative, application project leader II-XII nml as tested, nml cerebellar function, nml station & gait, sensation nml Skin Exam: normal color, warm, dry Lymphatic Exam: No adenopathy SpO2 Interpretation: normal SpO2: 97 O2 Delivery: Room Air - Course Nursing assessment & vital signs reviewed: Yes Ordered Tests: Medication Summary Discontinued Medications Generic Name Dose Route Start Last Admin Trade Name Freq PRN Reason Stop Dose Admin Ondansetron HCl 4 mg 07/10/24 06:12 Zofran 4 Mg/Udtablet Orally Disintegrating PO 07/10/24 06:13 STAT ONE Lab/Rad Data: Laboratory Results 07/10/24 Range/Units 05:15 Influenza Type A Ag NEGATIVE (NEGATIVE) Influenza Type B Ag NEGATIVE (NEGATIVE) RSV (PCR) NEGATIVE (NEGATIVE) SARS-CoV-2 (PCR) POSITIVE A (NEGATIVE) Group A Strep Antibody NOT DETECTED (NEGATIVE) - Progress Progress: improved, re-examined Air Movement: good Progress Note: 07/10/24 06:22 My medical decision making and the assignment of low complexity to this patient's medical issue today is based on review of the patient's past medical history, review of the patient's medication list, review the patient drug allergy list, history present illness and physical findings on examination. The workup in this patient includes viral swabs and group A strep test. Differential diagnosis includes but is not limited to viral illness, strep pharyngitis I interpreted the patient's laboratory data results. Based on the laboratory data results, the patient has COVID-19 infection. This patient has multiple medical issues and we will remotely send a prescription of Paxlovid to his pharmacy. In addition we will also send a prescription for Zofran to his pharmacy. Patient is instructed to contact both his acute care registered nurse and primary care provider today, 09/10/2023, to make certain that Paxlovid can be used in this patient. I reviewed the patient's medication and medical conditions and I do not see a contraindication for the use of Paxlovid. On 04/09/2024 Blood Culture(s) Obtained: No Antibiotics given: No Counseled pt/family regarding: lab results, diagnosis, need for follow-up Medical Desision Making - Diagnostic Testing Diagnostic test were ordered, analyzed, and reviewed by me: Yes - Risk of complications The pt has a mod risk of morbidity or mortality based on: Need for prescription drug management - Departure Departure Disposition: Home Clinical Impression: COVID-19 virus infection Condition: Stable Critical Care Time: No Referrals: ELVIRA PAT [Primary Care Provider] - Follow up/PCP as directed Additional Instructions: Drink plenty of clear liquids as discussed. After you are tolerating clear liquids well, slowly advance her diet. Avoid fatty greasy spicy foods. Take your medications as prescribed. Call your primary care provider and acute care registered nurse today, to make certain that there are no contraindications from their standpoint for you to take Paxlovid that I have prescribed to you. Prescriptions: Ondansetron ODT 4 MG [Zofran Odt 4 mg] 4 mg PO Q6H PRN PRN #10 tablet PRN Reason: Vomiting Nirmatrelvir/Ritonavir [Paxlovid 150-100 mg Dose Pack] 1 each PO BID 5 Days #10 tab
[2024-07-10] MEDS ORDERED: ZOFRAN ODT 4 MG ONE (06:20)
[2024-07-10] MEDS: ZOFRAN ODT 4 MG PO ONE (06:21)
[2024-07-10 06:34] VITALS: BP 141/76; PULSE 71; RESP 18
== END 2024-07-10 06:41 | disposition home or self-care (01) ==
LOC: ED 04:48
DX: U07.1 COVID-19 (principal); R11.2 Nausea with vomiting, unspecified
CPT/HCPCS: 0241U; 87651; 99283; Q0162

== ENCOUNTER 2024-11-05 03:25 | Emergency (ER) | payer MEDICARE ==
[2024-11-05 03:58] VITALS: TEMP 97.2
[2024-11-05] MEDS ORDERED: Sodium Chloride 0.9% 1000 ML 1,000 ML ONE (04:13)
[2024-11-05] MEDS ORDERED: Zofran 4 MG/2 ML VIAL ONE (04:13)
[2024-11-05 04:14] LABS: Absolute Neutrophil Ct (ANC) 7.01 x10^3/uL (1.78-5.38); BASOPHIL % 0.5 % (0.2-1.2); Basophil (Absolute #) 0.04 x10^3/uL (0.01-0.08); Eosinophil % 2.7 % (0.8-7.0); Eosinophil (Absolute #) 0.24 x10^3/uL (0.04-0.54); Hematocrit 42.5 % (40.1-51.0); Hemoglobin 14.3 g/dL (13.7-17.5); IMMATURE GRAN # 0.02 x10^3u/L (0.001-0.031); IMMATURE GRAN % 0.2 % (0.001-0.429); Lymphocyte (Absolute #) 0.84 x10^3/uL (1.32-3.57); Lymphocytes % 9.5 % (21.8-53.1); Mean Cell Volume 93.8 fL (79.0-92.2); Mean Corpuscular Hemoglobin 31.6 pg (25.7-32.2); Mean Corpuscular Hgb Concent. 33.6 g/dL (32.3-36.5); Mean Platelet Volume 10.6 fL (9.4-12.4); Monocyte (Absolute #) 0.68 x10^3/uL (0.30-0.82); Monocytes % 7.7 % (5.3-12.2); Neutrophil % 79.4 % (34.0-67.9); Platelet Count 189 x10^3/uL (163-337); Red Blood Count 4.53 x10^6/uL (4.63-6.08); Red Cell Distribution Width 13.6 % (11.6-14.4); White Blood Count 8.8 x10^3/uL (4.23-9.07)
[2024-11-05] MEDS: Sodium Chloride 0.9% 1000 ML 1,000 ML IV STA (04:14)
[2024-11-05] MEDS: Zofran 4 MG/2 ML VIAL IV ONE (04:15)
[2024-11-05 04:21] LABS: ANION GAP 16.3 MEQ/L (5-15); Creatinine 1 0.86 mg/dL (0.66-1.25); EST GLOMERULAR FILTRATION RATE 88.1 ML/MIN; Potassium 4.5 mmol/L (3.5-5.1); Total Protein 6.4 g/dL (6.3-8.2)
--- NOTE | 2024-11-05 05:35 | XRAY ---
CLINICAL HISTORY: vomiting COMPARISON: 18:12:00 SHIP'S SURVEYOR TECHNIQUE: Contiguous axial images were obtained from the level of the diaphragm to the pubic symphysis without intravenous or oral contrast. Coronal and sagittal reconstructions were likewise performed and indicated to increase the sensitivity for detecting clinically relevant pathology. CT scan was performed according to ALARA (as low as reasonable achievable). FINDINGS: Mild left pleural effusion with basal subsegmental collapse of lower lobes are seen The visualized lung bases are clear. Evaluation of the abdominal and pelvic visceral organs is limited without intravenous contrast. The unenhanced liver, spleen, pancreas, and adrenal glands are grossly unremarkable. Calcification is noted in right lobe of liver. Status post-cholecystectomy. The kidneys are normal in size and attenuation without obvious calcification. Mild bilateral perinephric fat stranding Left side hydronephrosis and hydroureter up to an obstructing calculus of size 3mm is noted in left mid ureter. The ureters are normal in caliber. No adenopathy or fluid collections are seen. No evidence of focal or diffuse bowel wall thickening or evidence of bowel obstruction is seen. The appendix is visualized in the right lower quadrant and appears within normal limits. The aorta is normal in caliber. The urinary bladder is normal in contour. Pelvic viscera are grossly unremarkable. No aggressive appearing osseous lesions are identified. Diffuse atherosclerotic calcification is noted involving aorta iliac arteries. IMPRESSION: 1. Mild left pleural effusion with basal subsegmental collapse of lower lobes are seen- increased 2. Left side hydronephrosis and hydroureter up to an obstructing calculus of size 3mm is noted in left mid ureter. -new finding. ( prior left renal stone is passed in to the ureter). 3. Status post-cholecystectomy. -stable. 4. Mild bilateral perinephric fat stranding-stable. 5. Diffuse atherosclerotic calcification is noted involving aorta iliac arteries.-stable. 6. No other new interval abnormality since prior study. Electronically Signed by: Helio Mcnamara MD. (11/05/2024 05:30:22 EDT)
--- NOTE | 2024-11-05 06:35 | ERPHSYRPT ---
- History of Present Illness Historian: patient Exam Limitations: no limitations Patient Subjective Stated Complaint: PT. STATES, "I HAVE BEEN VOMITING AND HAVING DIARRHEA SINCE 10 PM LAST NIGHT. THE DIARRHEA IS A LITTLE BETTER BUT I'M STILL NAUSEAS." Triage Nursing Assessment: PT. AMBULATED TO ROOM WITHOUT DIFFICULTY, A&OX3, SKIN PALE, WARM AND DRY. RESP. EVEN UNLABORED, DRY HEAVING IN WAITING ROOM. NO EDEMA, A-FIB ON MONITOR WITH HX OF. Hx Tetanus, Diphtheria Vaccination/Date Given: Yes (03/08/22) Hx Influenza Vaccination/Date Given: Yes (06/03/24) Hx Pneumococcal Vaccination/Date Given: Yes (03/22/12) Immunizations Up to Date: Yes <LARRY RODARTE - Last Filed: 11/05/24 06:30> <HELEN KRISHNA - Last Filed: 11/05/24 07:37> - History of Present Illness Time Seen by Provider: 11/05/24 03:29 Physician History: 79 years old male with history of atrial fibrillation presented in the ER with off-and-on abdominal pain with multiple episodes of nonprojectile, nonbilious vomiting without hematemesis since 10 PM. Patient also reports having multiple episodes of loose stool with no hematochezia. Patient feels weak fatigued tired and dehydrated. Reports his diarrhea is a little better but still have nausea. Denies any known sick contacts. (LARRY RODARTE) Allergies/Adverse Reactions: doxycycline Allergy (Mild, Verified 07/10/24 05:00) dizzy and nasuea cefdinir Allergy (Verified 07/10/24 05:00) Home Medications: Fenofibrate 145 mg PO DAILY 12/01/15 [History] Multivitamin [Multi-Vitamin Daily] 1 tab PO DAILY 12/01/15 [History] Atorvastatin Calcium 80 mg PO HS 05/30/21 [History] Aspirin EC 81 mg [Ecotrin 81 mg] 81 mg PO DAILY 08/02/22 [History] Ubidecarenone [Co Q-10] 100 mg PO DAILY 08/02/22 [History] Metoprolol Succinate 50 mg [Toprol Xl 50 MG] 50 mg PO BID 10/23/22 [History] Ezetimibe 10 mg [Zetia 10 MG] 10 mg PO DAILY 03/13/23 [History] Vit C/E/Zn/Coppr/Lutein/Zeaxan [Preservision Areds 2 Softgel] 1 cap PO BID 03/13/23 [History] Loratadine 10 mg [Claritin 10 mg] 10 mg PO DAILY 02/02/24 [History] dilTIAZem HCL [Cartia Xt] 1 cap PO DAILY 11/05/24 [History] Travel Risk - International Travel Have you traveled outside of the country in past 3 weeks: No - Emerging Infectious Disease Are you exhibiting symptoms associated with any current EIDs: Yes Symptoms: Diarrhea, Vomitting Comment: runny nose, sore throat <LARRY RODARTE - Last Filed: 11/05/24 06:30> - Review of Systems Constitutional: Fatigue Eyes: No Symptoms Ears, Nose, & Throat: No Symptoms Respiratory: No Symptoms Cardiac: No Symptoms Abdominal/Gastrointestinal: Abdominal Pain, Nausea, Vomiting, Diarrhea Genitourinary Symptoms: No Symptoms Musculoskeletal: No Symptoms Skin: No Symptoms Neurological: No Symptoms Endocrine: No Symptoms Hematologic/Lymphatic: No Symptoms <LARRY RODARTE - Last Filed: 11/05/24 06:30> - Past Medical History Pertinent Past Medical History: Yes Neurological History: No Pertinent History ENT History: Cataracts Cardiac History: High Cholesterol, Hypertension, Myocardial Infarction ([place]) Respiratory History: No Pertinent History Endocrine Medical History: No Pertinent History Musculoskeletal History: Fractures GI Medical History: Colorectal Cancer, Hernia, Liver Cancer History: No Pertinent History Psycho-Social History: No Pertinent History Male Reproductive Disorders: No Pertinent History Other Medical History: History of Colon with Liver mets, Myocardial Infarction x2, Afib. Loom Technician: Dr. Mccullough - Past Surgical History Past Surgical History: Yes Neuro Surgical History: No Pertinent History Cardiac: Cardiac Stent, Vascular Surgery Respiratory: Chest Surgery, Other Gastrointestinal: Cholecystectomy, Colon Resection, Hernia Repair, Other Genitourinary: No Pertinent History Musculoskeletal: No Pertinent History Male Surgical History: No Pertinent History Other Surgical History: LIVER RESECTION DUE TO CANCER, 4 heart stents. cvl port placement and removal. hiatal hernia repair = complications with collapsed lung during OR. [facility] Procedure i approx. early 2021 Significant Family History: no pertinent family hx - Social History Smoking Status: Former smoker How long have you smoked: 30 Exposure to second hand smoke: No Drug Use: none - Social Determinants of Health Will the patient participate in the screening: Yes Do you worry about a steady place to live?: No Do you have any problems with any of the following?: No known problems In the past 12 months,have you had to go without utilities?: No Transportation Issues: No Has anyone in your support network made you feel unsafe?: No Have you or anyone in your house had to go w/o enough food: No <ASTERLARRY - Last Filed: 11/05/24 06:30> - Physical Exam General Appearance: no apparent distress Eye Exam: PERRL/EOMI Ears, Nose, Throat Exam: normal ENT inspection Neck Exam: normal inspection, non-tender, supple, full range of motion Respiratory Exam: normal breath sounds, lungs clear Cardiovascular Exam: normal heart sounds, tachycardia, irregular Gastrointestinal/Abdomen Exam: soft, normal bowel sounds, tenderness (Mild generalized tenderness) Extremity Exam: normal inspection, normal range of motion Neurologic Exam: alert, oriented x 3, cooperative Skin Exam: normal color, dry SpO2 Interpretation: normal SpO2: 94 O2 Delivery: Room Air <LARRY RODARTE - Last Filed: 11/05/24 06:30> - Nursing Vital Signs Nursing Vital Signs: Initial Vital Signs Temperature 97.2 F 11/05/24 03:27 Pulse Rate 111 H 11/05/24 03:27 Respiratory Rate 18 11/05/24 03:27 Blood Pressure 161/96 11/05/24 03:27 O2 Sat by Pulse Oximetry 98 11/05/24 03:27 Pain Scale Pain Intensity 0 Ordered Tests: Active Orders 24 hr Category Date Time Status IV Insertion STAT Care 11/05/24 04:10 Active ABDOMEN AND PELVIS W/0 CONTRAS [CT] Stat Exams 11/05/24 04:11 Completed CBC W DIFF Stat Lab 11/05/24 04:10 Completed CMP Stat Lab 11/05/24 04:10 Completed LIPASE Stat Lab 11/05/24 04:10 Completed UA W/RFX UR CULTURE Stat Lab 11/05/24 04:10 Ordered Medication Summary Discontinued Medications Generic Name Dose Route Start Last Admin Trade Name Freq PRN Reason Stop Dose Admin Sodium Chloride 1,000 mls @ 999 mls/hr 11/05/24 04:10 11/05/24 06:18 Sodium Chloride 0.9% 1000 Ml IV 11/05/24 05:10 Infused .Q1H1M STA Infusion Sodium Chloride Confirm 11/05/24 04:13 Sodium Chloride 0.9% 1000 Ml Administered 11/05/24 04:14 Dose 1,000 mls @ ud .ROUTE .STK-MED ONE Ondansetron HCl 4 mg 11/05/24 04:10 11/05/24 04:15 Ondansetron Hcl 4 Mg/2 Ml Vial IV 11/05/24 04:11 4 mg STAT ONE Administration Ondansetron HCl Confirm 11/05/24 04:13 Ondansetron Hcl 4 Mg/2 Ml Vial Administered 11/05/24 04:14 Dose 4 mg .ROUTE .STK-MED ONE Lab/Rad Data: Laboratory Result Diagrams 11/05/24 04:10 11/05/24 04:10 Laboratory Results 11/05/24 11/05/24 Range/Units 04:10 04:10 WBC 8.8 (4.23-9.07) x10^3/uL RBC 4.53 L (4.63-6.08) x10^6/uL Hgb 14.3 (13.7-17.5) g/dL Hct 42.5 (40.1-51.0) % MCV 93.8 H (79.0-92.2) fL MCH 31.6 (25.7-32.2) pg MCHC 33.6 (32.3-36.5) g/dL RDW 13.6 (11.6-14.4) % Plt Count 189 (163-337) x10^3/uL MPV 10.6 (9.4-12.4) fL Gran % 79.4 H (34.0-67.9) % Immature Gran % (Auto) 0.2 (0.001-0.429) % Nucleat RBC Rel Count 0.0 (0.00-0.2) % Eos # (Auto) 0.24 (0.04-0.54) x10^3/uL Immature Gran # (Auto) 0.02 (0.001-0.031) x10^3u/L Absolute Lymphs (auto) 0.84 L (1.32-3.57) x10^3/uL Absolute Monos (auto) 0.68 (0.30-0.82) x10^3/uL Absolute Nucleated RBC 0.00 (0.00-0.012) x10^3u/L Lymphocytes % 9.5 L (21.8-53.1) % Monocytes % 7.7 (5.3-12.2) % Eosinophils % 2.7 (0.8-7.0) % Basophils % 0.5 (0.2-1.2) % Absolute Granulocytes 7.01 H (1.78-5.38) x10^3/uL Basophils # 0.04 (0.01-0.08) x10^3/uL Sodium 143 (135-145) mmol/L Potassium 4.5 (3.5-5.1) mmol/L Chloride 107 (98-107) mmol/L Carbon Dioxide 25 (22-30) mmol/L Anion Gap 16.3 H (5-15) MEQ/L BUN 24 H (9-20) mg/dL Creatinine 0.86 (0.66-1.25) mg/dL Estimated GFR 88.1 ML/MIN Glucose 143 H (74-106) mg/dL Calcium 9.0 (8.4-10.2) mg/dL Total Bilirubin 1.00 (0.2-1.3) mg/dL AST 58 (17-59) U/L ALT 40 (0-50) U/L Alkaline Phosphatase 63 (38-126) U/L Serum Total Protein 6.4 (6.3-8.2) g/dL Albumin 4.0 (3.5-5.0) g/dL Lipase 132 (23-300) U/L - Progress Progress: improved Counseled pt/family regarding: lab results, diagnosis, rad results <LARRY RODARTE - Last Filed: 11/05/24 06:30> <HELEN KRISHNA - Last Filed: 11/05/24 07:37> - Progress Progress Note: 11/05/24 06:58 79-year-old is evaluated in the ER for pain with nausea vomiting and diarrhea. Patient given fluids symptomatic treatment, feeling better on reevaluation. Workup showed normal white count, chemistries fairly unremarkable except for some element of dehydration. CT abdomen pelvis without contrast showed right mid ureter stone with hydroureteronephrosis causing some obstructive uropathy. Patient has not urinated, care is transferred to Dr. Krishna at end of my shift for reevaluation and final disposition after urinalysis. (LARRY RODARTE) 11/05/24 07:34 The patient wants to go home with a urine specimen cup and he will bring that specimen back to the lab. I offered him prophylactic coverage with an antibiotic. He prefers to go home and urinate. He states it does take him a while to obtain a urine specimen. He is refusing straight catheterization for specimen. (HELEN KRISHNA) Medical Desision Making - Diagnostic Testing Diagnostic test were ordered, analyzed, and reviewed by me: Yes Radiological Interpretation: Teleradiologist Report - Risk of complications The pt has a mod risk of morbidity or mortality based on: Need for prescription drug management <LARRY RODARTE - Last Filed: 11/05/24 06:30> - Diagnostic Testing Diagnostic test were ordered, analyzed, and reviewed by me: Yes Radiological Interpretation: Reviewed by me, Teleradiologist Report <HELEN KRISHNA - Last Filed: 11/05/24 07:37> <LARRY RODARTE - Last Filed: 11/05/24 06:30> - Departure Departure Disposition: Home Critical Care Time: No <HELEN KRISHNA - Last Filed: 11/05/24 07:37> - Departure Clinical Impression: Right ureteral calculus Condition: Stable Referrals: ELVIRA PAT [Primary Care Provider, [facility]] - Follow up/PCP as directed Additional Instructions: Drink plenty of fluids. Take your medications as prescribed. Return to the [facility] lab with your urine specimen. If your symptoms return, are prolonged or worsen, you can follow-up where there is a urologist such as [facility], [facility] and [facility]. You may also return to our facility. However recall we do not have urology services here. Prescriptions: Ondansetron ODT 4 MG [Zofran Odt 4 mg] 4 mg PO Q6H PRN PRN #10 tablet PRN Reason: Vomiting
[2024-11-05 07:08] VITALS: RESP 22; O2SAT 96
[2024-11-05 07:32] VITALS: BP 149/73; PULSE 104
[2024-11-05 08:17] LABS: Appearance Clear (Clear); Bacteria None Seen /HPF (None Seen); Bilirubin Negative (Negative); Blood Negative (Negative); Epithelial Cells None Seen /HPF (None Seen); Glucose, Urine Negative (Negative); Hyaline Casts NONE SEEN /LPF (0-2); Ketones Negative (Negative); Leukocyte Esterase Negative (Negative); Nitrite Negative (Negative); Protein,Urine Dip Negative (Negative); RBC 0-2 /HPF (0-5); WBC 0-2 /HPF (0-5)
== END 2024-11-05 07:46 | disposition home or self-care (01) ==
LOC: ED 03:25
DX: N13.2 Hydronephrosis with renal and ureteral calculous obstruction (principal); R11.2 Nausea with vomiting, unspecified; R19.7 Diarrhea, unspecified; R10.9 Unspecified abdominal pain; R53.1 Weakness; E78.5 Hyperlipidemia, unspecified; I10 Essential (primary) hypertension; Z79.899 Other long term (current) drug therapy
CPT/HCPCS: 36415; 74176; 80053; 81001; 83690; 85025; 96361; 96374; 96375; 99284; J2405

== ENCOUNTER 2024-11-11 15:10 | Inpatient (IN) | payer MEDICARE ==
--- NOTE | 2024-11-11 15:52 | ERPHSYRPT ---
- History of Present Illness Time Seen by Provider: 11/11/24 15:49 Source: patient, family Exam Limitations: no limitations Patient Subjective Stated Complaint: pt here for pain to right hip and thigh pain today, he states he tripped and fell while weed eating. Triage Nursing Assessment: pt alert, arrived per wc, resp easy, skin w/d/p, unable to left right leg off bed due to pain, no edema noted, no abrasions seen Physician History: pt here for pain to right hip and thigh pain today, he states he tripped and fell while weed eating. Occurred: just prior to arrival Reason for Fall: lost balance, slipped, tripped Injuries/Pain Location: pelvis, lower extremity Loss of Consciousness: no loss of consciousness Quality: aching Severity of Pain-Max: moderate Severity of Pain-Current: moderate Modifying Factors: Improves With: nothing Associated Symptoms (Fall): trouble walking Body Map: 1 - pain Allergies/Adverse Reactions: doxycycline Allergy (Mild, Verified 11/11/24 15:23) dizzy and nasuea cefdinir Allergy (Verified 11/11/24 15:23) Home Medications: Fenofibrate 145 mg PO DAILY 12/01/15 [History] Multivitamin [Multi-Vitamin Daily] 1 tab PO DAILY 12/01/15 [History] Atorvastatin Calcium 80 mg PO HS 05/30/21 [History] Aspirin EC 81 mg [Ecotrin 81 mg] 81 mg PO DAILY 08/02/22 [History] Ubidecarenone [Co Q-10] 100 mg PO DAILY 08/02/22 [History] Metoprolol Succinate 50 mg [Toprol Xl 50 MG] 50 mg PO BID 10/23/22 [History] Ezetimibe 10 mg [Zetia 10 MG] 10 mg PO DAILY 03/13/23 [History] Vit C/E/Zn/Coppr/Lutein/Zeaxan [Preservision Areds 2 Softgel] 1 cap PO BID 03/13/23 [History] Loratadine 10 mg [Claritin 10 mg] 10 mg PO DAILY 02/02/24 [History] dilTIAZem HCL [Cartia Xt] 1 cap PO DAILY 11/05/24 [History] Hx Tetanus, Diphtheria Vaccination/Date Given: Yes (03/08/22) Hx Influenza Vaccination/Date Given: Yes (06/03/24) Hx Pneumococcal Vaccination/Date Given: Yes (03/22/12) Immunizations Up to Date: Yes Travel Risk - International Travel Have you traveled outside of the country in past 3 weeks: No - Emerging Infectious Disease Are you exhibiting symptoms associated with any current EIDs: No Symptoms: Diarrhea, Vomitting Comment: runny nose, sore throat - Review of Systems Constitutional: No Fever, No Chills Eyes: No Symptoms Ears, Nose, & Throat: No Symptoms Respiratory: No Cough, No Dyspnea Cardiac: No Chest Pain, No Edema, No Syncope Abdominal/Gastrointestinal: No Abdominal Pain, No Nausea, No Vomiting, No Diarrhea Genitourinary Symptoms: No Dysuria Musculoskeletal: Fall, Joint Pain (right hip), No Back Pain, No Neck Pain Skin: No Rash Neurological: No Dizziness, No Focal Weakness, No Sensory Changes Psychological: No Symptoms Endocrine: No Symptoms All Other Systems: Reviewed and Negative - Past Medical History Pertinent Past Medical History: Yes Neurological History: No Pertinent History ENT History: Cataracts Cardiac History: High Cholesterol, Hypertension, Myocardial Infarction ([place]) Respiratory History: No Pertinent History Endocrine Medical History: No Pertinent History Musculoskeletal History: Fractures GI Medical History: Colorectal Cancer, Hernia, Liver Cancer History: No Pertinent History Psycho-Social History: No Pertinent History Male Reproductive Disorders: No Pertinent History Other Medical History: History of Colon with Liver mets, Myocardial Infarction x2, Afib. Gill Box Fixer: Dr. Mccullough - Past Surgical History Past Surgical History: Yes Neuro Surgical History: No Pertinent History Cardiac: Cardiac Stent, Vascular Surgery Respiratory: Chest Surgery, Other Gastrointestinal: Cholecystectomy, Colon Resection, Hernia Repair, Other Genitourinary: No Pertinent History Musculoskeletal: No Pertinent History Male Surgical History: No Pertinent History Other Surgical History: LIVER RESECTION DUE TO CANCER, 4 heart stents. cvl port placement and removal. hiatal hernia repair = complications with collapsed lung during OR. [facility] Procedure i approx. early 2021 Significant Family History: no pertinent family hx - Social History Smoking Status: Former smoker How long have you smoked: 30 Exposure to second hand smoke: No Drug Use: none - Social Determinants of Health Will the patient participate in the screening: Yes Do you worry about a steady place to live?: No Do you have any problems with any of the following?: No known problems In the past 12 months,have you had to go without utilities?: No Transportation Issues: No Has anyone in your support network made you feel unsafe?: No Have you or anyone in your house had to go w/o enough food: No - Nursing Vital Signs Nursing Vital Signs: Initial Vital Signs Temperature 97.2 F 11/11/24 15:28 Pulse Rate 70 11/11/24 15:28 Respiratory Rate 18 11/11/24 15:28 Blood Pressure 134/70 11/11/24 15:28 O2 Sat by Pulse Oximetry 98 11/11/24 15:28 Pain Scale Pain Intensity 9 - [place] Coma Score Best Eye Response ([place]): (4) open spontaneously Best Verbal Response ([place]): (5) oriented Best Motor Response ([place]): (6) obeys commands [place] Total: 15 - Physical Exam General Appearance: no apparent distress, alert Head Injury: no evidence of injury Eye Exam: PERRL/EOMI ENT Exam: airway nml Neck Exam: normal inspection, No tenderness Respiratory/Chest Exam: normal breath sounds, No chest tenderness, No respiratory distress Cardiovascular Exam: normal heart sounds, regular rate/rhythm Gastrointestinal Exam: soft, No tenderness, No distention, No guarding, No ecchymosis Back Exam: normal inspection, No vertebral tenderness Extremity Exam: normal inspection, pelvis stable, hip tenderness (right hip), pain with movement (right), weight bearing (unable on right side), No deformities, No motor deficit, No pulse deficit, No pedal edema, No sensory deficit Neurologic Exam: alert, oriented x 3, cooperative, sensation nml, No motor deficits Skin Exam: normal color, warm, dry SpO2: 98 - Course Nursing assessment & vital signs reviewed: Yes - Radiology Exams Hip X-ray Interpretation: Interpreted by me, Reviewed by me, Displaced Fracture (right neck of femur) Ordered Tests: Active Orders 24 hr Category Date Time Status HIPS SANGEETA(2V) INCL PEL IF DONE Stat Exams 11/11/24 16:06 Taken Medication Summary Generic Name Dose Route Start Last Admin Trade Name Freq PRN Reason Stop Dose Admin Sodium Chloride 1,000 mls @ 999 mls/hr 11/11/24 16:04 Sodium Chloride 0.9% 1000 Ml IV 11/11/24 17:04 .Q1H1M STA Cefazolin Sodium 1 gm in 100 mls @ 200 mls/hr 11/11/24 16:10 Cefazolin 1 Gm/100 Ml Nacl Ivpb IV 11/11/24 16:39 STAT STA Discontinued Medications Generic Name Dose Route Start Last Admin Trade Name Freq PRN Reason Stop Dose Admin Meropenem 1 gm/ Sodium 100 mls @ 200 mls/hr 11/11/24 16:04 Chloride IV 11/11/24 16:33 STAT ONE Morphine Sulfate 4 mg 11/11/24 16:04 Morphine Sulfate 4 Mg/Ml Injection IV 11/11/24 16:05 STAT ONE - Progress Progress: unchanged Discussed with .: Other (Hopitalist service, Orthopedics service Dr Galo) Will see patient in: hospital (observation) Counseled pt/family regarding: lab results, diagnosis, need for follow-up, rad results Medical Desision Making - Independent Historian Additional History obtained from: Family - Discussion of managment Care discussed with:: specialist (Orthopedics) Reviewed:: Need for additional workup Agreed on:: Treatment plan, place in obs Will see patient: in hospital - Diagnostic Testing Diagnostic test were ordered, analyzed, and reviewed by me: Yes Radiological Interpretation: Interpreted by me, Reviewed by me - Risk of complications The pt has a high risk of morbidity or mortality based on: Need for major surgery in patient with known risk factors - Departure Departure Disposition: Observation Clinical Impression: Closed right hip fracture Qualifiers: Encounter type: initial encounter Qualified Code(s): S72.001A - Fracture of unspecified part of neck of right femur, initial encounter for closed fracture Condition: Stable Critical Care Time: No Referrals: ELVIRA PAT [Primary Care Provider, [facility]] - Follow up/PCP as directed
[2024-11-11] MEDS ORDERED: Zofran 4 MG/2 ML VIAL ONE (16:20)
[2024-11-11] MEDS ORDERED: Sodium Chloride 0.9% 1000 ML 1,000 ML ONE (16:21)
[2024-11-11] MEDS ORDERED: CEFAZOLIN 1 GM/100 ML NACL IVPB 1 GM/100 ML IVPB IV ONE (16:21)
[2024-11-11] MEDS ORDERED: MORPHINE SULFATE 4 MG INJ ONE (16:21)
[2024-11-11] MEDS: Sodium Chloride 0.9% 1000 ML 1,000 ML IV STA (16:24)
[2024-11-11] MEDS: Zofran 4 MG/2 ML VIAL IV ONE (16:27)
[2024-11-11] MEDS: MORPHINE SULFATE 4 MG INJ IV ONE (16:29)
[2024-11-11] MEDS: CEFAZOLIN 1 GM/100 ML NACL IVPB 1 GM/100 ML IVPB IV STA (16:36)
[2024-11-11] MEDS: Merrem 1 GM in Sodium Chloride 0.9% 100 ML IV ONE (16:42)
[2024-11-11] MEDS ORDERED: NORCO 5/325 MG PO PRN (17:46)
--- NOTE | 2024-11-11 17:50 | PCM.HP ---
History of Present Illness - Chief Complaint Chief Complaint: right hip pain/ fall Date: 11/11/24 History of Present Illness: is a 79-year-old male with a past medical history of hypertension, hyperlipidemia, atrial fibrillation, two prior myocardial infarctions (under the care of Dr. Bonilla), colorectal cancer with liver metastases( 20 yrs ago), and cataracts presented to the ER today with right hip and left thigh pain. The patient reports tripping and falling while weed eating. Orthopedics evaluated the patient in the ER; X-rays are pending radiology reading. Per orthopedic plan, the patient is scheduled for surgery in the morning for a closed right hip fracture. A Bryant catheter was placed for anticipated prolonged immobilization. Proton pump inhibitor (PPI) therapy and sequential compression devices (SCDs) were initiated. Consent for surgery to be obtained. An ice pack was applied to the affected area. - Review of Systems Constitutional: No Fever, No Chills Eyes: No Symptoms Ears, Nose, & Throat: No Symptoms Respiratory: No Cough, No Short Of Breath Cardiac: No Chest Pain, No Edema, No Syncope Abdominal/Gastrointestinal: No Abdominal Pain, No Nausea, No Vomiting, No Diarrhea Genitourinary Symptoms: No Dysuria Musculoskeletal: Joint Pain (Right hip and right thigh pain), No Back Pain, No Neck Pain Skin: No Rash Neurological: No Dizziness, No Focal Weakness, No Sensory Changes Psychological: No Symptoms Endocrine: No Symptoms Hematologic/Lymphatic: No Symptoms Immunological/Allergic: No Symptoms Medications & Allergies Home Medications: Home Medication List Fenofibrate 145 mg PO DAILY 12/01/15 [History Confirmed 11/11/24] Multivitamin [Multi-Vitamin Daily] 1 tab PO DAILY 12/01/15 [History Confirmed 11/11/24] Atorvastatin Calcium 80 mg PO HS 05/30/21 [History Confirmed 11/11/24] Aspirin EC 81 mg [Ecotrin 81 mg] 81 mg PO DAILY 08/02/22 [History Confirmed 11/11/24] Ubidecarenone [Co Q-10] 100 mg PO DAILY 08/02/22 [History Confirmed 11/11/24] Metoprolol Succinate 50 mg [Toprol Xl 50 MG] 50 mg PO BID 10/23/22 [History Confirmed 11/11/24] Ezetimibe 10 mg [Zetia 10 MG] 10 mg PO DAILY 03/13/23 [History Confirmed 11/11/24] Vit C/E/Zn/Coppr/Lutein/Zeaxan [Preservision Areds 2 Softgel] 1 cap PO BID 03/13 [History Confirmed 11/11/24] dilTIAZem HCL [Cartia Xt] 180 mg PO DAILY 11/05/24 [History Confirmed 11/11/24] Allergies/Adverse Reactions: Allergies Allergy/AdvReac Type Severity Reaction Status Date / Time doxycycline Allergy Mild dizzy and Verified 11/11/24 17:47 nasuea cefdinir Allergy Verified 11/11/24 17:47 - Past Medical History Past Medical History: Yes Neurological History: No Pertinent History ENT History: Cataracts Cardiac History: High Cholesterol, Hypertension, Myocardial Infarction ([place]) Respiratory History: No Pertinent History Endocrine Medical History: No Pertinent History Musculoskelatal History: Fractures GI Medical History: Colorectal Cancer, Hernia, Liver Cancer History: No Pertinent History Pyscho-Social History: No Pertinent History Male Reproductive Disorders: No Pertinent History Comment: History of Colon with Liver mets, Myocardial Infarction x2, Afib. 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 cvl port placement and removal. hiatal hernia repair = complications with collapsed lung during OR. [facility] Procedure i approx. early 2021 Significant Family History: no pertinent family hx - Social History Smoking Status: Former smoker How long have you smoked: 30 Exposure to second hand smoke: No Alcohol: None Drug Use: none - Social Determinants of Health Will the patient participate in the screening: Yes Do you worry about a steady place to live?: No Do you have any problems with any of the following?: No known problems In the past 12 months,have you had to go without utilities?: No Have you or anyone in your house had to go without enough: No Transportation Issues: No Has anyone in your support network made you feel unsafe?: No Does the patient want assistance with any of the above?: No - Physical Exam Vital Signs: Vital Signs - 24 hr Temp Pulse Resp BP BP Pulse Ox 11/11/24 16:13 98 11/11/24 16:10 79 12 99 11/11/24 16:03 67 18 100 11/11/24 15:30 144/85 11/11/24 15:28 97.2 F 70 18 134/70 98 General Appearance: no apparent distress, alert Neurologic Exam: alert, oriented x 3, cooperative, normal mood/affect, nml cerebellar function, nml station & gait, sensation nml, No motor deficits Eye Exam: PERRL/EOMI, eyes nml inspection Ears, Nose, Throat Exam: normal ENT inspection, TMs normal, pharynx normal, moist mucous membranes Neck Exam: normal inspection, non-tender, supple, full range of motion Respiratory Exam: normal breath sounds, lungs clear, No respiratory distress Cardiovascular Exam: regular rate/rhythm, normal heart sounds, normal peripheral pulses Gastrointestinal/Abdomen Exam: soft, normal bowel sounds, No tenderness, No mass Back Exam: normal inspection, normal range of motion, No CVA tenderness, No vertebral tenderness Extremity Exam: normal inspection, normal range of motion, pelvis stable Skin Exam: normal color, warm, dry, No rash Lymphatic Exam: No adenopathy Results - Radiology Impressions Radiology Exams & Impressions: Radiology Procedures Category Date Time Status FEMUR Stat Exams 11/11/24 17:11 Taken FEMUR Stat Exams 11/11/24 17:11 Taken HIPS SANGEETA(2V) INCL PEL IF DONE Stat Exams 11/11/24 16:06 Taken Assessment/Plan (1) Closed right hip fracture Current Visit: Yes Status: Acute Qualifiers: Encounter type: initial encounter Qualified Code(s): S72.001A - Fracture of unspecified part of neck of right femur, initial encounter for closed fracture Assessment & Plan: - DX: Per ortho records. - Consent signed for surgery per ortho request. - Radiology results pending offical reading by radiology - CBC, CMP, PT/INR- pending - Preop antibiotics gave in ER. - IVF started - ICE pack to affected areas. - + bryant placed - Narcotic pain meds PRN - Antiemetic - Tele - SCD's - NPO - IVF Code(s): S72.001A - FRACTURE OF UNSP PART OF NECK OF RIGHT FEMUR, INIT (2) Right hip pain Current Visit: Yes Status: Acute Assessment & Plan: - Radiology results pending - Ortho consult in ER- awaiting recs - ICE pack - Bryant ordered in ER per ortho for immobilization - Morphine and norco PRN for pain control per Ortho recs - Narcan PRN - Protonix Code(s): M25.551 - PAIN IN RIGHT HIP (3) Left thigh pain Current Visit: Yes Status: Acute Assessment & Plan: - + Left thigh bruise - Radiology results pending - Ice pack Code(s): M79.652 - PAIN IN LEFT THIGH (4) Atrial fibrillation Current Visit: Yes Status: Chronic Assessment & Plan: - Tele Code(s): I48.91 - UNSPECIFIED ATRIAL FIBRILLATION (5) Hyperlipidemia Current Visit: No Status: Chronic Assessment & Plan: - Continue statin Code(s): E78.5 - HYPERLIPIDEMIA, UNSPECIFIED (6) Hypertension Current Visit: No Status: Chronic Assessment & Plan: - Continue home BP meds - BP stable- trend VTE: SCD's PPI: Protonix Nesxt of KIN: Child- Romy Stevenson D/C plan: 2-3 days Code status: Full Code(s): I10 - ESSENTIAL (PRIMARY) HYPERTENSION Telemedicine Encounter - Telemedicine Encounter Telemedicine Encounter: "The entirety of this encounter was performed via Telemedicine" This visit was performed using real-time audio and video connection between my location and thepatients locationwith the assistance of a surrogateat the patients location. Written or verbal consent was obtained from the patient/guardian to perform this visit [facility] technology. Any patient questions regarding the telemedicine interaction were answered.
[2024-11-11] MEDS ORDERED: Narcan 0.4 MG/ML IV PRN (17:54)
[2024-11-11 18:15] LABS: Absolute Neutrophil Ct (ANC) 9.12 x10^3/uL (1.78-5.38); BASOPHIL % 0.4 % (0.2-1.2); Basophil (Absolute #) 0.05 x10^3/uL (0.01-0.08); Eosinophil % 1.8 % (0.8-7.0); Eosinophil (Absolute #) 0.21 x10^3/uL (0.04-0.54); Hematocrit 39.9 % (40.1-51.0); Hemoglobin 13.3 g/dL (13.7-17.5); IMMATURE GRAN # 0.05 x10^3u/L (0.001-0.031); IMMATURE GRAN % 0.4 % (0.001-0.429); Lymphocytes % 12.2 % (21.8-53.1); Mean Cell Volume 93.9 fL (79.0-92.2); Mean Corpuscular Hemoglobin 31.3 pg (25.7-32.2); Mean Corpuscular Hgb Concent. 33.3 g/dL (32.3-36.5); Mean Platelet Volume 10.5 fL (9.4-12.4); Monocyte (Absolute #) 0.61 x10^3/uL (0.30-0.82); Monocytes % 5.3 % (5.3-12.2); Neutrophil % 79.9 % (34.0-67.9); Platelet Count 179 x10^3/uL (163-337); Red Blood Count 4.25 x10^6/uL (4.63-6.08); Red Cell Distribution Width 13.5 % (11.6-14.4); White Blood Count 11.4 x10^3/uL (4.23-9.07)
[2024-11-11] MEDS ORDERED: Zofran 4 MG/2 ML VIAL IV PRN (18:16)
[2024-11-11] MEDS ORDERED: Compazine 10 MG/2 ML ONE (18:21)
[2024-11-11] MEDS: Compazine 10 MG/2 ML IV PRN (18:22)
[2024-11-11] MEDS: MORPHINE SULFATE 4 MG INJ IV PRN (18:25)
[2024-11-11] MEDS: BENADRYL 50 MG/ML IV ONE (18:37)
[2024-11-11 18:45] LABS: ALBUMIN 3.5 g/dL (3.5-5.0); ANION GAP 14.8 MEQ/L (5-15); BILIRUBIN,TOTAL 1.1 mg/dL (0.2-1.3); Calcium 8.4 mg/dL (8.4-10.2); Creatinine 1 0.96 mg/dL (0.66-1.25); Direct Bilirubin 0.3 mg/dL (0.0-0.4); EST GLOMERULAR FILTRATION RATE 80.4 ML/MIN; Potassium 3.8 mmol/L (3.5-5.1)
[2024-11-11 18:47] LABS: INR 1.28 (0.8-3.0); PROTIME 13.7 SECONDS (9.4-12.5); PTT 23.9 SECONDS (25.1-36.5)
[2024-11-11 19:00] LABS: Appearance Clear (Clear); Bacteria None Seen /HPF (None Seen); Bilirubin Negative (Negative); Blood Moderate (Negative); Epithelial Cells None Seen /HPF (None Seen); Glucose, Urine Negative (Negative); Hyaline Casts NONE SEEN /LPF (0-2); Ketones Negative (Negative); Leukocyte Esterase Negative (Negative); Nitrite Negative (Negative); Protein,Urine Dip Negative (Negative); RBC 51-100 /HPF (0-5); Specific Gravity 1.015 (1.005-1.030); WBC 0-2 /HPF (0-5)
[2024-11-11 19:10] LABS: ABO TYPING A; Antibody Screen NEGATIVE (NEGATIVE); RH TYPING NEGATIVE
--- NOTE | 2024-11-11 20:47 | XRAY ---
Indication: Right hip pain following fall. Comparison: None AP pelvis and 2 view right hip demonstrates nondisplaced minimally angulated right subcapital acute femur fracture. Elsewhere osteopenia and pelvic surgical clips. No other bony, articular, or soft tissue abnormalities.
--- NOTE | 2024-11-11 20:47 | XRAY ---
Indication: Pain following fall. Comparison: None AP/crosstable lateral right mid to lower right femur interpreted with right hip exam of same day. Osteopenia, tiny patella spurring, tiny posterior needle fabella, and moderate scattered vascular calcifications.
--- NOTE | 2024-11-11 20:49 | XRAY ---
Indication: Thigh pain. Comparison: None 2 view left femur demonstrates osteopenia, mild patellofemoral degenerative changes, mild scattered vascular calcifications, and tiny posterior knee fabella. No acute bony, articular, or soft tissue abnormalities.
[2024-11-11] MEDS: Toprol Xl 50 MG PO SCH (21:47)
[2024-11-11] MEDS: ZOCOR 20MG PO SCH (21:48)
[2024-11-11] MEDS ORDERED: NON-FORMULARY ITEM (Atorvastatin Calcium [Atorvastatin Calcium] 80 MG Tablet) PO SCH (22:00)
[2024-11-11] MEDS: NON-FORMULARY ITEM (Vit C/E/Zn/Coppr/Lutein/Zeaxan [Preservision Areds 2 Softgel] 1 EACH C PO SCH (22:05)
[2024-11-12 04:48] LABS: Hematocrit 35.1 % (40.1-51.0); Hemoglobin 11.9 g/dL (13.7-17.5); Mean Cell Volume 93.6 fL (79.0-92.2); Mean Corpuscular Hemoglobin 31.7 pg (25.7-32.2); Mean Corpuscular Hgb Concent. 33.9 g/dL (32.3-36.5); Mean Platelet Volume 10.1 fL (9.4-12.4); Platelet Count 161 x10^3/uL (163-337); Red Blood Count 3.75 x10^6/uL (4.63-6.08); White Blood Count 10.5 x10^3/uL (4.23-9.07)
[2024-11-12 05:10] LABS: ALBUMIN 3.3 g/dL (3.5-5.0); ANION GAP 12.6 MEQ/L (5-15); BILIRUBIN,TOTAL 1.2 mg/dL (0.2-1.3); Calcium 8.2 mg/dL (8.4-10.2); Creatinine 1 0.87 mg/dL (0.66-1.25); EST GLOMERULAR FILTRATION RATE 87.8 ML/MIN; Potassium 4.2 mmol/L (3.5-5.1); Total Protein 5.5 g/dL (6.3-8.2)
--- NOTE | 2024-11-12 05:19 | PCM.NOTE ---
Date and Time: 11/12/24 0516 Subjective Assessment: HPI: Mr. Azul is a 79-year-old male with a pmhx of HTN, HLD, AFIB (irregularly irregular rhythm noted on exam), two prior MIs under cardiology care, and remote colorectal cancer with liver metastases, presenting 11/11/24 after a mechanical ground-level fall while weed eating. He denies any preceding syncope or lightheadedness. Examination revealed ecchymosis over the left hip and tenderness to palpation, but the primary fracture was localized to the right hip. Initial imaging demonstrated a closed fracture of the right femoral neck ; left hip radiographs showed no acute fracture but confirmed soft tissue contusion. Orthopedic surgery was consulted and plans open reduction and internal fixation of the right hip tomorrow. Preoperative labs were obtained and Paula catheter placed. Patient is NPO with IVF running; pre-op antibiotics and DVT prophylaxis with SCDs initiated. Telemetry is active for monitoring atrial fibrillation. Pain is being managed with PRN morphine and [place]. Protonix started for stress ulcer prophylaxis. Overall, he remains hemodynamically stable without signs of acute decompensation. 11/12/24: Met with patient and daughter at bedside on postoperative day [address] Galo. The patient endorses significant pain improvement, currently rating discomfort as 5/10 on the numerical pain scale. 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 Given the patient's baseline functional status, a physical therapy evaluation will be pursued when the patient is medically stable and able to participate. - Review of Systems Constitutional: No Symptoms Eyes: No Symptoms Ears, Nose, & Throat: No Symptoms Respiratory: No Symptoms Cardiac: No Symptoms Abdominal/Gastrointestinal: No Symptoms Genitourinary Symptoms: No Symptoms Musculoskeletal: Joint Pain (right hip/left thigh) Skin: Other (surgical incision to right hip) Neurological: No Symptoms Psychological: No Symptoms Endocrine: No Symptoms Hematologic/Lymphatic: No Symptoms Immunological/Allergic: No Symptoms Objective Exam General Appearance: no apparent distress Neurologic Exam: alert, oriented x 3, cooperative Skin Exam: normal color Eye Exam: PERRL Ears, Nose, Throat Exam: normal ENT inspection Neck Exam: normal inspection Respiratory Exam: normal breath sounds, lungs clear Cardiovascular Exam: regular rate/rhythm, normal heart sounds Gastrointestinal/Abdomen Exam: soft, normal bowel sounds Extremity Exam: other (surgical incision to right hip with dressing CDI, left hip with echymosis) Back Exam: normal inspection Male Genitalia Exam: deferred Rectal Exam: deferred Objective Data Vital Signs: Vital Signs - 24 hr Temp Pulse Resp BP BP Pulse Ox 11/12/24 05:15 98.8 F 89 17 163/77 93 L 11/12/24 05:00 99.2 F 113 H 17 140/67 95 11/12/24 00:00 99.2 F 113 H 17 140/67 95 11/11/24 20:00 97.9 F 93 H 16 135/91 98 11/11/24 18:45 97.9 F 93 H 16 135/91 98 11/11/24 17:40 97.9 F 93 H 16 135/91 98 11/11/24 17:30 79 16 100 11/11/24 17:20 87 19 100 11/11/24 17:10 100 H 22 100 11/11/24 17:00 92 H 19 100 11/11/24 16:50 85 18 100 11/11/24 16:40 86 24 100 11/11/24 16:30 83 22 100 11/11/24 16:20 89 18 100 11/11/24 16:13 98 11/11/24 16:10 79 12 99 11/11/24 16:03 67 18 100 11/11/24 15:30 144/85 11/11/24 15:28 97.2 F 70 18 134/70 98 Pain Assessment - Last Documented Pain Intensity 8 Pain Scale Used [facility] Intake and Output: Intake & Output 11/09/24 11/10/24 11/11/24 11/12/24 11:59 11:59 11:59 11:59 Intake Total 20 Output Total 425 Balance -405 Weight 74.8 kg Lab Results: Lab Results-Last 24 Hours 11/11/24 11/11/24 11/11/24 Range/Units 17:58 18:10 18:10 WBC 11.4 H (4.23-9.07) x10^3/uL RBC 4.25 L (4.63-6.08) x10^6/uL Hgb 13.3 L (13.7-17.5) g/dL Hct 39.9 L (40.1-51.0) % MCV 93.9 H (79.0-92.2) fL MCH 31.3 (25.7-32.2) pg MCHC 33.3 (32.3-36.5) g/dL RDW 13.5 (11.6-14.4) % Plt Count 179 (163-337) x10^3/uL MPV 10.5 (9.4-12.4) fL Gran % 79.9 H (34.0-67.9) % Immature Gran % (Auto) 0.4 (0.001-0.429) % Nucleat RBC Rel Count 0.0 (0.00-0.2) % Eos # (Auto) 0.21 (0.04-0.54) x10^3/uL Immature Gran # (Auto) 0.05 H (0.001-0.031) x10^3u/L Absolute Lymphs (auto) 1.40 (1.32-3.57) x10^3/uL Absolute Monos (auto) 0.61 (0.30-0.82) x10^3/uL Absolute Nucleated RBC 0.00 (0.00-0.012) x10^3u/L Lymphocytes % 12.2 L (21.8-53.1) % Monocytes % 5.3 (5.3-12.2) % Eosinophils % 1.8 (0.8-7.0) % Basophils % 0.4 (0.2-1.2) % Absolute Granulocytes 9.12 H (1.78-5.38) x10^3/uL Basophils # 0.05 (0.01-0.08) x10^3/uL PT (9.4-12.5) SECONDS INR (0.8-3.0) APTT (25.1-36.5) SECONDS Sodium 140 (135-145) mmol/L Potassium 3.8 (3.5-5.1) mmol/L Chloride 110 H (98-107) mmol/L Carbon Dioxide 19 L (22-30) mmol/L Anion Gap 14.8 (5-15) MEQ/L BUN 19 (9-20) mg/dL Creatinine 0.96 (0.66-1.25) mg/dL Estimated GFR 80.4 ML/MIN Glucose 110 H (74-106) mg/dL Calcium 8.4 (8.4-10.2) mg/dL Total Bilirubin 1.10 (0.2-1.3) mg/dL Direct Bilirubin 0.3 (0.0-0.4) mg/dL AST 66 H (17-59) U/L ALT 38 (0-50) U/L Alkaline Phosphatase 63 (38-126) U/L Serum Total Protein 6.0 L (6.3-8.2) g/dL Albumin 3.5 (3.5-5.0) g/dL Urine Color (Yellow) Urine Appearance (Clear) Urine pH (4.6-8.0) Ur Specific [place] (1.005-1.030) Urine Protein (Negative) Urine Glucose (UA) (Negative) mg/dL Urine Ketones (Negative) Urine Blood (Negative) Urine Nitrite (Negative) Urine Bilirubin (Negative) Urine Urobilinogen (0.2) mg/dL Ur Leukocyte Esterase (Negative) U Hyaline Cast (Auto) (0-2) /LPF Urine Microscopic RBC (0-5) /HPF Urine Microscopic WBC (0-5) /HPF Ur Epithelial Cells (None Seen) /HPF Urine Bacteria (None Seen) /HPF ABO Group A Rh Factor NEGATIVE Antibody Screen NEGATIVE (NEGATIVE) 11/11/24 11/11/24 11/12/24 Range/Units 18:10 18:15 03:21 WBC 10.5 H (4.23-9.07) x10^3/uL RBC 3.75 L (4.63-6.08) x10^6/uL Hgb 11.9 L (13.7-17.5) g/dL Hct 35.1 L (40.1-51.0) % MCV 93.6 H (79.0-92.2) fL MCH 31.7 (25.7-32.2) pg MCHC 33.9 (32.3-36.5) g/dL RDW 14.0 (11.6-14.4) % Plt Count 161 L (163-337) x10^3/uL MPV 10.1 (9.4-12.4) fL Gran % (34.0-67.9) % Immature Gran % (Auto) (0.001-0.429) % Nucleat RBC Rel Count (0.00-0.2) % Eos # (Auto) (0.04-0.54) x10^3/uL Immature Gran # (Auto) (0.001-0.031) x10^3u/L Absolute Lymphs (auto) (1.32-3.57) x10^3/uL Absolute Monos (auto) (0.30-0.82) x10^3/uL Absolute Nucleated RBC (0.00-0.012) x10^3u/L Lymphocytes % (21.8-53.1) % Monocytes % (5.3-12.2) % Eosinophils % (0.8-7.0) % Basophils % (0.2-1.2) % Absolute Granulocytes (1.78-5.38) x10^3/uL Basophils # (0.01-0.08) x10^3/uL PT 13.7 H (9.4-12.5) SECONDS INR 1.28 (0.8-3.0) APTT 23.9 L (25.1-36.5) SECONDS Sodium (135-145) mmol/L Potassium (3.5-5.1) mmol/L Chloride (98-107) mmol/L Carbon Dioxide (22-30) mmol/L Anion Gap (5-15) MEQ/L BUN (9-20) mg/dL Creatinine (0.66-1.25) mg/dL Estimated GFR ML/MIN Glucose (74-106) mg/dL Calcium (8.4-10.2) mg/dL Total Bilirubin (0.2-1.3) mg/dL Direct Bilirubin (0.0-0.4) mg/dL AST (17-59) U/L ALT (0-50) U/L Alkaline Phosphatase (38-126) U/L Serum Total Protein (6.3-8.2) g/dL Albumin (3.5-5.0) g/dL Urine Color Yellow (Yellow) Urine Appearance Clear (Clear) Urine pH 8.0 (4.6-8.0) Ur Specific [place] 1.015 (1.005-1.030) Urine Protein Negative (Negative) Urine Glucose (UA) Negative (Negative) mg/dL Urine Ketones Negative (Negative) Urine Blood Moderate A (Negative) Urine Nitrite Negative (Negative) Urine Bilirubin Negative (Negative) Urine Urobilinogen 1.0 A (0.2) mg/dL Ur Leukocyte Esterase Negative (Negative) U Hyaline Cast (Auto) NONE SEEN (0-2) /LPF Urine Microscopic RBC 51-100 A (0-5) /HPF Urine Microscopic WBC 0-2 (0-5) /HPF Ur Epithelial Cells None Seen (None Seen) /HPF Urine Bacteria None Seen (None Seen) /HPF ABO Group Rh Factor Antibody Screen (NEGATIVE) Radiology Exams: Radiology Procedures Category Date Time Status FEMUR Stat Exams 11/11/24 17:11 Completed FEMUR Stat Exams 11/11/24 17:11 Completed HIPS SANGEETA(2V) INCL PEL IF DONE Stat Exams 11/11/24 16:06 Completed Medications: Medications Generic Name Dose Route Start Last Admin Trade Name Freq PRN Reason Stop Dose Admin Hydrocodone Bitart/Acetaminophen 1 tab 11/11/24 17:46 Hydrocodone/Apap 5/325 1 Tab Tablet PO 11/16/24 17:45 Q4H PRN PRN PAIN Diltiazem HCl 180 mg 11/12/24 10:00 Diltiazem Hcl Cd 180 Mg Cap.Sr.24h PO 12/12/24 09:59 DAILY AMBER Diphenhydramine HCl 12.5 mg 11/11/24 18:36 11/11/24 18:37 Diphenhydramine Hcl 50 Mg/Ml Vial IV 11/11/24 18:37 12.5 mg STAT ONE Administration Ezetimibe 10 mg 11/12/24 10:00 Ezetimibe 10 Mg Tab PO 12/12/24 09:59 DAILY AMBER Sodium Chloride 1,000 mls @ 75 mls/hr 11/12/24 00:01 11/12/24 00:45 Sodium Chloride 0.45% 1000 Ml IV 12/12/24 00:00 75 mls/hr .[id number] AMBER Administration Metoprolol Succinate 50 mg 11/11/24 22:00 11/11/24 21:47 Metoprolol Succinate 50 Mg Tablet.Sa PO 12/11/24 21:59 50 mg BID AMBER Administration Morphine Sulfate 4 mg 11/11/24 17:47 11/12/24 01:21 Morphine Sulfate 4 Mg/Ml Injection IV 11/16/24 17:46 4 mg Q2H PRN PRN Administration SEVERE PAIN Naloxone HCl 0.4 mg 11/11/24 17:54 Naloxone Hcl 0.4 Mg/Ml Ml IV 12/11/24 17:53 PRN PRN RESPIRATORY DEPRESSION Non-Formulary Medication 100 mg 11/12/24 10:00 Ubidecarenone [Co Q-10] PO 12/12/24 09:59 DAILY AMBER Non-Formulary Medication 145 mg 11/12/24 10:00 Fenofibrate [Fenofibrate] PO 12/12/24 09:59 DAILY AMBER Non-Formulary Medication 1 tab 11/12/24 10:00 Multivitamin [Multi-Vitamin Daily] PO 12/12/24 09:59 DAILY AMBER Non-Formulary Medication 1 cap 11/11/24 22:00 11/11/24 22:05 Vit C/E/Zn/Coppr/Lutein/Zeaxan [Preservision Areds 2 Softgel] PO 12/11/24 21:59 Not Given BID AMBER Ondansetron HCl 4 mg 11/11/24 18:16 Ondansetron Hcl 4 Mg/2 Ml Vial IV 12/11/24 18:15 Q6H PRN PRN NAUSEA/VOMITING Pantoprazole Sodium 20 mg 11/12/24 10:00 Pantoprazole 20 Mg Tab PO 12/12/24 09:59 DAILY AMBER Simvastatin 40 mg 11/11/24 22:00 11/11/24 21:48 Simvastatin 20 Mg Tablet PO 12/11/24 21:59 40 mg HS AMBER Administration Discontinued Medications Generic Name Dose Route Start Last Admin Trade Name Freq PRN Reason Stop Dose Admin Sodium Chloride 1,000 mls @ 999 mls/hr 11/11/24 16:04 11/11/24 16:24 Sodium Chloride 0.9% 1000 Ml IV 11/11/24 17:04 999 mls/hr .Q1H1M STA Administration Meropenem 1 gm/ Sodium 100 mls @ 200 mls/hr 11/11/24 16:04 11/11/24 16:42 Chloride IV 11/11/24 16:33 Not Given STAT ONE Cefazolin Sodium 1 gm in 100 mls @ 200 mls/hr 11/11/24 16:10 11/11/24 17:10 Cefazolin 1 Gm/100 Ml Nacl Ivpb IV 11/11/24 16:39 Infused STAT STA Infusion Cefazolin Sodium Confirm 11/11/24 16:21 Cefazolin 1 Gm/100 Ml Nacl Ivpb Administered 11/11/24 16:22 Dose 1 gm in 100 mls @ ud IV .STK-MED ONE Sodium Chloride Confirm 11/11/24 16:21 Sodium Chloride 0.9% 1000 Ml Administered 11/11/24 16:22 Dose 1,000 mls @ ud .ROUTE .STK-MED ONE Morphine Sulfate 4 mg 11/11/24 16:04 11/11/24 16:29 Morphine Sulfate 4 Mg/Ml Injection IV 11/11/24 16:05 4 mg STAT ONE Administration Morphine Sulfate Confirm 11/11/24 16:21 Morphine Sulfate 4 Mg/Ml Injection Administered 11/11/24 16:22 Dose 4 mg .ROUTE .STK-MED ONE Non-Formulary Medication 80 mg 11/11/24 22:00 Atorvastatin Calcium [Atorvastatin Calcium] PO 12/11/24 21:59 HS AMBER Ondansetron HCl 4 mg 11/11/24 16:18 11/11/24 16:27 Ondansetron Hcl 4 Mg/2 Ml Vial IV 11/11/24 16:19 4 mg STAT ONE Administration Ondansetron HCl Confirm 11/11/24 16:20 Ondansetron Hcl 4 Mg/2 Ml Vial Administered 11/11/24 16:21 Dose 4 mg .ROUTE .STK-MED ONE Prochlorperazine Edisylate 10 mg 11/11/24 18:20 11/11/24 18:22 Prochlorperazine Edisylate 10 Mg/2 Ml Vial IV 12/11/24 18:19 10 mg Q6H PRN PRN Administration NAUSEA/VOMITING Prochlorperazine Edisylate Confirm 11/11/24 18:21 Prochlorperazine Edisylate 10 Mg/2 Ml Vial Administered 11/11/24 18:22 Dose 10 mg .ROUTE .STK-MED ONE Assessment/Plan (1) Closed right hip fracture Current Visit: Yes Status: Acute Qualifiers: Encounter type: initial encounter Qualified Code(s): S72.001A - Fracture of unspecified part of neck of right femur, initial encounter for closed fracture Assessment & Plan: -Orthopedics consulted; fracture confirmed on imaging. -Surgery (ORIF) planned 11/12/24 -Preoperative labs (CBC, CMP, PT/INR) obtained and reviewed -CMP/CBC reviewed -Patient remains NPO in preparation for surgery; maintenance IVF initiated -Preoperative antibiotics administered (per protocol). -Pain managed with PRN morphine and [place] -Paula catheter placed for anticipated immobility -SCDs)for DVT prophylaxis initiated. -Continue ice application to the affected hip for comfort and swelling control Code(s): S72.001A - FRACTURE OF UNSP PART OF NECK OF RIGHT FEMUR, INIT (2) Right hip pain Current Visit: Yes Status: Acute Assessment & Plan: - See plan above - Ortho consult in ER- awaiting recs - ICE pack - Paula ordered in ER per ortho for immobilization - Morphine and norco PRN for pain control per Ortho recs - Narcan PRN - Protonix Code(s): M25.551 - PAIN IN RIGHT HIP (3) Left thigh pain Current Visit: Yes Status: Acute Assessment & Plan: -- + Left thigh bruise - Radiology results pending - Left hip/thigh bruising noted on exam; no fracture seen on initial imaging -Continue close monitoring for expanding hematoma or compartment syndrome signs (increasing pain, swelling, numbness, or neurovascular compromise) -Pain control -consider further imaging if swelling/pain persists Code(s): M79.652 - PAIN IN LEFT THIGH (4) History of colon cancer Current Visit: Yes Status: Acute Assessment & Plan: -No oncologic intervention needed during this admission -Maintain vigilance for delayed healing or other post-op complications in view of past cancer history Code(s): Z85.038 - PERSONAL HISTORY OF MALIGNANT NEOPLASM OF LARGE INTESTINE (5) Atrial fibrillation Current Visit: Yes Status: Chronic Assessment & Plan: -telemetry initiated for continuous monitoring -No evidence of rapid ventricular response (RVR) or decompensation currently -Continue home rate control medications -Monitor closely perioperatively given increased risk for perioperative arrhythmias Code(s): I48.91 - UNSPECIFIED ATRIAL FIBRILLATION (6) Hyperlipidemia Current Visit: No Status: Chronic Assessment & Plan: -continue statin Code(s): E78.5 - HYPERLIPIDEMIA, UNSPECIFIED (7) Leukocytosis Current Visit: Yes Status: Acute Assessment & Plan: -Most likely reactive 2/2 to fall- WBC on [id number]<10.5 - trend -UA with hematuria - otherwise clear -Received pre-op Cefazolin Code(s): D72.829 - ELEVATED WHITE BLOOD CELL COUNT, UNSPECIFIED (8) Hypocalcemia Current Visit: Yes Status: Acute Assessment & Plan: -corrected calcium 8.8 Code(s): E83.51 - HYPOCALCEMIA (9) Hypertension Current Visit: No Status: Chronic Assessment & Plan: -continue home meds VTE: SCD's PPI: Protonix Nesxt of KIN: Child- Romy Graham D/C plan: 2-3 days Code status: Full Code(s): I10 - ESSENTIAL (PRIMARY) HYPERTENSION
[2024-11-12] MEDS: Cardizem CD PO SCH (06:18)
[2024-11-12] MEDS ORDERED: CEFAZOLIN 2 GM/100 ML NaCl 2 GM/100 ML IVPB IV SCH (06:45)
[2024-11-12] MEDS ORDERED: propofoL IV ONE (07:01)
[2024-11-12] MEDS ORDERED: MEDICATION INTERVENTION MC SCH (07:15)
[2024-11-12] MEDS ORDERED: Lactated Ringers 1,000 ML IV ONE (07:21)
[2024-11-12] MEDS ORDERED: Sodium Chloride 0.9% 1000 ML 1,000 ML ONE (07:32)
[2024-11-12] MEDS ORDERED: ROCURONIUM BROMIDE IV ONE (07:52)
[2024-11-12] MEDS ORDERED: Zofran 4 MG/2 ML VIAL ONE (07:52)
[2024-11-12] MEDS ORDERED: KEFZOL 1 GM ONE (07:52)
[2024-11-12] MEDS ORDERED: PHENYLEPHRINE HCL ONE (07:52)
[2024-11-12] MEDS ORDERED: dexAMETHasone sodium phosphate ONE (07:52)
[2024-11-12] MEDS ORDERED: Naropin 0.5% 30 ML VIAL ONE (07:55)
[2024-11-12] MEDS ORDERED: TRANEXAMIC 1,000 MG/100ML-NACL 1,000 MG/100 ML PIGGYBACK IV ONE (07:56)
[2024-11-12] MEDS ORDERED: SUBLIMAZE 100 MCG/2 ML ONE ×2 (08:03→10:29)
--- NOTE | 2024-11-12 08:41 | CONS ---
DATE OF CONSULTATION: 11/11/2024 REASON FOR CONSULTATION: Right hip fracture HISTORY: Mr. Azul is a 79-year-old male who was doing yard work earlier today when he twisted and felt pain in the right hip causing him to fall. Upon landing, he had right hip pain and was unable to bear weight on the right lower extremity. The patient was brought to the [facility] Emergency Department where imaging studies were obtained which indicated a right femoral neck fracture. Orthopaedic Surgery was consulted for further evaluation and treatment of the patient. The patient currently reports right hip pain with motion of the right lower extremity. The patient states that upon landing he also struck his left lateral thigh, and he is currently reporting left thigh pain and cramping. The patient denies any numbness or tingling in ether lower extremity. No other problems are reported. PAST MEDICAL HISTORY: 1) Atrial fibrillation 2) Hypertension 3) Hyperlipidemia 4) History of colon cancer 5) History of liver cancer PAST SURGICAL HISTORY: 1) Partial colon resection 2) Hiatal hernia repair 3) Cholecystectomy 4) Stent placement HOME MEDICATIONS: 1) Metoprolol 2) Multivitamin 3) Atorvastatin 4) Fenofibrate 5) Ezetimibe 6) Diltiazem ER 7) Aspirin ALLERGIES: 1) DOXYCYCLINE 2) CEFDINIR 3) PROCHLORPERAZINE FAMILY HISTORY: Noncontributory SOCIAL HISTORY: The patient does have a remote tobacco history. The patient denies any alcohol or illicit drug use. REVIEW OF SYSTEMS: All systems were reviewed, and are negative except as mentioned in the HPI. PHYSICAL EXAMINATION: On examination, the patient stands 5 feet 9 inches tall and weighs 81.64 kg for a BMI of 26.6. The patient is alert and oriented, in no acute distress. The patient interacts appropriately during the examination. Examination of the patient's gait reveals the patient to be laying on a hospital stretcher. Examination of the right hip reveals the skin to be intact; there is no erythema, bruising, or rashes. There is no swelling or deformity about the hip. There is mild tenderness to palpation about the anterior and lateral aspects of the hip. Any attempt at hip range of motion elicits pain; the patient is able to move his toes and ankle without difficulty. The patient has a 2+ dorsalis pedis pulse; the patient's capillary refill is less than 2 seconds. The patient's distal sensation is grossly intact to light touch. Examination of the left thigh reveals the skin to be intact; there is mild bruising about the distal lateral aspect of the thigh; there is no erythema or rashes. There is mild swelling about the distal lateral thigh; no gross deformity is noted. There is tenderness to palpation of the distal lateral thigh. The patient is able to move his toes and ankle without difficulty. The patient has a 2+ dorsalis pedis pulse; the patient's capillary refill is less than 2 seconds. The patient's distal sensation is grossly intact to light touch. IMAGING STUDIES: X-rays of the right hip, right femur, and left femur dated 11/11/2024 performed at [facility] were independently reviewed. The x-rays of the right hip reveal a displaced right femoral neck fracture. The x-rays of the right femur reveal no additional fracture or gross bony abnormality. The x-rays of the left femur reveal no evidence of fracture or acute bony abnormality. IMPRESSION: 1) Right femoral neck fracture 2) Left thigh contusion PLAN: Mr. Azul sustained a right femoral neck fracture. Upon falling, he also sustained a left thigh contusion. The patient will require surgical intervention for the right hip fracture in the form of right hip hemiarthroplasty. The risks and benefits of the planned surgical procedure were discussed in depth with the patient. These risk include, but are not limited to, general medical problems associated with anesthesia, infection, bleeding, damage to nerves and vessels, pain after surgery, and the need for future procedures. The patient acknowledges and accepts these risks. The patient will be scheduled for surgery on 11/12/2024 pending medical clearance. The patient is currently being admitted to the hospital under the Hospitalist Service. Following the surgical procedure, the patient will remain hospitalized for physical and occupational therapy, pain control, monitoring, and discharge planning. Symptomatic treatment for the left thigh will be provided. Thank you for this consultation.
[2024-11-12] MEDS ORDERED: VANCOCIN INJECTION IV ONE (08:47)
[2024-11-12] MEDS ORDERED: BRIDION 200MG/2ML IV ONE (09:51)
[2024-11-12] MEDS ORDERED: NON-FORMULARY ITEM (Multivitamin [Multi-Vitamin Daily] 1 EACH Tablet) PO SCH (10:00)
[2024-11-12] MEDS ORDERED: NON-FORMULARY ITEM (Fenofibrate [Fenofibrate] 160 MG Tablet) PO SCH (10:00)
[2024-11-12] MEDS ORDERED: UBIDECARENONE 50 MG PO SCH (10:00)
--- NOTE | 2024-11-12 10:56 | XRAY ---
Indication: Follow-up surgery. Comparison: One day earlier. AP/crosstable lateral right hip demonstrates interval total hip arthroplasty with intact bipolar prosthesis and postoperative soft tissue swelling/soft tissue emphysema. Elsewhere stable osteopenia, mild scattered vascular calcifications, and pelvic surgical clips. No other bony, articular, or soft tissue abnormalities.
[2024-11-12] MEDS: TRANEXAMIC 1,000 MG/100ML-NACL 1,000 MG/100 ML PIGGYBACK IV ONE (12:58)
[2024-11-12] MEDS: Ocuvite Tablet PO SCH (13:01)
[2024-11-12] MEDS: Protonix 20MG Tablet PO SCH (13:01)
[2024-11-12] MEDS: THERAGRAN MULTIVITAMIN PO SCH (13:02)
[2024-11-12] MEDS: Zetia 10 MG PO SCH (13:02)
[2024-11-12] MEDS: Tricor 145 MG PO SCH (13:02)
[2024-11-12] MEDS: CEFAZOLIN 2 GM/100 ML NaCl 2 GM/100 ML IVPB IV SCH (15:02)
[2024-11-12] MEDS: MORPHINE SULFATE 2 MG INJ IV PRN (16:16)
[2024-11-12] MEDS: ECOTRIN 81 MG PO SCH (21:24)
[2024-11-12] MEDS: Docusate Sodium 100 MG PO SCH (21:24)
[2024-11-12] MEDS: Zofran 4 MG/2 ML VIAL IV PRN (21:24)
--- NOTE | 2024-11-13 05:11 | PCM.NOTE ---
Date and Time: 11/13/24 0510 Subjective Assessment: HPI: Mr. Azul is a 79-year-old male with a pmhx of HTN, HLD, AFIB (irregularly irregular rhythm noted on exam), two prior MIs under cardiology care, and remote colorectal cancer with liver metastases, presenting 11/11/24 after a mechanical ground-level fall while weed eating. He denies any preceding syncope or lightheadedness. Examination revealed ecchymosis over the left hip and tenderness to palpation, but the primary fracture was localized to the right hip. Initial imaging demonstrated a closed fracture of the right femoral neck ; left hip radiographs showed no acute fracture but confirmed soft tissue contusion. Orthopedic surgery was consulted and plans open reduction and internal fixation of the right hip tomorrow. Preoperative labs were obtained and Bryant catheter placed. Patient is NPO with IVF running; pre-op antibiotics and DVT prophylaxis with SCDs initiated. Telemetry is active for monitoring atrial fibrillation. Pain is being managed with PRN morphine and Avenal. Protonix started for stress ulcer prophylaxis. Overall, he remains hemodynamically stable without signs of acute decompensation. 11/12/24: Met with patient and daughter at bedside on postoperative day [address] Galo. The patient endorses significant pain improvement, currently rating discomfort as 5/10 on the numerical pain scale. 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 Given the patient's baseline functional status, a physical therapy evaluation will be pursued when the patient is medically stable and able to participate. 11/13/24: POD#1 s/p right hip hemiarthroplasty without overnight events. He reports improvement in right hip pain, currently rated 7/10 on the numerical pain scale, with significant resolution of prior left hip discomfort. Physical therapy is scheduled to evaluate the patient today to assist in determining appropriate discharge planning, with options including home discharge, swing bed placement, or formal rehabilitation. The patient expresses a preference for swing bed placement should continued inpatient rehabilitation be recommended. He remains weight-bearing as tolerated and is maintained on aspirin 81 mg daily per orthopedic protocol for deep vein thrombosis prophylaxis. - Review of Systems Constitutional: No Symptoms Eyes: No Symptoms Ears, Nose, & Throat: No Symptoms Respiratory: No Symptoms Cardiac: No Symptoms Abdominal/Gastrointestinal: No Symptoms Genitourinary Symptoms: No Symptoms Musculoskeletal: Joint Pain (right hip) Skin: No Symptoms, Other (surgical incision to right hip- covered in dressing CDI) Neurological: No Symptoms Psychological: No Symptoms Endocrine: No Symptoms Hematologic/Lymphatic: No Symptoms Immunological/Allergic: No Symptoms Objective Exam General Appearance: no apparent distress Neurologic Exam: alert, oriented x 3, cooperative Skin Exam: other (surgical incision to right hip- surgical dressing CDI - no surrounding erythema/drainage) Wound Assessment: Skin/Wound Assessment Wound/Incision Assessment Start: 11/11/24 19:12 Text: Status: Active Freq: Q4H Protocol: Document 11/13/24 04:00 GM (Rec: 11/13/24 04:16 GM [id number]) Wound/Incision Assessment right thigh Wound Assessment Shift Assessment Wound Type Incision Wound Stage Non Pressure Wound Dressing Status Dry & Intact Drainage Amount None Drainage Odor None/Absent Primary Dressing Non-Adherent Gauze Pads Wound Photo Photo Taken No Eye Exam: PERRL Ears, Nose, Throat Exam: normal ENT inspection Neck Exam: normal inspection Respiratory Exam: normal breath sounds, lungs clear Cardiovascular Exam: regular rate/rhythm, normal heart sounds Extremity Exam: normal inspection Back Exam: normal inspection Male Genitalia Exam: deferred Rectal Exam: deferred Objective Data Vital Signs: Vital Signs - 24 hr Temp Pulse Resp BP Pulse Ox 11/13/24 04:00 97.8 F 97 H 18 160/74 95 11/13/24 03:00 18 11/13/24 00:00 97.8 F 102 H 18 142/67 95 11/12/24 23:00 17 11/12/24 20:00 98.1 F 80 17 134/64 94 L 11/12/24 16:00 98.1 F 80 17 134/64 94 L 11/12/24 15:05 98.1 F 80 17 134/64 94 L 11/12/24 15:00 17 11/12/24 14:05 98.1 F 71 16 111/61 96 11/12/24 13:05 77 16 135/64 93 L 11/12/24 12:35 86 16 135/65 92 L 11/12/24 12:05 84 17 134/63 94 L 11/12/24 11:57 98.1 F 80 17 94 L 11/12/24 11:40 97.6 F 89 17 116/68 96 11/12/24 11:27 99.2 F 113 H 17 95 11/12/24 05:19 99.2 F 113 H 17 140/67 95 11/12/24 05:15 98.8 F 89 17 163/77 93 L Pain Assessment - Last Documented Pain Intensity 5 Pain Scale Used 0-10 Pain Scale Intake and Output: Intake & Output 11/10/24 11/11/24 11/12/24 11/13/24 11:59 11:59 11:59 11:59 Intake Total 302 540 Output Total 875 2600 Balance -573 -2060 Weight 74.8 kg Lab Results: Lab Results-Last 24 Hours 11/12/24 Range/Units 03:21 Sodium 139 (135-145) mmol/L Potassium 4.2 (3.5-5.1) mmol/L Chloride 106 (98-107) mmol/L Carbon Dioxide 25 (22-30) mmol/L Anion Gap 12.6 (5-15) MEQ/L BUN 17 (9-20) mg/dL Creatinine 0.87 (0.66-1.25) mg/dL Estimated GFR 87.8 ML/MIN Glucose 120 H (74-106) mg/dL Calcium 8.2 L (8.4-10.2) mg/dL Total Bilirubin 1.20 (0.2-1.3) mg/dL AST 56 (17-59) U/L ALT 37 (0-50) U/L Alkaline Phosphatase 53 (38-126) U/L Serum Total Protein 5.5 L (6.3-8.2) g/dL Albumin 3.3 L (3.5-5.0) g/dL Radiology Exams: Radiology Procedures Category Date Time Status FEMUR Stat Exams 11/11/24 17:11 Completed FEMUR Stat Exams 11/11/24 17:11 Completed HIP UNI (2V) INCL PEL IF DONE Routine Exams 11/12/24 10:26 Completed HIPS SANGEETA(2V) INCL PEL IF DONE Stat Exams 11/11/24 16:06 Completed Medications: Medications Generic Name Dose Route Start Last Admin Trade Name Freq PRN Reason Stop Dose Admin Hydrocodone Bitart/Acetaminophen 1 - 2 tab 11/12/24 15:00 Hydrocodone/Apap 5/325 1 Tab Tablet PO 11/17/24 14:59 Q4H PRN PRN MODERATE PAIN Aspirin 81 mg 11/12/24 22:00 11/12/24 21:24 Aspirin 81 Mg Tablet.Ec PO 12/12/24 21:59 81 mg BID AMBER Administration Diltiazem HCl 180 mg 11/12/24 10:00 11/12/24 06:18 Diltiazem Hcl Cd 180 Mg Cap.Sr.24h PO 12/12/24 09:59 180 mg DAILY AMBER Administration Docusate Sodium 100 mg 11/12/24 22:00 11/12/24 21:24 Docusate Sodium 100 Mg Capsule PO 12/12/24 21:59 100 mg BID AMBER Administration Ezetimibe 10 mg 11/12/24 10:00 11/12/24 13:02 Ezetimibe 10 Mg Tab PO 12/12/24 09:59 Not Given DAILY AMBER Fenofibrate 145 mg 11/12/24 10:00 11/12/24 13:02 Fenofibrate,Micronized 145 Mg Tablet PO 12/12/24 09:59 Not Given DAILY AMBER Sodium Chloride 1,000 mls @ 75 mls/hr 11/12/24 00:01 11/13/24 03:29 Sodium Chloride 0.45% 1000 Ml IV 12/12/24 00:00 75 mls/hr .[id number] AMBER Administration Cefazolin Sodium 2 gm in 100 mls @ 200 mls/hr 11/12/24 15:00 11/12/24 15:02 Cefazolin 2 Gm/100 Ml Nacl IV 11/13/24 07:29 200 mls/hr Q8H AMBER Administration Metoprolol Succinate 50 mg 11/11/24 22:00 11/12/24 21:24 Metoprolol Succinate 50 Mg Tablet.Sa PO 12/11/24 21:59 50 mg BID AMBER Administration Miscellaneous Information 1 each 11/12/24 07:15 Medication Intervention 1 Each Each 12/12/24 07:14 .RN TO CHECK AMBER Morphine Sulfate 2 mg 11/12/24 14:48 11/12/24 21:24 Morphine Sulfate 2 Mg/Ml Inj IV 11/17/24 14:47 2 mg Q2H PRN PRN Administration SEVERE PAIN Morphine Sulfate 4 mg 11/12/24 14:49 Morphine Sulfate 4 Mg/Ml Injection IV 11/17/24 14:48 Q2H PRN PRN SEVERE PAIN Multivitamins Therapeutic 1 tab 11/12/24 10:00 11/12/24 13:02 Multivitamins,Therapeutic 1 Tab Tab PO 12/12/24 09:59 Not Given DAILY AMBER Multivitamins/Minerals 1 tab 11/12/24 10:00 11/12/24 21:24 Beta-Carotene(A) W-C And E/Min 1 Tab Tablet PO 12/12/24 09:59 1 tab BID AMBER Administration Naloxone HCl 0.4 mg 11/11/24 17:54 Naloxone Hcl 0.4 Mg/Ml Ml IV 12/11/24 17:53 PRN PRN RESPIRATORY DEPRESSION Ondansetron HCl 4 mg 11/12/24 14:52 11/12/24 21:24 Ondansetron Hcl 4 Mg/2 Ml Vial IV 12/12/24 14:51 4 mg Q4H PRN PRN Administration NAUSEA/VOMITING Pantoprazole Sodium 20 mg 11/12/24 10:00 11/12/24 13:01 Pantoprazole 20 Mg Tab PO 12/12/24 09:59 20 mg DAILY AMBER Administration Simvastatin 40 mg 11/11/24 22:00 11/12/24 21:25 Simvastatin 20 Mg Tablet PO 12/11/24 21:59 40 mg HS AMBER Administration Discontinued Medications Generic Name Dose Route Start Last Admin Trade Name Freq PRN Reason Stop Dose Admin Hydrocodone Bitart/Acetaminophen 1 tab 11/11/24 17:46 Hydrocodone/Apap 5/325 1 Tab Tablet PO 11/16/24 17:45 Q4H PRN PRN PAIN Cefazolin Sodium Confirm 11/12/24 07:52 Cefazolin Sodium 1 Gm Vial Administered 11/12/24 07:53 Dose 2 g .ROUTE .STK-MED ONE Dexamethasone Sodium Phosphate Confirm 11/12/24 07:52 Dexamethasone Sodium Phosphate 4 Mg/Ml Vial Administered 11/12/24 07:53 Dose 4 mg .ROUTE .STK-MED ONE Diphenhydramine HCl 12.5 mg 11/11/24 18:36 11/11/24 18:37 Diphenhydramine Hcl 50 Mg/Ml Vial IV 11/11/24 18:37 12.5 mg STAT ONE Administration Fentanyl Citrate Confirm 11/12/24 08:03 Fentanyl Citrate 100 Mcg/2 Ml* Vial Administered 11/12/24 08:04 Dose 100 mcg .ROUTE .STK-MED ONE Fentanyl Citrate Confirm 11/12/24 10:29 Fentanyl Citrate 100 Mcg/2 Ml* Vial Administered 11/12/24 10:30 Dose 100 mcg .ROUTE .STK-MED ONE Sodium Chloride 1,000 mls @ 999 mls/hr 11/11/24 16:04 11/11/24 16:24 Sodium Chloride 0.9% 1000 Ml IV 11/11/24 17:04 999 mls/hr .Q1H1M STA Administration Meropenem 1 gm/ Sodium 100 mls @ 200 mls/hr 11/11/24 16:04 11/11/24 16:42 Chloride IV 11/11/24 16:33 Not Given STAT ONE Cefazolin Sodium 1 gm in 100 mls @ 200 mls/hr 11/11/24 16:10 11/11/24 17:10 Cefazolin 1 Gm/100 Ml Nacl Ivpb IV 11/11/24 16:39 Infused STAT STA Infusion Cefazolin Sodium Confirm 11/11/24 16:21 Cefazolin 1 Gm/100 Ml Nacl Ivpb Administered 11/11/24 16:22 Dose 1 gm in 100 mls @ ud IV .STK-MED ONE Sodium Chloride Confirm 11/11/24 16:21 Sodium Chloride 0.9% 1000 Ml Administered 11/11/24 16:22 Dose 1,000 mls @ ud .ROUTE .STK-MED ONE Cefazolin Sodium 2 gm in 100 mls @ 200 mls/hr 11/12/24 06:45 Cefazolin 2 Gm/100 Ml Nacl IV 11/12/24 07:14 ONCALLTOOR AMBER TRANEXAMIC ACID IN NACL,ISO-OS 1,000 mg in 100 mls @ 600 mls/hr 11/12/24 06:35 11/12/24 12:58 Tranexamic 1,000 Mg/100ml-Nacl IV 11/12/24 06:44 Not Given ONCE ONE Lactated Ringer's Confirm 11/12/24 07:21 Lactated Ringers Administered 11/12/24 07:22 Dose 1,000 mls @ ud IV .STK-MED ONE Sodium Chloride Confirm 11/12/24 07:32 Sodium Chloride 0.9% 1000 Ml Administered 11/12/24 07:33 Dose 1,000 mls @ ud .ROUTE .STK-MED ONE TRANEXAMIC ACID IN NACL,ISO-OS Confirm 11/12/24 07:56 Tranexamic 1,000 Mg/100ml-Nacl Administered 11/12/24 07:57 Dose 1,000 mg in 100 mls @ ud IV .STK-MED ONE Morphine Sulfate 4 mg 11/11/24 16:04 11/11/24 16:29 Morphine Sulfate 4 Mg/Ml Injection IV 11/11/24 16:05 4 mg STAT ONE Administration Morphine Sulfate Confirm 11/11/24 16:21 Morphine Sulfate 4 Mg/Ml Injection Administered 11/11/24 16:22 Dose 4 mg .ROUTE .STK-MED ONE Morphine Sulfate 4 mg 11/11/24 17:47 11/12/24 01:21 Morphine Sulfate 4 Mg/Ml Injection IV 11/16/24 17:46 4 mg Q2H PRN PRN Administration SEVERE PAIN Non-Formulary Medication 80 mg 11/11/24 22:00 Atorvastatin Calcium [Atorvastatin Calcium] PO 12/11/24 21:59 HS AMBER Non-Formulary Medication 1 cap 11/11/24 22:00 11/11/24 22:05 Vit C/E/Zn/Coppr/Lutein/Zeaxan [Preservision Areds 2 Softgel] PO 12/11/24 21:59 Not Given BID AMBER Ondansetron HCl 4 mg 11/11/24 16:18 11/11/24 16:27 Ondansetron Hcl 4 Mg/2 Ml Vial IV 11/11/24 16:19 4 mg STAT ONE Administration Ondansetron HCl Confirm 11/11/24 16:20 Ondansetron Hcl 4 Mg/2 Ml Vial Administered 11/11/24 16:21 Dose 4 mg .ROUTE .STK-MED ONE Ondansetron HCl 4 mg 11/11/24 18:16 Ondansetron Hcl 4 Mg/2 Ml Vial IV 12/11/24 18:15 Q6H PRN PRN NAUSEA/VOMITING Ondansetron HCl Confirm 11/12/24 07:52 Ondansetron Hcl 4 Mg/2 Ml Vial Administered 11/12/24 07:53 Dose 4 mg .ROUTE .STK-MED ONE Phenylephrine HCl Confirm 11/12/24 07:52 Phenylephrine 10 Mg/Ml Vial Administered 11/12/24 07:53 Dose 10 mg .ROUTE .STK-MED ONE Prochlorperazine Edisylate 10 mg 11/11/24 18:20 11/11/24 18:22 Prochlorperazine Edisylate 10 Mg/2 Ml Vial IV 12/11/24 18:19 10 mg Q6H PRN PRN Administration NAUSEA/VOMITING Prochlorperazine Edisylate Confirm 11/11/24 18:21 Prochlorperazine Edisylate 10 Mg/2 Ml Vial Administered 11/11/24 18:22 Dose 10 mg .ROUTE .STK-MED ONE Propofol Confirm 11/12/24 07:01 Propofol 200 Mg/20 Ml Vial Administered 11/12/24 07:02 Dose 200 mg IV .STK-MED ONE Rocuronium [place] Confirm 11/12/24 07:52 Rocuronium [place] 50 Mg/5 Ml Vial Administered 11/12/24 07:53 Dose 50 mg IV .STK-MED ONE Ropivacaine Confirm 11/12/24 07:55 Ropivacaine Hcl 5 Mg/Ml 30ml Vial Administered 11/12/24 07:56 Dose 150 mg .ROUTE .STK-MED ONE Sugammadex Sodium Confirm 11/12/24 09:51 Sugammadex Sodium 200 Mg/2 Ml Vial Administered 11/12/24 09:52 Dose 200 mg IV .STK-MED ONE Vancomycin HCl Confirm 11/12/24 08:47 Vancomycin Hcl Inj 1 Gm Vial Administered 11/12/24 08:48 Dose 1 gm IV .STK-MED ONE Assessment/Plan (1) Closed right hip fracture Current Visit: Yes Status: Acute Qualifiers: Encounter type: initial encounter Qualified Code(s): S72.001A - Fracture of unspecified part of neck of right femur, initial encounter for closed fracture Assessment & Plan: -Orthopedics consulted; fracture confirmed on imaging. -Surgery (ORIF) planned 11/12/24 -Preoperative labs (CBC, CMP, PT/INR) obtained and reviewed -CMP/CBC reviewed -Patient remains NPO in preparation for surgery; maintenance IVF initiated -Preoperative antibiotics administered (per protocol). -Pain managed with PRN morphine and Avenal -Bryant catheter placed for anticipated immobility -SCDs)for DVT prophylaxis initiated. -Continue ice application to the affected hip for comfort and swelling control 11/13: -PODS#1- doing well, pain controlled -PT to evaluate patient today -Ortho note reviewed - agree with plan for ASA 81mg, WB as tolerated -CMP/CBC reviewed -continue pain management -IPPT -DC bryant catheter Code(s): S72.001A - FRACTURE OF UNSP PART OF NECK OF RIGHT FEMUR, INIT (2) Right hip pain Current Visit: Yes Status: Acute Assessment & Plan: - See plan above - Ortho consult in ER- awaiting recs - ICE pack - Bryant ordered in ER per ortho for immobilization - Morphine and norco PRN for pain control per Ortho recs - Narcan PRN - Protonix Code(s): M25.551 - PAIN IN RIGHT HIP (3) Left thigh pain Current Visit: Yes Status: Acute Assessment & Plan: -- + Left thigh bruise - Radiology results pending - Left hip/thigh bruising noted on exam; no fracture seen on initial imaging -Continue close monitoring for expanding hematoma or compartment syndrome signs (increasing pain, swelling, numbness, or neurovascular compromise) -Pain control -consider further imaging if swelling/pain persists Code(s): M79.652 - PAIN IN LEFT THIGH (4) History of colon cancer Current Visit: Yes Status: Acute Assessment & Plan: -No oncologic intervention needed during this admission -Maintain vigilance for delayed healing or other post-op complications in view of past cancer history Code(s): Z85.038 - PERSONAL HISTORY OF MALIGNANT NEOPLASM OF LARGE INTESTINE (5) Atrial fibrillation Current Visit: Yes Status: Chronic Assessment & Plan: -telemetry initiated for continuous monitoring -No evidence of rapid ventricular response (RVR) or decompensation currently -Continue home rate control medications -Monitor closely perioperatively given increased risk for perioperative arrhythmias Code(s): I48.91 - UNSPECIFIED ATRIAL FIBRILLATION (6) Hyperlipidemia Current Visit: No Status: Chronic Assessment & Plan: -continue statin Code(s): E78.5 - HYPERLIPIDEMIA, UNSPECIFIED (7) Leukocytosis Current Visit: Yes Status: Acute Assessment & Plan: -Most likely reactive 2/2 to fall- WBC on [id number]<10.5 - trend -UA with hematuria - otherwise clear -Received pre-op Cefazolin 11/13: -WBC reviewed at 10.2- continue to monitor Code(s): D72.829 - ELEVATED WHITE BLOOD CELL COUNT, UNSPECIFIED (8) Hypocalcemia Current Visit: Yes Status: Acute Assessment & Plan: -corrected calcium 8.8 Code(s): E83.51 - HYPOCALCEMIA (9) Hypertension Current Visit: No Status: Chronic Assessment & Plan: -continue home meds VTE: SCD's PPI: Protonix Nesxt of KIN: Child- Romy Stevenson D/C plan: 2-3 days Code status: Full Code(s): S72.001A - FRACTURE OF UNSP PART OF NECK OF RIGHT FEMUR, INIT (2) Right hip pain Current Visit: Yes Status: Acute Code(s): M25.551 - PAIN IN RIGHT HIP (3) Left thigh pain Current Visit: Yes Status: Acute Code(s): M79.652 - PAIN IN LEFT THIGH (4) History of colon cancer Current Visit: Yes Status: Acute Code(s): Z85.038 - PERSONAL HISTORY OF MALIGNANT NEOPLASM OF LARGE INTESTINE (5) Atrial fibrillation Current Visit: Yes Status: Chronic Code(s): I48.91 - UNSPECIFIED ATRIAL FIBRILLATION (6) Hyperlipidemia Current Visit: No Status: Chronic Code(s): E78.5 - HYPERLIPIDEMIA, UNSPECIFIED (7) Leukocytosis Current Visit: Yes Status: Acute Code(s): D72.829 - ELEVATED WHITE BLOOD CELL COUNT, UNSPECIFIED (8) Hypocalcemia Current Visit: Yes Status: Acute Code(s): E83.51 - HYPOCALCEMIA (9) Hypertension Current Visit: No Status: Chronic Code(s): I10 - ESSENTIAL (PRIMARY) HYPERTENSION
[2024-11-13 07:02] LABS: Absolute Neutrophil Ct (ANC) 8.18 x10^3/uL (1.78-5.38); BASOPHIL % 0.3 % (0.2-1.2); Basophil (Absolute #) 0.03 x10^3/uL (0.01-0.08); Eosinophil % 1.3 % (0.8-7.0); Eosinophil (Absolute #) 0.13 x10^3/uL (0.04-0.54); Hematocrit 31.6 % (40.1-51.0); Hemoglobin 10.6 g/dL (13.7-17.5); IMMATURE GRAN # 0.04 x10^3u/L (0.001-0.031); IMMATURE GRAN % 0.4 % (0.001-0.429); Lymphocyte (Absolute #) 1.12 x10^3/uL (1.32-3.57); Mean Cell Volume 94.3 fL (79.0-92.2); Mean Corpuscular Hemoglobin 31.6 pg (25.7-32.2); Mean Corpuscular Hgb Concent. 33.5 g/dL (32.3-36.5); Mean Platelet Volume 10.3 fL (9.4-12.4); Monocyte (Absolute #) 0.68 x10^3/uL (0.30-0.82); Monocytes % 6.7 % (5.3-12.2); Neutrophil % 80.3 % (34.0-67.9); Platelet Count 153 x10^3/uL (163-337); Red Blood Count 3.35 x10^6/uL (4.63-6.08); White Blood Count 10.2 x10^3/uL (4.23-9.07)
[2024-11-13] MEDS: MORPHINE SULFATE 4 MG INJ IV PRN (07:02)
[2024-11-13 07:37] LABS: ALBUMIN 2.9 g/dL (3.5-5.0); ANION GAP 10.7 MEQ/L (5-15); BILIRUBIN,TOTAL 0.7 mg/dL (0.2-1.3); Creatinine 1 0.84 mg/dL (0.66-1.25); EST GLOMERULAR FILTRATION RATE 88.7 ML/MIN; Total Protein 5.3 g/dL (6.3-8.2)
--- NOTE | 2024-11-13 08:06 | PCM.NOTE ---
Date and Time: 11/13/24 0759 Subjective Assessment: Mr. Azul reports mild right hip and knee pain; the patient reports mild left thigh pain. No other problems are reported. Objective Exam Objective Exam: Afebrile; VSS General - NAD; patient resting comfortably in bed RLE - dressing CDI; patient moves toes and ankle; capillary refill less than 2 seconds LLE - mild swelling and bruising over distal lateral thigh; patient moves toes and ankle; capillary refill less than 2 seconds LABS: Hgb - 10.6 WBC - 10.2 Objective Data Vital Signs: Vital Signs - 24 hr Temp Pulse Resp BP Pulse Ox 11/13/24 07:17 97.8 F 95 H 16 139/68 94 L 11/13/24 05:57 97.8 F 97 H 18 95 11/13/24 04:00 97.8 F 97 H 18 160/74 95 11/13/24 03:00 18 11/13/24 00:00 97.8 F 102 H 18 142/67 95 11/12/24 23:00 17 11/12/24 20:00 98.1 F 80 17 134/64 94 L 11/12/24 16:00 98.1 F 80 17 134/64 94 L 11/12/24 15:05 98.1 F 80 17 134/64 94 L 11/12/24 15:00 17 11/12/24 14:05 98.1 F 71 16 111/61 96 11/12/24 13:05 77 16 135/64 93 L 11/12/24 12:35 86 16 135/65 92 L 11/12/24 12:05 84 17 134/63 94 L 11/12/24 11:57 98.1 F 80 17 94 L 11/12/24 11:40 97.6 F 89 17 116/68 96 11/12/24 11:27 99.2 F 113 H 17 95 Pain Assessment - Last Documented Pain Intensity 7 Pain Scale Used 0-10 Pain Scale Intake and Output: Intake & Output 11/11/24 11/12/24 11/13/24 11/14/24 06:59 06:59 06:59 06:59 Intake Total 302 540 Output Total 877 3050 Balance -573 -3600 Weight 74.8 kg Lab Results: Lab Results-Last 24 Hours 11/13/24 11/13/24 Range/Units 06:58 06:58 WBC 10.2 H (4.23-9.07) x10^3/uL RBC 3.35 L (4.63-6.08) x10^6/uL Hgb 10.6 L (13.7-17.5) g/dL Hct 31.6 L (40.1-51.0) % MCV 94.3 H (79.0-92.2) fL MCH 31.6 (25.7-32.2) pg MCHC 33.5 (32.3-36.5) g/dL RDW 14.0 (11.6-14.4) % Plt Count 153 L (163-337) x10^3/uL MPV 10.3 (9.4-12.4) fL Gran % 80.3 H (34.0-67.9) % Immature Gran % (Auto) 0.4 (0.001-0.429) % Nucleat RBC Rel Count 0.0 (0.00-0.2) % Eos # (Auto) 0.13 (0.04-0.54) x10^3/uL Immature Gran # (Auto) 0.04 H (0.001-0.031) x10^3u/L Absolute Lymphs (auto) 1.12 L (1.32-3.57) x10^3/uL Absolute Monos (auto) 0.68 (0.30-0.82) x10^3/uL Absolute Nucleated RBC 0.00 (0.00-0.012) x10^3u/L Lymphocytes % 11.0 L (21.8-53.1) % Monocytes % 6.7 (5.3-12.2) % Eosinophils % 1.3 (0.8-7.0) % Basophils % 0.3 (0.2-1.2) % Absolute Granulocytes 8.18 H (1.78-5.38) x10^3/uL Basophils # 0.03 (0.01-0.08) x10^3/uL Sodium 139 (135-145) mmol/L Potassium 4.0 (3.5-5.1) mmol/L Chloride 106 (98-107) mmol/L Carbon Dioxide 26 (22-30) mmol/L Anion Gap 10.7 (5-15) MEQ/L BUN 14 (9-20) mg/dL Creatinine 0.84 (0.66-1.25) mg/dL Estimated GFR 88.7 ML/MIN Glucose 119 H (74-106) mg/dL Calcium 8.0 L (8.4-10.2) mg/dL Total Bilirubin 0.70 (0.2-1.3) mg/dL AST 59 (17-59) U/L ALT 29 (0-50) U/L Alkaline Phosphatase 56 (38-126) U/L Serum Total Protein 5.3 L (6.3-8.2) g/dL Albumin 2.9 L (3.5-5.0) g/dL Radiology Exams: Radiology Procedures Category Date Time Status FEMUR Stat Exams 11/11/24 17:11 Completed FEMUR Stat Exams 11/11/24 17:11 Completed HIP UNI (2V) INCL PEL IF DONE Routine Exams 11/12/24 10:26 Completed HIPS SANGEETA(2V) INCL PEL IF DONE Stat Exams 11/11/24 16:06 Completed Medications: Medications Generic Name Dose Route Start Last Admin Trade Name Freq PRN Reason Stop Dose Admin Hydrocodone Bitart/Acetaminophen 1 - 2 tab 11/12/24 15:00 Hydrocodone/Apap 5/325 1 Tab Tablet PO 11/17/24 14:59 Q4H PRN PRN MODERATE PAIN Aspirin 81 mg 11/12/24 22:00 11/12/24 21:24 Aspirin 81 Mg Tablet.Ec PO 12/12/24 21:59 81 mg BID AMBER Administration Diltiazem HCl 180 mg 11/12/24 10:00 11/12/24 06:18 Diltiazem Hcl Cd 180 Mg Cap.Sr.24h PO 12/12/24 09:59 180 mg DAILY AMBER Administration Docusate Sodium 100 mg 11/12/24 22:00 11/12/24 21:24 Docusate Sodium 100 Mg Capsule PO 12/12/24 21:59 100 mg BID AMBER Administration Ezetimibe 10 mg 11/12/24 10:00 11/12/24 13:02 Ezetimibe 10 Mg Tab PO 12/12/24 09:59 Not Given DAILY AMBER Fenofibrate 145 mg 11/12/24 10:00 11/12/24 13:02 Fenofibrate,Micronized 145 Mg Tablet PO 05/28/25 09:59 Not Given DAILY AMBER Metoprolol Succinate 50 mg 11/11/24 22:00 11/12/24 21:24 Metoprolol Succinate 50 Mg Tablet.Sa PO 12/11/24 21:59 50 mg BID AMBER Administration Miscellaneous Information 1 each 11/12/24 07:15 Medication Intervention 1 Each Each 12/12/24 07:14 .RN TO CHECK AMBER Morphine Sulfate 2 mg 11/12/24 14:48 11/12/24 21:24 Morphine Sulfate 2 Mg/Ml Inj IV 11/17/24 14:47 2 mg Q2H PRN PRN Administration SEVERE PAIN Morphine Sulfate 4 mg 11/12/24 14:49 11/13/24 07:02 Morphine Sulfate 4 Mg/Ml Injection IV 11/17/24 14:48 4 mg Q2H PRN PRN Administration SEVERE PAIN Multivitamins Therapeutic 1 tab 11/12/24 10:00 11/12/24 13:02 Multivitamins,Therapeutic 1 Tab Tab PO 12/12/24 09:59 Not Given DAILY AMBER Multivitamins/Minerals 1 tab 11/12/24 10:00 11/12/24 21:24 Beta-Carotene(A) W-C And E/Min 1 Tab Tablet PO 12/12/24 09:59 1 tab BID AMBER Administration Naloxone HCl 0.4 mg 11/11/24 17:54 Naloxone Hcl 0.4 Mg/Ml Ml IV 12/11/24 17:53 PRN PRN RESPIRATORY DEPRESSION Ondansetron HCl 4 mg 11/12/24 14:52 11/13/24 06:09 Ondansetron Hcl 4 Mg/2 Ml Vial IV 12/12/24 14:51 4 mg Q4H PRN PRN Administration NAUSEA/VOMITING Pantoprazole Sodium 20 mg 11/12/24 10:00 11/12/24 13:01 Pantoprazole 20 Mg Tab PO 12/12/24 09:59 20 mg DAILY AMBER Administration Simvastatin 40 mg 11/11/24 22:00 11/12/24 21:25 Simvastatin 20 Mg Tablet PO 12/11/24 21:59 40 mg HS AMBER Administration Discontinued Medications Generic Name Dose Route Start Last Admin Trade Name Freq PRN Reason Stop Dose Admin Hydrocodone Bitart/Acetaminophen 1 tab 11/11/24 17:46 Hydrocodone/Apap 5/325 1 Tab Tablet PO 11/16/24 17:45 Q4H PRN PRN PAIN Cefazolin Sodium Confirm 11/12/24 07:52 Cefazolin Sodium 1 Gm Vial Administered 11/12/24 07:53 Dose 2 g .ROUTE .STK-MED ONE Dexamethasone Sodium Phosphate Confirm 11/12/24 07:52 Dexamethasone Sodium Phosphate 4 Mg/Ml Vial Administered 11/12/24 07:53 Dose 4 mg .ROUTE .STK-MED ONE Diphenhydramine HCl 12.5 mg 11/11/24 18:36 11/11/24 18:37 Diphenhydramine Hcl 50 Mg/Ml Vial IV 11/11/24 18:37 12.5 mg STAT ONE Administration Fentanyl Citrate Confirm 11/12/24 08:03 Fentanyl Citrate 100 Mcg/2 Ml* Vial Administered 11/12/24 08:04 Dose 100 mcg .ROUTE .STK-MED ONE Fentanyl Citrate Confirm 11/12/24 10:29 Fentanyl Citrate 100 Mcg/2 Ml* Vial Administered 11/12/24 10:30 Dose 100 mcg .ROUTE .STK-MED ONE Sodium Chloride 1,000 mls @ 999 mls/hr 11/11/24 16:04 11/11/24 16:24 Sodium Chloride 0.9% 1000 Ml IV 11/11/24 17:04 999 mls/hr .Q1H1M STA Administration Meropenem 1 gm/ Sodium 100 mls @ 200 mls/hr 11/11/24 16:04 11/11/24 16:42 Chloride IV 11/11/24 16:33 Not Given STAT ONE Cefazolin Sodium 1 gm in 100 mls @ 200 mls/hr 11/11/24 16:10 11/11/24 17:10 Cefazolin 1 Gm/100 Ml Nacl Ivpb IV 11/11/24 16:39 Infused STAT STA Infusion Cefazolin Sodium Confirm 11/11/24 16:21 Cefazolin 1 Gm/100 Ml Nacl Ivpb Administered 11/11/24 16:22 Dose 1 gm in 100 mls @ ud IV .STK-MED ONE Sodium Chloride Confirm 11/11/24 16:21 Sodium Chloride 0.9% 1000 Ml Administered 11/11/24 16:22 Dose 1,000 mls @ ud .ROUTE .STK-MED ONE Sodium Chloride 1,000 mls @ 75 mls/hr 11/12/24 00:01 11/13/24 03:29 Sodium Chloride 0.45% 1000 Ml IV 12/12/24 00:00 75 mls/hr .[id number] AMBER Administration Cefazolin Sodium 2 gm in 100 mls @ 200 mls/hr 11/12/24 06:45 Cefazolin 2 Gm/100 Ml Nacl IV 11/12/24 07:14 ONCALLTOOR AMBER TRANEXAMIC ACID IN NACL,ISO-OS 1,000 mg in 100 mls @ 600 mls/hr 11/12/24 06:35 11/12/24 12:58 Tranexamic 1,000 Mg/100ml-Nacl IV 11/12/24 06:44 Not Given ONCE ONE Lactated Ringer's Confirm 11/12/24 07:21 Lactated Ringers Administered 11/12/24 07:22 Dose 1,000 mls @ ud IV .STK-MED ONE Sodium Chloride Confirm 11/12/24 07:32 Sodium Chloride 0.9% 1000 Ml Administered 11/12/24 07:33 Dose 1,000 mls @ ud .ROUTE .STK-MED ONE TRANEXAMIC ACID IN NACL,ISO-OS Confirm 11/12/24 07:56 Tranexamic 1,000 Mg/100ml-Nacl Administered 11/12/24 07:57 Dose 1,000 mg in 100 mls @ ud IV .STK-MED ONE Cefazolin Sodium 2 gm in 100 mls @ 200 mls/hr 11/12/24 15:00 11/12/24 15:02 Cefazolin 2 Gm/100 Ml Nacl IV 11/13/24 07:29 200 mls/hr Q8H AMBER Administration Morphine Sulfate 4 mg 11/11/24 16:04 11/11/24 16:29 Morphine Sulfate 4 Mg/Ml Injection IV 11/11/24 16:05 4 mg STAT ONE Administration Morphine Sulfate Confirm 11/11/24 16:21 Morphine Sulfate 4 Mg/Ml Injection Administered 11/11/24 16:22 Dose 4 mg .ROUTE .STK-MED ONE Morphine Sulfate 4 mg 11/11/24 17:47 11/12/24 01:21 Morphine Sulfate 4 Mg/Ml Injection IV 11/16/24 17:46 4 mg Q2H PRN PRN Administration SEVERE PAIN Non-Formulary Medication 80 mg 11/11/24 22:00 Atorvastatin Calcium [Atorvastatin Calcium] PO 12/11/24 21:59 HS AMBER Non-Formulary Medication 1 cap 11/11/24 22:00 11/11/24 22:05 Vit C/E/Zn/Coppr/Lutein/Zeaxan [Preservision Areds 2 Softgel] PO 12/11/24 21:59 Not Given BID AMBER Ondansetron HCl 4 mg 11/11/24 16:18 11/11/24 16:27 Ondansetron Hcl 4 Mg/2 Ml Vial IV 11/11/24 16:19 4 mg STAT ONE Administration Ondansetron HCl Confirm 11/11/24 16:20 Ondansetron Hcl 4 Mg/2 Ml Vial Administered 11/11/24 16:21 Dose 4 mg .ROUTE .STK-MED ONE Ondansetron HCl 4 mg 11/11/24 18:16 Ondansetron Hcl 4 Mg/2 Ml Vial IV 12/11/24 18:15 Q6H PRN PRN NAUSEA/VOMITING Ondansetron HCl Confirm 11/12/24 07:52 Ondansetron Hcl 4 Mg/2 Ml Vial Administered 11/12/24 07:53 Dose 4 mg .ROUTE .STK-MED ONE Phenylephrine HCl Confirm 11/12/24 07:52 Phenylephrine 10 Mg/Ml Vial Administered 11/12/24 07:53 Dose 10 mg .ROUTE .STK-MED ONE Prochlorperazine Edisylate 10 mg 11/11/24 18:20 11/11/24 18:22 Prochlorperazine Edisylate 10 Mg/2 Ml Vial IV 12/11/24 18:19 10 mg Q6H PRN PRN Administration NAUSEA/VOMITING Prochlorperazine Edisylate Confirm 11/11/24 18:21 Prochlorperazine Edisylate 10 Mg/2 Ml Vial Administered 11/11/24 18:22 Dose 10 mg .ROUTE .STK-MED ONE Propofol Confirm 11/12/24 07:01 Propofol 200 Mg/20 Ml Vial Administered 11/12/24 07:02 Dose 200 mg IV .STK-MED ONE Rocuronium [place] Confirm 11/12/24 07:52 Rocuronium [place] 50 Mg/5 Ml Vial Administered 11/12/24 07:53 Dose 50 mg IV .STK-MED ONE Ropivacaine Confirm 11/12/24 07:55 Ropivacaine Hcl 5 Mg/Ml 30ml Vial Administered 11/12/24 07:56 Dose 150 mg .ROUTE .STK-MED ONE Sugammadex Sodium Confirm 11/12/24 09:51 Sugammadex Sodium 200 Mg/2 Ml Vial Administered 11/12/24 09:52 Dose 200 mg IV .STK-MED ONE Vancomycin HCl Confirm 11/12/24 08:47 Vancomycin Hcl Inj 1 Gm Vial Administered 11/12/24 08:48 Dose 1 gm IV .STK-MED ONE Assessment/Plan - Assessment/Plan Assessment & Plan: ASSESSMENT: 1. Right femoral neck fracture, POD #1, status-post right hip hemiarthroplasty 2. Left thigh contusion PLAN: Mr. Azul is stable. The patient will begin physical therapy for gait training and mobilization. The patient is weightbearing as tolerated on both lower extremities. The patient is on ASA 81mg PO bid for DVT prophylaxis. Discharge planning will be initiated. The patient will continue to be monitored closely.
--- NOTE | 2024-11-13 12:30 | OP ---
SURGERY DATE/TIME: 11/12/2024 0705 PREOPERATIVE DIAGNOSIS: Right femoral neck fracture POSTOPERATIVE DIAGNOSIS: Right femoral neck fracture PROCEDURE: Right hip hemiarthroplasty SURGEON: Damon Galo MD IDENTITY ACCESS MANAGEMENT ARCHITECT: HARJIT Bustillos ANESTHESIA: General ESTIMATED BLOOD LOSS: 150 mL INTRAVENOUS FLUIDS: 1700 mL crystalloid IMPLANTS: 1) [employer] Echo Bi-Metric Hip System Standard Femoral Stem, size 11 2) [employer] Hip System Modular Head Component, size 28 mm +0. 3) [employer] RingLoc Bi-Polar Hip System Acetabular Cup, size 52 mm. COMPLICATIONS: None CONDITION: Stable to PACU INDICATIONS: Mr. Azul is a 79-year-old male who sustained injury to his right hip on 11/11/2024; the patient was doing yard work when right hip gave out, and he fell landing on the hip. The patient was brought to the [facility] Emergency Department where imaging studies were obtained which indicated a right femoral neck fracture. The patient is brought to the operating room at this time for surgical intervention in the form of right hip hemiarthroplasty. The risks and benefits of the planned surgical procedure were discussed in depth with the patient. These risk include, but are not limited to, general medical problems associated with anesthesia, infection, bleeding, damage to nerves and vessels, pain after surgery, and the need for future procedures. The patient acknowledged and accepted these risks. Informed consent was obtained. DESCRIPTION OF PROCEDURE AND FINDINGS: After informed consent was obtained, the correct operative site was identified and marked. Preoperative antibiotics were administered. The patient was taken to the operating room. With the patient in his hospital bed, general anesthesia was induced without difficulty. The patient was transferred to the operating table. The patient was placed in the left lateral decubitus position. An axillary roll was placed. The patient was held in position using a beanbag. All pressure points were identified and padded. The right lower extremity was prepped and draped in normal sterile fashion. Time-out was performed. An anterolateral approach to the hip was performed. Hemostasis was maintained using electrocautery. The dissection was carried down to the level of the tensor fascia. Significant hematoma within the trochanteric bursa was noted from the patient's fall. The tensor fascia was incised in-line with the skin incision. A Charnley retractor was placed. The anterior one-third of the gluteus medius was lifted from the greater trochanter. The underlying hip capsule was identified, and a hip capsulotomy was performed. The femoral neck fracture was identified. Hohmann retractor were placed around the femoral neck, and a femoral neck cut was made. This portion of bone along and the femoral head were removed. The femoral head was sized to 52 mm. Soft tissues from around the rim and inner surface of the acetabulum were sharply dissected. Attention was turned toward the femur. A box-cutting osteotome was used followed by a canal finding reamer. Sequential reaming of the proximal femur up to size 10 was performed, followed by sequential broaching of the proximal femur up to size 11. With the size [address], a standard femoral neck with a 52 mm +0 trial head was placed, and the hip was reduced. This combination of components was noted to provide acceptable religion of limb length, as well as stability and range of motion. This combination of components was selected. The hip was dislocated, and all trial instrumentation was removed. The hip was irrigated with 3 L of normal saline via pulsatile lavage irrigation. The final components were impacted into place, and the hip was reduced. The hip was again irrigated with 3 L of normal saline via pulsatile lavage irrigation. 1g of Vancomycin powder was placed into the joint. The gluteus medius was repaired back to the greater trochanter using #2 Ethibond in an interrupted stitch along with 0 Vicryl in a running, locked stitch. The tensor fascia was repaired using #1 Strata-Fix in a running stitch. The deep tissues were closed using 0 Vicryl in an interrupted stitch. The subcutaneous tissues were closed using 2-0 Vicryl in a deep dermal interrupted stitch. The skin was closed using 3-0 Strata-Fix in a running subcuticular stitch, followed by Dermabond. Sterile dressings were applied. The patient was awoken from anesthesia and transferred to the recovery room in stable condition. All counts were correct at the end of the case. The promotions assistant was necessary as cardiovascular surgical tech for patient positioning, retraction during the surgical procedure, manipulation of the extremity during the surgical procedure, wound closure, and dressing application.
[2024-11-13] MEDS: LOPRESSOR INJECTION IV ONE ×2 (21:26→22:44)
[2024-11-14] MEDS ORDERED: Phenergan 25 MG INJ ONE (00:09)
[2024-11-14] MEDS ORDERED: Sodium Chloride 0.9% 100 ML ONE (00:11)
[2024-11-14] MEDS: Cardizem IV 50 MG/10 ML IV ONE ×2 (00:15→03:38)
[2024-11-14] MEDS: Phenergan 25 MG INJ*** 12.5 MG in Sodium Chloride 0.9% 100 ML IV PRN (00:15)
[2024-11-14 02:25] LABS: Absolute Neutrophil Ct (ANC) 8.47 x10^3/uL (1.78-5.38); BASOPHIL % 0.5 % (0.2-1.2); Basophil (Absolute #) 0.06 x10^3/uL (0.01-0.08); Eosinophil % 5.6 % (0.8-7.0); Eosinophil (Absolute #) 0.63 x10^3/uL (0.04-0.54); Hematocrit 32.3 % (40.1-51.0); Hemoglobin 10.8 g/dL (13.7-17.5); IMMATURE GRAN # 0.05 x10^3u/L (0.001-0.031); IMMATURE GRAN % 0.4 % (0.001-0.429); Lymphocyte (Absolute #) 1.32 x10^3/uL (1.32-3.57); Lymphocytes % 11.8 % (21.8-53.1); Mean Cell Volume 93.9 fL (79.0-92.2); Mean Corpuscular Hemoglobin 31.4 pg (25.7-32.2); Mean Corpuscular Hgb Concent. 33.4 g/dL (32.3-36.5); Mean Platelet Volume 10.4 fL (9.4-12.4); Monocyte (Absolute #) 0.64 x10^3/uL (0.30-0.82); Monocytes % 5.7 % (5.3-12.2); Platelet Count 161 x10^3/uL (163-337); Red Blood Count 3.44 x10^6/uL (4.63-6.08); White Blood Count 11.2 x10^3/uL (4.23-9.07)
[2024-11-14 02:43] LABS: ALBUMIN 3.1 g/dL (3.5-5.0); ANION GAP 13.9 MEQ/L (5-15); BILIRUBIN,TOTAL 1.4 mg/dL (0.2-1.3); Calcium 8.2 mg/dL (8.4-10.2); Creatinine 1 0.81 mg/dL (0.66-1.25); EST GLOMERULAR FILTRATION RATE 89.7 ML/MIN; Potassium 4.1 mmol/L (3.5-5.1); Total Protein 5.6 g/dL (6.3-8.2)
[2024-11-14 04:41] LABS: INR 1.22 (0.8-3.0); PROTIME 13.1 SECONDS (9.4-12.5); PTT 26.2 SECONDS (25.1-36.5)
--- NOTE | 2024-11-14 04:56 | XRAY ---
CLINICAL HISTORY: dyspnea, hypoxia COMPARISON: 02/02/2024 TECHNIQUE: Contiguous axial images were obtained from the neck base through the upper abdomen following intravenous administration of contrast material. If IV contrast material had not been administered, the likelihood of detecting abnormalities relevant to the patient's condition would have been substantially decreased. In addition, sagittal and coronal reconstructions were performed. CT scan was performed according to ALARA (as low as reasonable achievable). FINDINGS: There are mild bilateral pleural effusions with passive atelectasis of adjacent bilateral lower lobes.(NEW FINDINGS) Rest of the lungs are clear, with no focal areas of consolidation. No pulmonary nodules are seen. The central airways are patent. No pneumothorax is seen. MIld cardiomegaly. No axillary, hilar, or mediastinal adenopathy is identified. The visualized thyroid is unremarkable. The aorta, and pulmonary arteries are of normal size and configuration. There are appreciable calcifications in coronary arteries and aorta. No pericardial effusion is identified. Imaged portions of the upper abdomen are unremarkable. No aggressive appearing osseous lesions are identified. Degenerative changes in visualised spine. Generalised osteoporosis. IMPRESSION: Mild cardiomegaly. Stable finding. Bilateral mild pleural effusion with basal lung atelectasis. New findings. Degenerative changes in visualised spine. Stable finding. Generalised osteoporosis. Stable finding. Electronically Signed by: Helio Mcnamara MD. (11/14/2024 04:52:52 EDT)
--- NOTE | 2024-11-14 05:49 | PCM.NOTE ---
Date and Time: 11/14/24 0548 Subjective Assessment: HPI: Mr. Azul is a 79-year-old male with a pmhx of HTN, HLD, AFIB (irregularly irregular rhythm noted on exam), two prior MIs under cardiology care, and remote colorectal cancer with liver metastases, presenting 11/11/24 after a mechanical ground-level fall while weed eating. He denies any preceding syncope or lightheadedness. Examination revealed ecchymosis over the left hip and tenderness to palpation, but the primary fracture was localized to the right hip. Initial imaging demonstrated a closed fracture of the right femoral neck ; left hip radiographs showed no acute fracture but confirmed soft tissue contusion. Orthopedic surgery was consulted and plans open reduction and internal fixation of the right hip tomorrow. Preoperative labs were obtained and Bryant catheter placed. Patient is NPO with IVF running; pre-op antibiotics and DVT prophylaxis with SCDs initiated. Telemetry is active for monitoring atrial fibrillation. Pain is being managed with PRN morphine and [place]. Protonix started for stress ulcer prophylaxis. Overall, he remains hemodynamically stable without signs of acute decompensation. 11/12/24: Met with patient and daughter at bedside on postoperative day [address] Odonnell. The patient endorses significant pain improvement, currently rating discomfort as 5/10 on the numerical pain scale. 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 Given the patient's baseline functional status, a physical therapy evaluation will be pursued when the patient is medically stable and able to participate. 11/13/24: POD#1 s/p right hip hemiarthroplasty without overnight events. He reports improvement in right hip pain, currently rated 7/10 on the numerical pain scale, with significant resolution of prior left hip discomfort. Physical therapy is scheduled to evaluate the patient today to assist in determining appropriate discharge planning, with options including home discharge, swing bed placement, or formal rehabilitation. The patient expresses a preference for swing bed placement should continued inpatient rehabilitation be recommended. He remains weight-bearing as tolerated and is maintained on aspirin 81 mg daily per orthopedic protocol for deep vein thrombosis prophylaxis. 11/14/24: POD#2. Overnight, the patient with a known history of atrial fibrillation developed atrial fibrillation with rapid ventricular response, with heart rates peaking in the 140s. He was treated with two doses of IV metoprolol and two doses of IV diltiazem, resulting in improved rate control. As of this morning, his heart rate remains elevated in the 110s but is trending down. Cardiology has been consulted for further evaluation and recommendations regarding long-term rhythm and rate control. Pain at the surgical site is now well controlled, with the patient rating it at 2/10 on the numerical pain scale. He remains hemodynamically stable. Laboratory evaluation shows a mildly elevated WBC at 11.2 and a procalcitonin of 0.219, without associated fever or other signs of systemic infection. Orthopedic surgery following and case discussed; X-rays were obtained, which showed no acute abnormalities. CTA of the chest was negative for pulmonary embolism or other acute pathology. The patient will continue to be m onitored closely for any evolving signs of infection. The plan remains to transition to rehabilitation once medically stable. - Review of Systems Constitutional: No Symptoms Eyes: No Symptoms Ears, Nose, & Throat: No Symptoms Respiratory: No Symptoms Cardiac: No Symptoms Abdominal/Gastrointestinal: No Symptoms Genitourinary Symptoms: No Symptoms Musculoskeletal: Joint Pain (right hip) Skin: Other (surgical incision to right hip with surgical dressing - CDI) Neurological: No Symptoms Psychological: No Symptoms Endocrine: No Symptoms Hematologic/Lymphatic: No Symptoms Immunological/Allergic: No Symptoms Objective Exam General Appearance: no apparent distress Neurologic Exam: alert, oriented x 3, cooperative Skin Exam: normal color, other (surgical incision to right hip with surgical dressing - CDI) Wound Assessment: Skin/Wound Assessment Wound/Incision Assessment Start: 11/11/24 19:12 Text: Status: Active Freq: Q4H Protocol: Document 11/14/24 04:00 GM (Rec: 11/14/24 04:27 GM [id number]) Wound/Incision Assessment right thigh Wound Assessment Shift Assessment Wound Type Incision Wound Stage Non Pressure Wound Dressing Status Dry & Intact Drainage Amount None Drainage Odor None/Absent Primary Dressing Non-Adherent Gauze Pads Wound Photo Photo Taken No Eye Exam: PERRL Ears, Nose, Throat Exam: normal ENT inspection Neck Exam: normal inspection Respiratory Exam: diminished breath sounds Cardiovascular Exam: irregular Gastrointestinal/Abdomen Exam: soft, normal bowel sounds Extremity Exam: normal inspection Back Exam: normal inspection Objective Data Vital Signs: Vital Signs - 24 hr Temp Pulse Resp BP Pulse Ox 11/14/24 05:28 98 11/13/24 23:43 97.8 F 100 H 16 148/67 95 11/13/24 23:00 16 11/13/24 19:17 91 L 11/13/24 19:00 16 11/13/24 16:18 98.0 F 100 H 16 141/68 90 L 11/13/24 16:00 98.1 F 92 H 16 138/72 92 L 11/13/24 13:57 98.1 F 92 H 16 92 L 11/13/24 11:39 98.1 F 92 H 16 138/72 92 L 11/13/24 11:00 16 11/13/24 10:57 91 L 11/13/24 10:48 97 11/13/24 09:57 98.1 F 92 H 16 92 L 11/13/24 07:17 97.8 F 95 H 16 139/68 94 L 11/13/24 07:00 16 11/13/24 05:57 97.8 F 97 H 18 95 Pain Assessment - Last Documented Pain Intensity 3 Pain Scale Used 0-10 Pain Scale Intake and Output: Intake & Output 11/11/24 11/12/24 11/13/24 11/14/24 11:59 11:59 11:59 11:59 Intake Total 302 780 560 Output Total 875 3500 200 Balance -573 -6690 360 Weight 74.8 kg Lab Results: Lab Results-Last 24 Hours 11/13/24 11/13/24 11/13/24 Range/Units 06:58 06:58 23:00 WBC 10.2 H (4.23-9.07) x10^3/uL RBC 3.35 L (4.63-6.08) x10^6/uL Hgb 10.6 L (13.7-17.5) g/dL Hct 31.6 L (40.1-51.0) % MCV 94.3 H (79.0-92.2) fL MCH 31.6 (25.7-32.2) pg MCHC 33.5 (32.3-36.5) g/dL RDW 14.0 (11.6-14.4) % Plt Count 153 L (163-337) x10^3/uL MPV 10.3 (9.4-12.4) fL Gran % 80.3 H (34.0-67.9) % Immature Gran % (Auto) 0.4 (0.001-0.429) % Nucleat RBC Rel Count 0.0 (0.00-0.2) % Eos # (Auto) 0.13 (0.04-0.54) x10^3/uL Immature Gran # (Auto) 0.04 H (0.001-0.031) x10^3u/L Absolute Lymphs (auto) 1.12 L (1.32-3.57) x10^3/uL Absolute Monos (auto) 0.68 (0.30-0.82) x10^3/uL Absolute Nucleated RBC 0.00 (0.00-0.012) x10^3u/L Lymphocytes % 11.0 L (21.8-53.1) % Monocytes % 6.7 (5.3-12.2) % Eosinophils % 1.3 (0.8-7.0) % Basophils % 0.3 (0.2-1.2) % Absolute Granulocytes 8.18 H (1.78-5.38) x10^3/uL Basophils # 0.03 (0.01-0.08) x10^3/uL PT (9.4-12.5) SECONDS INR (0.8-3.0) APTT (25.1-36.5) SECONDS Sodium 139 (135-145) mmol/L Potassium 4.0 (3.5-5.1) mmol/L Chloride 106 (98-107) mmol/L Carbon Dioxide 26 (22-30) mmol/L Anion Gap 10.7 (5-15) MEQ/L BUN 14 (9-20) mg/dL Creatinine 0.84 (0.66-1.25) mg/dL Estimated GFR 88.7 ML/MIN Glucose 119 H (74-106) mg/dL Calcium 8.0 L (8.4-10.2) mg/dL Total Bilirubin 0.70 (0.2-1.3) mg/dL AST 59 (17-59) U/L ALT 29 (0-50) U/L Alkaline Phosphatase 56 (38-126) U/L Troponin I < 0.012 (0.000-0.033) ng/mL Serum Total Protein 5.3 L (6.3-8.2) g/dL Albumin 2.9 L (3.5-5.0) g/dL 11/14/24 11/14/24 11/14/24 Range/Units 02:22 02:22 02:22 WBC 11.2 H (4.23-9.07) x10^3/uL RBC 3.44 L (4.63-6.08) x10^6/uL Hgb 10.8 L (13.7-17.5) g/dL Hct 32.3 L (40.1-51.0) % MCV 93.9 H (79.0-92.2) fL MCH 31.4 (25.7-32.2) pg MCHC 33.4 (32.3-36.5) g/dL RDW 14.0 (11.6-14.4) % Plt Count 161 L (163-337) x10^3/uL MPV 10.4 (9.4-12.4) fL Gran % 76.0 H (34.0-67.9) % Immature Gran % (Auto) 0.4 (0.001-0.429) % Nucleat RBC Rel Count 0.0 (0.00-0.2) % Eos # (Auto) 0.63 H (0.04-0.54) x10^3/uL Immature Gran # (Auto) 0.05 H (0.001-0.031) x10^3u/L Absolute Lymphs (auto) 1.32 (1.32-3.57) x10^3/uL Absolute Monos (auto) 0.64 (0.30-0.82) x10^3/uL Absolute Nucleated RBC 0.00 (0.00-0.012) x10^3u/L Lymphocytes % 11.8 L (21.8-53.1) % Monocytes % 5.7 (5.3-12.2) % Eosinophils % 5.6 (0.8-7.0) % Basophils % 0.5 (0.2-1.2) % Absolute Granulocytes 8.47 H (1.78-5.38) x10^3/uL Basophils # 0.06 (0.01-0.08) x10^3/uL PT (9.4-12.5) SECONDS INR (0.8-3.0) APTT (25.1-36.5) SECONDS Sodium 136 (135-145) mmol/L Potassium 4.1 (3.5-5.1) mmol/L Chloride 104 (98-107) mmol/L Carbon Dioxide 23 (22-30) mmol/L Anion Gap 13.9 (5-15) MEQ/L BUN 15 (9-20) mg/dL Creatinine 0.81 (0.66-1.25) mg/dL Estimated GFR 89.7 ML/MIN Glucose 113 H (74-106) mg/dL Calcium 8.2 L (8.4-10.2) mg/dL Total Bilirubin 1.40 H (0.2-1.3) mg/dL AST 77 H (17-59) U/L ALT 30 (0-50) U/L Alkaline Phosphatase 62 (38-126) U/L Troponin I < 0.012 (0.000-0.033) ng/mL Serum Total Protein 5.6 L (6.3-8.2) g/dL Albumin 3.1 L (3.5-5.0) g/dL 11/14/ Range/Units 02:30 WBC (4.23-9.07) x10^3/uL RBC (4.63-6.08) x10^6/uL Hgb (13.7-17.5) g/dL Hct (40.1-51.0) % MCV (79.0-92.2) fL MCH (25.7-32.2) pg MCHC (32.3-36.5) g/dL RDW (11.6-14.4) % Plt Count (163-337) x10^3/uL MPV (9.4-12.4) fL Gran % (34.0-67.9) % Immature Gran % (Auto) (0.001-0.429) % Nucleat RBC Rel Count (0.00-0.2) % Eos # (Auto) (0.04-0.54) x10^3/uL Immature Gran # (Auto) (0.001-0.031) x10^3u/L Absolute Lymphs (auto) (1.32-3.57) x10^3/uL Absolute Monos (auto) (0.30-0.82) x10^3/uL Absolute Nucleated RBC (0.00-0.012) x10^3u/L Lymphocytes % (21.8-53.1) % Monocytes % (5.3-12.2) % Eosinophils % (0.8-7.0) % Basophils % (0.2-1.2) % Absolute Granulocytes (1.78-5.38) x10^3/uL Basophils # (0.01-0.08) x10^3/uL PT 13.1 H (9.4-12.5) SECONDS INR 1.22 (0.8-3.0) APTT 26.2 (25.1-36.5) SECONDS Sodium (135-145) mmol/L Potassium (3.5-5.1) mmol/L Chloride (98-107) mmol/L Carbon Dioxide (22-30) mmol/L Anion Gap (5-15) MEQ/L BUN (9-20) mg/dL Creatinine (0.66-1.25) mg/dL Estimated GFR ML/MIN Glucose (74-106) mg/dL Calcium (8.4-10.2) mg/dL Total Bilirubin (0.2-1.3) mg/dL AST (17-59) U/L ALT (0-50) U/L Alkaline Phosphatase (38-126) U/L Troponin I (0.000-0.033) ng/mL Serum Total Protein (6.3-8.2) g/dL Albumin (3.5-5.0) g/dL Radiology Exams: Radiology Procedures Category Date Time Status CHEST WITH CONTRAST [CT] Stat Exams 11/14/24 03:28 Completed HIP UNI (2V) INCL PEL IF DONE Routine Exams 11/12/24 10:26 Completed Medications: Medications Generic Name Dose Route Start Last Admin Trade Name Freq PRN Reason Stop Dose Admin Hydrocodone Bitart/Acetaminophen 1 - 2 tab 11/12/24 15:00 Hydrocodone/Apap 5/325 1 Tab Tablet PO 11/17/24 14:59 Q4H PRN PRN MODERATE PAIN Aspirin 81 mg 11/12/24 22:00 11/13/24 21:29 Aspirin 81 Mg Tablet.Ec PO 12/12/24 21:59 81 mg BID AMBER Administration Diltiazem HCl 180 mg 11/12/24 10:00 11/13/24 09:04 Diltiazem Hcl Cd 180 Mg Cap.Sr.24h PO 12/12/24 09:59 180 mg DAILY AMBER Administration Diltiazem HCl 10 mg 11/13/24 23:57 11/14/24 00:15 Diltiazem Hcl Iv 5 Mg/Ml Vial IV 11/13/24 23:58 10 mg STAT ONE Administration Diltiazem HCl 10 mg 11/14/24 03:29 11/14/24 03:38 Diltiazem Hcl Iv 5 Mg/Ml Vial IV 11/14/24 03:30 10 mg STAT ONE Administration Docusate Sodium 100 mg 11/12/24 22:00 11/13/24 21:29 Docusate Sodium 100 Mg Capsule PO 12/12/24 21:59 100 mg BID AMBER Administration Ezetimibe 10 mg 11/12/24 10:00 11/13/24 09:04 Ezetimibe 10 Mg Tab PO 12/12/24 09:59 10 mg DAILY AMBER Administration Fenofibrate 145 mg 11/12/24 10:00 11/13/24 09:04 Fenofibrate,Micronized 145 Mg Tablet PO 12/12/24 09:59 145 mg DAILY AMBER Administration Promethazine HCl 12.5 mg/ 100.5 mls @ 201 mls/hr 11/13/24 23:56 11/14/24 00:15 Sodium Chloride IV 12/13/24 23:55 201 mls/hr Q4H PRN PRN Administration UNCONTROLLED NAUSEA Metoprolol Succinate 50 mg 11/11/24 22:00 11/13/24 21:29 Metoprolol Succinate 50 Mg Tablet.Sa PO 12/11/24 21:59 50 mg BID AMBER Administration Metoprolol Tartrate 5 mg 11/13/24 21:17 11/13/24 21:26 Metoprolol Tartrate 5 Mg/5 Ml Vial IV 11/13/24 21:18 5 mg STAT ONE Administration Metoprolol Tartrate 5 mg 11/13/24 22:34 11/13/24 22:44 Metoprolol Tartrate 5 Mg/5 Ml Vial IV 11/13/24 22:35 5 mg STAT ONE Administration Miscellaneous Information 1 each 11/12/24 07:15 Medication Intervention 1 Each Each 12/12/24 07:14 .RN TO CHECK AMBER Morphine Sulfate 2 mg 11/12/24 14:48 11/14/24 03:38 Morphine Sulfate 2 Mg/Ml Inj IV 11/17/24 14:47 2 mg Q2H PRN PRN Administration SEVERE PAIN Morphine Sulfate 4 mg 11/12/24 14:49 11/13/24 11:51 Morphine Sulfate 4 Mg/Ml Injection IV 11/17/24 14:48 4 mg Q2H PRN PRN Administration SEVERE PAIN Multivitamins Therapeutic 1 tab 11/12/24 10:00 11/13/24 09:05 Multivitamins,Therapeutic 1 Tab Tab PO 12/12/24 09:59 1 tab DAILY AMBER Administration Multivitamins/Minerals 1 tab 11/12/24 10:00 11/13/24 21:29 Beta-Carotene(A) W-C And E/Min 1 Tab Tablet PO 12/12/24 09:59 1 tab BID AMBER Administration Naloxone HCl 0.4 mg 11/11/24 17:54 Naloxone Hcl 0.4 Mg/Ml Ml IV 12/11/24 17:53 PRN PRN RESPIRATORY DEPRESSION Ondansetron HCl 4 mg 11/12/24 14:52 11/13/24 21:27 Ondansetron Hcl 4 Mg/2 Ml Vial IV 12/12/24 14:51 4 mg Q4H PRN PRN Administration NAUSEA/VOMITING Pantoprazole Sodium 20 mg 11/12/24 10:00 11/13/24 09:08 Pantoprazole 20 Mg Tab PO 12/12/24 09:59 20 mg DAILY AMBER Administration Simvastatin 40 mg 11/11/24 22:00 11/13/24 21:29 Simvastatin 20 Mg Tablet PO 12/11/24 21:59 40 mg HS AMBER Administration Discontinued Medications Generic Name Dose Route Start Last Admin Trade Name Freq PRN Reason Stop Dose Admin Hydrocodone Bitart/Acetaminophen 1 tab 11/11/24 17:46 Hydrocodone/Apap 5/325 1 Tab Tablet PO 11/16/24 17:45 Q4H PRN PRN PAIN Cefazolin Sodium Confirm 11/12/24 07:52 Cefazolin Sodium 1 Gm Vial Administered 11/12/24 07:53 Dose 2 g .ROUTE .STK-MED ONE Dexamethasone Sodium Phosphate Confirm 11/12/24 07:52 Dexamethasone Sodium Phosphate 4 Mg/Ml Vial Administered 11/12/24 07:53 Dose 4 mg .ROUTE .STK-MED ONE Diphenhydramine HCl 12.5 mg 11/11/24 18:36 11/11/24 18:37 Diphenhydramine Hcl 50 Mg/Ml Vial IV 11/11/24 18:37 12.5 mg STAT ONE Administration Fentanyl Citrate Confirm 11/12/24 08:03 Fentanyl Citrate 100 Mcg/2 Ml* Vial Administered 11/12/24 08:04 Dose 100 mcg .ROUTE .STK-MED ONE Fentanyl Citrate Confirm 11/12/24 10:29 Fentanyl Citrate 100 Mcg/2 Ml* Vial Administered 11/12/24 10:30 Dose 100 mcg .ROUTE .STK-MED ONE Sodium Chloride 1,000 mls @ 999 mls/hr 11/11/24 16:04 11/11/24 16:24 Sodium Chloride 0.9% 1000 Ml IV 11/11/24 17:04 999 mls/hr .Q1H1M STA Administration Meropenem 1 gm/ Sodium 100 mls @ 200 mls/hr 11/11/24 16:04 11/11/24 16:42 Chloride IV 11/11/24 16:33 Not Given STAT ONE Cefazolin Sodium 1 gm in 100 mls @ 200 mls/hr 11/11/24 16:10 11/11/24 17:10 Cefazolin 1 Gm/100 Ml Nacl Ivpb IV 11/11/24 16:39 Infused STAT STA Infusion Cefazolin Sodium Confirm 11/11/24 16:21 Cefazolin 1 Gm/100 Ml Nacl Ivpb Administered 11/11/24 16:22 Dose 1 gm in 100 mls @ ud IV .STK-MED ONE Sodium Chloride Confirm 11/11/24 16:21 Sodium Chloride 0.9% 1000 Ml Administered 11/11/24 16:22 Dose 1,000 mls @ ud .ROUTE .STK-MED ONE Sodium Chloride 1,000 mls @ 75 mls/hr 11/12/24 00:01 11/13/24 03:29 Sodium Chloride 0.45% 1000 Ml IV 12/12/24 00:00 75 mls/hr .[id number] AMBER Administration Cefazolin Sodium 2 gm in 100 mls @ 200 mls/hr 11/12/24 06:45 Cefazolin 2 Gm/100 Ml Nacl IV 11/12/24 07:14 ONCALLTOOR AMBER TRANEXAMIC ACID IN NACL,ISO-OS 1,000 mg in 100 mls @ 600 mls/hr 11/12/24 06:35 11/12/24 12:58 Tranexamic 1,000 Mg/100ml-Nacl IV 11/12/24 06:44 Not Given ONCE ONE Lactated Ringer's Confirm 11/12/24 07:21 Lactated Ringers Administered 11/12/24 07:22 Dose 1,000 mls @ ud IV .STK-MED ONE Sodium Chloride Confirm 11/12/24 07:32 Sodium Chloride 0.9% 1000 Ml Administered 11/12/24 07:33 Dose 1,000 mls @ ud .ROUTE .STK-MED ONE TRANEXAMIC ACID IN NACL,ISO-OS Confirm 11/12/24 07:56 Tranexamic 1,000 Mg/100ml-Nacl Administered 11/12/24 07:57 Dose 1,000 mg in 100 mls @ ud IV .STK-MED ONE Cefazolin Sodium 2 gm in 100 mls @ 200 mls/hr 11/12/24 15:00 11/13/24 08:16 Cefazolin 2 Gm/100 Ml Nacl IV 11/13/24 07:29 200 mls/hr Q8H AMBER Administration Sodium Chloride Confirm 11/14/24 00:11 Sodium Chloride 0.9% Administered 11/14/24 00:12 Dose 100 mls @ ud .ROUTE .STK-MED ONE Morphine Sulfate 4 mg 11/11/24 16:04 11/11/24 16:29 Morphine Sulfate 4 Mg/Ml Injection IV 11/11/24 16:05 4 mg STAT ONE Administration Morphine Sulfate Confirm 11/11/24 16:21 Morphine Sulfate 4 Mg/Ml Injection Administered 11/11/24 16:22 Dose 4 mg .ROUTE .STK-MED ONE Morphine Sulfate 4 mg 11/11/24 17:47 11/12/24 01:21 Morphine Sulfate 4 Mg/Ml Injection IV 11/16/24 17:46 4 mg Q2H PRN PRN Administration SEVERE PAIN Non-Formulary Medication 80 mg 11/11/24 22:00 Atorvastatin Calcium [Atorvastatin Calcium] PO 12/11/24 21:59 HS AMBER Non-Formulary Medication 1 cap 11/11/24 22:00 11/11/24 22:05 Vit C/E/Zn/Coppr/Lutein/Zeaxan [Preservision Areds 2 Softgel] PO 12/11/24 21:59 Not Given BID AMBER Ondansetron HCl 4 mg 11/11/24 16:18 11/11/24 16:27 Ondansetron Hcl 4 Mg/2 Ml Vial IV 11/11/24 16:19 4 mg STAT ONE Administration Ondansetron HCl Confirm 11/11/24 16:20 Ondansetron Hcl 4 Mg/2 Ml Vial Administered 11/11/24 16:21 Dose 4 mg .ROUTE .STK-MED ONE Ondansetron HCl 4 mg 11/11/24 18:16 Ondansetron Hcl 4 Mg/2 Ml Vial IV 12/11/24 18:15 Q6H PRN PRN NAUSEA/VOMITING Ondansetron HCl Confirm 11/12/24 07:52 Ondansetron Hcl 4 Mg/2 Ml Vial Administered 11/12/24 07:53 Dose 4 mg .ROUTE .STK-MED ONE Phenylephrine HCl Confirm 11/12/24 07:52 Phenylephrine 10 Mg/Ml Vial Administered 11/12/24 07:53 Dose 10 mg .ROUTE .STK-MED ONE Prochlorperazine Edisylate 10 mg 11/11/24 18:20 11/11/24 18:22 Prochlorperazine Edisylate 10 Mg/2 Ml Vial IV 12/11/24 18:19 10 mg Q6H PRN PRN Administration NAUSEA/VOMITING Prochlorperazine Edisylate Confirm 11/11/24 18:21 Prochlorperazine Edisylate 10 Mg/2 Ml Vial Administered 11/11/24 18:22 Dose 10 mg .ROUTE .STK-MED ONE Promethazine HCl Confirm 11/14/24 00:09 Promethazine Hcl 25 Mg/Ml Vial Administered 11/14/24 00:10 Dose 25 mg .ROUTE .STK-MED ONE Propofol Confirm 11/12/24 07:01 Propofol 200 Mg/20 Ml Vial Administered 11/12/24 07:02 Dose 200 mg IV .STK-MED ONE Rocuronium Pryor Confirm 11/12/24 07:52 Rocuronium Pryor 50 Mg/5 Ml Vial Administered 11/12/24 07:53 Dose 50 mg IV .STK-MED ONE Ropivacaine Confirm 11/12/24 07:55 Ropivacaine Hcl 5 Mg/Ml 30ml Vial Administered 11/12/24 07:56 Dose 150 mg .ROUTE .STK-MED ONE Sugammadex Sodium Confirm 11/12/24 09:51 Sugammadex Sodium 200 Mg/2 Ml Vial Administered 11/12/24 09:52 Dose 200 mg IV .STK-MED ONE Vancomycin HCl Confirm 11/12/24 08:47 Vancomycin Hcl Inj 1 Gm Vial Administered 11/12/24 08:48 Dose 1 gm IV .STK-MED ONE Multi-Disciplinary Progress Notes: Multi-Disciplinary Progress Notes 11/13/24 12:49 Case Management Note by Lyubov Trimble FULL REFERRAL WITH [facility] FAXED TO [facility] AT THIS TIME Initialized on 11/13/24 12:49 - END OF NOTE 11/13/24 12:34 Case Management Note by Lyubov Trimble PATIENT REPORTS HE FEELS HE WILL NEED A REHAB STAY AFTER DC PRIOR TO RETURNING HOME. WE DISCUSSED SWINGBED STAY BUT THIS RELIEF OPERATOR AND PHYSICAL THERAPIST DISCUSSED THIS OPTION AND DO NOT FEEL IT WOULD BE IN PATIENT'S BEST INTEREST D/T TOLERANCE OF ACTIVITY CURRENTLY. PATIENT UNDERSTOOD. PATIENT AWARE HE CAN CHOSE ANY FACILITY- HE WOULD LIKE TO GO TO [facility] FOR REHAB. [facility] COMPLETE- NO LEVEL II REQUIRED. COPIES PLACED ON CHART Initialized on 11/13/24 12:34 - END OF NOTE 11/13/24 09:31 OT Plan of Care Note by Adriana (L#[id number])Taylor OT Eval OT Inpatient Eval and POC Start: 11/12/24 11:57 Freq: ONCE Status: Complete Protocol: Created 11/12/24 12:03 VALERIANO (Rec: 11/12/24 12:03 VALERIANO [id number]) Document 11/13/24 09:18 KA (Rec: 11/13/24 09:31 KA [id number]) OT Evaluation Subjective NENA IS AGREEABLE TO OT EVALUATION THIS DATE. PATIENT IS POD #1 RIGHT SUE, WBAT DUE TO GROUND LEVEL FALL WITH FEMORAL NECK FRACTURE. PATIENT WILL HAVE HIP PRECAUTIONS AND USE OF WEDGE PILLOW WHILE AT REST FOR 2-3DAYS. Pertinent Past Medical History SEE PMH BELOW; AFIB AND WATCHMAN DEVICE Prior Level of Function NENA LIVES ALONE AND INDEPENDENT WITH ADLS. REPORTS HOBBIES OF LANDSCAPING AND DRIVING HIS BRONCHO. HIS DAUGHTER LIVES NEARBY Home Setup Tub/Shower Combination, Elevated Height Toilet Date 11/13/24 Feeding WFL Comment SET UP ASSIST Grooming WFL Comment SET UP ASSIST (SEATED) Bathing Impaired Comment UB: MIN ASSIST LB: MOD ASSIST Dressing Impaired Comment UB: MIN ASSIST LB: MAX ASSIST Toileting Impaired Comment MOD ASSIST Bed Mobility Impaired Comment MIN ASSIST (PRIMARY ASSIST WITH RIGHT LE MANAGEMENT) Functional Transfers Impaired Comment MOD ASSIST FOR SIT<>STAND AND MIN ASSIST FOR STAND<>SIT T/F. UNABLE TO COMPLETE STAND PIVOT TRANSFER AT THIS TIME DUE TO INCREASED PAIN AND MUSCLE SPASMS IN RIGHT LEG. COMPLETED SIDE STEPPING TO RIGHT AND LEFT WITH STANDARD WALKER WITH MIN ASSIST Range of Motion WFL Comment BUE AROM WFL Coordination WFL Functional Strength BUE MMT: 4+/5 Functional Endurance FAIR(+); PATIENT ABLE TO TOLERATE LIGHT ACTIVITY SUCH BED MOBILITY, BASIC SIT<> STAND T/FS, AND STANDING FOR APPROXIMATELY 2 MIN Cognition ALERT AND ORIENTED X 4 Pain 5/10 PAIN IN RIGHT HIP THROUGHOUT SESSION. HE REPORTS TAKING MORPHINE AROUND 7 AM. Objective Data/Standardized Assessment(s NENA ON 1LPM OF ) SUPPLEMENTAL O2 VIA NC; HOWEVER DESAT TO 88% WHILE SITTING EOB WITH HR 115-117 BPM. INCREASED TO 2LPM DURING TRANSFERS WITH O2 AT 95% AND HR 100 BPM. AT END OF SESSION, LOWERED TO 1LPM WITH SAT AT 94% (RELAYED INFO TO RN) Comment BARRETT: 08/23 INDICATING HIGH LEVEL OF DEPENDENCE FOR ADLS OT Plan Of Care Date of Evaluation 11/13/24 Treatment Diagnosis RIGHT HIP FRACTURE Precaution/Orders as written WBAT RLE Teaching Recipient Patient Patient is Aware of Diagnosis and Yes Prognosis Patient is receptive to Plan of Care and Yes contributory towards OT goals Functional Problem List NENA PRESENTS WITH GENERALIZED WEAKNESS, DECREASED ACTIVITY TOLERANCE, INCREASED RIGHT HIP PAIN S/P FRACTURE AND SUE, AND HIP PRECAUTIONS LIMITING INDEPENDENCE WITH I/ADLS AND QUALITY OF LIFE. Therapuetic Interventions SELF-CARE, THERAPEUTIC ACTIVITY, THERAPEUTIC EXERCISE , PATIENT EDUCATION Functional Goals of Treatment 1) BY 11/20/24, NENA WILL DEMONSTRATE INDEPENDENCE IN ACTIVITY MODIFICATION, HIP PRECAUTION COMPLIANCE, DME AND A/E RECOMMENDATIONS, AND HEP TO FACILITATE SAFE D/C. 2) BY 11/20/24, NENA WILL COMPLETE FUNCTIONAL TRANSFERS TO COMMODE AND SHOWER WITH CGA TO FACILITATE SAFE D/C. 3) BY 11/20/24, NENA WILL COMPLETE LB DRESSING WITH A/E WITH MIN ASSIST IN ORDER TO FACILTIATE SAFE D/C. 4) BY 11/20/24, NENA WILL COMPLETE GROOMING TASKS WHILE STANDING OR SITTING AT SINK MOD INDEP TO FACILITATE SAFE D /C. Frequency/Duration 5X/WEEK Rehabilitation Potential for Goals/ Excellent Barriers to Progress Discharge Recommendations/Plan NENA WOULD BENEFIT FROM FURTHER SKILLED THERAPY AT DISCHARGE WITH RECOMMENDATION PENDING FURTHER PROGRESS WITH THERAPY THROUGHOUT THE NEXT DAY. PATIENT MAY BE APPROPRIATE SWING BED CANDIDATE BASED ON HIS MOTIVATION AND WILLINESS TO RETURN HOME AT D/C. 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 Past Surgical History Yes Hx Anesthesia Reactions No Hx Malignant Hyperthermia No Neurological Surgical History No Pertinent History ENT Surgical History Cataract Surgery Respiratory Surgical History Chest Surgery,Other Cardiac Surgical History Cardiac Stent,Vascular Surgery Gastrointestinal Surgical History Cholecystectomy,Colon Resection,Hernia Repair,Other Genitourinary Surgical History No Pertinent History Male Surgical History No Pertinent History Musculoskeletal Surgical History No Pertinent History Other Surgical History LIVER RESECTION DUE TO CANCER, 4 heart stents cvl port placement and removal hiatal hernia repair = complications with collapsed lung during OR Watchmans Procedure i approx. early 2021 Alcohol None Drug Use none Hx Substance Use Treatment No Initialized on 11/13/24 09:31 - END OF NOTE Assessment/Plan (1) Closed right hip fracture Current Visit: Yes Status: Acute Qualifiers: Encounter type: initial encounter Qualified Code(s): S72.001A - Fracture of unspecified part of neck of right femur, initial encounter for closed fracture Assessment & Plan: -Orthopedics consulted; fracture confirmed on imaging. -Surgery (ORIF) planned 11/12/24 -Preoperative labs (CBC, CMP, PT/INR) obtained and reviewed -CMP/CBC reviewed -Patient remains NPO in preparation for surgery; maintenance IVF initiated -Preoperative antibiotics administered (per protocol). -Pain managed with PRN morphine and Shawnee -Bryant catheter placed for anticipated immobility -SCDs)for DVT prophylaxis initiated. -Continue ice application to the affected hip for comfort and swelling control 11/13: -PODS#1- doing well, pain controlled -PT to evaluate patient today -Ortho note reviewed - agree with plan for ASA 81mg, WB as tolerated -CMP/CBC reviewed -continue pain management -IPPT -DC bryant catheter 11/14: -POD#2 -IV pain control discontinued - continue Shawnee -CBC reviewed noting WBC is modestly elevated at 11.2. Procalcitonin is mildly elevated at 0.219, though this is a nonspecific finding. The patient remains af ebrile, and there are no clinical signs of infection at this time. X-rays ordered in coordination with Orthopedics show no acute findings-will hold empiric antibiotics for now -continue IPPT until dc to rehab Code(s): S72.001A - FRACTURE OF UNSP PART OF NECK OF RIGHT FEMUR, INIT (2) Right hip pain Current Visit: Yes Status: Acute Assessment & Plan: - See plan above - Ortho consult in ER- awaiting recs - ICE pack - Bryant ordered in ER per ortho for immobilization - Morphine and norco PRN for pain control per Ortho recs - Narcan PRN - Protonix 11/14: -DC IV pain meds- continue norco PRN Code(s): M25.551 - PAIN IN RIGHT HIP (3) Left thigh pain Current Visit: Yes Status: Acute Assessment & Plan: -- + Left thigh bruise - Radiology results pending - Left hip/thigh bruising noted on exam; no fracture seen on initial imaging -Continue close monitoring for expanding hematoma or compartment syndrome signs (increasing pain, swelling, numbness, or neurovascular compromise) -Pain control -consider further imaging if swelling/pain persists 11/14: -Resolved Code(s): M79.652 - PAIN IN LEFT THIGH (4) History of colon cancer Current Visit: Yes Status: Acute Assessment & Plan: -No oncologic intervention needed during this admission -Maintain vigilance for delayed healing or other post-op complications in view of past cancer history Code(s): Z85.038 - PERSONAL HISTORY OF MALIGNANT NEOPLASM OF LARGE INTESTINE (5) Atrial fibrillation Current Visit: Yes Status: Chronic Assessment & Plan: -telemetry initiated for continuous monitoring -No evidence of rapid ventricular response (RVR) or decompensation currently -Continue home rate control medications -Monitor closely perioperatively given increased risk for perioperative arrhythmias 11/14: -Overnight event of AFIB RVR -CTA chest was negative for pulmonary embolism or other acute intrathoracic pathology -Continue cardiac monitoring; cardiology to advise on AFib management -Patient received metoprolol 5mg IV x 2 and cardizem 10mg x 2 with HR now in 100's-110's -Continue home medications pending cardiology eval Code(s): I48.91 - UNSPECIFIED ATRIAL FIBRILLATION (6) Hyperlipidemia Current Visit: No Status: Chronic Assessment & Plan: -continue statin Code(s): E78.5 - HYPERLIPIDEMIA, UNSPECIFIED (7) Leukocytosis Current Visit: Yes Status: Acute Assessment & Plan: -Most likely reactive 08/19 to fall- WBC on odivgbqcm93.4<10.5 - trend -UA with hematuria - otherwise clear -Received pre-op Cefazolin 11/13: -WBC reviewed at 10.2- continue to monitor 11/14: --CBC reviewed noting WBC is modestly elevated at 11.2. Procalcitonin is mildly elevated at 0.219, though this is a nonspecific finding. The patient remains afebrile, and there are no clinical signs of infection at this time. X-rays ordered in coordination with Orthopedics show no acute findings-will hold empiric antibiotics for now Code(s): D72.829 - ELEVATED WHITE BLOOD CELL COUNT, UNSPECIFIED (8) Hypocalcemia Current Visit: Yes Status: Acute Assessment & Plan: -resolved Code(s): E83.51 - HYPOCALCEMIA (9) Hypertension Current Visit: No Status: Chronic Assessment & Plan: -continue home meds VTE: aspirin/ scd PPI: Protonix Nesxt of KIN: Child- Romy Graham D/C plan: 2-3 days Code status: Full Code(s): S72.001A - FRACTURE OF UNSP PART OF NECK OF RIGHT FEMUR, INIT (2) Right hip pain Current Visit: Yes Status: Acute Code(s): M25.551 - PAIN IN RIGHT HIP (3) Left thigh pain Current Visit: Yes Status: Acute Code(s): M79.652 - PAIN IN LEFT THIGH (4) History of colon cancer Current Visit: Yes Status: Acute Code(s): Z85.038 - PERSONAL HISTORY OF MALIGNANT NEOPLASM OF LARGE INTESTINE (5) Atrial fibrillation Current Visit: Yes Status: Chronic Code(s): I48.91 - UNSPECIFIED ATRIAL FIBRILLATION (6) Hyperlipidemia Current Visit: No Status: Chronic Code(s): E78.5 - HYPERLIPIDEMIA, UNSPECIFIED (7) Leukocytosis Current Visit: Yes Status: Acute Code(s): D72.829 - ELEVATED WHITE BLOOD CELL COUNT, UNSPECIFIED (8) Hypocalcemia Current Visit: Yes Status: Acute Code(s): E83.51 - HYPOCALCEMIA (9) Hypertension Current Visit: No Status: Chronic Code(s): I10 - ESSENTIAL (PRIMARY) HYPERTENSION
[2024-11-14] MEDS: NORCO 5/325 MG PO PRN (07:57)
[2024-11-14] MEDS: Sodium Chloride 0.9% 1000 ML 1,000 ML IV SCH (08:41)
--- NOTE | 2024-11-14 08:55 | PCM.NOTE ---
ORTHO Narrative Note ORTHO Narrative Note: ORTHOPAEDIC SURGERY INPATIENT PROGRESS NOTE Mr. Azul currently reports mild right hip and thigh pain. The patient reports minimal left thigh pain. Per report, the patient had episodes of tachycardia and hypoxia last night, so the patient underwent evaluation for a pulmonary embolism, and this evaluation was negative. No other problems are reported. OBJECTIVE: Tm 99.8; VSS General - NAD; patient resting comfortably in bed RLE - dressing CDI; mild thigh swelling; generalized tenderness to palpation about thigh; N/V stable LLE - mild distal lateral thigh swelling and tenderness; N/V stable LABS: Hgb - 10.8 WBC - 11.2 ASSESSMENT: 1. Right femoral neck fracture, POD #2, status-post right hip hemiarthroplasty 2. Left thigh contusion PLAN: Mr. Azul is status-post right hip hemiarthroplasty for a right femoral neck fracture. The patient had difficulty mobilizing with physical therapy yesterday due to pain; however, the patient did not begin receiving oral pain medications until this morning. The patient states that his pain has improved since yesterday. X-rays of the right hip will be obtained to evaluate for any abnormality which may be contributing. Otherwise, the patient will continue gait training and mobilization with physical therapy. The patient's WBC remains elevated and is slightly increased from yesterday. With the patient being only 2 days out from surgery, this is most likely respiratory in nature, specifically atelectasis. The patient's chest CT from earlier this morning did indicate mild bilateral pleural effusions with basilar lung atelectasis. The decision for additional antibiotics will be left up to the Hospitalist Service. In addition, the patient is having some tachycardia, likely related to his atrial fibrillation. The Hospitalist Service will continue to monitor and manage the patient's medical conditions. Discharge planning is pending, as the patient will likely require shelter facility placement. The patient will continue to be monitored closely.
--- NOTE | 2024-11-14 09:38 | XRAY ---
Indication: Right hip pain following surgery. Comparison: November 12, 2024 AP pelvis and 2 view right hip again demonstrates intact right total hip arthroplasty with postop soft tissue swelling/soft tissue emphysema. New contrasted urinary bladder from CT PE exam earlier in the day. Stable osteopenia and pelvic surgical clips. No other bony, articular, or soft tissue abnormalities.
--- NOTE | 2024-11-14 22:14 | PCM.CONS ---
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 Underwent surgical repair with orthopedics two days ago. Yesterday had some rapid Atrial Fibrillation and did get some IV metoprolol and diltiazem. He is more or less asymptomatic from an atrial fibrillatino perspective. No chest pain, palpitations, lightheadedness, dizziness, orthopnea, edema, PND. He had an Echo several months ago with reportedly normal EF and follows with a countersinker a few times a year. He has never had a cardioversion or ablation. At the time of my exam patient is resting comfortably in bed. - Review of Systems Constitutional: No Fever Eyes: No Symptoms Ears, Nose, & Throat: No Symptoms Respiratory: No Symptoms Cardiac: No Symptoms, No Chest Pain, No Edema, No Palpitations, No Syncope, No Orthopnea Abdominal/Gastrointestinal: No Symptoms Genitourinary Symptoms: No Symptoms Musculoskeletal: Other (Hip fracture) Neurological: No Symptoms Psychological: No Symptoms Endocrine: No Symptoms Hematologic/Lymphatic: No Symptoms Immunological/Allergic: No Symptoms Medications & Allergies Home Medications: Home Medication List Fenofibrate 145 mg PO DAILY 12/01/15 [History Confirmed 11/11/24] Multivitamin [Multi-Vitamin Daily] 1 tab PO DAILY 12/01/15 [History Confirmed 11/11/24] Atorvastatin Calcium 80 mg PO HS 05/30/21 [History Confirmed 11/11/24] Aspirin EC 81 mg [Ecotrin 81 mg] 81 mg PO DAILY 08/02/22 [History Confirmed 11/11/24] Ubidecarenone [Co Q-10] 100 mg PO DAILY 08/02/22 [History Confirmed 11/11/24] Metoprolol Succinate 50 mg [Toprol Xl 50 MG] 50 mg PO BID 10/23/22 [History Confirmed 11/11/24] Ezetimibe 10 mg [Zetia 10 MG] 10 mg PO DAILY 03/13/23 [History Confirmed 11/11/24] Vit C/E/Zn/Coppr/Lutein/Zeaxan [Preservision Areds 2 Softgel] 1 cap PO BID 03/13/23 [History Confirmed 11/11/24] dilTIAZem HCL [Cartia Xt] 180 mg PO DAILY 11/05/24 [History Confirmed 11/11/24] Allergies/Adverse Reactions: Allergies Allergy/AdvReac Type Severity Reaction Status Date / Time doxycycline Allergy Mild dizzy and Verified 11/11/24 17:47 nasuea prochlorperazine Allergy Mild Hives Verified 11/11/24 19:26 [From Compazine] cefdinir Allergy Verified 11/11/24 17:47 - Past Medical History Past Medical History: Yes Neurological History: No Pertinent History ENT History: Cataracts Cardiac History: High Cholesterol, Hypertension, Myocardial Infarction (AL) Respiratory History: No Pertinent History Endocrine Medical History: No Pertinent History Musculoskelatal History: Fractures GI Medical History: Colorectal Cancer, Hernia, Liver Cancer History: No Pertinent History Pyscho-Social History: No Pertinent History Male Reproductive Disorders: No Pertinent History Comment: History of Colon with Liver mets, Myocardial Infarction x2, Afib. Soapstoner: Dr. Mccullough - Past Surgical History Past Surgical History: Yes Neuro Surgical History: No Pertinent History Cardiac History: Cardiac Stent, Vascular Surgery Respiratory Surgery: Chest Surgery, Other GI Surgical History: Cholecystectomy, Colon Resection, Hernia Repair, Other Genitourinary Surgical Hx: No Pertinent History Musculskeletal Surgical Hx: No Pertinent History Male Surgical History: No Pertinent History Other Surgical History: LIVER RESECTION DUE TO CANCER, 4 heart stents. cvl port placement and removal. hiatal hernia repair = complications with collapsed lung during OR. Watchmans Procedure i approx. early 2021 Significant Family History: no pertinent family hx - Social History Smoking Status: Former smoker How long have you smoked: 30+ Exposure to second hand smoke: No Alcohol: None Drug Use: none - Social Determinants of Health Will the patient participate in the screening: Yes Do you worry about a steady place to live?: No Do you have any problems with any of the following?: No known problems In the past 12 months,have you had to go without utilities?: No Have you or anyone in your house had to go without enough: No Transportation Issues: No Has anyone in your support network made you feel unsafe?: No Does the patient want assistance with any of the above?: No - Physical Exam Vital Signs: Vital Signs - 24 hr Temp Pulse Resp BP Pulse Ox 11/14/24 20:42 98.9 F 112 H 17 143/80 98 11/14/24 17:52 14 11/14/24 15:55 97.7 F 92 H 16 139/68 94 L 11/14/24 11:54 98.3 F 104 H 17 128/59 96 11/14/24 11:00 24 11/14/24 07:56 99.8 F 119 H 16 132/82 96 11/14/24 07:00 20 11/14/24 05:28 98 11/13/24 23:43 97.8 F 100 H 16 148/67 95 11/13/24 23:00 16 General Appearance: no apparent distress Neurologic Exam: alert, oriented x 3 Eye Exam: PERRL/EOMI Neck Exam: normal inspection, supple, full range of motion, No JVD Respiratory Exam: normal breath sounds, No chest tenderness, No accessory muscle use Cardiovascular Exam: normal peripheral pulses, irregular, capillary refill <2 sec, No murmur Gastrointestinal/Abdomen Exam: soft, normal bowel sounds, No tenderness, No distention Skin Exam: normal color, warm, dry, No rash Wound Assessment: Skin/Wound Assessment Wound/Incision Assessment Start: 11/11/24 19:12 Text: Status: Active Freq: Q4H Protocol: Document 11/14/24 20:00 GM (Rec: 11/14/24 22:01 GM [id number]) Wound/Incision Assessment right thigh Wound Assessment Shift Assessment Wound Type Incision Wound Stage Non Pressure Wound Dressing Status Dry & Intact Drainage Amount None Drainage Odor None/Absent Primary Dressing Aquacel dressing Comment Unable to assess incision. Aquacel dressing remains C/D/I No shadowing noted Wound Photo Photo Taken No Results - Labs Lab/Micro Results: Lab Results-Last 24 Hours 11/13/24 11/14/24 11/14/24 Range/Units 23:00 02:22 02:22 WBC 11.2 H (4.23-9.07) x10^3/uL RBC 3.44 L (4.63-6.08) x10^6/uL Hgb 10.8 L (13.7-17.5) g/dL Hct 32.3 L (40.1-51.0) % MCV 93.9 H (79.0-92.2) fL MCH 31.4 (25.7-32.2) pg MCHC 33.4 (32.3-36.5) g/dL RDW 14.0 (11.6-14.4) % Plt Count 161 L (163-337) x10^3/uL MPV 10.4 (9.4-12.4) fL Gran % 76.0 H (34.0-67.9) % Immature Gran % (Auto) 0.4 (0.001-0.429) % Nucleat RBC Rel Count 0.0 (0.00-0.2) % Eos # (Auto) 0.63 H (0.04-0.54) x10^3/uL Immature Gran # (Auto) 0.05 H (0.001-0.031) x10^3u/L Absolute Lymphs (auto) 1.32 (1.32-3.57) x10^3/uL Absolute Monos (auto) 0.64 (0.30-0.82) x10^3/uL Absolute Nucleated RBC 0.00 (0.00-0.012) x10^3u/L Lymphocytes % 11.8 L (21.8-53.1) % Monocytes % 5.7 (5.3-12.2) % Eosinophils % 5.6 (0.8-7.0) % Basophils % 0.5 (0.2-1.2) % Absolute Granulocytes 8.47 H (1.78-5.38) x10^3/uL Basophils # 0.06 (0.01-0.08) x10^3/uL ESR (0-15) mm/hr PT (9.4-12.5) SECONDS INR (0.8-3.0) APTT (25.1-36.5) SECONDS Sodium 136 (135-145) mmol/L Potassium 4.1 (3.5-5.1) mmol/L Chloride 104 (98-107) mmol/L Carbon Dioxide 23 (22-30) mmol/L Anion Gap 13.9 (5-15) MEQ/L BUN 15 (9-20) mg/dL Creatinine 0.81 (0.66-1.25) mg/dL Estimated GFR 89.7 ML/MIN Glucose 113 H (74-106) mg/dL Lactic Acid (0.4-2.0) Calcium 8.2 L (8.4-10.2) mg/dL Total Bilirubin 1.40 H (0.2-1.3) mg/dL AST 77 H (17-59) U/L ALT 30 (0-50) U/L Alkaline Phosphatase 62 (38-126) U/L Troponin I < 0.012 (0.000-0.033) ng/mL NT-Pro-B Natriuret Pep (<300) pg/mL Serum Total Protein 5.6 L (6.3-8.2) g/dL Albumin 3.1 L (3.5-5.0) g/dL Procalcitonin (0.030-0.080) ng/mL 11/14/24 11/14/24 11/14/24 Range/Units 02:22 02:22 02:30 WBC (4.23-9.07) x10^3/uL RBC (4.63-6.08) x10^6/uL Hgb (13.7-17.5) g/dL Hct (40.1-51.0) % MCV (79.0-92.2) fL MCH (25.7-32.2) pg MCHC (32.3-36.5) g/dL RDW (11.6-14.4) % Plt Count (163-337) x10^3/uL MPV (9.4-12.4) fL Gran % (34.0-67.9) % Immature Gran % (Auto) (0.001-0.429) % Nucleat RBC Rel Count (0.00-0.2) % Eos # (Auto) (0.04-0.54) x10^3/uL Immature Gran # (Auto) (0.001-0.031) x10^3u/L Absolute Lymphs (auto) (1.32-3.57) x10^3/uL Absolute Monos (auto) (0.30-0.82) x10^3/uL Absolute Nucleated RBC (0.00-0.012) x10^3u/L Lymphocytes % (21.8-53.1) % Monocytes % (5.3-12.2) % Eosinophils % (0.8-7.0) % Basophils % (0.2-1.2) % Absolute Granulocytes (1.78-5.38) x10^3/uL Basophils # (0.01-0.08) x10^3/uL ESR (0-15) mm/hr PT 13.1 H (9.4-12.5) SECONDS INR 1.22 (0.8-3.0) APTT 26.2 (25.1-36.5) SECONDS Sodium (135-145) mmol/L Potassium (3.5-5.1) mmol/L Chloride (98-107) mmol/L Carbon Dioxide (22-30) mmol/L Anion Gap (5-15) MEQ/L BUN (9-20) mg/dL Creatinine (0.66-1.25) mg/dL Estimated GFR ML/MIN Glucose (74-106) mg/dL Lactic Acid (0.4-2.0) Calcium (8.4-10.2) mg/dL Total Bilirubin (0.2-1.3) mg/dL AST (17-59) U/L ALT (0-50) U/L Alkaline Phosphatase (38-126) U/L Troponin I < 0.012 (0.000-0.033) ng/mL NT-Pro-B Natriuret Pep (<300) pg/mL Serum Total Protein (6.3-8.2) g/dL Albumin (3.5-5.0) g/dL Procalcitonin 0.219 H (0.030-0.080) ng/mL 11/14/24 11/14/24 11/14/24 Range/Units 09:40 09:40 09:50 WBC (4.23-9.07) x10^3/uL RBC (4.63-6.08) x10^6/uL Hgb (13.7-17.5) g/dL Hct (40.1-51.0) % MCV (79.0-92.2) fL MCH (25.7-32.2) pg MCHC (32.3-36.5) g/dL RDW (11.6-14.4) % Plt Count (163-337) x10^3/uL MPV (9.4-12.4) fL Gran % (34.0-67.9) % Immature Gran % (Auto) (0.001-0.429) % Nucleat RBC Rel Count (0.00-0.2) % Eos # (Auto) (0.04-0.54) x10^3/uL Immature Gran # (Auto) (0.001-0.031) x10^3u/L Absolute Lymphs (auto) (1.32-3.57) x10^3/uL Absolute Monos (auto) (0.30-0.82) x10^3/uL Absolute Nucleated RBC (0.00-0.012) x10^3u/L Lymphocytes % (21.8-53.1) % Monocytes % (5.3-12.2) % Eosinophils % (0.8-7.0) % Basophils % (0.2-1.2) % Absolute Granulocytes (1.78-5.38) x10^3/uL Basophils # (0.01-0.08) x10^3/uL ESR 18 H (0-15) mm/hr PT (9.4-12.5) SECONDS INR (0.8-3.0) APTT (25.1-36.5) SECONDS Sodium (135-145) mmol/L Potassium (3.5-5.1) mmol/L Chloride (98-107) mmol/L Carbon Dioxide (22-30) mmol/L Anion Gap (5-15) MEQ/L BUN (9-20) mg/dL Creatinine (0.66-1.25) mg/dL Estimated GFR ML/MIN Glucose (74-106) mg/dL Lactic Acid 1.0 (0.4-2.0) Calcium (8.4-10.2) mg/dL Total Bilirubin (0.2-1.3) mg/dL AST (17-59) U/L ALT (0-50) U/L Alkaline Phosphatase (38-126) U/L Troponin I (0.000-0.033) ng/mL NT-Pro-B Natriuret Pep 1470 (<300) pg/mL Serum Total Protein (6.3-8.2) g/dL Albumin (3.5-5.0) g/dL Procalcitonin (0.030-0.080) ng/mL Microbiology 11/11/24 18:15 Urine Culture - Final Urine, Catheterized NO GROWTH - Radiology Impressions Radiology Exams & Impressions: Radiology Procedures Category Date Time Status CHEST WITH CONTRAST [CT] Stat Exams 11/14/24 03:28 Completed HIP UNI (2V) INCL PEL IF DONE Routine Exams 11/14/24 08:14 Completed - Other Procedures and Tests Respiratory Therapy 11/14/24 08:17 Incentive Spirometry UD Assessment/Plan (1) Atrial fibrillation Current Visit: Yes Status: Chronic Qualifiers: Atrial fibrillation type: unspecified chronic Qualified Code(s): I48.20 - Chronic atrial fibrillation, unspecified; I48.2 - Chronic atrial fibrillation Assessment & Plan: - His rates are on the faster side but seem to have been coming down throughout the day. Possible that there is some increased myocardial demand related to post operative state - He is hemodynamically stable - OK to hold off on AC as he is s/p Watchman. Only getting aspirin which is reasonable given his history of AL - BP stable - Would continue Cardizem 180 mg daily and Metoprolol Succinate 50 mg BID. If rates are not consistently < 110 beats/min can uptitrate - EF was reportedly 60% < 1 year ago I am told. I don't think we need a repeat echo but if there is a clinical change can re-assess. Code(s): I48.91 - UNSPECIFIED ATRIAL FIBRILLATION
[2024-11-15 05:13] LABS: Absolute Neutrophil Ct (ANC) 5.12 x10^3/uL (1.78-5.38); BASOPHIL % 0.5 % (0.2-1.2); Basophil (Absolute #) 0.04 x10^3/uL (0.01-0.08); Eosinophil (Absolute #) 0.88 x10^3/uL (0.04-0.54); Hematocrit 28.1 % (40.1-51.0); Hemoglobin 9.4 g/dL (13.7-17.5); IMMATURE GRAN # 0.03 x10^3u/L (0.001-0.031); IMMATURE GRAN % 0.4 % (0.001-0.429); Lymphocyte (Absolute #) 1.37 x10^3/uL (1.32-3.57); Lymphocytes % 17.1 % (21.8-53.1); Mean Cell Volume 94.9 fL (79.0-92.2); Mean Corpuscular Hemoglobin 31.8 pg (25.7-32.2); Mean Corpuscular Hgb Concent. 33.5 g/dL (32.3-36.5); Mean Platelet Volume 10.5 fL (9.4-12.4); Monocyte (Absolute #) 0.59 x10^3/uL (0.30-0.82); Monocytes % 7.3 % (5.3-12.2); Neutrophil % 63.7 % (34.0-67.9); Platelet Count 161 x10^3/uL (163-337); Red Blood Count 2.96 x10^6/uL (4.63-6.08)
[2024-11-15 05:36] LABS: ALBUMIN 2.7 g/dL (3.5-5.0); ANION GAP 12.2 MEQ/L (5-15); BILIRUBIN,TOTAL 1.2 mg/dL (0.2-1.3); Calcium 8.1 mg/dL (8.4-10.2); Creatinine 1 0.89 mg/dL (0.66-1.25); EST GLOMERULAR FILTRATION RATE 87.2 ML/MIN; Potassium 3.8 mmol/L (3.5-5.1); Total Protein 5.2 g/dL (6.3-8.2)
--- NOTE | 2024-11-15 10:47 | PCM.NOTE ---
Date and Time: 11/15/24 1038 Subjective Assessment: He is post op day 3 s/p right hip hemiarthroplasty. He has gotten up and walked with PT. He describes pain in the hip/thigh which has been controlled with medication. X-rays show good position of the right hip implants, however there is a lucent oblique unicortical line near the distal tip of the stem. This is probably a nutrient vessel, however fracture is possible. PE: right hip dressing is dry, intact. NVI. Moderate pain with gentle right hip motion. A/P: s/p right hip hemiarthroplasty. Will go ahead and order a right hip CT to better evaluate the cortical lucent line near the tip of the stem. Will follow up. If it looks like fracture, we would then likely protect his weightbearing during his initial recovery. This shouldn't delay his transfer to rehab facility. Continue the dressing, change 7 days post op, then daily dry dressing changes. Follow up in the office 2 weeks post op. Objective Exam Wound Assessment: Skin/Wound Assessment Wound/Incision Assessment Start: 11/11/24 19:12 Text: Status: Active Freq: Q4H Protocol: Document 11/15/24 08:00 BARBARA (Rec: 11/15/24 08:06 [facility] [id number]) Wound/Incision Assessment right thigh Wound Assessment Shift Assessment Wound Type Incision Wound Stage Non Pressure Wound Dressing Status Dry & Intact Drainage Amount None Drainage Odor None/Absent Primary Dressing Aquacel dressing Comment Unable to assess incision. Aquacel dressing in place. No drainage assessed at this time . Dressing intact. Wound Photo Photo Taken No Objective Data Vital Signs: Vital Signs - 24 hr Temp Pulse Resp BP Pulse Ox 11/15/24 07:24 99.2 F 76 18 131/63 97 11/15/24 07:08 97 11/15/24 07:00 17 11/15/24 00:33 99.2 F 110 H 18 143/69 97 11/14/24 23:00 17 11/14/24 20:42 98.9 F 112 H 17 143/80 98 11/14/24 17:52 14 11/14/24 15:55 97.7 F 92 H 16 139/68 94 L 11/14/24 11:54 98.3 F 104 H 17 128/59 96 11/14/24 11:00 24 Pain Assessment - Last Documented Pain Intensity 0 Pain Scale Used 0-10 Pain Scale Intake and Output: Intake & Output 11/13/24 11/14/24 11/15/24 11/16/24 06:59 06:59 06:59 06:59 Intake Total 540 800 460 240 Output Total 3056 850 1122 400 [facility] -[phone] -50 -[phone] Lab Results: Lab Results-Last 24 Hours 11/14/24 11/15/24 11/15/24 Range/Units 09:40 05:07 05:07 WBC 8.0 (4.23-9.07) x10^3/uL RBC 2.96 L (4.63-6.08) x10^6/uL Hgb 9.4 L (13.7-17.5) g/dL Hct 28.1 L (40.1-51.0) % MCV 94.9 H (79.0-92.2) fL MCH 31.8 (25.7-32.2) pg MCHC 33.5 (32.3-36.5) g/dL RDW 14.0 (11.6-14.4) % Plt Count 161 L (163-337) x10^3/uL MPV 10.5 (9.4-12.4) fL Gran % 63.7 (34.0-67.9) % Immature Gran % (Auto) 0.4 (0.001-0.429) % Nucleat RBC Rel Count 0.0 (0.00-0.2) % Eos # (Auto) 0.88 H (0.04-0.54) x10^3/uL Immature Gran # (Auto) 0.03 (0.001-0.031) x10^3u/L Absolute Lymphs (auto) 1.37 (1.32-3.57) x10^3/uL Absolute Monos (auto) 0.59 (0.30-0.82) x10^3/uL Absolute Nucleated RBC 0.00 (0.00-0.012) x10^3u/L Lymphocytes % 17.1 L (21.8-53.1) % Monocytes % 7.3 (5.3-12.2) % Eosinophils % 11.0 H (0.8-7.0) % Basophils % 0.5 (0.2-1.2) % Absolute Granulocytes 5.12 (1.78-5.38) x10^3/uL Basophils # 0.04 (0.01-0.08) x10^3/uL ESR 18 H (0-15) mm/hr Sodium 136 (135-145) mmol/L Potassium 3.8 (3.5-5.1) mmol/L Chloride 101 (98-107) mmol/L Carbon Dioxide 26 (22-30) mmol/L Anion Gap 12.2 (5-15) MEQ/L BUN 19 (9-20) mg/dL Creatinine 0.89 (0.66-1.25) mg/dL Estimated GFR 87.2 ML/MIN Glucose 108 H (74-106) mg/dL Calcium 8.1 L (8.4-10.2) mg/dL Total Bilirubin 1.20 (0.2-1.3) mg/dL AST 62 H (17-59) U/L ALT 28 (0-50) U/L Alkaline Phosphatase 82 (38-126) U/L Serum Total Protein 5.2 L (6.3-8.2) g/dL Albumin 2.7 L (3.5-5.0) g/dL Radiology Exams: Radiology Procedures Category Date Time Status CHEST WITH CONTRAST [CT] Stat Exams 11/14/24 03:28 Completed HIP UNI (2V) INCL PEL IF DONE Routine Exams 11/14/24 08:14 Completed LOWER EXTREMITY WO CONTRAST [CT] Stat Exams 11/15/24 10:34 Ordered Medications: Medications Generic Name Dose Route Start Last Admin Trade Name Freq PRN Reason Stop Dose Admin Hydrocodone Bitart/Acetaminophen 1 - 2 tab 11/12/24 15:00 11/15/24 08:47 Hydrocodone/Apap 5/325 1 Tab Tablet PO 11/17/24 14:59 1 tab Q4H PRN PRN Administration MODERATE PAIN Aspirin 81 mg 11/12/24 22:00 11/15/24 08:46 Aspirin 81 Mg Tablet.Ec PO 12/12/24 21:59 81 mg BID AMBER Administration Diltiazem HCl 180 mg 11/12/24 10:00 11/15/24 08:48 Diltiazem Hcl Cd 180 Mg Cap.Sr.24h PO 12/12/24 09:59 180 mg DAILY AMBER Administration Docusate Sodium 100 mg 11/12/24 22:00 11/15/24 08:46 Docusate Sodium 100 Mg Capsule PO 12/12/24 21:59 100 mg BID AMBER Administration Ezetimibe 10 mg 11/12/24 10:00 11/15/24 08:46 Ezetimibe 10 Mg Tab PO 12/12/24 09:59 10 mg DAILY AMBER Administration Fenofibrate 145 mg 11/12/24 10:00 11/15/24 08:48 Fenofibrate,Micronized 145 Mg Tablet PO 12/12/24 09:59 145 mg DAILY AMBER Administration Promethazine HCl 12.5 mg/ 100.5 mls @ 201 mls/hr 11/13/24 23:56 11/14/24 00:15 Sodium Chloride IV 12/13/24 23:55 201 mls/hr Q4H PRN PRN Administration UNCONTROLLED NAUSEA Metoprolol Succinate 50 mg 11/11/24 22:00 11/15/24 08:46 Metoprolol Succinate 50 Mg Tablet.Sa PO 12/11/24 21:59 50 mg BID AMBER Administration Miscellaneous Information 1 each 11/12/24 07:15 Medication Intervention 1 Each Each 12/12/24 07:14 .RN TO CHECK AMBER Multivitamins Therapeutic 1 tab 11/12/24 10:00 11/15/24 08:46 Multivitamins,Therapeutic 1 Tab Tab PO 12/12/24 09:59 1 tab DAILY AMBER Administration Multivitamins/Minerals 1 tab 11/12/24 10:00 11/15/24 08:47 Beta-Carotene(A) W-C And E/Min 1 Tab Tablet PO 12/12/24 09:59 1 tab BID AMBER Administration Naloxone HCl 0.4 mg 11/11/24 17:54 Naloxone Hcl 0.4 Mg/Ml Ml IV 12/11/24 17:53 PRN PRN RESPIRATORY DEPRESSION Ondansetron HCl 4 mg 11/12/24 14:52 11/13/24 21:27 Ondansetron Hcl 4 Mg/2 Ml Vial IV 12/12/24 14:51 4 mg Q4H PRN PRN Administration NAUSEA/VOMITING Pantoprazole Sodium 20 mg 11/12/24 10:00 11/15/24 08:46 Pantoprazole 20 Mg Tab PO 12/12/24 09:59 20 mg DAILY AMBER Administration Simvastatin 40 mg 11/11/24 22:00 11/14/24 21:22 Simvastatin 20 Mg Tablet PO 12/11/24 21:59 40 mg HS AMBER Administration Discontinued Medications Generic Name Dose Route Start Last Admin Trade Name Freq PRN Reason Stop Dose Admin Hydrocodone Bitart/Acetaminophen 1 tab 11/11/24 17:46 Hydrocodone/Apap 5/325 1 Tab Tablet PO 11/16/24 17:45 Q4H PRN PRN PAIN Cefazolin Sodium Confirm 11/12/24 07:52 Cefazolin Sodium 1 Gm Vial Administered 11/12/24 07:53 Dose 2 g .ROUTE .STK-MED ONE Dexamethasone Sodium Phosphate Confirm 11/12/24 07:52 Dexamethasone Sodium Phosphate 4 Mg/Ml Vial Administered 11/12/24 07:53 Dose 4 mg .ROUTE .STK-MED ONE Diltiazem HCl 10 mg 11/13/24 23:57 11/14/24 00:15 Diltiazem Hcl Iv 5 Mg/Ml Vial IV 11/13/24 23:58 10 mg STAT ONE Administration Diltiazem HCl 10 mg 11/14/24 03:29 11/14/24 03:38 Diltiazem Hcl Iv 5 Mg/Ml Vial IV 11/14/24 03:30 10 mg STAT ONE Administration Diphenhydramine HCl 12.5 mg 11/11/24 18:36 11/11/24 18:37 Diphenhydramine Hcl 50 Mg/Ml Vial IV 11/11/24 18:37 12.5 mg STAT ONE Administration Fentanyl Citrate Confirm 11/12/24 08:03 Fentanyl Citrate 100 Mcg/2 Ml* Vial Administered 11/12/24 08:04 Dose 100 mcg .ROUTE .STK-MED ONE Fentanyl Citrate Confirm 11/12/24 10:29 Fentanyl Citrate 100 Mcg/2 Ml* Vial Administered 11/12/24 10:30 Dose 100 mcg .ROUTE .STK-MED ONE Sodium Chloride 1,000 mls @ 999 mls/hr 11/11/24 16:04 11/11/24 16:24 Sodium Chloride 0.9% 1000 Ml IV 11/11/24 17:04 999 mls/hr .Q1H1M STA Administration Meropenem 1 gm/ Sodium 100 mls @ 200 mls/hr 11/11/24 16:04 11/11/24 16:42 Chloride IV 11/11/24 16:33 Not Given STAT ONE Cefazolin Sodium 1 gm in 100 mls @ 200 mls/hr 11/11/24 16:10 11/11/24 17:10 Cefazolin 1 Gm/100 Ml Nacl Ivpb IV 11/11/24 16:39 Infused STAT STA Infusion Cefazolin Sodium Confirm 11/11/24 16:21 Cefazolin 1 Gm/100 Ml Nacl Ivpb Administered 11/11/24 16:22 Dose 1 gm in 100 mls @ ud IV .STK-MED ONE Sodium Chloride Confirm 11/11/24 16:21 Sodium Chloride 0.9% 1000 Ml Administered 11/11/24 16:22 Dose 1,000 mls @ ud .ROUTE .STK-MED ONE Sodium Chloride 1,000 mls @ 75 mls/hr 11/12/24 00:01 11/13/24 03:29 Sodium Chloride 0.45% 1000 Ml IV 12/12/24 00:00 75 mls/hr .[id number] AMBER Administration Cefazolin Sodium 2 gm in 100 mls @ 200 mls/hr 11/12/24 06:45 Cefazolin 2 Gm/100 Ml Nacl IV 11/12/24 07:14 ONCALLTOOR AMBER TRANEXAMIC ACID IN NACL,ISO-OS 1,000 mg in 100 mls @ 600 mls/hr 11/12/24 06:35 11/12/24 12:58 Tranexamic 1,000 Mg/100ml-Nacl IV 11/12/24 06:44 Not Given ONCE ONE Lactated Ringer's Confirm 11/12/24 07:21 Lactated Ringers Administered 11/12/24 07:22 Dose 1,000 mls @ ud IV .STK-MED ONE Sodium Chloride Confirm 11/12/24 07:32 Sodium Chloride 0.9% 1000 Ml Administered 11/12/24 07:33 Dose 1,000 mls @ ud .ROUTE .STK-MED ONE TRANEXAMIC ACID IN NACL,ISO-OS Confirm 11/12/24 07:56 Tranexamic 1,000 Mg/100ml-Nacl Administered 11/12/24 07:57 Dose 1,000 mg in 100 mls @ ud IV .STK-MED ONE Cefazolin Sodium 2 gm in 100 mls @ 200 mls/hr 11/12/24 15:00 11/13/24 08:16 Cefazolin 2 Gm/100 Ml Nacl IV 11/13/24 07:29 200 mls/hr Q8H AMBER Administration Sodium Chloride Confirm 11/14/24 00:11 Sodium Chloride 0.9% Administered 11/14/24 00:12 Dose 100 mls @ ud .ROUTE .STK-MED ONE Sodium Chloride 1,000 mls @ 75 mls/hr 11/14/24 08:30 11/14/24 08:41 Sodium Chloride 0.9% 1000 Ml IV 11/14/24 21:29 75 mls/hr .[id number] AMBER Administration Metoprolol Tartrate 5 mg 11/13/24 21:17 11/13/24 21:26 Metoprolol Tartrate 5 Mg/5 Ml Vial IV 11/13/24 21:18 5 mg STAT ONE Administration Metoprolol Tartrate 5 mg 11/13/24 22:34 11/13/24 22:44 Metoprolol Tartrate 5 Mg/5 Ml Vial IV 11/13/24 22:35 5 mg STAT ONE Administration Morphine Sulfate 4 mg 11/11/24 16:04 11/11/24 16:29 Morphine Sulfate 4 Mg/Ml Injection IV 11/11/24 16:05 4 mg STAT ONE Administration Morphine Sulfate Confirm 11/11/24 16:21 Morphine Sulfate 4 Mg/Ml Injection Administered 11/11/24 16:22 Dose 4 mg .ROUTE .STK-MED ONE Morphine Sulfate 4 mg 11/11/24 17:47 11/12/24 01:21 Morphine Sulfate 4 Mg/Ml Injection IV 11/16/24 17:46 4 mg Q2H PRN PRN Administration SEVERE PAIN Morphine Sulfate 2 mg 11/12/24 14:48 11/14/24 03:38 Morphine Sulfate 2 Mg/Ml Inj IV 11/17/24 14:47 2 mg Q2H PRN PRN Administration SEVERE PAIN Morphine Sulfate 4 mg 11/12/24 14:49 11/13/24 11:51 Morphine Sulfate 4 Mg/Ml Injection IV 11/17/24 14:48 4 mg Q2H PRN PRN Administration SEVERE PAIN Non-Formulary Medication 80 mg 11/11/24 22:00 Atorvastatin Calcium [Atorvastatin Calcium] PO 12/11/24 21:59 HS AMBER Non-Formulary Medication 1 cap 11/11/24 22:00 11/11/24 22:05 Vit C/E/Zn/Coppr/Lutein/Zeaxan [Preservision Areds 2 Softgel] PO 12/11/24 21:59 Not Given BID AMBER Ondansetron HCl 4 mg 11/11/24 16:18 11/11/24 16:27 Ondansetron Hcl 4 Mg/2 Ml Vial IV 11/11/24 16:19 4 mg STAT ONE Administration Ondansetron HCl Confirm 11/11/24 16:20 Ondansetron Hcl 4 Mg/2 Ml Vial Administered 11/11/24 16:21 Dose 4 mg .ROUTE .STK-MED ONE Ondansetron HCl 4 mg 11/11/24 18:16 Ondansetron Hcl 4 Mg/2 Ml Vial IV 12/11/24 18:15 Q6H PRN PRN NAUSEA/VOMITING Ondansetron HCl Confirm 11/12/24 07:52 Ondansetron Hcl 4 Mg/2 Ml Vial Administered 11/12/24 07:53 Dose 4 mg .ROUTE .STK-MED ONE Phenylephrine HCl Confirm 11/12/24 07:52 Phenylephrine 10 Mg/Ml Vial Administered 11/12/24 07:53 Dose 10 mg .ROUTE .STK-MED ONE Prochlorperazine Edisylate 10 mg 11/11/24 18:20 11/11/24 18:22 Prochlorperazine Edisylate 10 Mg/2 Ml Vial IV 12/11/24 18:19 10 mg Q6H PRN PRN Administration NAUSEA/VOMITING Prochlorperazine Edisylate Confirm 11/11/24 18:21 Prochlorperazine Edisylate 10 Mg/2 Ml Vial Administered 11/11/24 18:22 Dose 10 mg .ROUTE .STK-MED ONE Promethazine HCl Confirm 11/14/24 00:09 Promethazine Hcl 25 Mg/Ml Vial Administered 11/14/24 00:10 Dose 25 mg .ROUTE .STK-MED ONE Propofol Confirm 11/12/24 07:01 Propofol 200 Mg/20 Ml Vial Administered 11/12/24 07:02 Dose 200 mg IV .STK-MED ONE Rocuronium [place] Confirm 11/12/24 07:52 Rocuronium [place] 50 Mg/5 Ml Vial Administered 11/12/24 07:53 Dose 50 mg IV .STK-MED ONE Ropivacaine Confirm 11/12/24 07:55 Ropivacaine Hcl 5 Mg/Ml 30ml Vial Administered 11/12/24 07:56 Dose 150 mg .ROUTE .STK-MED ONE Sugammadex Sodium Confirm 11/12/24 09:51 Sugammadex Sodium 200 Mg/2 Ml Vial Administered 11/12/24 09:52 Dose 200 mg IV .STK-MED ONE Vancomycin HCl Confirm 11/12/24 08:47 Vancomycin Hcl Inj 1 Gm Vial Administered 11/12/24 08:48 Dose 1 gm IV .STK-MED ONE Multi-Disciplinary Progress Notes: Multi-Disciplinary Progress Notes 11/15/24 08:05 Occupational Therapy Note by Iraj(L#[id number])Penny Late-Entry Occupational Therapy Treatment Note for 11/14/24 ([id number]) OTR spoke with nursing re: patient status and was cleared for treatment session. Patient sleeping in supine with O2 via nasal cannula on 2.0L. He was roused easily with verbal stimuli and agreeable to treatment session. He reports 3/10 RLE pain. OTR removed abduction pillow and facilitated supine>sit EOB with MOD A provided. Srinivasa presents with drowsiness and referred to walker as "chair" x3. He sat at EOB with SBA while talking with OTR, discussing his hobbies and home set up, and catching up as patient is known to this therapist. Srinivasa exhibited increased alterness and performed sit<>stand transfer with MIN A and UB support in standing using FWW. Srinivasa then performed functional mobility to chair using FWW and OTR provided mod cueing for safety and positioning in prep for sitting and Srinivasa silveira's difficulty controlling descent this date. OTR educated Srinivasa on hip precautions and provided him with written, illustrated handout for carryover of precautions. He verbalized understanding. He was seated in recliner with BLE elevated and pillow placed between legs. Call light within reach and nasal cannula and heart monitor in place at session end. Will continue to see patient through stay. OTR recommends Rehab stay to progress I/ADL independence and safety. Initialized on 11/15/24 08:05 - END OF NOTE 11/14/24 12:02 Case Management Note by Lyubov Trimble 11/13/24-[facility] OUT OF NETWORK- WILL HAVE 30% COPAY FROM DAY 1. PAWEL S/W PATIENT- PATIENT WOULD LIKE REFERRAL SENT TO [facility]. [facility]THEY HAVE ACCEPTED AND STARTED AUTH Initialized on 11/14/24 12:02 - END OF NOTE
--- NOTE | 2024-11-15 11:19 | PCM.NOTE ---
Date and Time: 11/15/24 1114 Subjective Assessment: Patient this morning feels relatively OK. He is still requiring oxygen however. Nurse tried to wean down off of oxygen and he dropped to 86%. No chest pain. His heart rates were a little on the fast side as he started moving around, up to 120s, in atrial fibrillation. Potential for rehab discharge today or tomorrow. - Review of Systems Constitutional: No Fever, No Chills, No Fatigue Eyes: No Symptoms Ears, Nose, & Throat: No Symptoms Respiratory: Cough, Other (Still requiring oxygen) Cardiac: No Symptoms Abdominal/Gastrointestinal: No Symptoms Genitourinary Symptoms: No Symptoms Musculoskeletal: No Symptoms Skin: No Symptoms Neurological: No Symptoms Psychological: No Symptoms Hematologic/Lymphatic: No Symptoms Immunological/Allergic: No Symptoms All Other Systems: Reviewed and Negative Objective Exam General Appearance: no apparent distress Neurologic Exam: alert, oriented x 3, cooperative Skin Exam: normal color, warm, dry, No rash Wound Assessment: Skin/Wound Assessment Wound/Incision Assessment Start: 11/11/24 19:12 Text: Status: Active Freq: Q4H Protocol: Document 11/15/24 08:00 BARBARA (Rec: 11/15/24 08:06 [facility] [id number]) Wound/Incision Assessment right thigh Wound Assessment Shift Assessment Wound Type Incision Wound Stage Non Pressure Wound Dressing Status Dry & Intact Drainage Amount None Drainage Odor None/Absent Primary Dressing Aquacel dressing Comment Unable to assess incision. Aquacel dressing in place. No drainage assessed at this time . Dressing intact. Wound Photo Photo Taken No Eye Exam: PERRL, EOMI Ears, Nose, Throat Exam: normal ENT inspection Neck Exam: normal inspection, full range of motion, No JVD Respiratory Exam: other (Wearing oxygen, decreased air flow at the bases) Cardiovascular Exam: normal peripheral pulses, irregular, capillary refill <2 sec, No murmur Gastrointestinal/Abdomen Exam: soft, normal bowel sounds Extremity Exam: normal inspection Objective Data Vital Signs: Vital Signs - 24 hr Temp Pulse Resp BP Pulse Ox 11/15/24 11:00 20 11/15/24 07:24 99.2 F 76 18 131/63 97 11/15/24 07:08 97 11/15/24 07:00 17 11/15/24 00:33 99.2 F 110 H 18 143/69 97 11/14/24 23:00 17 11/14/24 20:42 98.9 F 112 H 17 143/80 98 11/14/24 17:52 14 11/14/24 15:55 97.7 F 92 H 16 139/68 94 L 11/14/24 11:54 98.3 F 104 H 17 128/59 96 Pain Assessment - Last Documented Pain Intensity 0 Pain Scale Used 0-10 Pain Scale Intake and Output: Intake & Output 11/13/24 11/14/24 11/15/24 11/16/24 06:59 06:59 06:59 06:59 Intake Total 540 800 460 240 Output Total 3052 850 1125 400 [facility] -[phone] -50 [phone] Lab Results: Lab Results-Last 24 Hours 11/15/24 11/15/24 Range/Units 05:07 05:07 WBC 8.0 (4.23-9.07) x10^3/uL RBC 2.96 L (4.63-6.08) x10^6/uL Hgb 9.4 L (13.7-17.5) g/dL Hct 28.1 L (40.1-51.0) % MCV 94.9 H (79.0-92.2) fL MCH 31.8 (25.7-32.2) pg MCHC 33.5 (32.3-36.5) g/dL RDW 14.0 (11.6-14.4) % Plt Count 161 L (163-337) x10^3/uL MPV 10.5 (9.4-12.4) fL Gran % 63.7 (34.0-67.9) % Immature Gran % (Auto) 0.4 (0.001-0.429) % Nucleat RBC Rel Count 0.0 (0.00-0.2) % Eos # (Auto) 0.88 H (0.04-0.54) x10^3/uL Immature Gran # (Auto) 0.03 (0.001-0.031) x10^3u/L Absolute Lymphs (auto) 1.37 (1.32-3.57) x10^3/uL Absolute Monos (auto) 0.59 (0.30-0.82) x10^3/uL Absolute Nucleated RBC 0.00 (0.00-0.012) x10^3u/L Lymphocytes % 17.1 L (21.8-53.1) % Monocytes % 7.3 (5.3-12.2) % Eosinophils % 11.0 H (0.8-7.0) % Basophils % 0.5 (0.2-1.2) % Absolute Granulocytes 5.12 (1.78-5.38) x10^3/uL Basophils # 0.04 (0.01-0.08) x10^3/uL Sodium 136 (135-145) mmol/L Potassium 3.8 (3.5-5.1) mmol/L Chloride 101 (98-107) mmol/L Carbon Dioxide 26 (22-30) mmol/L Anion Gap 12.2 (5-15) MEQ/L BUN 19 (9-20) mg/dL Creatinine 0.89 (0.66-1.25) mg/dL Estimated GFR 87.2 ML/MIN Glucose 108 H (74-106) mg/dL Calcium 8.1 L (8.4-10.2) mg/dL Total Bilirubin 1.20 (0.2-1.3) mg/dL AST 62 H (17-59) U/L ALT 28 (0-50) U/L Alkaline Phosphatase 82 (38-126) U/L Serum Total Protein 5.2 L (6.3-8.2) g/dL Albumin 2.7 L (3.5-5.0) g/dL Radiology Exams: Radiology Procedures Category Date Time Status CHEST WITH CONTRAST [CT] Stat Exams 11/14/24 03:28 Completed ECHO W/2D AND DOPPLER [US] Routine Exams 11/15/24 11:10 Ordered HIP UNI (2V) INCL PEL IF DONE Routine Exams 11/14/24 08:14 Completed LOWER EXTREMITY WO CONTRAST [CT] Stat Exams 11/15/24 10:34 Ordered Medications: Medications Generic Name Dose Route Start Last Admin Trade Name Freq PRN Reason Stop Dose Admin Hydrocodone Bitart/Acetaminophen 1 - 2 tab 11/12/24 15:00 11/15/24 08:47 Hydrocodone/Apap 5/325 1 Tab Tablet PO 11/17/24 14:59 1 tab Q4H PRN PRN Administration MODERATE PAIN Aspirin 81 mg 11/12/24 22:00 11/15/24 08:46 Aspirin 81 Mg Tablet.Ec PO 12/12/24 21:59 81 mg BID AMBER Administration Diltiazem HCl 180 mg 11/12/24 10:00 11/15/24 08:48 Diltiazem Hcl Cd 180 Mg Cap.Sr.24h PO 12/12/24 09:59 180 mg DAILY AMBER Administration Docusate Sodium 100 mg 11/12/24 22:00 11/15/24 08:46 Docusate Sodium 100 Mg Capsule PO 12/12/24 21:59 100 mg BID AMBER Administration Ezetimibe 10 mg 11/12/24 10:00 11/15/24 08:46 Ezetimibe 10 Mg Tab PO 12/12/24 09:59 10 mg DAILY AMBER Administration Fenofibrate 145 mg 11/12/24 10:00 11/15/24 08:48 Fenofibrate,Micronized 145 Mg Tablet PO 12/12/24 09:59 145 mg DAILY AMBER Administration Furosemide 20 mg 11/15/24 11:30 Furosemide 20 Mg/Vial IV 12/15/24 11:29 BID DIURETIC AMBER Promethazine HCl 12.5 mg/ 100.5 mls @ 201 mls/hr 11/13/24 23:56 11/14/24 00:15 Sodium Chloride IV 12/13/24 23:55 201 mls/hr Q4H PRN PRN Administration UNCONTROLLED NAUSEA Metoprolol Succinate 75 mg 11/15/24 11:13 Metoprolol Succinate 50 Mg Tablet.Sa PO 12/11/24 21:59 BID AMBER Metoprolol Succinate 25 mg 11/15/24 11:13 Metoprolol Succinate 25 Mg Xl Tab PO 11/15/24 11:14 STAT ONE Miscellaneous Information 1 each 11/12/24 07:15 Medication Intervention 1 Each Each 12/12/24 07:14 .RN TO CHECK AMBER Multivitamins Therapeutic 1 tab 11/12/24 10:00 11/15/24 08:46 Multivitamins,Therapeutic 1 Tab Tab PO 12/12/24 09:59 1 tab DAILY AMBER Administration Multivitamins/Minerals 1 tab 11/12/24 10:00 11/15/24 08:47 Beta-Carotene(A) W-C And E/Min 1 Tab Tablet PO 12/12/24 09:59 1 tab BID AMBER Administration Naloxone HCl 0.4 mg 11/11/24 17:54 Naloxone Hcl 0.4 Mg/Ml Ml IV 12/11/24 17:53 PRN PRN RESPIRATORY DEPRESSION Ondansetron HCl 4 mg 11/12/24 14:52 11/13/24 21:27 Ondansetron Hcl 4 Mg/2 Ml Vial IV 12/12/24 14:51 4 mg Q4H PRN PRN Administration NAUSEA/VOMITING Pantoprazole Sodium 20 mg 11/12/24 10:00 11/15/24 08:46 Pantoprazole 20 Mg Tab PO 12/12/24 09:59 20 mg DAILY AMBER Administration Simvastatin 40 mg 11/11/24 22:00 11/14/24 21:22 Simvastatin 20 Mg Tablet PO 12/11/24 21:59 40 mg HS AMBER Administration Discontinued Medications Generic Name Dose Route Start Last Admin Trade Name Freq PRN Reason Stop Dose Admin Hydrocodone Bitart/Acetaminophen 1 tab 11/11/24 17:46 Hydrocodone/Apap 5/325 1 Tab Tablet PO 11/16/24 17:45 Q4H PRN PRN PAIN Cefazolin Sodium Confirm 11/12/24 07:52 Cefazolin Sodium 1 Gm Vial Administered 11/12/24 07:53 Dose 2 g .ROUTE .STK-MED ONE Dexamethasone Sodium Phosphate Confirm 11/12/24 07:52 Dexamethasone Sodium Phosphate 4 Mg/Ml Vial Administered 11/12/24 07:53 Dose 4 mg .ROUTE .STK-MED ONE Diltiazem HCl 10 mg 11/13/24 23:57 11/14/24 00:15 Diltiazem Hcl Iv 5 Mg/Ml Vial IV 11/13/24 23:58 10 mg STAT ONE Administration Diltiazem HCl 10 mg 11/14/24 03:29 11/14/24 03:38 Diltiazem Hcl Iv 5 Mg/Ml Vial IV 11/14/24 03:30 10 mg STAT ONE Administration Diphenhydramine HCl 12.5 mg 11/11/24 18:36 11/11/24 18:37 Diphenhydramine Hcl 50 Mg/Ml Vial IV 11/11/24 18:37 12.5 mg STAT ONE Administration Fentanyl Citrate Confirm 11/12/24 08:03 Fentanyl Citrate 100 Mcg/2 Ml* Vial Administered 11/12/24 08:04 Dose 100 mcg .ROUTE .STK-MED ONE Fentanyl Citrate Confirm 11/12/24 10:29 Fentanyl Citrate 100 Mcg/2 Ml* Vial Administered 11/12/24 10:30 Dose 100 mcg .ROUTE .STK-MED ONE Sodium Chloride 1,000 mls @ 999 mls/hr 11/11/24 16:04 11/11/24 16:24 Sodium Chloride 0.9% 1000 Ml IV 11/11/24 17:04 999 mls/hr .Q1H1M STA Administration Meropenem 1 gm/ Sodium 100 mls @ 200 mls/hr 11/11/24 16:04 11/11/24 16:42 Chloride IV 11/11/24 16:33 Not Given STAT ONE Cefazolin Sodium 1 gm in 100 mls @ 200 mls/hr 11/11/24 16:10 11/11/24 17:10 Cefazolin 1 Gm/100 Ml Nacl Ivpb IV 11/11/24 16:39 Infused STAT STA Infusion Cefazolin Sodium Confirm 11/11/24 16:21 Cefazolin 1 Gm/100 Ml Nacl Ivpb Administered 11/11/24 16:22 Dose 1 gm in 100 mls @ ud IV .STK-MED ONE Sodium Chloride Confirm 11/11/24 16:21 Sodium Chloride 0.9% 1000 Ml Administered 11/11/24 16:22 Dose 1,000 mls @ ud .ROUTE .STK-MED ONE Sodium Chloride 1,000 mls @ 75 mls/hr 11/12/24 00:01 11/13/24 03:29 Sodium Chloride 0.45% 1000 Ml IV 12/12/24 00:00 75 mls/hr .[id number] AMBER Administration Cefazolin Sodium 2 gm in 100 mls @ 200 mls/hr 11/12/24 06:45 Cefazolin 2 Gm/100 Ml Nacl IV 11/12/24 07:14 ONCALLTOOR AMBER TRANEXAMIC ACID IN NACL,ISO-OS 1,000 mg in 100 mls @ 600 mls/hr 11/12/24 06:35 11/12/24 12:58 Tranexamic 1,000 Mg/100ml-Nacl IV 11/12/24 06:44 Not Given ONCE ONE Lactated Ringer's Confirm 11/12/24 07:21 Lactated Ringers Administered 11/12/24 07:22 Dose 1,000 mls @ ud IV .STK-MED ONE Sodium Chloride Confirm 11/12/24 07:32 Sodium Chloride 0.9% 1000 Ml Administered 11/12/24 07:33 Dose 1,000 mls @ ud .ROUTE .STK-MED ONE TRANEXAMIC ACID IN NACL,ISO-OS Confirm 11/12/24 07:56 Tranexamic 1,000 Mg/100ml-Nacl Administered 11/12/24 07:57 Dose 1,000 mg in 100 mls @ ud IV .STK-MED ONE Cefazolin Sodium 2 gm in 100 mls @ 200 mls/hr 11/12/24 15:00 11/13/24 08:16 Cefazolin 2 Gm/100 Ml Nacl IV 11/13/24 07:29 200 mls/hr Q8H AMBER Administration Sodium Chloride Confirm 11/14/24 00:11 Sodium Chloride 0.9% Administered 11/14/24 00:12 Dose 100 mls @ ud .ROUTE .STK-MED ONE Sodium Chloride 1,000 mls @ 75 mls/hr 11/14/24 08:30 11/14/24 08:41 Sodium Chloride 0.9% 1000 Ml IV 11/14/24 21:29 75 mls/hr .[id number] AMBER Administration Metoprolol Succinate 50 mg 11/11/24 22:00 11/15/24 08:46 Metoprolol Succinate 50 Mg Tablet.Sa PO 12/11/24 21:59 50 mg BID AMBER Administration Metoprolol Tartrate 5 mg 11/13/24 21:17 11/13/24 21:26 Metoprolol Tartrate 5 Mg/5 Ml Vial IV 11/13/24 21:18 5 mg STAT ONE Administration Metoprolol Tartrate 5 mg 11/13/24 22:34 11/13/24 22:44 Metoprolol Tartrate 5 Mg/5 Ml Vial IV 11/13/24 22:35 5 mg STAT ONE Administration Morphine Sulfate 4 mg 11/11/24 16:04 11/11/24 16:29 Morphine Sulfate 4 Mg/Ml Injection IV 11/11/24 16:05 4 mg STAT ONE Administration Morphine Sulfate Confirm 11/11/24 16:21 Morphine Sulfate 4 Mg/Ml Injection Administered 11/11/24 16:22 Dose 4 mg .ROUTE .STK-MED ONE Morphine Sulfate 4 mg 11/11/24 17:47 11/12/24 01:21 Morphine Sulfate 4 Mg/Ml Injection IV 11/16/24 17:46 4 mg Q2H PRN PRN Administration SEVERE PAIN Morphine Sulfate 2 mg 11/12/24 14:48 11/14/24 03:38 Morphine Sulfate 2 Mg/Ml Inj IV 11/17/24 14:47 2 mg Q2H PRN PRN Administration SEVERE PAIN Morphine Sulfate 4 mg 11/12/24 14:49 11/13/24 11:51 Morphine Sulfate 4 Mg/Ml Injection IV 11/17/24 14:48 4 mg Q2H PRN PRN Administration SEVERE PAIN Non-Formulary Medication 80 mg 11/11/24 22:00 Atorvastatin Calcium [Atorvastatin Calcium] PO 12/11/24 21:59 HS AMBER Non-Formulary Medication 1 cap 11/11/24 22:00 11/11/24 22:05 Vit C/E/Zn/Coppr/Lutein/Zeaxan [Preservision Areds 2 Softgel] PO 12/11/24 21:59 Not Given BID AMBER Ondansetron HCl 4 mg 11/11/24 16:18 11/11/24 16:27 Ondansetron Hcl 4 Mg/2 Ml Vial IV 11/11/24 16:19 4 mg STAT ONE Administration Ondansetron HCl Confirm 11/11/24 16:20 Ondansetron Hcl 4 Mg/2 Ml Vial Administered 11/11/24 16:21 Dose 4 mg .ROUTE .STK-MED ONE Ondansetron HCl 4 mg 11/11/24 18:16 Ondansetron Hcl 4 Mg/2 Ml Vial IV 12/11/24 18:15 Q6H PRN PRN NAUSEA/VOMITING Ondansetron HCl Confirm 11/12/24 07:52 Ondansetron Hcl 4 Mg/2 Ml Vial Administered 11/12/24 07:53 Dose 4 mg .ROUTE .STK-MED ONE Phenylephrine HCl Confirm 11/12/24 07:52 Phenylephrine 10 Mg/Ml Vial Administered 11/12/24 07:53 Dose 10 mg .ROUTE .STK-MED ONE Prochlorperazine Edisylate 10 mg 11/11/24 18:20 11/11/24 18:22 Prochlorperazine Edisylate 10 Mg/2 Ml Vial IV 12/11/24 18:19 10 mg Q6H PRN PRN Administration NAUSEA/VOMITING Prochlorperazine Edisylate Confirm 11/11/24 18:21 Prochlorperazine Edisylate 10 Mg/2 Ml Vial Administered 11/11/24 18:22 Dose 10 mg .ROUTE .STK-MED ONE Promethazine HCl Confirm 11/14/24 00:09 Promethazine Hcl 25 Mg/Ml Vial Administered 11/14/24 00:10 Dose 25 mg .ROUTE .STK-MED ONE Propofol Confirm 11/12/24 07:01 Propofol 200 Mg/20 Ml Vial Administered 11/12/24 07:02 Dose 200 mg IV .STK-MED ONE Rocuronium [place] Confirm 11/12/24 07:52 Rocuronium [place] 50 Mg/5 Ml Vial Administered 11/12/24 07:53 Dose 50 mg IV .STK-MED ONE Ropivacaine Confirm 11/12/24 07:55 Ropivacaine Hcl 5 Mg/Ml 30ml Vial Administered 11/12/24 07:56 Dose 150 mg .ROUTE .STK-MED ONE Sugammadex Sodium Confirm 11/12/24 09:51 Sugammadex Sodium 200 Mg/2 Ml Vial Administered 11/12/24 09:52 Dose 200 mg IV .STK-MED ONE Vancomycin HCl Confirm 11/12/24 08:47 Vancomycin Hcl Inj 1 Gm Vial Administered 11/12/24 08:48 Dose 1 gm IV .STK-MED ONE Multi-Disciplinary Progress Notes: Multi-Disciplinary Progress Notes 11/15/24 08:05 Occupational Therapy Note by Iraj(L#[id number])Penny Late-Entry Occupational Therapy Treatment Note for 11/14/24 ([id number]) OTR spoke with nursing re: patient status and was cleared for treatment session. Patient sleeping in supine with O2 via nasal cannula on 2.0L. He was roused easily with verbal stimuli and agreeable to treatment session. He reports 3/10 RLE pain. OTR removed abduction pillow and facilitated supine>sit EOB with MOD A provided. Srinivasa presents with drowsiness and referred to walker as "chair" x3. He sat at EOB with SBA while talking with OTR, discussing his hobbies and home set up, and catching up as patient is known to this therapist. Srinivasa exhibited increased alterness and performed sit<>stand transfer with MIN A and UB support in standing using FWW. Srinivasa then performed functional mobility to chair using FWW and OTR provided mod cueing for safety and positioning in prep for sitting and Srinivasa silveira's difficulty controlling descent this date. OTR educated Srinivasa on hip precautions and provided him with written, illustrated handout for carryover of precautions. He verbalized understanding. He was seated in recliner with BLE elevated and pillow placed between legs. Call light within reach and nasal cannula and heart monitor in place at session end. Will continue to see patient through stay. OTR recommends Rehab stay to progress I/ADL independence and safety. Initialized on 11/15/24 08:05 - END OF NOTE 11/14/24 12:02 Case Management Note by Lyubov Trimble 11/13/24-[facility] OUT OF NETWORK- WILL HAVE 30% COPAY FROM DAY 1. JBEARD S/W PATIENT- PATIENT WOULD LIKE REFERRAL SENT TO [facility]. THIS WAS EMAILED TO GO AT [facility] 11/13 11/14-THEY HAVE ACCEPTED AND STARTED AUTH Initialized on 11/14/24 12:02 - END OF NOTE Assessment/Plan (1) Atrial fibrillation Current Visit: Yes Status: Chronic Qualifiers: Atrial fibrillation type: unspecified chronic Qualified Code(s): I48.20 - Chronic atrial fibrillation, unspecified; I48.2 - Chronic atrial fibrillation Assessment & Plan: - Rates still on the rapid side at times - Takes Diltiazem 180 mg PO Daily - Will increase metoprolol succinate to 75 mg BID to provide more consistent rate control throughout the day and evening - S/P Watchman, no need for AC Code(s): I48.91 - UNSPECIFIED ATRIAL FIBRILLATION (2) Coronary artery disease Current Visit: No Status: Chronic Qualifiers: Coronary Disease-Associated Artery/Lesion type: [place] artery Associated angina: without angina Assessment & Plan: - Continue aspirin. Stable. No concerns for active ischemia at this time. Code(s): I25.10 - ATHSCL HEART DISEASE OF [place] CORONARY ARTERY W/O ANG PCTRS (3) Respiratory failure with hypoxia Current Visit: Yes Status: Acute Assessment & Plan: - Not clear to me why he is hypoxic. Has pleural effusions on CT which could be the cause. Will check 2D echocardiogram to make sure there is no reduced EF or other cardiomyopathy. I have also started him on Lasix 20 mg IV BID. Follow labs, I/Os, daily weights. Code(s): J96.91 - RESPIRATORY FAILURE, UNSPECIFIED WITH HYPOXIA (4) Pleural effusion Current Visit: Yes Status: Acute Assessment & Plan: - As above Code(s): J90 - PLEURAL EFFUSION, NOT ELSEWHERE CLASSIFIED
[2024-11-15] MEDS: Lasix 20 MG/2 ML IV SCH (12:04)
[2024-11-15] MEDS: Toprol-Xl 25MG Tablets PO ONE (12:04)
--- NOTE | 2024-11-15 12:18 | PCM.NOTE ---
Date and Time: 11/15/24 1206 Subjective Assessment: HPI: Mr. Azul is a 79-year-old male with a pmhx of HTN, HLD, AFIB (irregularly irregular rhythm noted on exam), two prior MIs under cardiology care, and remote colorectal cancer with liver metastases, presenting 11/11/24 after a mechanical ground-level fall while weed eating. He denies any preceding syncope or lightheadedness. Examination revealed ecchymosis over the left hip and tenderness to palpation, but the primary fracture was localized to the right hip. Initial imaging demonstrated a closed fracture of the right femoral neck ; left hip radiographs showed no acute fracture but confirmed soft tissue contusion. Orthopedic surgery was consulted and plans open reduction and internal fixation of the right hip tomorrow. Preoperative labs were obtained and Bryant catheter placed. Patient is NPO with IVF running; pre-op antibiotics and DVT prophylaxis with SCDs initiated. Telemetry is active for monitoring atrial fibrillation. Pain is being managed with PRN morphine and Marks. Protonix started for stress ulcer prophylaxis. Overall, he remains hemodynamically stable without signs of acute decompensation. 11/12/24: Met with patient and daughter at bedside on postoperative day [address] Galo. The patient endorses significant pain improvement, currently rating discomfort as 5/10 on the numerical pain scale. 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 Given the patient's baseline functional status, a physical therapy evaluation will be pursued when the patient is medically stable and able to participate. 11/13/24: POD#1 s/p right hip hemiarthroplasty without overnight events. He reports improvement in right hip pain, currently rated 7/10 on the numerical pain scale, with significant resolution of prior left hip discomfort. Physical therapy is scheduled to evaluate the patient today to assist in determining appropriate discharge planning, with options including home discharge, swing bed placement, or formal rehabilitation. The patient expresses a preference for swing bed placement should continued inpatient rehabilitation be recommended. He remains weight-bearing as tolerated and is maintained on aspirin 81 mg daily per orthopedic protocol for deep vein thrombosis prophylaxis. 11/14/24: POD#2. Overnight, the patient with a known history of atrial fibrillation developed atrial fibrillation with rapid ventricular response, with heart rates peaking in the 140s. He was treated with two doses of IV metoprolol and two doses of IV diltiazem, resulting in improved rate control. As of this morning, his heart rate remains elevated in the 110s but is trending down. Cardiology has been consulted for further evaluation and recommendations regarding long-term rhythm and rate control. Pain at the surgical site is now well controlled, with the patient rating it at 2/10 on the numerical pain scale. He remains hemodynamically stable. Laboratory evaluation shows a mildly elevated WBC at 11.2 and a procalcitonin of 0.219, without associated fever or other signs of systemic infection. Orthopedic surgery following and case discussed; X-rays were obtained, which showed no acute abnormalities. CTA of the chest was negative for pulmonary embolism or other acute pathology. The patient will continue to be m onitored closely for any evolving signs of infection. The plan remains to transition to rehabilitation once medically stable. 11/15/24: PODS#3 pain improving. However, heart rate remains persistently elevated in the 130s. Cardiology was consulted and recommended obtaining an echo, increasing metoprolol to 75 mg twice daily, initiating furosemide, and continuing diltiazem 180 mg daily. The patient remains on 2L oxygen via nasal cannula. Disposition planning is underway for discharge to a [facility] facility for rehabilitation, pending cardiology/ortho clearance. Orthopedic surgery remains involved in the patients care due to imaging findings of a lucent oblique unicortical line near the distal tip of the femoral stem. A CT scan of the right hip has been ordered to evaluate for possible periprosthetic fracture. Should a fracture be confirmed, weightbearing restrictions may be implemented during the initial recovery phase, though this is not expected to delay transfer to the rehabilitation facility. Postoperative wound care to continue with current dressing in place until postoperative day 7, followed by daily dry dressing changes. Follow-up is arranged with orthopedics in two weeks. - Review of Systems Constitutional: No Symptoms Eyes: No Symptoms Ears, Nose, & Throat: No Symptoms Respiratory: Short Of Breath Cardiac: No Symptoms Abdominal/Gastrointestinal: No Symptoms Genitourinary Symptoms: No Symptoms Musculoskeletal: Joint Pain (right hip) Skin: Other (surgical wound right hip with dressing CDI) Neurological: No Symptoms Psychological: No Symptoms Endocrine: No Symptoms Hematologic/Lymphatic: No Symptoms Immunological/Allergic: No Symptoms Objective Exam General Appearance: no apparent distress Neurologic Exam: alert, oriented x 3, cooperative Skin Exam: normal color Wound Assessment: Skin/Wound Assessment Wound/Incision Assessment Start: 11/11/24 19:12 Text: Status: Active Freq: Q4H Protocol: Document 11/15/24 11:45 BARBARA (Rec: 11/15/24 11:45 BARBARA [id number]) Wound/Incision Assessment right thigh Wound Assessment Shift Assessment Wound Type Incision Wound Stage Non Pressure Wound Dressing Status Dry & Intact Drainage Amount None Drainage Odor None/Absent Primary Dressing Aquacel dressing Comment Aquacel dressing in place and intact. Wound Photo Photo Taken No Eye Exam: PERRL Ears, Nose, Throat Exam: normal ENT inspection Neck Exam: normal inspection Respiratory Exam: normal breath sounds, lungs clear Cardiovascular Exam: irregular Gastrointestinal/Abdomen Exam: soft, normal bowel sounds Extremity Exam: normal inspection Back Exam: normal inspection Male Genitalia Exam: deferred Rectal Exam: deferred Objective Data Vital Signs: Vital Signs - 24 hr Temp Pulse Resp BP Pulse Ox 11/15/24 11:00 20 11/15/24 07:24 99.2 F 76 18 131/63 97 11/15/24 07:08 97 11/15/24 07:00 17 11/15/24 00:33 99.2 F 110 H 18 143/69 97 11/14/24 23:00 17 11/14/24 20:42 98.9 F 112 H 17 143/80 98 11/14/24 17:52 14 11/14/24 15:55 97.7 F 92 H 16 139/68 94 L Pain Assessment - Last Documented Pain Intensity 0 Pain Scale Used 0-10 Pain Scale Intake and Output: Intake & Output 11/13/24 11/14/24 11/15/24 11/16/24 11:59 11:59 11:59 11:59 Intake Total 780 680 580 Output Total [id number] Balance -2720 -20 -645 Lab Results: Lab Results-Last 24 Hours 11/15/24 11/15/24 Range/Units 05:07 05:07 WBC 8.0 (4.23-9.07) x10^3/uL RBC 2.96 L (4.63-6.08) x10^6/uL Hgb 9.4 L (13.7-17.5) g/dL Hct 28.1 L (40.1-51.0) % MCV 94.9 H (79.0-92.2) fL MCH 31.8 (25.7-32.2) pg MCHC 33.5 (32.3-36.5) g/dL RDW 14.0 (11.6-14.4) % Plt Count 161 L (163-337) x10^3/uL MPV 10.5 (9.4-12.4) fL Gran % 63.7 (34.0-67.9) % Immature Gran % (Auto) 0.4 (0.001-0.429) % Nucleat RBC Rel Count 0.0 (0.00-0.2) % Eos # (Auto) 0.88 H (0.04-0.54) x10^3/uL Immature Gran # (Auto) 0.03 (0.001-0.031) x10^3u/L Absolute Lymphs (auto) 1.37 (1.32-3.57) x10^3/uL Absolute Monos (auto) 0.59 (0.30-0.82) x10^3/uL Absolute Nucleated RBC 0.00 (0.00-0.012) x10^3u/L Lymphocytes % 17.1 L (21.8-53.1) % Monocytes % 7.3 (5.3-12.2) % Eosinophils % 11.0 H (0.8-7.0) % Basophils % 0.5 (0.2-1.2) % Absolute Granulocytes 5.12 (1.78-5.38) x10^3/uL Basophils # 0.04 (0.01-0.08) x10^3/uL Sodium 136 (135-145) mmol/L Potassium 3.8 (3.5-5.1) mmol/L Chloride 101 (98-107) mmol/L Carbon Dioxide 26 (22-30) mmol/L Anion Gap 12.2 (5-15) MEQ/L BUN 19 (9-20) mg/dL Creatinine 0.89 (0.66-1.25) mg/dL Estimated GFR 87.2 ML/MIN Glucose 108 H (74-106) mg/dL Calcium 8.1 L (8.4-10.2) mg/dL Total Bilirubin 1.20 (0.2-1.3) mg/dL AST 62 H (17-59) U/L ALT 28 (0-50) U/L Alkaline Phosphatase 82 (38-126) U/L Serum Total Protein 5.2 L (6.3-8.2) g/dL Albumin 2.7 L (3.5-5.0) g/dL Radiology Exams: Radiology Procedures Category Date Time Status CHEST WITH CONTRAST [CT] Stat Exams 11/14/24 03:28 Completed ECHO W/2D AND DOPPLER [US] Routine Exams 11/15/24 11:10 Taken HIP UNI (2V) INCL PEL IF DONE Routine Exams 11/14/24 08:14 Completed LOWER EXTREMITY WO CONTRAST [CT] Stat Exams 11/15/24 10:34 Ordered Medications: Medications Generic Name Dose Route Start Last Admin Trade Name Freq PRN Reason Stop Dose Admin Hydrocodone Bitart/Acetaminophen 1 - 2 tab 11/12/24 15:00 11/15/24 08:47 Hydrocodone/Apap 5/325 1 Tab Tablet PO 11/17/24 14:59 1 tab Q4H PRN PRN Administration MODERATE PAIN Aspirin 81 mg 11/12/24 22:00 11/15/24 08:46 Aspirin 81 Mg Tablet.Ec PO 12/12/24 21:59 81 mg BID AMBER Administration Diltiazem HCl 180 mg 11/12/24 10:00 11/15/24 08:48 Diltiazem Hcl Cd 180 Mg Cap.Sr.24h PO 12/12/24 09:59 180 mg DAILY AMBER Administration Docusate Sodium 100 mg 11/12/24 22:00 11/15/24 08:46 Docusate Sodium 100 Mg Capsule PO 12/12/24 21:59 100 mg BID AMBER Administration Ezetimibe 10 mg 11/12/24 10:00 11/15/24 08:46 Ezetimibe 10 Mg Tab PO 12/12/24 09:59 10 mg DAILY AMBER Administration Fenofibrate 145 mg 11/12/24 10:00 11/15/24 08:48 Fenofibrate,Micronized 145 Mg Tablet PO 12/12/24 09:59 145 mg DAILY AMBER Administration Furosemide 20 mg 11/15/24 11:30 Furosemide 20 Mg/Vial IV 12/15/24 11:29 BID DIURETIC AMBER Promethazine HCl 12.5 mg/ 100.5 mls @ 201 mls/hr 11/13/24 23:56 11/14/24 00:15 Sodium Chloride IV 12/13/24 23:55 201 mls/hr Q4H PRN PRN Administration UNCONTROLLED NAUSEA Metoprolol Succinate 75 mg 11/15/24 22:00 Metoprolol Succinate 25 Mg Xl Tab PO 12/15/24 21:59 BID AMBER Miscellaneous Information 1 each 11/12/24 07:15 Medication Intervention 1 Each Each 12/12/24 07:14 .RN TO CHECK AMBER Multivitamins Therapeutic 1 tab 11/12/24 10:00 11/15/24 08:46 Multivitamins,Therapeutic 1 Tab Tab PO 12/12/24 09:59 1 tab DAILY AMBER Administration Multivitamins/Minerals 1 tab 11/12/24 10:00 11/15/24 08:47 Beta-Carotene(A) W-C And E/Min 1 Tab Tablet PO 12/12/24 09:59 1 tab BID AMBER Administration Naloxone HCl 0.4 mg 11/11/24 17:54 Naloxone Hcl 0.4 Mg/Ml Ml IV 12/11/24 17:53 PRN PRN RESPIRATORY DEPRESSION Ondansetron HCl 4 mg 11/12/24 14:52 11/13/24 21:27 Ondansetron Hcl 4 Mg/2 Ml Vial IV 12/12/24 14:51 4 mg Q4H PRN PRN Administration NAUSEA/VOMITING Pantoprazole Sodium 20 mg 11/12/24 10:00 11/15/24 08:46 Pantoprazole 20 Mg Tab PO 12/12/24 09:59 20 mg DAILY AMBER Administration Simvastatin 40 mg 11/11/24 22:00 11/14/24 21:22 Simvastatin 20 Mg Tablet PO 12/11/24 21:59 40 mg HS AMBER Administration Discontinued Medications Generic Name Dose Route Start Last Admin Trade Name Freq PRN Reason Stop Dose Admin Hydrocodone Bitart/Acetaminophen 1 tab 11/11/24 17:46 Hydrocodone/Apap 5/325 1 Tab Tablet PO 11/16/24 17:45 Q4H PRN PRN PAIN Cefazolin Sodium Confirm 11/12/24 07:52 Cefazolin Sodium 1 Gm Vial Administered 11/12/24 07:53 Dose 2 g .ROUTE .STK-MED ONE Dexamethasone Sodium Phosphate Confirm 11/12/24 07:52 Dexamethasone Sodium Phosphate 4 Mg/Ml Vial Administered 11/12/24 07:53 Dose 4 mg .ROUTE .STK-MED ONE Diltiazem HCl 10 mg 11/13/24 23:57 11/14/24 00:15 Diltiazem Hcl Iv 5 Mg/Ml Vial IV 11/13/24 23:58 10 mg STAT ONE Administration Diltiazem HCl 10 mg 11/14/24 03:29 11/14/24 03:38 Diltiazem Hcl Iv 5 Mg/Ml Vial IV 11/14/24 03:30 10 mg STAT ONE Administration Diphenhydramine HCl 12.5 mg 11/11/24 18:36 11/11/24 18:37 Diphenhydramine Hcl 50 Mg/Ml Vial IV 11/11/24 18:37 12.5 mg STAT ONE Administration Fentanyl Citrate Confirm 11/12/24 08:03 Fentanyl Citrate 100 Mcg/2 Ml* Vial Administered 11/12/24 08:04 Dose 100 mcg .ROUTE .STK-MED ONE Fentanyl Citrate Confirm 11/12/24 10:29 Fentanyl Citrate 100 Mcg/2 Ml* Vial Administered 11/12/24 10:30 Dose 100 mcg .ROUTE .STK-MED ONE Sodium Chloride 1,000 mls @ 999 mls/hr 11/11/24 16:04 11/11/24 16:24 Sodium Chloride 0.9% 1000 Ml IV 11/11/24 17:04 999 mls/hr .Q1H1M STA Administration Meropenem 1 gm/ Sodium 100 mls @ 200 mls/hr 11/11/24 16:04 11/11/24 16:42 Chloride IV 11/11/24 16:33 Not Given STAT ONE Cefazolin Sodium 1 gm in 100 mls @ 200 mls/hr 11/11/24 16:10 11/11/24 17:10 Cefazolin 1 Gm/100 Ml Nacl Ivpb IV 11/11/24 16:39 Infused STAT STA Infusion Cefazolin Sodium Confirm 11/11/24 16:21 Cefazolin 1 Gm/100 Ml Nacl Ivpb Administered 11/11/24 16:22 Dose 1 gm in 100 mls @ ud IV .STK-MED ONE Sodium Chloride Confirm 11/11/24 16:21 Sodium Chloride 0.9% 1000 Ml Administered 11/11/24 16:22 Dose 1,000 mls @ ud .ROUTE .STK-MED ONE Sodium Chloride 1,000 mls @ 75 mls/hr 11/12/24 00:01 11/13/24 03:29 Sodium Chloride 0.45% 1000 Ml IV 12/12/24 00:00 75 mls/hr .[id number] AMBER Administration Cefazolin Sodium 2 gm in 100 mls @ 200 mls/hr 11/12/24 06:45 Cefazolin 2 Gm/100 Ml Nacl IV 11/12/24 07:14 ONCALLTOOR AMBER TRANEXAMIC ACID IN NACL,ISO-OS 1,000 mg in 100 mls @ 600 mls/hr 11/12/24 06:35 11/12/24 12:58 Tranexamic 1,000 Mg/100ml-Nacl IV 11/12/24 06:44 Not Given ONCE ONE Lactated Ringer's Confirm 11/12/24 07:21 Lactated Ringers Administered 11/12/24 07:22 Dose 1,000 mls @ ud IV .STK-MED ONE Sodium Chloride Confirm 11/12/24 07:32 Sodium Chloride 0.9% 1000 Ml Administered 11/12/24 07:33 Dose 1,000 mls @ ud .ROUTE .STK-MED ONE TRANEXAMIC ACID IN NACL,ISO-OS Confirm 11/12/24 07:56 Tranexamic 1,000 Mg/100ml-Nacl Administered 11/12/24 07:57 Dose 1,000 mg in 100 mls @ ud IV .STK-MED ONE Cefazolin Sodium 2 gm in 100 mls @ 200 mls/hr 11/12/24 15:00 11/13/24 08:16 Cefazolin 2 Gm/100 Ml Nacl IV 11/13/24 07:29 200 mls/hr Q8H AMBER Administration Sodium Chloride Confirm 11/14/24 00:11 Sodium Chloride 0.9% Administered 11/14/24 00:12 Dose 100 mls @ ud .ROUTE .STK-MED ONE Sodium Chloride 1,000 mls @ 75 mls/hr 11/14/24 08:30 11/14/24 08:41 Sodium Chloride 0.9% 1000 Ml IV 11/14/24 21:29 75 mls/hr .[id number] AMBER Administration Metoprolol Succinate 50 mg 11/11/24 22:00 11/15/24 08:46 Metoprolol Succinate 50 Mg Tablet.Sa PO 12/11/24 21:59 50 mg BID AMBER Administration Metoprolol Succinate 25 mg 11/15/24 11:13 Metoprolol Succinate 25 Mg Xl Tab PO 11/15/24 11:14 STAT ONE Metoprolol Tartrate 5 mg 11/13/24 21:17 11/13/24 21:26 Metoprolol Tartrate 5 Mg/5 Ml Vial IV 11/13/24 21:18 5 mg STAT ONE Administration Metoprolol Tartrate 5 mg 11/13/24 22:34 11/13/24 22:44 Metoprolol Tartrate 5 Mg/5 Ml Vial IV 11/13/24 22:35 5 mg STAT ONE Administration Morphine Sulfate 4 mg 11/11/24 16:04 11/11/24 16:29 Morphine Sulfate 4 Mg/Ml Injection IV 11/11/24 16:05 4 mg STAT ONE Administration Morphine Sulfate Confirm 11/11/24 16:21 Morphine Sulfate 4 Mg/Ml Injection Administered 11/11/24 16:22 Dose 4 mg .ROUTE .STK-MED ONE Morphine Sulfate 4 mg 11/11/24 17:47 11/12/24 01:21 Morphine Sulfate 4 Mg/Ml Injection IV 11/16/24 17:46 4 mg Q2H PRN PRN Administration SEVERE PAIN Morphine Sulfate 2 mg 11/12/24 14:48 11/14/24 03:38 Morphine Sulfate 2 Mg/Ml Inj IV 11/17/24 14:47 2 mg Q2H PRN PRN Administration SEVERE PAIN Morphine Sulfate 4 mg 11/12/24 14:49 11/13/24 11:51 Morphine Sulfate 4 Mg/Ml Injection IV 11/17/24 14:48 4 mg Q2H PRN PRN Administration SEVERE PAIN Non-Formulary Medication 80 mg 11/11/24 22:00 Atorvastatin Calcium [Atorvastatin Calcium] PO 12/11/24 21:59 HS AMBER Non-Formulary Medication 1 cap 11/11/24 22:00 11/11/24 22:05 Vit C/E/Zn/Coppr/Lutein/Zeaxan [Preservision Areds 2 Softgel] PO 12/11/24 21:59 Not Given BID AMBER Ondansetron HCl 4 mg 11/11/24 16:18 11/11/24 16:27 Ondansetron Hcl 4 Mg/2 Ml Vial IV 11/11/24 16:19 4 mg STAT ONE Administration Ondansetron HCl Confirm 11/11/24 16:20 Ondansetron Hcl 4 Mg/2 Ml Vial Administered 11/11/24 16:21 Dose 4 mg .ROUTE .STK-MED ONE Ondansetron HCl 4 mg 11/11/24 18:16 Ondansetron Hcl 4 Mg/2 Ml Vial IV 12/11/24 18:15 Q6H PRN PRN NAUSEA/VOMITING Ondansetron HCl Confirm 11/12/24 07:52 Ondansetron Hcl 4 Mg/2 Ml Vial Administered 11/12/24 07:53 Dose 4 mg .ROUTE .STK-MED ONE Phenylephrine HCl Confirm 11/12/24 07:52 Phenylephrine 10 Mg/Ml Vial Administered 11/12/24 07:53 Dose 10 mg .ROUTE .STK-MED ONE Prochlorperazine Edisylate 10 mg 11/11/24 18:20 11/11/24 18:22 Prochlorperazine Edisylate 10 Mg/2 Ml Vial IV 12/11/24 18:19 10 mg Q6H PRN PRN Administration NAUSEA/VOMITING Prochlorperazine Edisylate Confirm 11/11/24 18:21 Prochlorperazine Edisylate 10 Mg/2 Ml Vial Administered 11/11/24 18:22 Dose 10 mg .ROUTE .STK-MED ONE Promethazine HCl Confirm 11/14/24 00:09 Promethazine Hcl 25 Mg/Ml Vial Administered 11/14/24 00:10 Dose 25 mg .ROUTE .STK-MED ONE Propofol Confirm 11/12/24 07:01 Propofol 200 Mg/20 Ml Vial Administered 11/12/24 07:02 Dose 200 mg IV .STK-MED ONE Rocuronium Vilonia Confirm 11/12/24 07:52 Rocuronium Vilonia 50 Mg/5 Ml Vial Administered 11/12/24 07:53 Dose 50 mg IV .STK-MED ONE Ropivacaine Confirm 11/12/24 07:55 Ropivacaine Hcl 5 Mg/Ml 30ml Vial Administered 11/12/24 07:56 Dose 150 mg .ROUTE .STK-MED ONE Sugammadex Sodium Confirm 11/12/24 09:51 Sugammadex Sodium 200 Mg/2 Ml Vial Administered 11/12/24 09:52 Dose 200 mg IV .STK-MED ONE Vancomycin HCl Confirm 11/12/24 08:47 Vancomycin Hcl Inj 1 Gm Vial Administered 11/12/24 08:48 Dose 1 gm IV .STK-MED ONE Multi-Disciplinary Progress Notes: Multi-Disciplinary Progress Notes 11/15/24 08:05 Occupational Therapy Note by Iraj(Paola#[id number])Penny Late-Entry Occupational Therapy Treatment Note for 11/14/24 ([id number]) OTR spoke with nursing re: patient status and was cleared for treatment session. Patient sleeping in supine with O2 via nasal cannula on 2.0L. He was roused easily with verbal stimuli and agreeable to treatment session. He reports 3/10 RLE pain. OTR removed abduction pillow and facilitated supine>sit EOB with MOD A provided. Srinivasa presents with drowsiness and referred to walker as "chair" x3. He sat at EOB with SBA while talking with OTR, discussing his hobbies and home set up, and catching up as patient is known to this therapist. Srinivasa exhibited increased alterness and performed sit<>stand transfer with MIN A and UB support in standing using FWW. Srinivasa then performed functional mobility to chair using FWW and OTR provided mod cueing for safety and positioning in prep for sitting and Srinivasa silveira's difficulty controlling descent this date. OTR educated Srinivasa on hip precautions and provided him with written, illustrated handout for carryover of precautions. He verbalized understanding. He was seated in recliner with BLE elevated and pillow placed between legs. Call light within reach and nasal cannula and heart monitor in place at session end. Will continue to see patient through stay. OTR recommends Rehab stay to progress I/ADL independence and safety. Initialized on 11/15/24 08:05 - END OF NOTE Assessment/Plan (1) Closed right hip fracture Current Visit: Yes Status: Acute Qualifiers: Encounter type: initial encounter Qualified Code(s): S72.001A - Fracture of unspecified part of neck of right femur, initial encounter for closed fracture Assessment & Plan: -Orthopedics consulted; fracture confirmed on imaging. -Surgery (ORIF) planned 11/12/24 -Preoperative labs (CBC, CMP, PT/INR) obtained and reviewed -CMP/CBC reviewed -Patient remains NPO in preparation for surgery; maintenance IVF initiated -Preoperative antibiotics administered (per protocol). -Pain managed with PRN morphine and Marks -Bryant catheter placed for anticipated immobility -SCDs)for DVT prophylaxis initiated. -Continue ice application to the affected hip for comfort and swelling control 11/13: -PODS#1- doing well, pain controlled -PT to evaluate patient today -Ortho note reviewed - agree with plan for ASA 81mg, WB as tolerated -CMP/CBC reviewed -continue pain management -IPPT -DC bryant catheter 11/14: -POD#2 -IV pain control discontinued - continue Marks -CBC reviewed noting WBC is modestly elevated at 11.2. Procalcitonin is mildly elevated at 0.219, though this is a nonspecific finding. The patient remains afebrile, and there are no clinical signs of infection at this time. X-rays ordered in coordination with Orthopedics show no acute findings-will hold empiric antibiotics for now -continue IPPT until dc to rehab 11/15: -PODs#3 -Pain controlled with oral pain meds -CBC now wnl -Ortho follow- note reviewed- agree with plan - imaging findings of a lucent oblique unicortical line near the distal tip of the femoral stem. A CT scan of the right hip has been ordered to evaluate for possible periprosthetic fracture. Should a fracture be confirmed, weightbearing restrictions may be implemented during the initial recovery phase, though this is not expected to delay transfer to the rehabilitation facility. Postoperative wound care to continue with current dressing in place until postoperative day 7, followed by daily dry dressing changes. Follow-up is arranged with orthopedics in two weeks. -Disposition planning is underway for discharge to a [facility] facility for rehabilitation, pending cardiology/ortho clearance. Code(s): S72.001A - FRACTURE OF UNSP PART OF NECK OF RIGHT FEMUR, INIT (2) Right hip pain Current Visit: Yes Status: Acute Assessment & Plan: - See plan above - Ortho consult in ER- awaiting recs - ICE pack - Bryant ordered in ER per ortho for immobilization - Morphine and norco PRN for pain control per Ortho recs - Narcan PRN - Protonix 11/14: -DC IV pain meds- continue norco PRN Code(s): M25.551 - PAIN IN RIGHT HIP (3) Left thigh pain Current Visit: Yes Status: Acute Assessment & Plan: -- + Left thigh bruise - Radiology results pending - Left hip/thigh bruising noted on exam; no fracture seen on initial imaging -Continue close monitoring for expanding hematoma or compartment syndrome signs (increasing pain, swelling, numbness, or neurovascular compromise) -Pain control -consider further imaging if swelling/pain persists 11/14: -Resolved Code(s): M79.652 - PAIN IN LEFT THIGH (4) History of colon cancer Current Visit: Yes Status: Acute Assessment & Plan: -No oncologic intervention needed during this admission -Maintain vigilance for delayed healing or other post-op complications in view of past cancer history Code(s): Z85.038 - PERSONAL HISTORY OF MALIGNANT NEOPLASM OF LARGE INTESTINE (5) Atrial fibrillation Current Visit: Yes Status: Chronic Assessment & Plan: -telemetry initiated for continuous monitoring -No evidence of rapid ventricular response (RVR) or decompensation currently -Continue home rate control medications -Monitor closely perioperatively given increased risk for perioperative arrhyth mias 11/14: -Overnight event of AFIB RVR -CTA chest was negative for pulmonary embolism or other acute intrathoracic pathology -Continue cardiac monitoring; cardiology to advise on AFib management -Patient received metoprolol 5mg IV x 2 and cardizem 10mg x 2 with HR now in 100's-110's -Continue home medications pending cardiology eval 11/15: -Heart rate remains persistently elevated in the 130s. Cardiology was consulted and recommended obtaining an echo, increasing metoprolol to 75 mg twice daily, initiating furosemide, and continuing diltiazem 180 mg daily. The patient remains on 2L oxygen via nasal cannula. Code(s): I48.91 - UNSPECIFIED ATRIAL FIBRILLATION (6) Hyperlipidemia Current Visit: No Status: Chronic Assessment & Plan: -continue statin Code(s): E78.5 - HYPERLIPIDEMIA, UNSPECIFIED (7) Leukocytosis Current Visit: Yes Status: Acute Assessment & Plan: -Most likely reactive 2/2 to fall- WBC on [id number]<10.5 - trend -UA with hematuria - otherwise clear -Received pre-op Cefazolin 11/13: -WBC reviewed at 10.2- continue to monitor 11/14: --CBC reviewed noting WBC is modestly elevated at 11.2. Procalcitonin is mildly elevated at 0.219, though this is a nonspecific finding. The patient remains afebrile, and there are no clinical signs of infection at this time. X-rays ordered in coordination with Orthopedics show no acute findings-will hold empiric antibiotics for now 11/15: -Resolved Code(s): D72.829 - ELEVATED WHITE BLOOD CELL COUNT, UNSPECIFIED (8) Hypocalcemia Current Visit: Yes Status: Acute Assessment & Plan: -resolved Code(s): E83.51 - HYPOCALCEMIA (9) Hypertension Current Visit: No Status: Chronic Assessment & Plan: -continue home meds VTE: aspirin/ scd PPI: Protonix Nesxt of KIN: Child- Romy Stevenson D/C plan: 2-3 days Code status: Full Code(s): S72.001A - FRACTURE OF UNSP PART OF NECK OF RIGHT FEMUR, INIT (2) Right hip pain Current Visit: Yes Status: Acute Code(s): M25.551 - PAIN IN RIGHT HIP (3) Left thigh pain Current Visit: Yes Status: Acute Code(s): M79.652 - PAIN IN LEFT THIGH (4) History of colon cancer Current Visit: Yes Status: Acute Code(s): Z85.038 - PERSONAL HISTORY OF MALIGNANT NEOPLASM OF LARGE INTESTINE (5) Atrial fibrillation Current Visit: Yes Status: Chronic Qualifiers: Atrial fibrillation type: unspecified chronic Qualified Code(s): I48.20 - Chronic atrial fibrillation, unspecified; I48.2 - Chronic atrial fibrillation Code(s): I48.91 - UNSPECIFIED ATRIAL FIBRILLATION (6) Hyperlipidemia Current Visit: No Status: Chronic Code(s): E78.5 - HYPERLIPIDEMIA, UNSPECIFIED (7) Leukocytosis Current Visit: Yes Status: Acute Code(s): D72.829 - ELEVATED WHITE BLOOD CELL COUNT, UNSPECIFIED (8) Hypocalcemia Current Visit: Yes Status: Acute Code(s): E83.51 - HYPOCALCEMIA (9) Hypertension Current Visit: No Status: Chronic Code(s): I10 - ESSENTIAL (PRIMARY) HYPERTENSION
--- NOTE | 2024-11-15 13:01 | XRAY ---
Indication: Possible fracture near distal stem. Status post right total hip arthroplasty. Multiple contiguous axial images obtained through the right hip. Sagittal and coronal reformatted images obtained. Comparison: None Osseous structures demineralized consistent with patient's age. There has been right total hip arthroplasty with intact bipolar prosthesis producing beam artifact. Postoperative soft tissue swelling, fluid, and tiny soft tissue emphysema seen anterior and laterally. Remnant greater trochanter demonstrates nondisplaced cortical fracture anteriorly, best seen on axial images 70-73. No other acute fracture, suspicious bony lesions, or osseous destructive process. Remaining visualized noncontrasted soft tissues demonstrates moderate scattered arteriosclerotic calcifications. Visualized pelvic contents demonstrates tiny appendicoliths. Visualized urinary bladder demonstrates intraluminal air either iatrogenic from recent catheterization versus gas-forming bacterial infection. Impression: 1. Status post intact right total hip arthroplasty with normal expected postsurgical soft tissue changes. 2. Tiny cortical fracture remnant greater trochanter. 3. Incidental urinary bladder intraluminal air either iatrogenic versus gas-forming infection. 4. Chronic findings including osteopenia and arteriosclerotic disease.
--- NOTE | 2024-11-15 15:04 | PCM.NOTE ---
Date and Time: 11/15/24 1500 Subjective Assessment: Comfortable in bed. CT reviewed and the area of concern near the distal stem is consistent with a nutrient vessel and not a fracture. Continue WBAT RLE with PT. OK to DC tomorrow from ortho standpoint. Continue ASA twice daily. Follow up 12-14 days post op Objective Data Vital Signs: Vital Signs - 24 hr Temp Pulse Resp BP Pulse Ox 11/15/24 11:00 20 11/15/24 07:24 99.2 F 76 18 131/63 97 11/15/24 07:08 97 11/15/24 07:00 17 11/15/24 00:33 99.2 F 110 H 18 143/69 97 11/14/24 23:00 17 11/14/24 20:42 98.9 F 112 H 17 143/80 98 11/14/24 17:52 14 11/14/24 15:55 97.7 F 92 H 16 139/68 94 L Pain Assessment - Last Documented Pain Intensity 0 Pain Scale Used 0-10 Pain Scale Intake and Output: Intake & Output 11/13/24 11/14/24 11/15/24 11/16/24 06:59 06:59 06:59 06:59 Intake Total 540 800 460 240 Output Total 3050 850 1125 995 Balance -2510 -50 -665 -755 Lab Results: Lab Results-Last 24 Hours 11/14/24 11/15/24 11/15/24 Range/Units 09:40 05:07 05:07 WBC 8.0 (4.23-9.07) x10^3/uL RBC 2.96 L (4.63-6.08) x10^6/uL Hgb 9.4 L (13.7-17.5) g/dL Hct 28.1 L (40.1-51.0) % MCV 94.9 H (79.0-92.2) fL MCH 31.8 (25.7-32.2) pg MCHC 33.5 (32.3-36.5) g/dL RDW 14.0 (11.6-14.4) % Plt Count 161 L (163-337) x10^3/uL MPV 10.5 (9.4-12.4) fL Gran % 63.7 (34.0-67.9) % Immature Gran % (Auto) 0.4 (0.001-0.429) % Nucleat RBC Rel Count 0.0 (0.00-0.2) % Eos # (Auto) 0.88 H (0.04-0.54) x10^3/uL Immature Gran # (Auto) 0.03 (0.001-0.031) x10^3u/L Absolute Lymphs (auto) 1.37 (1.32-3.57) x10^3/uL Absolute Monos (auto) 0.59 (0.30-0.82) x10^3/uL Absolute Nucleated RBC 0.00 (0.00-0.012) x10^3u/L Lymphocytes % 17.1 L (21.8-53.1) % Monocytes % 7.3 (5.3-12.2) % Eosinophils % 11.0 H (0.8-7.0) % Basophils % 0.5 (0.2-1.2) % Absolute Granulocytes 5.12 (1.78-5.38) x10^3/uL Basophils # 0.04 (0.01-0.08) x10^3/uL Sodium 136 (135-145) mmol/L Potassium 3.8 (3.5-5.1) mmol/L Chloride 101 (98-107) mmol/L Carbon Dioxide 26 (22-30) mmol/L Anion Gap 12.2 (5-15) MEQ/L BUN 19 (9-20) mg/dL Creatinine 0.89 (0.66-1.25) mg/dL Estimated GFR 87.2 ML/MIN Glucose 108 H (74-106) mg/dL Calcium 8.1 L (8.4-10.2) mg/dL Total Bilirubin 1.20 (0.2-1.3) mg/dL AST 62 H (17-59) U/L ALT 28 (0-50) U/L Alkaline Phosphatase 82 (38-126) U/L C-Reactive Prot, Quant 157 H (0-10) mg/L Serum Total Protein 5.2 L (6.3-8.2) g/dL Albumin 2.7 L (3.5-5.0) g/dL Radiology Exams: Radiology Procedures Category Date Time Status CHEST WITH CONTRAST [CT] Stat Exams 11/14/24 03:28 Completed ECHO W/2D AND DOPPLER [US] Routine Exams 11/15/24 11:10 Taken HIP UNI (2V) INCL PEL IF DONE Routine Exams 11/14/24 08:14 Completed LOWER EXTREMITY WO CONTRAST [CT] Stat Exams 11/15/24 10:34 Completed Medications: Medications Generic Name Dose Route Start Last Admin Trade Name Freq PRN Reason Stop Dose Admin Hydrocodone Bitart/Acetaminophen 1 - 2 tab 11/12/24 15:00 11/15/24 08:47 Hydrocodone/Apap 5/325 1 Tab Tablet PO 11/17/24 14:59 1 tab Q4H PRN PRN Administration MODERATE PAIN Aspirin 81 mg 11/12/24 22:00 11/15/24 08:46 Aspirin 81 Mg Tablet.Ec PO 12/12/24 21:59 81 mg BID AMBER Administration Diltiazem HCl 180 mg 11/12/24 10:00 11/15/24 08:48 Diltiazem Hcl Cd 180 Mg Cap.Sr.24h PO 12/12/24 09:59 180 mg DAILY AMBER Administration Docusate Sodium 100 mg 11/12/24 22:00 11/15/24 08:46 Docusate Sodium 100 Mg Capsule PO 12/12/24 21:59 100 mg BID AMBER Administration Ezetimibe 10 mg 11/12/24 10:00 11/15/24 08:46 Ezetimibe 10 Mg Tab PO 12/12/24 09:59 10 mg DAILY AMBER Administration Fenofibrate 145 mg 11/12/24 10:00 11/15/24 08:48 Fenofibrate,Micronized 145 Mg Tablet PO 12/12/24 09:59 145 mg DAILY AMBER Administration Furosemide 20 mg 11/15/24 11:30 11/15/24 12:04 Furosemide 20 Mg/Vial IV 12/15/24 11:29 20 mg BID DIURETIC AMBER Administration Promethazine HCl 12.5 mg/ 100.5 mls @ 201 mls/hr 11/13/24 23:56 11/14/24 00:15 Sodium Chloride IV 12/13/24 23:55 201 mls/hr Q4H PRN PRN Administration UNCONTROLLED NAUSEA Metoprolol Succinate 75 mg 11/15/24 22:00 Metoprolol Succinate 25 Mg Xl Tab PO 12/15/24 21:59 BID AMBER Miscellaneous Information 1 each 11/12/24 07:15 Medication Intervention 1 Each Each 12/12/24 07:14 .RN TO CHECK AMBER Multivitamins Therapeutic 1 tab 11/12/24 10:00 11/15/24 08:46 Multivitamins,Therapeutic 1 Tab Tab PO 12/12/24 09:59 1 tab DAILY AMBER Administration Multivitamins/Minerals 1 tab 11/12/24 10:00 11/15/24 08:47 Beta-Carotene(A) W-C And E/Min 1 Tab Tablet PO 12/12/24 09:59 1 tab BID AMBER Administration Naloxone HCl 0.4 mg 11/11/24 17:54 Naloxone Hcl 0.4 Mg/Ml Ml IV 12/11/24 17:53 PRN PRN RESPIRATORY DEPRESSION Ondansetron HCl 4 mg 11/12/24 14:52 11/13/24 21:27 Ondansetron Hcl 4 Mg/2 Ml Vial IV 12/12/24 14:51 4 mg Q4H PRN PRN Administration NAUSEA/VOMITING Pantoprazole Sodium 20 mg 11/12/24 10:00 11/15/24 08:46 Pantoprazole 20 Mg Tab PO 12/12/24 09:59 20 mg DAILY AMBER Administration Simvastatin 40 mg 11/11/24 22:00 11/14/24 21:22 Simvastatin 20 Mg Tablet PO 12/11/24 21:59 40 mg HS AMBER Administration Discontinued Medications Generic Name Dose Route Start Last Admin Trade Name Freq PRN Reason Stop Dose Admin Hydrocodone Bitart/Acetaminophen 1 tab 11/11/24 17:46 Hydrocodone/Apap 5/325 1 Tab Tablet PO 11/16/24 17:45 Q4H PRN PRN PAIN Cefazolin Sodium Confirm 11/12/24 07:52 Cefazolin Sodium 1 Gm Vial Administered 11/12/24 07:53 Dose 2 g .ROUTE .STK-MED ONE Dexamethasone Sodium Phosphate Confirm 11/12/24 07:52 Dexamethasone Sodium Phosphate 4 Mg/Ml Vial Administered 11/12/24 07:53 Dose 4 mg .ROUTE .STK-MED ONE Diltiazem HCl 10 mg 11/13/24 23:57 11/14/24 00:15 Diltiazem Hcl Iv 5 Mg/Ml Vial IV 11/13/24 23:58 10 mg STAT ONE Administration Diltiazem HCl 10 mg 11/14/24 03:29 11/14/24 03:38 Diltiazem Hcl Iv 5 Mg/Ml Vial IV 11/14/24 03:30 10 mg STAT ONE Administration Diphenhydramine HCl 12.5 mg 11/11/24 18:36 11/11/24 18:37 Diphenhydramine Hcl 50 Mg/Ml Vial IV 11/11/24 18:37 12.5 mg STAT ONE Administration Fentanyl Citrate Confirm 11/12/24 08:03 Fentanyl Citrate 100 Mcg/2 Ml* Vial Administered 11/12/24 08:04 Dose 100 mcg .ROUTE .STK-MED ONE Fentanyl Citrate Confirm 11/12/24 10:29 Fentanyl Citrate 100 Mcg/2 Ml* Vial Administered 11/12/24 10:30 Dose 100 mcg .ROUTE .STK-MED ONE Sodium Chloride 1,000 mls @ 999 mls/hr 11/11/24 16:04 11/11/24 16:24 Sodium Chloride 0.9% 1000 Ml IV 11/11/24 17:04 999 mls/hr .Q1H1M STA Administration Meropenem 1 gm/ Sodium 100 mls @ 200 mls/hr 11/11/24 16:04 11/11/24 16:42 Chloride IV 11/11/24 16:33 Not Given STAT ONE Cefazolin Sodium 1 gm in 100 mls @ 200 mls/hr 11/11/24 16:10 11/11/24 17:10 Cefazolin 1 Gm/100 Ml Nacl Ivpb IV 11/11/24 16:39 Infused STAT STA Infusion Cefazolin Sodium Confirm 11/11/24 16:21 Cefazolin 1 Gm/100 Ml Nacl Ivpb Administered 11/11/24 16:22 Dose 1 gm in 100 mls @ ud IV .STK-MED ONE Sodium Chloride Confirm 11/11/24 16:21 Sodium Chloride 0.9% 1000 Ml Administered 11/11/24 16:22 Dose 1,000 mls @ ud .ROUTE .STK-MED ONE Sodium Chloride 1,000 mls @ 75 mls/hr 11/12/24 00:01 11/13/24 03:29 Sodium Chloride 0.45% 1000 Ml IV 12/12/24 00:00 75 mls/hr .[id number] AMBER Administration Cefazolin Sodium 2 gm in 100 mls @ 200 mls/hr 11/12/24 06:45 Cefazolin 2 Gm/100 Ml Nacl IV 11/12/24 07:14 ONCALLTOOR AMBER TRANEXAMIC ACID IN NACL,ISO-OS 1,000 mg in 100 mls @ 600 mls/hr 11/12/24 06:35 11/12/24 12:58 Tranexamic 1,000 Mg/100ml-Nacl IV 11/12/24 06:44 Not Given ONCE ONE Lactated Ringer's Confirm 11/12/24 07:21 Lactated Ringers Administered 11/12/24 07:22 Dose 1,000 mls @ ud IV .STK-MED ONE Sodium Chloride Confirm 11/12/24 07:32 Sodium Chloride 0.9% 1000 Ml Administered 11/12/24 07:33 Dose 1,000 mls @ ud .ROUTE .STK-MED ONE TRANEXAMIC ACID IN NACL,ISO-OS Confirm 11/12/24 07:56 Tranexamic 1,000 Mg/100ml-Nacl Administered 11/12/24 07:57 Dose 1,000 mg in 100 mls @ ud IV .STK-MED ONE Cefazolin Sodium 2 gm in 100 mls @ 200 mls/hr 11/12/24 15:00 11/13/24 08:16 Cefazolin 2 Gm/100 Ml Nacl IV 11/13/24 07:29 200 mls/hr Q8H MABER Administration Sodium Chloride Confirm 11/14/24 00:11 Sodium Chloride 0.9% Administered 11/14/24 00:12 Dose 100 mls @ ud .ROUTE .STK-MED ONE Sodium Chloride 1,000 mls @ 75 mls/hr 11/14/24 08:30 11/14/24 08:41 Sodium Chloride 0.9% 1000 Ml IV 11/14/24 21:29 75 mls/hr .[id number] AMBER Administration Metoprolol Succinate 50 mg 11/11/24 22:00 11/15/24 08:46 Metoprolol Succinate 50 Mg Tablet.Sa PO 12/11/24 21:59 50 mg BID AMBER Administration Metoprolol Succinate 25 mg 11/15/24 11:13 11/15/24 12:04 Metoprolol Succinate 25 Mg Xl Tab PO 11/15/24 11:14 25 mg STAT ONE Administration Metoprolol Tartrate 5 mg 11/13/24 21:17 11/13/24 21:26 Metoprolol Tartrate 5 Mg/5 Ml Vial IV 11/13/24 21:18 5 mg STAT ONE Administration Metoprolol Tartrate 5 mg 11/13/24 22:34 11/13/24 22:44 Metoprolol Tartrate 5 Mg/5 Ml Vial IV 11/13/24 22:35 5 mg STAT ONE Administration Morphine Sulfate 4 mg 11/11/24 16:04 11/11/24 16:29 Morphine Sulfate 4 Mg/Ml Injection IV 11/11/24 16:05 4 mg STAT ONE Administration Morphine Sulfate Confirm 11/11/24 16:21 Morphine Sulfate 4 Mg/Ml Injection Administered 11/11/24 16:22 Dose 4 mg .ROUTE .STK-MED ONE Morphine Sulfate 4 mg 11/11/24 17:47 11/12/24 01:21 Morphine Sulfate 4 Mg/Ml Injection IV 11/16/24 17:46 4 mg Q2H PRN PRN Administration SEVERE PAIN Morphine Sulfate 2 mg 11/12/24 14:48 11/14/24 03:38 Morphine Sulfate 2 Mg/Ml Inj IV 11/17/24 14:47 2 mg Q2H PRN PRN Administration SEVERE PAIN Morphine Sulfate 4 mg 11/12/24 14:49 11/13/24 11:51 Morphine Sulfate 4 Mg/Ml Injection IV 11/17/24 14:48 4 mg Q2H PRN PRN Administration SEVERE PAIN Non-Formulary Medication 80 mg 11/11/24 22:00 Atorvastatin Calcium [Atorvastatin Calcium] PO 12/11/24 21:59 HS AMBER Non-Formulary Medication 1 cap 11/11/24 22:00 11/11/24 22:05 Vit C/E/Zn/Coppr/Lutein/Zeaxan [Preservision Areds 2 Softgel] PO 12/11/24 21:59 Not Given BID AMBER Ondansetron HCl 4 mg 11/11/24 16:18 11/11/24 16:27 Ondansetron Hcl 4 Mg/2 Ml Vial IV 11/11/24 16:19 4 mg STAT ONE Administration Ondansetron HCl Confirm 11/11/24 16:20 Ondansetron Hcl 4 Mg/2 Ml Vial Administered 11/11/24 16:21 Dose 4 mg .ROUTE .STK-MED ONE Ondansetron HCl 4 mg 11/11/24 18:16 Ondansetron Hcl 4 Mg/2 Ml Vial IV 12/11/24 18:15 Q6H PRN PRN NAUSEA/VOMITING Ondansetron HCl Confirm 11/12/24 07:52 Ondansetron Hcl 4 Mg/2 Ml Vial Administered 11/12/24 07:53 Dose 4 mg .ROUTE .STK-MED ONE Phenylephrine HCl Confirm 11/12/24 07:52 Phenylephrine 10 Mg/Ml Vial Administered 11/12/24 07:53 Dose 10 mg .ROUTE .STK-MED ONE Prochlorperazine Edisylate 10 mg 11/11/24 18:20 11/11/24 18:22 Prochlorperazine Edisylate 10 Mg/2 Ml Vial IV 12/11/24 18:19 10 mg Q6H PRN PRN Administration NAUSEA/VOMITING Prochlorperazine Edisylate Confirm 11/11/24 18:21 Prochlorperazine Edisylate 10 Mg/2 Ml Vial Administered 11/11/24 18:22 Dose 10 mg .ROUTE .STK-MED ONE Promethazine HCl Confirm 11/14/24 00:09 Promethazine Hcl 25 Mg/Ml Vial Administered 11/14/24 00:10 Dose 25 mg .ROUTE .STK-MED ONE Propofol Confirm 11/12/24 07:01 Propofol 200 Mg/20 Ml Vial Administered 11/12/24 07:02 Dose 200 mg IV .STK-MED ONE Rocuronium Roggen Confirm 11/12/24 07:52 Rocuronium Roggen 50 Mg/5 Ml Vial Administered 11/12/24 07:53 Dose 50 mg IV .STK-MED ONE Ropivacaine Confirm 11/12/24 07:55 Ropivacaine Hcl 5 Mg/Ml 30ml Vial Administered 11/12/24 07:56 Dose 150 mg .ROUTE .STK-MED ONE Sugammadex Sodium Confirm 11/12/24 09:51 Sugammadex Sodium 200 Mg/2 Ml Vial Administered 11/12/24 09:52 Dose 200 mg IV .STK-MED ONE Vancomycin HCl Confirm 11/12/24 08:47 Vancomycin Hcl Inj 1 Gm Vial Administered 11/12/24 08:48 Dose 1 gm IV .STK-MED ONE Multi-Disciplinary Progress Notes: Multi-Disciplinary Progress Notes 11/15/24 14:44 Case Management Note by Lyubov Trimble S/W PATIENT- HE CONTINUES TO PLAN TO TRANSITION TO [facility] FOR REHAB AT TIME OF DC. [facility] THEY HAVE RECEIVED AUTH. SHE WAS NOTIFIED WE ARE HOPEFUL FOR DC TOMORROW 11/16/24. SHE VERIFIED UNDERSTANDING. CLINICAL UPDATE [facility] Initialized on 11/15/24 14:44 - END OF NOTE 11/15/24 08:05 Occupational Therapy Note by Iraj(L#[id number])Penny Late-Entry Occupational Therapy Treatment Note for 11/14/24 ([id number]) OTR spoke with nursing re: patient status and was cleared for treatment session. Patient sleeping in supine with O2 via nasal cannula on 2.0L. He was roused easily with verbal stimuli and agreeable to treatment session. He reports 3/10 RLE pain. OTR removed abduction pillow and facilitated supine>sit EOB with MOD A provided. Srinivasa presents with drowsiness and referred to walker as "chair" x3. He sat at EOB with SBA while talking with OTR, discussing his hobbies and home set up, and catching up as patient is known to this therapist. Srinivasa exhibited increased alterness and performed sit<>stand transfer with MIN A and UB support in standing using FWW. Srinivasa then performed functional mobility to chair using FWW and OTR provided mod cueing for safety and positioning in prep for sitting and Srinivasa silveira's difficulty controlling descent this date. OTR educated Srinivasa on hip precautions and provided him with written, illustrated handout for carryover of precautions. He verbalized understanding. He was seated in recliner with BLE elevated and pillow placed between legs. Call light within reach and nasal cannula and heart monitor in place at session end. Will continue to see patient through stay. OTR recommends Rehab stay to progress I/ADL independence and safety. Initialized on 11/15/24 08:05 - END OF NOTE
[2024-11-15] MEDS: Toprol-Xl 25MG Tablets PO SCH (21:16)
[2024-11-16 05:02] LABS: Absolute Neutrophil Ct (ANC) 4.33 x10^3/uL (1.78-5.38); BASOPHIL % 0.7 % (0.2-1.2); Basophil (Absolute #) 0.05 x10^3/uL (0.01-0.08); Eosinophil % 11.1 % (0.8-7.0); Eosinophil (Absolute #) 0.77 x10^3/uL (0.04-0.54); Hematocrit 28.7 % (40.1-51.0); Hemoglobin 9.6 g/dL (13.7-17.5); IMMATURE GRAN # 0.02 x10^3u/L (0.001-0.031); IMMATURE GRAN % 0.3 % (0.001-0.429); Lymphocyte (Absolute #) 1.25 x10^3/uL (1.32-3.57); Mean Cell Volume 93.2 fL (79.0-92.2); Mean Corpuscular Hemoglobin 31.2 pg (25.7-32.2); Mean Corpuscular Hgb Concent. 33.4 g/dL (32.3-36.5); Mean Platelet Volume 10.3 fL (9.4-12.4); Monocyte (Absolute #) 0.54 x10^3/uL (0.30-0.82); Monocytes % 7.8 % (5.3-12.2); Neutrophil % 62.1 % (34.0-67.9); Platelet Count 181 x10^3/uL (163-337); Red Blood Count 3.08 x10^6/uL (4.63-6.08)
[2024-11-16 05:21] LABS: ALBUMIN 2.8 g/dL (3.5-5.0); ANION GAP 10.5 MEQ/L (5-15); Calcium 8.4 mg/dL (8.4-10.2); Creatinine 1 0.84 mg/dL (0.66-1.25); EST GLOMERULAR FILTRATION RATE 88.7 ML/MIN; Potassium 3.8 mmol/L (3.5-5.1); Total Protein 5.4 g/dL (6.3-8.2)
--- NOTE | 2024-11-16 05:30 | PCM.NOTE ---
Date and Time: 11/16/24 0529 Objective Exam Wound Assessment: Skin/Wound Assessment Wound/Incision Assessment Start: 11/11/24 19:12 Text: Status: Active Freq: Q4H Protocol: Document 11/16/24 04:00 AK (Rec: 11/16/24 04:30 AK [id number]) Wound/Incision Assessment right thigh Wound Assessment Shift Assessment Wound Type Incision Wound Stage Non Pressure Wound Dressing Status Dry & Intact Drainage Amount None Drainage Odor None/Absent Primary Dressing Aquacel dressing Comment Aquacel dressing CDI - ROMEL wound Wound Photo Photo Taken No Objective Data Vital Signs: Vital Signs - 24 hr Temp Pulse Resp BP Pulse Ox 11/16/24 04:00 97.9 F 95 H 16 141/65 95 11/16/24 00:19 98.8 F 103 H 17 149/72 97 11/15/24 23:00 16 11/15/24 20:19 97.9 F 84 16 124/58 96 11/15/24 19:00 20 11/15/24 16:00 98.8 F 97 H 22 110/55 96 11/15/24 15:00 14 11/15/24 11:00 20 11/15/24 07:24 99.2 F 76 18 131/63 97 11/15/24 07:08 97 11/15/24 07:00 17 Pain Assessment - Last Documented Pain Intensity 0 Pain Scale Used 0-10 Pain Scale Intake and Output: Intake & Output 11/13/24 11/14/24 11/15/24 11/16/24 11:59 11:59 11:59 11:59 Intake Total 780 680 580 720 Output Total 3508 700 1225 1520 [id number] Lab Results: Lab Results-Last 24 Hours 11/14/24 11/15/24 11/16/24 Range/Units 09:40 05:07 04:56 WBC 7.0 (4.23-9.07) x10^3/uL RBC 3.08 L (4.63-6.08) x10^6/uL Hgb 9.6 L (13.7-17.5) g/dL Hct 28.7 L (40.1-51.0) % MCV 93.2 H (79.0-92.2) fL MCH 31.2 (25.7-32.2) pg MCHC 33.4 (32.3-36.5) g/dL RDW 14.0 (11.6-14.4) % Plt Count 181 (163-337) x10^3/uL MPV 10.3 (9.4-12.4) fL Gran % 62.1 (34.0-67.9) % Immature Gran % (Auto) 0.3 (0.001-0.429) % Nucleat RBC Rel Count 0.0 (0.00-0.2) % Eos # (Auto) 0.77 H (0.04-0.54) x10^3/uL Immature Gran # (Auto) 0.02 (0.001-0.031) x10^3u/L Absolute Lymphs (auto) 1.25 L (1.32-3.57) x10^3/uL Absolute Monos (auto) 0.54 (0.30-0.82) x10^3/uL Absolute Nucleated RBC 0.00 (0.00-0.012) x10^3u/L Lymphocytes % 18.0 L (21.8-53.1) % Monocytes % 7.8 (5.3-12.2) % Eosinophils % 11.1 H (0.8-7.0) % Basophils % 0.7 (0.2-1.2) % Absolute Granulocytes 4.33 (1.78-5.38) x10^3/uL Basophils # 0.05 (0.01-0.08) x10^3/uL Sodium 136 (135-145) mmol/L Potassium 3.8 (3.5-5.1) mmol/L Chloride 101 (98-107) mmol/L Carbon Dioxide 26 (22-30) mmol/L Anion Gap 12.2 (5-15) MEQ/L BUN 19 (9-20) mg/dL Creatinine 0.89 (0.66-1.25) mg/dL Estimated GFR 87.2 ML/MIN Glucose 108 H (74-106) mg/dL Calcium 8.1 L (8.4-10.2) mg/dL Total Bilirubin 1.20 (0.2-1.3) mg/dL AST 62 H (17-59) U/L ALT 28 (0-50) U/L Alkaline Phosphatase 82 (38-126) U/L C-Reactive Prot, Quant 157 H (0-10) mg/L Serum Total Protein 5.2 L (6.3-8.2) g/dL Albumin 2.7 L (3.5-5.0) g/dL 11/16/24 Range/Units 04:56 WBC (4.23-9.07) x10^3/uL RBC (4.63-6.08) x10^6/uL Hgb (13.7-17.5) g/dL Hct (40.1-51.0) % MCV (79.0-92.2) fL MCH (25.7-32.2) pg MCHC (32.3-36.5) g/dL RDW (11.6-14.4) % Plt Count (163-337) x10^3/uL MPV (9.4-12.4) fL Gran % (34.0-67.9) % Immature Gran % (Auto) (0.001-0.429) % Nucleat RBC Rel Count (0.00-0.2) % Eos # (Auto) (0.04-0.54) x10^3/uL Immature Gran # (Auto) (0.001-0.031) x10^3u/L Absolute Lymphs (auto) (1.32-3.57) x10^3/uL Absolute Monos (auto) (0.30-0.82) x10^3/uL Absolute Nucleated RBC (0.00-0.012) x10^3u/L Lymphocytes % (21.8-53.1) % Monocytes % (5.3-12.2) % Eosinophils % (0.8-7.0) % Basophils % (0.2-1.2) % Absolute Granulocytes (1.78-5.38) x10^3/uL Basophils # (0.01-0.08) x10^3/uL Sodium 137 (135-145) mmol/L Potassium 3.8 (3.5-5.1) mmol/L Chloride 100 (98-107) mmol/L Carbon Dioxide 30 (22-30) mmol/L Anion Gap 10.5 (5-15) MEQ/L BUN 23 H (9-20) mg/dL Creatinine 0.84 (0.66-1.25) mg/dL Estimated GFR 88.7 ML/MIN Glucose 121 H (74-106) mg/dL Calcium 8.4 (8.4-10.2) mg/dL Total Bilirubin 1.00 (0.2-1.3) mg/dL AST 67 H (17-59) U/L ALT 35 (0-50) U/L Alkaline Phosphatase 90 (38-126) U/L C-Reactive Prot, Quant (0-10) mg/L Serum Total Protein 5.4 L (6.3-8.2) g/dL Albumin 2.8 L (3.5-5.0) g/dL Radiology Exams: Radiology Procedures Category Date Time Status ECHO W/2D AND DOPPLER [US] Routine Exams 11/15/24 11:10 Taken HIP UNI (2V) INCL PEL IF DONE Routine Exams 11/14/24 08:14 Completed LOWER EXTREMITY WO CONTRAST [CT] Stat Exams 11/15/24 10:34 Completed Medications: Medications Generic Name Dose Route Start Last Admin Trade Name Freq PRN Reason Stop Dose Admin Hydrocodone Bitart/Acetaminophen 1 - 2 tab 11/12/24 15:00 11/15/24 21:15 Hydrocodone/Apap 5/325 1 Tab Tablet PO 11/17/24 14:59 1 tab Q4H PRN PRN Administration MODERATE PAIN Aspirin 81 mg 11/12/24 22:00 11/15/24 21:15 Aspirin 81 Mg Tablet.Ec PO 12/12/24 21:59 81 mg BID AMBER Administration Diltiazem HCl 180 mg 11/12/24 10:00 11/15/24 08:48 Diltiazem Hcl Cd 180 Mg Cap.Sr.24h PO 12/12/24 09:59 180 mg DAILY AMBER Administration Docusate Sodium 100 mg 11/12/24 22:00 11/15/24 21:17 Docusate Sodium 100 Mg Capsule PO 12/12/24 21:59 Not Given BID AMBER Ezetimibe 10 mg 11/12/24 10:00 11/15/24 08:46 Ezetimibe 10 Mg Tab PO 12/12/24 09:59 10 mg DAILY AMBER Administration Fenofibrate 145 mg 11/12/24 10:00 11/15/24 08:48 Fenofibrate,Micronized 145 Mg Tablet PO 12/12/24 09:59 145 mg DAILY AMBER Administration Furosemide 20 mg 11/15/24 11:30 11/15/24 16:18 Furosemide 20 Mg/Vial IV 12/15/24 11:29 20 mg BID DIURETIC AMBER Administration Promethazine HCl 12.5 mg/ 100.5 mls @ 201 mls/hr 11/13/24 23:56 11/14/24 00:15 Sodium Chloride IV 12/13/24 23:55 201 mls/hr Q4H PRN PRN Administration UNCONTROLLED NAUSEA Metoprolol Succinate 75 mg 11/15/24 22:00 11/15/24 21:16 Metoprolol Succinate 25 Mg Xl Tab PO 12/15/24 21:59 75 mg BID AMBER Administration Miscellaneous Information 1 each 11/12/24 07:15 Medication Intervention 1 Each Each 12/12/24 07:14 .RN TO CHECK AMBER Multivitamins Therapeutic 1 tab 11/12/24 10:00 11/15/24 08:46 Multivitamins,Therapeutic 1 Tab Tab PO 12/12/24 09:59 1 tab DAILY AMBER Administration Multivitamins/Minerals 1 tab 11/12/24 10:00 11/15/24 21:15 Beta-Carotene(A) W-C And E/Min 1 Tab Tablet PO 12/12/24 09:59 1 tab BID AMBER Administration Naloxone HCl 0.4 mg 11/11/24 17:54 Naloxone Hcl 0.4 Mg/Ml Ml IV 12/11/24 17:53 PRN PRN RESPIRATORY DEPRESSION Ondansetron HCl 4 mg 11/12/24 14:52 11/15/24 22:48 Ondansetron Hcl 4 Mg/2 Ml Vial IV 12/12/24 14:51 4 mg Q4H PRN PRN Administration NAUSEA/VOMITING Pantoprazole Sodium 20 mg 11/12/24 10:00 11/15/24 08:46 Pantoprazole 20 Mg Tab PO 12/12/24 09:59 20 mg DAILY AMBER Administration Simvastatin 40 mg 11/11/24 22:00 11/15/24 21:15 Simvastatin 20 Mg Tablet PO 12/11/24 21:59 40 mg HS AMBER Administration Discontinued Medications Generic Name Dose Route Start Last Admin Trade Name Freq PRN Reason Stop Dose Admin Hydrocodone Bitart/Acetaminophen 1 tab 11/11/24 17:46 Hydrocodone/Apap 5/325 1 Tab Tablet PO 11/16/24 17:45 Q4H PRN PRN PAIN Cefazolin Sodium Confirm 11/12/24 07:52 Cefazolin Sodium 1 Gm Vial Administered 11/12/24 07:53 Dose 2 g .ROUTE .STK-MED ONE Dexamethasone Sodium Phosphate Confirm 11/12/24 07:52 Dexamethasone Sodium Phosphate 4 Mg/Ml Vial Administered 11/12/24 07:53 Dose 4 mg .ROUTE .STK-MED ONE Diltiazem HCl 10 mg 11/13/24 23:57 11/14/24 00:15 Diltiazem Hcl Iv 5 Mg/Ml Vial IV 11/13/24 23:58 10 mg STAT ONE Administration Diltiazem HCl 10 mg 11/14/24 03:29 11/14/24 03:38 Diltiazem Hcl Iv 5 Mg/Ml Vial IV 11/14/24 03:30 10 mg STAT ONE Administration Diphenhydramine HCl 12.5 mg 11/11/24 18:36 11/11/24 18:37 Diphenhydramine Hcl 50 Mg/Ml Vial IV 11/11/24 18:37 12.5 mg STAT ONE Administration Fentanyl Citrate Confirm 11/12/24 08:03 Fentanyl Citrate 100 Mcg/2 Ml* Vial Administered 11/12/24 08:04 Dose 100 mcg .ROUTE .STK-MED ONE Fentanyl Citrate Confirm 11/12/24 10:29 Fentanyl Citrate 100 Mcg/2 Ml* Vial Administered 11/12/24 10:30 Dose 100 mcg .ROUTE .STK-MED ONE Sodium Chloride 1,000 mls @ 999 mls/hr 11/11/24 16:04 11/11/24 16:24 Sodium Chloride 0.9% 1000 Ml IV 11/11/24 17:04 999 mls/hr .Q1H1M STA Administration Meropenem 1 gm/ Sodium 100 mls @ 200 mls/hr 11/11/24 16:04 11/11/24 16:42 Chloride IV 11/11/24 16:33 Not Given STAT ONE Cefazolin Sodium 1 gm in 100 mls @ 200 mls/hr 11/11/24 16:10 11/11/24 17:10 Cefazolin 1 Gm/100 Ml Nacl Ivpb IV 11/11/24 16:39 Infused STAT STA Infusion Cefazolin Sodium Confirm 11/11/24 16:21 Cefazolin 1 Gm/100 Ml Nacl Ivpb Administered 11/11/24 16:22 Dose 1 gm in 100 mls @ ud IV .STK-MED ONE Sodium Chloride Confirm 11/11/24 16:21 Sodium Chloride 0.9% 1000 Ml Administered 11/11/24 16:22 Dose 1,000 mls @ ud .ROUTE .STK-MED ONE Sodium Chloride 1,000 mls @ 75 mls/hr 11/12/24 00:01 11/13/24 03:29 Sodium Chloride 0.45% 1000 Ml IV 12/12/24 00:00 75 mls/hr .[id number] AMBER Administration Cefazolin Sodium 2 gm in 100 mls @ 200 mls/hr 11/12/24 06:45 Cefazolin 2 Gm/100 Ml Nacl IV 11/12/24 07:14 ONCALLTOOR AMBER TRANEXAMIC ACID IN NACL,ISO-OS 1,000 mg in 100 mls @ 600 mls/hr 11/12/24 06:35 11/12/24 12:58 Tranexamic 1,000 Mg/100ml-Nacl IV 11/12/24 06:44 Not Given ONCE ONE Lactated Ringer's Confirm 11/12/24 07:21 Lactated Ringers Administered 11/12/24 07:22 Dose 1,000 mls @ ud IV .STK-MED ONE Sodium Chloride Confirm 11/12/24 07:32 Sodium Chloride 0.9% 1000 Ml Administered 11/12/24 07:33 Dose 1,000 mls @ ud .ROUTE .STK-MED ONE TRANEXAMIC ACID IN NACL,ISO-OS Confirm 11/12/24 07:56 Tranexamic 1,000 Mg/100ml-Nacl Administered 11/12/24 07:57 Dose 1,000 mg in 100 mls @ ud IV .STK-MED ONE Cefazolin Sodium 2 gm in 100 mls @ 200 mls/hr 11/12/24 15:00 11/13/24 08:16 Cefazolin 2 Gm/100 Ml Nacl IV 11/13/24 07:29 200 mls/hr Q8H AMBER Administration Sodium Chloride Confirm 11/14/24 00:11 Sodium Chloride 0.9% Administered 11/14/24 00:12 Dose 100 mls @ ud .ROUTE .STK-MED ONE Sodium Chloride 1,000 mls @ 75 mls/hr 11/14/24 08:30 11/14/24 08:41 Sodium Chloride 0.9% 1000 Ml IV 11/14/24 21:29 75 mls/hr .[id number] AMBER Administration Metoprolol Succinate 50 mg 11/11/24 22:00 11/15/24 08:46 Metoprolol Succinate 50 Mg Tablet.Sa PO 12/11/24 21:59 50 mg BID AMBER Administration Metoprolol Succinate 25 mg 11/15/24 11:13 11/15/24 12:04 Metoprolol Succinate 25 Mg Xl Tab PO 11/15/24 11:14 25 mg STAT ONE Administration Metoprolol Tartrate 5 mg 11/13/24 21:17 11/13/24 21:26 Metoprolol Tartrate 5 Mg/5 Ml Vial IV 11/13/24 21:18 5 mg STAT ONE Administration Metoprolol Tartrate 5 mg 11/13/24 22:34 11/13/24 22:44 Metoprolol Tartrate 5 Mg/5 Ml Vial IV 11/13/24 22:35 5 mg STAT ONE Administration Morphine Sulfate 4 mg 11/11/24 16:04 11/11/24 16:29 Morphine Sulfate 4 Mg/Ml Injection IV 11/11/24 16:05 4 mg STAT ONE Administration Morphine Sulfate Confirm 11/11/24 16:21 Morphine Sulfate 4 Mg/Ml Injection Administered 11/11/24 16:22 Dose 4 mg .ROUTE .STK-MED ONE Morphine Sulfate 4 mg 11/11/24 17:47 11/12/24 01:21 Morphine Sulfate 4 Mg/Ml Injection IV 11/16/24 17:46 4 mg Q2H PRN PRN Administration SEVERE PAIN Morphine Sulfate 2 mg 11/12/24 14:48 11/14/24 03:38 Morphine Sulfate 2 Mg/Ml Inj IV 11/17/24 14:47 2 mg Q2H PRN PRN Administration SEVERE PAIN Morphine Sulfate 4 mg 11/12/24 14:49 11/13/24 11:51 Morphine Sulfate 4 Mg/Ml Injection IV 11/17/24 14:48 4 mg Q2H PRN PRN Administration SEVERE PAIN Non-Formulary Medication 80 mg 11/11/24 22:00 Atorvastatin Calcium [Atorvastatin Calcium] PO 12/11/24 21:59 HS AMBER Non-Formulary Medication 1 cap 11/11/24 22:00 11/11/24 22:05 Vit C/E/Zn/Coppr/Lutein/Zeaxan [Preservision Areds 2 Softgel] PO 12/11/24 21:59 Not Given BID AMBER Ondansetron HCl 4 mg 11/11/24 16:18 11/11/24 16:27 Ondansetron Hcl 4 Mg/2 Ml Vial IV 11/11/24 16:19 4 mg STAT ONE Administration Ondansetron HCl Confirm 11/11/24 16:20 Ondansetron Hcl 4 Mg/2 Ml Vial Administered 11/11/24 16:21 Dose 4 mg .ROUTE .STK-MED ONE Ondansetron HCl 4 mg 11/11/24 18:16 Ondansetron Hcl 4 Mg/2 Ml Vial IV 12/11/24 18:15 Q6H PRN PRN NAUSEA/VOMITING Ondansetron HCl Confirm 11/12/24 07:52 Ondansetron Hcl 4 Mg/2 Ml Vial Administered 11/12/24 07:53 Dose 4 mg .ROUTE .STK-MED ONE Phenylephrine HCl Confirm 11/12/24 07:52 Phenylephrine 10 Mg/Ml Vial Administered 11/12/24 07:53 Dose 10 mg .ROUTE .STK-MED ONE Prochlorperazine Edisylate 10 mg 11/11/24 18:20 11/11/24 18:22 Prochlorperazine Edisylate 10 Mg/2 Ml Vial IV 12/11/24 18:19 10 mg Q6H PRN PRN Administration NAUSEA/VOMITING Prochlorperazine Edisylate Confirm 11/11/24 18:21 Prochlorperazine Edisylate 10 Mg/2 Ml Vial Administered 11/11/24 18:22 Dose 10 mg .ROUTE .STK-MED ONE Promethazine HCl Confirm 11/14/24 00:09 Promethazine Hcl 25 Mg/Ml Vial Administered 11/14/24 00:10 Dose 25 mg .ROUTE .STK-MED ONE Propofol Confirm 11/12/24 07:01 Propofol 200 Mg/20 Ml Vial Administered 11/12/24 07:02 Dose 200 mg IV .STK-MED ONE Rocuronium [place] Confirm 11/12/24 07:52 Rocuronium [place] 50 Mg/5 Ml Vial Administered 11/12/24 07:53 Dose 50 mg IV .STK-MED ONE Ropivacaine Confirm 11/12/24 07:55 Ropivacaine Hcl 5 Mg/Ml 30ml Vial Administered 11/12/24 07:56 Dose 150 mg .ROUTE .STK-MED ONE Sugammadex Sodium Confirm 11/12/24 09:51 Sugammadex Sodium 200 Mg/2 Ml Vial Administered 11/12/24 09:52 Dose 200 mg IV .STK-MED ONE Vancomycin HCl Confirm 11/12/24 08:47 Vancomycin Hcl Inj 1 Gm Vial Administered 11/12/24 08:48 Dose 1 gm IV .STK-MED ONE Multi-Disciplinary Progress Notes: Multi-Disciplinary Progress Notes 11/15/24 18:35 Occupational Therapy Note by Jolene(L#[id number])Mariela MR. KELLEY STATES HE WAS JUST GETTING COMFORTABLE IN HIS BED AFTER BEING BACK IN IT FOR ALMOST AN HOUR AFTER HAVING A BUSY AM. HE AGREED FOR OTR TO PROVIDE EDUCATION REGARDING A.E. IN WHICH HE WAS INSTRUCTED IN USE OF SOCK AIDE, CARD FOLDER, LONG HANDLED SPONGE AND LJ SHOE HORN. HE ALSO RECEIVED EDUCATION AND REVIEW OF HIP PXS, AND RECOMMENDATIONS FOR OPTIMAL SAFETY WITH SEAT SURFACE HEIGHTS AND PROPER BODY MECHANICS WITH SIT TO/FROM SUPINE AND BED MOBILITY. WILL CONT TO TX NEXT DATE. Initialized on 11/15/24 18:35 - END OF NOTE 11/15/24 17:31 Radiology Note by ROMEL MARTINEZ TRANSTHORACIC ECHOCARDIOGRAM 11/15/2024: 1. Mildly dilated atria. Normal ventricular chamber sizes. 2. Mild concentric left ventricular hypertrophy. 3. Normal left ventricular systolic function without focal wall motion abnormlaities. Estimated EF 60-65%. 4. Unable to determine grade of diastolic dysfunction due to underlying atrial fibrillation. 5. Normal right ventricular systolic function. 6. Mildly dilated ascending aorta (3.7 cm), 7. Mild aortic sclerosis without stenosis. 8. Doppler: Mild mitral and pulmonic regurgitation. 9. Unable to estimate PA systolic pressure. 10. Unable to estimate right atrial pressure. 11. Trivial posterior pericardial effusion without echocardiographic evidence of tamponade. Romel Martinez MD [facility] Initialized on 11/15/24 17:31 - END OF NOTE 11/15/24 15:16 Physical Therapy Note by Nicolás (L [id number])Jill PT ATTEMPTED IN PM FOR ADDITIONAL MOBILITY. OT IN ROOM UPON PT ENTERING ROOM DEMONSTRATING ADAPTIVE EQUIPMENT. PATIENT REPORTS HE HAS BEEN VERY ACTIVE TODAY AND WANTS TO REST AT THIS TIME. PATIENT STATES HE IS GOING TO REHAB TOMORROW. Initialized on 11/15/24 15:16 - END OF NOTE 11/15/24 14:44 Case Management Note by Lyubov Trimble S/W PATIENT- HE CONTINUES TO PLAN TO TRANSITION TO [facility] FOR REHAB AT TIME OF DC. [facility] THEY HAVE RECEIVED AUTH. SHE WAS NOTIFIED WE ARE HOPEFUL FOR DC TOMORROW 11/16/24. SHE VERIFIED UNDERSTANDING. CLINICAL UPDATE EMAILED TO [facility] Initialized on 11/15/24 14:44 - END OF NOTE 11/15/24 08:05 Occupational Therapy Note by Iraj(L#[id number])Penny Late-Entry Occupational Therapy Treatment Note for 11/14/24 ([id number]) OTR spoke with nursing re: patient status and was cleared for treatment session. Patient sleeping in supine with O2 via nasal cannula on 2.0L. He was roused easily with verbal stimuli and agreeable to treatment session. He reports 3/10 RLE pain. OTR removed abduction pillow and facilitated supine>sit EOB with MOD A provided. Srinivasa presents with drowsiness and referred to walker as "chair" x3. He sat at EOB with SBA while talking with OTR, discussing his hobbies and home set up, and catching up as patient is known to this therapist. Srinivasa exhibited increased alterness and performed sit<>stand transfer with MIN A and UB support in standing using FWW. Srinivasa then performed functional mobility to chair using FWW and OTR provided mod cueing for safety and positioning in prep for sitting and Srinivasa silveira's difficulty controlling descent this date. OTR educated Srinivasa on hip precautions and provided him with written, illustrated handout for carryover of precautions. He verbalized understanding. He was seated in recliner with BLE elevated and pillow placed between legs. Call light within reach and nasal cannula and heart monitor in place at session end. Will continue to see patient through stay. OTR recommends Rehab stay to progress I/ADL independence and safety. Initialized on 11/15/24 08:05 - END OF NOTE Assessment/Plan (1) Closed right hip fracture Current Visit: Yes Status: Acute Qualifiers: Encounter type: initial encounter Qualified Code(s): S72.001A - Fracture of unspecified part of neck of right femur, initial encounter for closed fracture Assessment & Plan: Orthopedics consulted; fracture confirmed on imaging. -Surgery (ORIF) planned 11/12/24 -Preoperative labs (CBC, CMP, PT/INR) obtained and reviewed -CMP/CBC reviewed -Patient remains NPO in preparation for surgery; maintenance IVF initiated -Preoperative antibiotics administered (per protocol). -Pain managed with PRN morphine and Galien -Bryant catheter placed for anticipated immobility -SCDs)for DVT prophylaxis initiated. -Continue ice application to the affected hip for comfort and swelling control 11/13: -PODS#1- doing well, pain controlled -PT to evaluate patient today -Ortho note reviewed - agree with plan for ASA 81mg, WB as tolerated -CMP/CBC reviewed -continue pain management -IPPT -DC bryant catheter 11/14: -POD#2 -IV pain control discontinued - continue Galien -CBC reviewed noting WBC is modestly elevated at 11.2. Procalcitonin is mildly elevated at 0.219, though this is a nonspecific finding. The patient remains afebrile, and there are no clinical signs of infection at this time. X-rays ordered in coordination with Orthopedics show no acute findings-will hold empiric antibiotics for now -continue IPPT until dc to rehab 11/15: -PODs#3 -Pain controlled with oral pain meds -CBC now wnl -Ortho follow- note reviewed- agree with plan - imaging findings of a lucent oblique unicortical line near the distal tip of the femoral stem. A CT scan of the right hip has been ordered to evaluate for possible periprosthetic fracture. Should a fracture be confirmed, weightbearing restrictions may be implemented during the initial recovery phase, though this is not expected to delay transfer to the rehabilitation facility. Postoperative wound care to continue with current dressing in place until postoperative day 7, followed by daily dry dressing changes. Follow-up is arranged with orthopedics in two weeks. -Disposition planning is underway for discharge to a residential facility for rehabilitation, pending cardiology/ortho clearance. Code(s): S72.001A - FRACTURE OF UNSP PART OF NECK OF RIGHT FEMUR, INIT (2) Right hip pain Current Visit: Yes Status: Acute Assessment & Plan: - See plan above - Ortho consult in ER- awaiting recs - ICE pack - Bryant ordered in ER per ortho for immobilization - Morphine and norco PRN for pain control per Ortho recs - Narcan PRN - Protonix 11/14: -DC IV pain meds- continue norco PRN Code(s): M25.551 - PAIN IN RIGHT HIP (3) Left thigh pain Current Visit: Yes Status: Acute Assessment & Plan: -- + Left thigh bruise - Radiology results pending - Left hip/thigh bruising noted on exam; no fracture seen on initial imaging -Continue close monitoring for expanding hematoma or compartment syndrome signs (increasing pain, swelling, numbness, or neurovascular compromise) -Pain control -consider further imaging if swelling/pain persists 11/14: -Resolved Code(s): M79.652 - PAIN IN LEFT THIGH (4) History of colon cancer Current Visit: Yes Status: Acute Assessment & Plan: -No oncologic intervention needed during this admission -Maintain vigilance for delayed healing or other post-op complications in view of past cancer history Code(s): Z85.038 - PERSONAL HISTORY OF MALIGNANT NEOPLASM OF LARGE INTESTINE (5) Atrial fibrillation Current Visit: Yes Status: Chronic Assessment & Plan: -telemetry initiated for continuous monitoring -No evidence of rapid ventricular response (RVR) or decompensation currently -Continue home rate control medications -Monitor closely perioperatively given increased risk for perioperative arrhythmias 11/14: -Overnight event of AFIB RVR -CTA chest was negative for pulmonary embolism or other acute intrathoracic pathology -Continue cardiac monitoring; cardiology to advise on AFib management -Patient received metoprolol 5mg IV x 2 and cardizem 10mg x 2 with HR now in 100's-110's -Continue home medications pending cardiology eval 11/15: -Heart rate remains persistently elevated in the 130s. Cardiology was consulted and recommended obtaining an echo, increasing metoprolol to 75 mg twice daily, initiating furosemide, and continuing diltiazem 180 mg daily. The patient remains on 2L oxygen via nasal cannula. 11/16: -TRANSTHORACIC ECHOCARDIOGRAM 11/15/2024: 1. Mildly dilated atria. Normal ventricular chamber sizes. 2. Mild concentric left ventricular hypertrophy. 3. Normal left ventricular systolic function without focal wall motion abnormlaities. Estimated EF 60-65%. 4. Unable to determine grade of diastolic dysfunction due to underlying atrial fibrillation. 5. Normal right ventricular systolic function. 6. Mildly dilated ascending aorta (3.7 cm), 7. Mild aortic sclerosis without stenosis. 8. Doppler: Mild mitral and pulmonic regurgitation. 9. Unable to estimate PA systolic pressure. 10. Unable to estimate right atrial pressure. 11. Trivial posterior pericardial effusion without echocardiographic evidence of tamponade. Code(s): I48.91 - UNSPECIFIED ATRIAL FIBRILLATION (6) Hyperlipidemia Current Visit: No Status: Chronic Assessment & Plan: -continue statin Code(s): E78.5 - HYPERLIPIDEMIA, UNSPECIFIED (7) Leukocytosis Current Visit: Yes Status: Acute Assessment & Plan: -Most likely reactive 08/19 to fall- WBC on [id number]<10.5 - trend -UA with hematuria - otherwise clear -Received pre-op Cefazolin 11/13: -WBC reviewed at 10.2- continue to monitor 11/14: --CBC reviewed noting WBC is modestly elevated at 11.2. Procalcitonin is mildly elevated at 0.219, though this is a nonspecific finding. The patient remains afebrile, and there are no clinical signs of infection at this time. X-rays ordered in coordination with Orthopedics show no acute findings-will hold empiric antibiotics for now 11/15: -Resolved Code(s): D72.829 - ELEVATED WHITE BLOOD CELL COUNT, UNSPECIFIED (8) Hypocalcemia Current Visit: Yes Status: Acute Assessment & Plan: -resolved Code(s): E83.51 - HYPOCALCEMIA (9) Hypertension Current Visit: No Status: Chronic Assessment & Plan: -continue home meds VTE: aspirin/ scd PPI: Protonix Nesxt of KIN: Child- Romy Stevenson D/C plan: 2-3 days Code status: Full Code(s): S72.001A - FRACTURE OF UNSP PART OF NECK OF RIGHT FEMUR, INIT (2) Right hip pain Current Visit: Yes Status: Acute Code(s): M25.551 - PAIN IN RIGHT HIP (3) Left thigh pain Current Visit: Yes Status: Acute Code(s): M79.652 - PAIN IN LEFT THIGH (4) History of colon cancer Current Visit: Yes Status: Acute Code(s): Z85.038 - PERSONAL HISTORY OF MALIGNANT NEOPLASM OF LARGE INTESTINE (5) Atrial fibrillation Current Visit: Yes Status: Chronic Qualifiers: Atrial fibrillation type: unspecified chronic Qualified Code(s): I48.20 - Chronic atrial fibrillation, unspecified; I48.2 - Chronic atrial fibrillation Code(s): I48.91 - UNSPECIFIED ATRIAL FIBRILLATION (6) Hyperlipidemia Current Visit: No Status: Chronic Code(s): E78.5 - HYPERLIPIDEMIA, UNSPECIFIED (7) Leukocytosis Current Visit: Yes Status: Acute Code(s): D72.829 - ELEVATED WHITE BLOOD CELL COUNT, UNSPECIFIED (8) Hypocalcemia Current Visit: Yes Status: Acute Code(s): E83.51 - HYPOCALCEMIA (9) Hypertension Current Visit: No Status: Chronic Code(s): I10 - ESSENTIAL (PRIMARY) HYPERTENSION
[2024-11-16 11:19] VITALS: RESP 20
[2024-11-16 11:20] VITALS: BP 137/70; PULSE 95; TEMP 97.9; O2SAT 93
--- NOTE | 2024-11-16 13:58 | PCM.DS ---
Discharge Summary Date of Admission: 11/14/24 05:48 Date of Discharge: 11/16/24 Admitting Physician: STANFORD CRAVEN MD Consults: Consults on Case 11/11/24 17:56 Consult Ortho ROUTINE 11/14/24 10:55 Consult Cardiology ROUTINE Primary Care Provider: ELVIRA PAT Allergies Allergies doxycycline Allergy (Mild, Verified 11/11/24 17:47) dizzy and nasuea prochlorperazine [From Compazine] Allergy (Mild, Verified 11/11/24 19:26) Hives cefdinir Allergy (Verified 11/11/24 17:47) Hospital Summary - Hospital Course Hospital Course: Mr. Azul is a 79-year-old male with a medical history significant for hypertension, hyperlipidemia, atrial fibrillation, two prior myocardial infarctions under cardiology care, and remote colorectal cancer with liver metastases, who was admitted on 11/11/24 following a ground-level mechanical fall while performing yard work. He denied any preceding syncope or lightheadedness. Examination revealed ecchymosis over the left hip and tenderness to palpation; however, imaging confirmed a right femoral neck fracture. Orthopedic surgery was consulted, and the patient underwent right hip hemiarthroplasty on 11/12/24 without intraoperative complications. Postoperatively, he experienced appropriate pain control with oral analgesics and resumed weight-bearing as tolerated per orthopedic protocol. However, on postoperative day 2, he developed atrial fibrillation with rapid ventricular response, with heart rates peaking in the 140s. He was treated with intravenous metoprolol and diltiazem, resulting in partial rate control. Cardiology was consulted and recommended increasing his metoprolol to 75 mg BID, continuing diltiazem 180 mg daily, initiating furosemide, and obtaining an echocardiogram, which showed preserved ejection fraction (EF 6065%), mild left atrial dilation, and no significant valvular abnormalities. Patient was not able to tolerate increased dosing of metoprolol due to nausea which he stated he had experienced in the past. Cardiology was reconsulted and diltiazem was increased to 240mg daily dosing. Pain at the surgical site improved significantly by postoperative day 3, and the patient remained hemodynamically stable. A postoperative CT of the right hip was obtained due to a lucency seen near the femoral stem on X-ray, but was determined to be a nutrient vessel rather than a periprosthetic fracture. The patient remains weight-bearing as tolerated. Procalcitonin was mildly elevated at 0.219 with a transient leukocytosis; however, he remained afebrile with no clinical signs of infection, and antibiotics were not initiated. Due to ongoing need for physical therapy, the patient is being discharged to a correction facility for continued rehabilitation and medical management. Latest Assessment & Plan I spent 35 minutes [id number] with the patient on the day of discharge performing discharge exam, discussing hospital stay and discharge instructions with patient and caregivers, preparation of discharge records, prescriptions & referral forms and addressing any questions/concerns the patient had as documented above. - Vitals & Intake/Output Vital Signs: Vital Signs Temperature 97.9 F 11/16/24 11:19 Pulse Rate 95 H 11/16/24 11:19 Respiratory Rate 20 11/16/24 11:19 Blood Pressure 137/70 11/16/24 11:19 O2 Sat by Pulse Oximetry 93 L 11/16/24 11:19 Intake & Output: Intake & Output 11/14/24 11/15/24 11/16/24 11/17/24 11:59 11:59 11:59 11:59 Intake Total 680 580 720 Output Total 700 1225 1720 Balance -20 -645 -1000 - Lab Result Diagrams: 11/16/24 04:56 11/16/24 04:56 Lab Results-Last 24 Hrs: Lab Results-Last 24 Hours 11/16/24 11/16/24 Range/Units 04:56 04:56 WBC 7.0 (4.23-9.07) x10^3/uL RBC 3.08 L (4.63-6.08) x10^6/uL Hgb 9.6 L (13.7-17.5) g/dL Hct 28.7 L (40.1-51.0) % MCV 93.2 H (79.0-92.2) fL MCH 31.2 (25.7-32.2) pg MCHC 33.4 (32.3-36.5) g/dL RDW 14.0 (11.6-14.4) % Plt Count 181 (163-337) x10^3/uL MPV 10.3 (9.4-12.4) fL Gran % 62.1 (34.0-67.9) % Immature Gran % (Auto) 0.3 (0.001-0.429) % Nucleat RBC Rel Count 0.0 (0.00-0.2) % Eos # (Auto) 0.77 H (0.04-0.54) x10^3/uL Immature Gran # (Auto) 0.02 (0.001-0.031) x10^3u/L Absolute Lymphs (auto) 1.25 L (1.32-3.57) x10^3/uL Absolute Monos (auto) 0.54 (0.30-0.82) x10^3/uL Absolute Nucleated RBC 0.00 (0.00-0.012) x10^3u/L Lymphocytes % 18.0 L (21.8-53.1) % Monocytes % 7.8 (5.3-12.2) % Eosinophils % 11.1 H (0.8-7.0) % Basophils % 0.7 (0.2-1.2) % Absolute Granulocytes 4.33 (1.78-5.38) x10^3/uL Basophils # 0.05 (0.01-0.08) x10^3/uL Sodium 137 (135-145) mmol/L Potassium 3.8 (3.5-5.1) mmol/L Chloride 100 (98-107) mmol/L Carbon Dioxide 30 (22-30) mmol/L Anion Gap 10.5 (5-15) MEQ/L BUN 23 H (9-20) mg/dL Creatinine 0.84 (0.66-1.25) mg/dL Estimated GFR 88.7 ML/MIN Glucose 121 H (74-106) mg/dL Calcium 8.4 (8.4-10.2) mg/dL Total Bilirubin 1.00 (0.2-1.3) mg/dL AST 67 H (17-59) U/L ALT 35 (0-50) U/L Alkaline Phosphatase 90 (38-126) U/L Serum Total Protein 5.4 L (6.3-8.2) g/dL Albumin 2.8 L (3.5-5.0) g/dL Micro Results-Entire Visit: Microbiology 11/11/24 18:15 Urine Culture - Final Urine, Catheterized NO GROWTH - Radiology Exams Ordered Rad Exams-Entire Visit: Radiology Procedures Category Date Time Status ECHO W/2D AND DOPPLER [US] Routine Exams 11/15/24 11:10 Taken LOWER EXTREMITY WO CONTRAST [CT] Stat Exams 11/15/24 10:34 Completed - Procedures and Test Procedures and Tests throughout Hospitalization: Therapy Orders & Screens 11/11/24 17:52 EKG ROUTINE Comment: Diagnosis: right hip pain/ fall 11/12/24 11:57 PT Eval & Treat (MD Order) ONCE Reason for Eval:: POST OP R HIP HEMIARTHROPLASTY Diagnosis: Right Hip Fracture OT Eval and Treat (MD Order) ONCE Comment: Physician Instructions: Reason For Exam: POST OP R HIP HEMIARTHROPLASTY Diagnosis: Right Hip Fracture 11/13/24 10:47 Oxygen NASAL CANNULA 2 lpm Comment: Diagnosis: Right Hip Fracture 11/13/24 21:23 EKG ROUTINE Comment: Diagnosis: Right Hip Fracture EKG Reason: Other 11/14/24 08:17 Incentive Spirometry UD Comment: Diagnosis: Right Hip Fracture Discharge Exam General Appearance: no apparent distress Neurologic Exam: alert, oriented x 3, cooperative Eye Exam: PERRL Ears, Nose, Throat Exam: normal ENT inspection Neck Exam: normal inspection Respiratory Exam: normal breath sounds, lungs clear Cardiovascular Exam: irregular Gastrointestinal/Abdomen Exam: soft, normal bowel sounds Male Genitalia Exam: deferred Rectal Exam: deferred Back Exam: normal inspection Wound Assessment: Skin/Wound Assessment Wound/Incision Assessment Start: 11/11/24 19:12 Text: Status: Active Freq: Q4H Protocol: Document 11/16/24 11:19 AR (Rec: 11/16/24 11:19 AR [id number]) Wound/Incision Assessment right thigh Wound Assessment Shift Assessment Wound Type Incision Wound Stage Non Pressure Wound Dressing Status Dry & Intact Drainage Amount None Drainage Odor None/Absent Primary Dressing Aquacel dressing Comment Aquacel dressing CDI - ROMEL wound Wound Photo Photo Taken No Final Diagnosis/Problem List - Final Discharge Diagnosis/Problem (1) Closed right hip fracture Current Visit: Yes Status: Acute Assessment & Plan: -Weight-bearing as tolerated (WBAT) on right lower extremity. -Continue physical therapy at to improve strength, balance, and ambulation. -Follow postoperative hip precautions as instructed by orthopedics. -Wound care: Keep current surgical dressing in place until postoperative day 7, then transition to daily dry dressing changes. -Follow up with orthopedic surgery in 2 weeks for clinical and radiographic evaluation. -Monitor for signs of infection, hardware failure, or periprosthetic fracture Code(s): S72.001A - FRACTURE OF UNSP PART OF NECK OF RIGHT FEMUR, INIT (2) Right hip pain Current Visit: Yes Status: Acute Assessment & Plan: -see above Code(s): M25.551 - PAIN IN RIGHT HIP (3) Left thigh pain Current Visit: Yes Status: Acute Assessment & Plan: -see above Code(s): M79.652 - PAIN IN LEFT THIGH (4) History of colon cancer Current Visit: Yes Status: Acute Assessment & Plan: -No oncologic intervention needed during this admission. -Continue age-appropriate surveillance and follow-up with oncology as previously scheduled. -Maintain vigilance for delayed healing or immunosuppressive effects related to cancer history. Code(s): Z85.038 - PERSONAL HISTORY OF MALIGNANT NEOPLASM OF LARGE INTESTINE (5) Atrial fibrillation Current Visit: Yes Status: Chronic Assessment & Plan: -Continue rate control regimen per cardiology:Metoprolol tartrate 75 mg twice daily/Diltiazem extended-release 180 mg daily/Furosemide 20 mg daily (monitor volume status and electrolytes) -Transthoracic echocardiogram showed preserved ejection fraction, no changes required for anticoagulation unless reassessed. -Arrange outpatient cardiology follow-up. Code(s): I48.91 - UNSPECIFIED ATRIAL FIBRILLATION (6) Hyperlipidemia Current Visit: No Status: Chronic Assessment & Plan: -continue statin Code(s): E78.5 - HYPERLIPIDEMIA, UNSPECIFIED (7) Leukocytosis Current Visit: Yes Status: Acute Assessment & Plan: -resolved Code(s): D72.829 - ELEVATED WHITE BLOOD CELL COUNT, UNSPECIFIED (8) Hypocalcemia Current Visit: Yes Status: Acute Assessment & Plan: -No ongoing supplementation needed at discharge. -Reassess calcium levels only if symptoms of hypocalcemia (e.g., paresthesias, tetany) recur or diuretics are intensified. -Maintain adequate dietary calcium intake Code(s): E83.51 - HYPOCALCEMIA (9) Hypertension Current Visit: No Status: Chronic Assessment & Plan: -Resume home antihypertensive regimen. -Monitor blood pressure at SNF and adjust medications as needed based on vitals and volume status. -Reinforce low-sodium diet and hydration as tolerated. Code(s): I10 - ESSENTIAL (PRIMARY) HYPERTENSION - Discharge Discharge Date: 11/16/24 Disposition: DC TO ANY "OTHER" SKILLED NURSING Condition: Stable Prescriptions: New Hydrocodone/Acetaminophen [Hydrocodone-Acetamin 5-325 mg] 1 tab PO Q4HPRN PRN 3 Days #18 tablet MDD 6 PRN Reason: Pain Naloxone HCl 0.4 mg/ml [Narcan 0.4 MG/ML] 0.4 mg IV PRN PRN PRN Reason: Respiratory Depression Promethazine HCl 25 mg Amp [Phenergan 25 MG INJ] 12.5 mg IV Q4H PRN PRN PRN Reason: UNCONTROLLED NAUSEA Continue Multivitamin [Multi-Vitamin Daily] 1 tab PO DAILY Fenofibrate 145 mg PO DAILY Atorvastatin Calcium 80 mg PO HS Aspirin EC 81 mg [Ecotrin 81 mg] 81 mg PO DAILY Ubidecarenone [Co Q-10] 100 mg PO DAILY Metoprolol Succinate 50 mg [Toprol Xl 50 MG] 50 mg PO BID Ezetimibe 10 mg [Zetia 10 MG] 10 mg PO DAILY Vit C/E/Zn/Coppr/Lutein/Zeaxan [Preservision Areds 2 Softgel] 1 cap PO BID Changed dilTIAZem HCL [Cartia Xt] 240 mg PO DAILY #0 Additional Instructions: [facility] Rehab Orders: Keep Aquacel drsg dry and intact and change drsg 7 days post-op (November 19), then daily dry drsg changes PT Eval & Treat OT Eval & Treat WBAT RLE with walker Regular diet 2L NC and wean off Continue DVT Prophylactic ASA twice daily See attached medication list for med orders Follow up with: LARISA JOHNSON NP [NON-STAFF PHY W/O PRIVILEGES, UNKNOWN] - 11/26/24 10:30 am
--- NOTE | 2024-11-16 15:24 | PCM.NOTE ---
Date and Time: 11/16/24 1522 Denies shortness of breath. Occasional palpitations only when VR is higher. Has been aware x years. Does not want to take metoprolol 75 mg twice daily as he previously was bothered by light-headedness and nausea on this dose. He has been taking metoprolol 50 mg twice daily and diltiazem-CD 180 mg daily. He has never taken a higher dose of diltiazem in the past. He tripped over something while using the [employer] eater. He believes it was the water meter. He denies any loss of consciousness to cause the fall leading to hip fracture. Exam General:: no acute distress HEENT: No JVD Cardiovascular: s1 s2, no murmurs,rubs,gallops, irregular Respiratory:: clear to auscultation wendy, No wheezes O2 Delivery: Nasal Cannula (2 LITERS) Abdominal: active bowel sounds x 4 Extremity Exam: No edema Neurologic: normal mood/affect, other (Grossly nonfocal) Objective Data Vital Signs: Vital Signs - 24 hr Temp Pulse Resp BP Pulse Ox 11/16/24 11:19 97.9 F 95 H 20 137/70 93 L 11/16/24 11:00 20 11/16/24 07:14 98.4 F 103 H 22 126/65 96 11/16/24 07:00 18 11/16/24 04:00 97.9 F 95 H 16 141/65 95 11/16/24 00:19 98.8 F 103 H 17 149/72 97 11/15/24 23:00 16 11/15/24 20:19 97.9 F 84 16 124/58 96 11/15/24 19:00 20 11/15/24 16:00 98.8 F 97 H 22 110/55 96 Pain Assessment - Last Documented Pain Intensity 0 Pain Scale Used 0-10 Pain Scale Per nursing, ventricular response primarily 90s to 110s. If he walks VR can increase to 115 bpm. Occurs occasionally at rest. Intake and Output: Intake & Output 11/14/24 11/15/24 11/16/24 11/17/24 11:59 11:59 11:59 11:59 Intake Total 680 580 720 120 Output Total 700 1225 1720 200 Balance -20 -645 -1000 -80 Weight 74.8 kg LAB: I have reviewed the Labs in [facility]. Lab Results: Lab Results-Last 24 Hours 11/16/24 11/16/24 Range/Units 04:56 04:56 WBC 7.0 (4.23-9.07) x10^3/uL RBC 3.08 L (4.63-6.08) x10^6/uL Hgb 9.6 L (13.7-17.5) g/dL Hct 28.7 L (40.1-51.0) % MCV 93.2 H (79.0-92.2) fL MCH 31.2 (25.7-32.2) pg MCHC 33.4 (32.3-36.5) g/dL RDW 14.0 (11.6-14.4) % Plt Count 181 (163-337) x10^3/uL MPV 10.3 (9.4-12.4) fL Gran % 62.1 (34.0-67.9) % Immature Gran % (Auto) 0.3 (0.001-0.429) % Nucleat RBC Rel Count 0.0 (0.00-0.2) % Eos # (Auto) 0.77 H (0.04-0.54) x10^3/uL Immature Gran # (Auto) 0.02 (0.001-0.031) x10^3u/L Absolute Lymphs (auto) 1.25 L (1.32-3.57) x10^3/uL Absolute Monos (auto) 0.54 (0.30-0.82) x10^3/uL Absolute Nucleated RBC 0.00 (0.00-0.012) x10^3u/L Lymphocytes % 18.0 L (21.8-53.1) % Monocytes % 7.8 (5.3-12.2) % Eosinophils % 11.1 H (0.8-7.0) % Basophils % 0.7 (0.2-1.2) % Absolute Granulocytes 4.33 (1.78-5.38) x10^3/uL Basophils # 0.05 (0.01-0.08) x10^3/uL Sodium 137 (135-145) mmol/L Potassium 3.8 (3.5-5.1) mmol/L Chloride 100 (98-107) mmol/L Carbon Dioxide 30 (22-30) mmol/L Anion Gap 10.5 (5-15) MEQ/L BUN 23 H (9-20) mg/dL Creatinine 0.84 (0.66-1.25) mg/dL Estimated GFR 88.7 ML/MIN Glucose 121 H (74-106) mg/dL Calcium 8.4 (8.4-10.2) mg/dL Total Bilirubin 1.00 (0.2-1.3) mg/dL AST 67 H (17-59) U/L ALT 35 (0-50) U/L Alkaline Phosphatase 90 (38-126) U/L Serum Total Protein 5.4 L (6.3-8.2) g/dL Albumin 2.8 L (3.5-5.0) g/dL Radiology Exams: Radiology Procedures Category Date Time Status ECHO W/2D AND DOPPLER [US] Routine Exams 11/15/24 11:10 Taken LOWER EXTREMITY WO CONTRAST [CT] Stat Exams 11/15/24 10:34 Completed TRANSTHORACIC ECHOCARDIOGRAM 11/15/2024: 1. Mildly dilated atria. Normal ventricular chamber sizes. 2. Mild concentric left ventricular hypertrophy. 3. Normal left ventricular systolic function without focal wall motion abnormalities. Estimated EF 60-65%. 4. Unable to determine grade of diastolic dysfunction due to underlying atrial fibrillation. 5. Normal right ventricular systolic function. 6. Mildly dilated ascending aorta (3.7 cm), 7. Mild aortic sclerosis without stenosis. 8. Doppler: Mild mitral and pulmonic regurgitation. 9. Unable to estimate PA systolic pressure. 10. Unable to estimate right atrial pressure. - ECHO Last ECHO: See radiology section Echo: interpreted by me Multi-Disciplinary Progress Notes: Multi-Disciplinary Progress Notes 11/16/24 13:16 Case Management Note by Abimbola Bonilla STILL WAITING FOR CARDIOLOGY. PLAN IS STILL TO GO TO [facility] FOR REHAB. TRANSPORT SET UP FOR 4PM IF PATIENT IS DC'D TODAY. Initialized on 11/16/24 13:16 - END OF NOTE 11/15/24 18:35 Occupational Therapy Note by Jolene(L#[id number])Mariela MR. KELLEY STATES HE WAS JUST GETTING COMFORTABLE IN HIS BED AFTER BEING BACK IN IT FOR ALMOST AN HOUR AFTER HAVING A BUSY AM. HE AGREED FOR OTR TO PROVIDE EDUCATION REGARDING A.E. IN WHICH HE WAS INSTRUCTED IN USE OF SOCK AIDE, BLADE FILER, LONG HANDLED SPONGE AND LJ SHOE HORN. HE ALSO RECEIVED EDUCATION AND REVIEW OF HIP PXS, AND RECOMMENDATIONS FOR OPTIMAL SAFETY WITH SEAT SURFACE HEIGHTS AND PROPER BODY MECHANICS WITH SIT TO/FROM SUPINE AND BED MOBILITY. WILL CONT TO TX NEXT DATE. Initialized on 11/15/24 18:35 - END OF NOTE 11/15/24 17:31 Radiology Note by ROMEL MARTINEZ TRANSTHORACIC ECHOCARDIOGRAM 11/15/2024: 1. Mildly dilated atria. Normal ventricular chamber sizes. 2. Mild concentric left ventricular hypertrophy. 3. Normal left ventricular systolic function without focal wall motion abnormlaities. Estimated EF 60-65%. 4. Unable to determine grade of diastolic dysfunction due to underlying atrial fibrillation. 5. Normal right ventricular systolic function. 6. Mildly dilated ascending aorta (3.7 cm), 7. Mild aortic sclerosis without stenosis. 8. Doppler: Mild mitral and pulmonic regurgitation. 9. Unable to estimate PA systolic pressure. 10. Unable to estimate right atrial pressure. 11. Trivial posterior pericardial effusion without echocardiographic evidence of tamponade. Romel Martinez MD [facility] Initialized on 11/15/24 17:31 - END OF NOTE Assessment & Plan (1) Permanent atrial fibrillation Current Visit: No Status: Chronic Assessment & Plan: VR occasionally rapid especially with activity. Unable to tolerate higher doses of metoprolol. Will give imediate release diltiazem 60 mg by mouth now. Increase diltiazem CD to 240 mg starting tomorrow. Code(s): I48.21 - PERMANENT ATRIAL FIBRILLATION (2) Respiratory failure with hypoxia Current Visit: Yes Status: Acute Assessment & Plan: Echocardiogram revealed mild concentric LVH with normal LV systolic function with an estimated EF 60-65%. Unable to assess grade of diastolic dysfunction or estimate right atrial pressure. No obvious cardiac cause. Code(s): J96.91 - RESPIRATORY FAILURE, UNSPECIFIED WITH HYPOXIA (3) Atherosclerosis of coronary artery without angina pectoris Current Visit: No Status: Chronic Assessment & Plan: [place] class 0. Continue current medical therapy. Code(s): I25.10 - ATHSCL HEART DISEASE OF [place] CORONARY ARTERY W/O ANG PCTRS - Encounter Encounter: "The entirety of this encounter was performed via Telemedicine using audio and visual " Permission granted by patient for this type of encounter. OK to transfer to rehab facility from the cardiac standpoint. Case discussed with Luz Elizondo NP. Romel Martinez MD [facility] [phone]
[2024-11-16] MEDS: Cardizem 30 MG PO ONE (15:56)
== END 2024-11-16 16:03 | DRG 522 ==
LOC: ED 15:10 → MED SURG 17:38 → OBSVTOIN 11-14 05:48
PROVIDERS: ADMIT Internal Medicine; ATTEND Internal Medicine
PROC: 0SRR0JZ Replacement of Right Hip Joint, Femoral Surface with Synthetic Substitute, Open Approach (ICD-10-PCS; principal; 2024-11-12)
DX: S72.001A Fracture of unspecified part of neck of right femur, initial encounter for closed fracture (principal); I48.20 Chronic atrial fibrillation, unspecified; M25.551 Pain in right hip; M79.652 Pain in left thigh; Z85.038 Personal history of other malignant neoplasm of large intestine; E78.5 Hyperlipidemia, unspecified; D72.829 Elevated white blood cell count, unspecified; E83.51 Hypocalcemia; I10 Essential (primary) hypertension; W19.XXXA Unspecified fall, initial encounter; I25.10 Atherosclerotic heart disease of native coronary artery without angina pectoris; I25.2 Old myocardial infarction; Z79.899 Other long term (current) drug therapy
CPT/HCPCS: 27236; 36415; 71260; 73502; 73521; 73552; 73700; 76937; 80053; 81001; 82248; 83605; 83880; 84145; 84484; 85025; 85027; 85610; 85652; 85730; 86140; 86850; 86900; 86901; 87086; 93005; 93268; 93306; 94760; 94762; 96374; 97110; 97161; 97166; 97530; 97535; 99223; 99231; 99285; C1776; G0378; Q3014; 64450; 99100; J0690; J1100; J1200; J1938; J2270; J2371; J2405; J2550; J2704; J2795; J3010; J3370; A9270-GY